=== PATIENT | female | born 1955 | race Caucasian/White ===

== ENCOUNTER 2021-06-01 08:17 | Emergency (ER) | payer OTHER, SELFPAY ==
[2021-06-01 08:27] VITALS: BP 150/61; PULSE 72; RESP 16; TEMP 37; O2SAT 97
--- NOTE | 2021-06-01 08:28 | ED.URI ---
HPI - URI/Sore Throat General Chief Complaint: Upper Respiratory Infection Stated Complaint: CHILLS/HEADACHE Time Seen by Provider: 06/01/21 08:28 Source: patient and RN notes reviewed Mode of arrival: ambulatory Limitations: no limitations History of Present Illness HPI Narrative: 65-year-old female presents to the [facility] with complaints of chills, fatigue, runny nose, for the last one and half days. Has tried Advil and regular aspirin with no relief. Patient states that she is Covid vaccinated, last vaccine April 2021 Denies chest pain, shortness of breath. No abdominal pain. Is eating and drinking without issue. Related Data Home Medications Medication Instructions Recorded Confirmed albuterol sulfate 2 inh INHALATION DIRECTED 06/01/21 06/01/21 budesonide-formoterol [Symbicort] 2 inh INHALATION DAILY 06/01/21 06/01/21 Allergies Allergy/AdvReac Type Severity Reaction Status Date / Time banana Allergy Severe ANAPHALXIS Verified 06/18/17 13:10 Penicillins Allergy Intermediate Verified 01/24/17 13:09 Review of Systems Review of Systems: All systems reviewed & are unremarkable except as noted in HPI and below Constitutional: Constitutional: Reports as per HPI, Reports chills, Reports fatigue, Denies fever(s) and Reports weakness Eyes: Eyes: Reports no additional eye complaints ENT: Reports as per HPI, Denies dizziness, Reports nasal congestion and Denies sore throat Cardiovascular: Cardiovascular: Reports no additional cardiovascular complaints and Denies chest pain Respiratory: Respiratory: Reports no additional respiratory complaints, Denies cough and Denies dyspnea Gastrointestinal: Gastrointestinal: Reports no additional gastrointestinal complaints, Denies abdominal pain, Denies diarrhea, Denies nausea and Denies vomiting Musculoskeletal: Musculoskeletal: Reports no additional musculoskeletal complaints Integumentary/Breasts: Skin/Breast: Reports system reviewed and no additional complaints, except as docu, Denies pruritus, Denies erythema and Denies rash Neurologic: Reports system reviewed and no additional complaints, except as documented, Denies vertigo, Denies headache(s), Denies focal weakness and Denies numbness Psychiatric: Psychiatric: Reports no additional psychiatric complaints Allergic/Immunologic: Allergic/Immunologic: Reports no additional allergic/immunologic complaints, Denies lip swelling, Denies throat swelling, Denies tongue swelling and Denies wheezing [facility] Past Medical History Medical History (Updated 06/01/21 @ 09:06 by Lissette Sena) Thyroid disease Surgical History Surgical History (Updated 06/01/21 @ 08:38 by Lissette Sena) H/O thyroidectomy Family History Family History (Updated 02/28/17 @ 14:57 by DOCTOR UNKNOWN) Other Diabetes mellitus Family history of blood dyscrasia Family history of coronary artery disease Family history of malignant neoplasm Social History Social History Smoking status: Current every day smoker Comments At the time of my signature, I reviewed and agree with the nursing past medical, surgical, social, and family history. There is no relevant family history pertinent to the patient complaint. Exam Const: General: no acute distress, alert and ill appearing acutely (mildly) Nutritional Appearance: obese Orientation/consciousness: patient oriented x3 HENMT: Head: normal to inspection Ears: hearing grossly normal bilaterally, external ears normal, TM's normal bilaterally and EAC's normal General nose exam: Abnormal mucous membranes and turbinates present boggy bilateral and Nasal discharge present clear Face and sinus: normal facial exam and sinuses tender Mouth: Yes Normal oral and palatal mucosa present Throat: uvula midline and postnasal drainage Eyes: Conjunctivae: conjunctivae normal Pupils: Equal, round and reactive pupils present Neck: Neck: normal visual inspection, no lymphadenopathy and no meningeal signs
[2021-06-02 17:52] LABS: SARS-CoV-2 RNA PCR Negative
== END 2021-06-01 09:08 | disposition home or self-care (01) ==
PROVIDERS: Emergency Provider Nurse Practitioner; PCP Family Medicine
DX: B34.9 Viral infection, unspecified (principal); Z20.822 Contact with and (suspected) exposure to COVID-19; E78.00 Pure hypercholesterolemia, unspecified; I10 Essential (primary) hypertension; J44.9 Chronic obstructive pulmonary disease, unspecified; M19.90 Unspecified osteoarthritis, unspecified site; E11.9 Type 2 diabetes mellitus without complications; E03.9 Hypothyroidism, unspecified
CPT/HCPCS: 87804; 99213; C9803; G0463; U0003; U0005

== ENCOUNTER 2021-06-13 12:19 | Emergency (ER) | payer OTHER, SELFPAY ==
--- NOTE | ~2021-06-13 | CT_ITS ---
EXAMINATION: CT abdomen pelvis w con EXAM DATE: 06/13/2021 13:52 INDICATION: Diarrhea, abdominal pain, hx of family colon cancer. TECHNIQUE: Spiral CT of the abdomen and pelvis was performed following intravenous injection of 100 m L Omnipaque 350. Axial, coronal and sagittal images of the abdomen and pelvis were reviewed. The do se-length product (DLP) for this examination was 1180.22 mGy-cm. The exposure was tailored according to patient size (auto mA exposure control), and iterative reconstruction (ASIR) was used as addition al dose reduction technique. Comparison is made to prior examination from 01/30/2018. FINDINGS: There is hepatic steatosis without suspicious focal lesion identified. There is bilateral a drenal hyperplasia. Spleen, pancreas are unremarkable. Gallbladder is unremarkable. No biliary obst ruction. Portal and splenic veins are patent. Kidneys enhance symmetrically. There is no hydroneph rosis. The uterus is anteverted and morphologically normal. The bladder is unremarkable. There i s no retroperitoneal or pelvic lymphadenopathy. There is mild to moderate scattered arterioscleroti c disease. The appendix is normal. The stomach and small bowel are unremarkable. Mild edematous colonic wall, appearance suspicious for colitis. There is mild sigmoid colonic diverticulosis. There is no adjacen t inflammatory change to suggest diverticulitis. No free intraperitoneal gas. The heart is normal in size. There are no pericardial or pleural effusions. The lung bases are unremarkable. There are no osteoblastic or osteolytic lesions identified. Bilateral hip, femoral head serpiginous sclerosis, avascular necrosis without subchondral collapse. Advanced lower lumbar facet arthropathy. IMPRESSION: 1. Probable pancolitis. 2. Hepatic steatosis. 3. Adrenal hyperplasia. 4. Mild colonic diverticulosis. 5. Hip avascular necrosis. Reviewed, dictated and finalized at location A.
--- NOTE | 2021-06-13 12:40 | ED.GENADULT ---
HPI - General Adult General Chief complaint: Nausea/Vomiting/Diarrhea Stated complaint: lost control of bowels Time Seen by Provider: 06/13/21 12:39 Source: patient Mode of arrival: ambulatory Limitations: no limitations History of Present Illness HPI narrative: Patient is a 66-year-old female with a history of COPD, arthritis, hypothyroidism who presents for evaluation of episode of diarrhea and abdominal cramping. Patient states that she was at work this morning when she experienced some abdominal cramping and then had a large volume stool which was loose in nature. No blood present. No mucus. Patient states that she was barely able to make it to the restroom before having the bowel movement. Patient denies any current pain. She reports mild lightheadedness without dizziness. No chest pain or shortness of breath. No palpitations. Patient denies any current abdominal pain. No nausea or vomiting. No recent food indiscretions. No recent sick contacts. Patient is concerned that she may have colon cancer. She states that both parents from colon cancer after not having any typical symptoms. She denies history of cancer. She denies weight loss or night sweats. She denies constipation. Related Data Home Medications Medication Instructions Recorded Confirmed albuterol sulfate 2 inh INHALATION DIRECTED 06/01/21 06/01/21 budesonide-formoterol [Symbicort] 2 inh INHALATION DAILY 06/01/21 06/01/21 Allergies Allergy/AdvReac Type Severity Reaction Status Date / Time banana Allergy Severe ANAPHALXIS Verified 06/13/21 12:46 Penicillins Allergy Intermediate Anaphylaxis Verified 06/13/21 12:46 Review of Systems Review of Systems: CONSTITUTIONAL: Denies fever, chills, or sweats. EYES: Denies visual changes, redness, or discharge. ENT: Denies rhinorrhea, congestion, sore throat, or otalgia. CARDIOVASCULAR: Denies chest pain, palpitations, or edema. RESPIRATORY: Denies cough or dyspnea. GASTROINTESTINAL: Denies current abdominal pain, reports diarrhea, denies nausea or vomiting GENITOURINARY: Denies dysuria or hematuria. SKIN: Denies rash or itching. MUSCULOSKELETAL: Denies back pain, joint pain, or myalgia. NEUROLOGIC: Denies headache, numbness, or weakness. [facility] Past Medical History Medical History Thyroid disease Surgical History Surgical History H/O thyroidectomy Family History Family History Other Diabetes mellitus Family history of blood dyscrasia Family history of coronary artery disease Family history of malignant neoplasm Social History Social History Smoking status: Current every day smoker Exam Narrative: GENERAL: Awake, alert, conversant HEAD: Normocephalic, atraumatic. EYES: PERRLA and EOMI. ENT: Nares clear, no rhinorrhea or epistaxis. Mucous membranes moist. NECK: Supple. CHEST: No respiratory distress, breathing even and non labored HEART: Regular rate, sinus rhythm ABDOMEN:Non distended, non tender, no guarding, nonrigid EXTREMITIES: Normal range of motion. No edema. SKIN: Warm, dry, no rash. NEURO:No focal deficits. Alert and oriented x3 Course Vital Signs Vital signs: Vital Signs Pulse Rate 84 06/13/21 12:41 Respiratory Rate 16 06/13/21 12:41 Blood Pressure 150/83 H 06/13/21 12:41 Pulse Oximetry 97 06/13/21 12:41 Pulse Rate 64 06/13/21 13:57 Respiratory Rate 16 06/13/21 13:57 Blood Pressure 149/81 H 06/13/21 13:57 Pulse Oximetry 97 06/13/21 13:57 Medical Decision Making MDM Narrative Medical decision making narrative: Patient presenting for evaluation of abdominal cramping which has resolved at the time of assessment as well as diarrhea. At the time of assessment, vital signs are stable. She is mildly hypertensive. A
[2021-06-13 12:41] VITALS: BP 150/83; PULSE 84; RESP 16; O2SAT 97
[2021-06-13] MEDS: SODIUM CHLORIDE 0.9% IV 1,000 ML 999 ML IV CONT (13:13)
[2021-06-13 13:15] LABS: Basophils Absolute Auto 0.1 K/mm3 (0.0-0.1); Basophils Percent Auto 0.6 % (0.2-1.2); Eosinophils Absolute Auto 0.2 K/mm3 (0-0.3); Eosinophils Percent Auto 1.4 % (0-4.4); Hematocrit 49.3 % (37.0-47.0); Hemoglobin 15.9 g/dL (12.0-15.0); Immature Granulocyte Absolute 0.03 K/mm3 (0.00-0.031); Immature Granulocyte Percent A 0.3 % (0-0.5); Lymphocytes Absolute Auto 3.66 K/mm3 (0.9-3.2); Lymphocytes Percent Auto 32.6 % (18.3-44.2); Mean Corpuscular HGB Conc 32.3 g/dl (32-36); Mean Corpuscular Hemoglobin 31.3 pg (26-34); Monocytes Absolute Auto 0.9 K/mm3 (0.1-0.6); Monocytes Percent Auto 8.4 % (2.6-8.5); Neutrophils Absolute Auto 6.4 K/mm3 (1.3-6.7); Neutrophils Percent Auto 56.7 % (45.5-73.1); Platelet Count Result 275 k/mm3 (150-375); Red Blood Count 5.08 M/mm3 (4.2-5.4); Red Cell Distribution Width 15.8 % (11.5-14.5); White Blood Count 11.2 K/mm3 (4.5-10.0)
[2021-06-13 13:32] LABS: Alanine Aminotransferase 13 U/L (4-35); Albumin Level 4.1 g/dL (3.5-5.1); Alkaline Phosphatase 157 U/L (38-126); Anion Gap 6 mmol/L (8-16); Aspartate Amino Transferase 23 U/L (14-36); Bilirubin,Total 0.5 mg/dL (0.2-1.3); Blood Urea Nitrogen 10 mg/dL (7-17); Calcium 8.9 mg/dL (8.4-10.2); Carbon Dioxide 26 mmol/L (22-30); Chloride 106 mmol/L (98-107); Estimated Glomerular Filt Rate > 60; Glucose 82 mg/dL (65-110); Lipase 58 U/L (23-300); Potassium 3.8 mmol/L (3.4-5.0); Sodium 138 mmol/L (137-145)
[2021-06-13 13:57] VITALS: BP 149/81; PULSE 64; RESP 16; O2SAT 97
[2021-06-13 15:24] VITALS: BP 133/86; PULSE 88; RESP 16; O2SAT 100
== END 2021-06-13 15:25 | disposition home or self-care (01) ==
PROVIDERS: Emergency Provider Emergency Medicine; PCP Family Medicine
DX: K51.00 Ulcerative (chronic) pancolitis without complications (principal); K57.30 Diverticulosis of large intestine without perforation or abscess without bleeding; J44.9 Chronic obstructive pulmonary disease, unspecified; M19.90 Unspecified osteoarthritis, unspecified site; E03.9 Hypothyroidism, unspecified
CPT/HCPCS: 36415; 74177; 80053; 83690; 85025; 96360; 99284; J7030; Q9967

== ENCOUNTER 2022-05-08 04:34 | Inpatient (IN) | payer OTHER, SELFPAY ==
[2022-05-08] VITALS (31 sets, daily range): BP systolic 137–165; BP diastolic 64–94; PULSE 78–104; RESP 14–28; TEMP 36.6–36.9; O2SAT 92–98; BMI 38.5
--- NOTE | 2022-05-08 | ECHO_ITS ---
Patient Info Name: Adelaida Vasquez Age: 66 years : 1955 Gender: Female Ht: 62 in Wt: 210 lbs BSA: 2.09 m2 HR: 86 bpm BP: 165 / 88 mmHg Heart Rhythm: Sinus Rhythm Exam Date: 05/08/2022 2:56 PM Exam Location: [facility] Patient Status: Outpatient Admit Date: 05/08/2022 Staff Ordering Physician: Kori Dalton MD Driver/Guide: Joaquin Arriaza RDCS, RT Attending Provider: Kori Dalton MD Referring Physician: Krystle SANTIAGO; Exam Type: CA echo doppler color flow Study Info Indications R06.02 - Shortness of breath Complete two-dimensional, color flow and Doppler transthoracic echocardiogram is performed. Strain analysis performed. Summary 1. Complete two-dimensional, color flow and Doppler transthoracic echocardiogram is performed. 2. Normal left ventricular size with mild concentric hypertrophy. Good to hyperdynamic left ventricular systolic function, ejection fraction greater than 70%. No focal wall motion abnormalities. Grade 2 diastolic dysfunction is present. Global longitudinal strain is borderline diminished at -17%. 3. No significant valve disease. 4. Unable to estimate pulmonary artery pressure on this study. 5. Normal sinus rhythm. 6. Technically difficult study due to body habitus. Left Ventricle Left ventricular chamber dimension is normal. Left ventricular systolic function is normal, estimated at >70%. There is mildly increased left ventricular wall thickness. Left ventricular septal wall motion is normal. The left ventricular diastolic function is grade II diastolic dysfunction. Global longitudinal strain is mildly elevated at -17 %. Right Ventricle Right ventricular chamber dimension is normal. Right ventricular systolic function is normal. Left Atria Left atrial chamber dimension is normal. Right Atria Right atrial chamber dimension is normal. Aortic Valve The aortic valve is trileaflet. There is no aortic valve sclerosis. There is no aortic valve stenosis. There is no aortic valve regurgitation. Pulmonic Valve The pulmonic valve is normal. There is no pulmonic valve stenosis. There is no pulmonic regurgitation. Mitral Valve The mitral valve has normal leaflets. There is no mitral valve stenosis. There is no mitral valve regurgitation. Tricuspid Valve The tricuspid valve leaflets are normal. There is no significant tricuspid valve stenosis. There is trace tricuspid valve regurgitation. No pulmonary hypertension, estimated pulmonary arterial systolic pressure is Empty. Pericardium/Pleural The pericardium appears normal. There is no pericardial effusion. Inferior Vena Cava Normal inferior vena cava with >50% collapse upon inspiration consistent with Empty right atrial pressure, Empty. Aorta The aortic root size at the sinus of Valsalva is normal. The prox ascending aorta size is normal. Left Ventricular Outflow Tract Name Value Normal LVOT 2D LVOT Diameter 2.0 cm LVOT Doppler LVOT Peak Gradient 7 mmHg LVOT Mean Gradient 4 mmHg LVOT VTI 29 cm
--- NOTE | ~2022-05-08 | XR_ITS ---
EXAMINATION: XR chest 1V portable DATE: 05/08/2022 05:13 INDICATION: Dyspnea TECHNIQUE: frontal view of the chest was obtained. COMPARISON: Chest radiograph dated 07/22/[address] dated 05/08/2022 at 6:31 AM FINDINGS: Increased lucency in the upper lung zones consistent with mild emphysema better appreciated on subseq uent CT. Mild lingular atelectasis view the apex of the left ventricle. Are small calcified right upp er lobe nodule and calcified right hilar lymph nodes consistent with old granulomatous disease. No pu lmonary edema, pleural effusion or pneumothorax. The cardiomediastinal silhouette is normal. Plate-sc rew fixation for lower cervical anterior spinal fusion. IMPRESSION: 1. Emphysema with mild atelectasis at the lingula. Reviewed, dictated and finalized at location A.
--- NOTE | ~2022-05-08 | CT_ITS ---
EXAMINATION: CTA chest PE protocol DATE: 05/08/2022 06:40 INDICATION: Dyspnea. Chest tightness. TECHNIQUE: Computed tomography (CT) pulmonary angiogram of the chest was performed with 100 mL Omnipa que-350 intravenous contrast. Additional 3D reconstructions utilizing coronal maximum intensity proje ction (MIP) were performed. Automated exposure control and iterative reconstruction technique were em ployed. The dose-length product was 799.50 mGy-cm. COMPARISON: 12/06/2016 FINDINGS: Excellent contrast opacification of the pulmonary arteries. There is mild streak artifact from dense contrast in the superior vena cava and right atrium. Minimal scattered respiratory motion artifact wh ich does not significantly limit evaluation. No pulmonary embolism. Mild emphysema. Minimal dependent atelectasis A couple calcified nodules in the right upper lobe along with calcified right hilar lymp h nodes consistent with old granulomatous disease. No pneumonia, pulmonary edema, pleural effusion or pneumothorax. Heart size is normal. Atherosclerotic coronary artery calcific lesion. No pericardial effusion. Thoracic aorta is normal in caliber with no dissection. No pathologically enlarged thoracic lymphadenopathy. Unchanged mild thickening of the bilateral adrenal glands without discrete nodule. Visualized upper abdomen is unremarkable. Mild upper thoracic levo curvature with severe lower thorac ic spondylosis. Partially visualized plate and screw fixation for anterior spinal fusion at C5-C7. IMPRESSION: 1. No pulmonary embolism or other acute cardiopulmonary disease. 2. Mild emphysema with minimal dependent atelectasis. Reviewed, dictated and finalized at location A.
--- NOTE | ~2022-05-08 | XR_ITS ---
EXAMINATION: XR soft tissue neck DATE: 05/08/2022 13:51 INDICATION: Goiter. TECHNIQUE: 2 views of the neck soft tissues were obtained. COMPARISON: None. FINDINGS: The adenoids, palatine tonsils, prevertebral soft tissues, epiglottis, and airway are alee l. There are changes of anterior fusion procedure in cervical spine. There are surgical clips in the neck. IMPRESSION: 1. Normal neck soft tissues. Reviewed, dictated and finalized at location A.
--- NOTE | 2022-05-08 04:41 | ECG_ITS ---
Measurements Intervals [place] Rate: 99 P: 49 VT: 150 QRS: 75 QRSD: 80 T: 66 QT: 340 QTc: 438 Interpretive Statements SINUS RHYTHM WITH SINUS ARRHYTHMIA BASELINE ARTIFACT- I, III, AVR, AVL, AVF, V2-V3, V5 NORMAL ECG Electronically Signed On 05-08-2022 6:34:09 CDT by Tyler Gordillo D.O.
[2022-05-08] MEDS: ALBUTEROL SULFATE NEB 2.5 MG/3 ML INH 5 MG INHALATION ×2 (04:55→06:09)
[2022-05-08] MEDS: IPRATROPIUM BR 0.02% INH SOLN 0.5 MG/2.5 ML VIAL INHALATION ×7 (04:56→23:47)
--- NOTE | 2022-05-08 05:06 | ED.GENADULT ---
HPI - General Adult General Chief complaint: Shortness of Breath/Dyspnea Stated complaint: sob Time Seen by Provider: 05/08/22 05:04 History of Present Illness HPI narrative: Patient is a 66-year-old female that presents the emergency department with chief complaint of shortness of breath. Patient reports she has history of COPD and over the last week she has been having increasing shortness of breath. The patient reports she has been wheezing has had a nonproductive cough the patient denies fever denies chills states that she is a little bit of tightness in her chest when this happens. Patient reports no peripheral edema reports no PND patient states that she had talked to her primary doctor and that they recommended that she come to the emergency department but she has not had time as she needs to work. The patient states that her primary doctor was planning on doing a echo on her an additional test to make sure that she did not have congestive heart failure. Related Data Home Medications Medication Instructions Recorded Confirmed albuterol sulfate 90 mcg/actuation 2 inh inhalation DIRECTED 06/01/21 05/08/22 aerosol inhaler atorvastatin 20 mg tablet 20 mg PO DAILY 05/08/22 05/08/22 levothyroxine 125 mcg tablet 125 mcg PO DAILY 05/08/22 05/08/22 umeclidinium 62.5 mcg-vilanterol inhalation DAILY 05/08/22 25 mcg/actuation powdr for inhalation (Anoro Ellipta) Allergies Allergy/AdvReac Type Severity Reaction Status Date / Time banana Allergy Severe ANAPHALXIS Verified 05/08/22 05:09 Penicillins Allergy Intermediate Anaphylaxis Verified 05/08/22 05:09 Review of Systems Review of Systems: A 10 system review of systems was completed on the patient and is negative except for what is stated in the HPI. Nursing and ancillary documentation was reviewed. [facility] Past Medical History Medical History Thyroid disease Surgical History Surgical History H/O thyroidectomy Family History Family History Other Diabetes mellitus Family history of blood dyscrasia Family history of coronary artery disease Family history of malignant neoplasm Social History Social History Smoking status: Current every day smoker Comments COPD Exam Narrative: GENERAL: Well-appearing, well-nourished, and in no acute distress. HEAD: Normocephalic, atraumatic. EYES: PERRLA and EOMI. ENT: Nares clear, no rhinorrhea or epistaxis. Mucous membranes moist. NECK: Supple. CHEST: Wheezes to auscultation. No respiratory distress. HEART: Regular rate and rhythm. No murmur heard. Normal peripheral pulses. ABDOMEN: Soft, nontender, nondistended, normal active bowel sounds. EXTREMITIES: Normal range of motion. No edema. SKIN: Warm, dry, no rash. NEURO: No focal deficits. Alert and oriented x3. PSYCH: Normal mood and affect. Course Vital Signs Vital signs: Vital Signs Temperature 36.6 C 05/08/22 04:35 Pulse Rate 103 H 05/08/22 04:35 Respiratory Rate 20 05/08/22 04:35 Blood Pressure 152/94 H 05/08/22 04:35 Pulse Oximetry 96 05/08/22 04:35 Oxygen Delivery Room Air 05/08/22 04:35 Temperature 36.6 C 05/08/22 04:35 Pulse Rate 88 05/08/22 07:01 Respiratory Rate 22 H 05/08/22 07:01 Blood Pressure 143/64 H 05/08/22 07:01 Pulse Oximetry 94 05/08/22 07:01 Oxygen Delivery Nasal Cannula 05/08/22 06:11 Oxygen Flow Rate 2 05/08/22 06:11 Medical Decision Making Vital Signs Vital Signs: Vital Signs Temperature 36.6 C 05/08/22 04:35 Pulse Rate 103 H 05/08/22 04:35 Respiratory Rate 20 05/08/22 04:35 Blood Pressure 152/94 H 05/08/22 04:35 Pulse Oximetry 96 05/08/22 04:35 Oxygen Delivery Room Air 05/08/22 04:35 Temperature 36
[2022-05-08 05:17] LABS: Basophils Absolute Auto 0.1 K/mm3 (0.0-0.1); Basophils Percent Auto 0.8 % (0.2-1.2); Eosinophils Absolute Auto 0.2 K/mm3 (0-0.3); Eosinophils Percent Auto 1.6 % (0-4.4); Hematocrit 49.3 % (37.0-47.0); Hemoglobin 15.2 g/dL (12.0-15.0); Immature Granulocyte Absolute 0.05 K/mm3 (0.00-0.031); Immature Granulocyte Percent A 0.5 % (0-0.5); Lymphocytes Absolute Auto 2.46 K/mm3 (0.9-3.2); Lymphocytes Percent Auto 22.7 % (18.3-44.2); Mean Corpuscular HGB Conc 30.8 g/dl (32-36); Mean Corpuscular Hemoglobin 29.7 pg (26-34); Mean Corpuscular Volume 96.5 fl (80-100); Mean Platelet Volume 9.7 fl (7.4-10.4); Monocytes Absolute Auto 0.7 K/mm3 (0.1-0.6); Neutrophils Absolute Auto 7.4 K/mm3 (1.3-6.7); Neutrophils Percent Auto 68.4 % (45.5-73.1); Platelet Count Result 346 k/mm3 (150-375); Red Blood Count 5.11 M/mm3 (4.2-5.4); Red Cell Distribution Width 15.4 % (11.5-14.5); White Blood Count 10.8 K/mm3 (4.5-10.0)
[2022-05-08] MEDS: methylPREDNISolone SOD SUCC 125 MG VIAL IV PUSH (05:23)
--- NOTE | 2022-05-08 05:23 | PC.NURSE ---
Pt placed on 2 L NC O2 due to discomfort and increased WOB. Pt is upright on stretcher.
[2022-05-08 05:25] LABS: INR 0.9; Prothrombin Time 12.2 Seconds (11.1-14.7)
[2022-05-08 05:26] LABS: Partial Thromboplastin Time 29.5 SECONDS (22.3-36.8)
[2022-05-08 05:37] LABS: NT Pro B Type Natriuretic Pept 142 pg/mL (5-100); Troponin I < 0.012 ng/mL (0.000-0.034)
[2022-05-08 05:39] LABS: Lactic Acid Reflex 2.7 mmol/L (0.7-2.0)
[2022-05-08 05:51] LABS: Alanine Aminotransferase 20 U/L (6-35); Albumin Level 4.1 g/dL (3.5-5.1); Alkaline Phosphatase 192 U/L (38-126); Anion Gap 8 mmol/L (8-16); Aspartate Amino Transferase 27 U/L (14-36); Bilirubin,Total 0.5 mg/dL (0.2-1.3); Blood Urea Nitrogen 22 mg/dL (7-17); Calcium 8.6 mg/dL (8.4-10.2); Carbon Dioxide 24 mmol/L (22-30); Chloride 107 mmol/L (98-107); Estimated CRCL calculation 54 ml/min; Estimated Glomerular Filt Rate 56; Glucose 176 mg/dL (65-110); Potassium 4.4 mmol/L (3.4-5.0); Sodium 139 mmol/L (137-145)
[2022-05-08 06:05] LABS: Influenza A QL RT-PCR Negative (Negative); Influenza B QL RT-PCR Negative (Negative); SARS-CoV-2 RNA PCR Negative
[2022-05-08 07:20] LABS: Procalcitonin 0.1 ng/mL
[2022-05-08] MEDS: ALBUTEROL SULFATE NEB 2.5 MG/3 ML INH INHALATION ×5 (07:34→23:46)
[2022-05-08 08:26] LABS: Reflex Lactic Acid Yes or No Add Lactic
--- NOTE | 2022-05-08 08:50 | PC.NURSE ---
Heart healthy food tray ordered for pt at this time.
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
[2022-05-08 09:08] LABS: Lactic Acid 2.5 mmol/L (0.7-2.0)
[2022-05-08] MEDS: LEVOTHYROXINE SODIUM 125 MCG TABLET PO (09:35)
[2022-05-08] MEDS: ATORVASTATIN 20 MG TABLET PO (09:35)
[2022-05-08] MEDS: ENOXAPARIN 40 MG/0.4 ML SYRINGE SUB-Q (09:36)
--- NOTE | 2022-05-08 12:20 | ADMGEN ---
This patient, Adelaida Vasquez, was admitted to [facility] Surg Room 307-02. Patient/family oriented to hospital policies and general routines including ID bracelet, bed and alarms, visiting hours, pain management, procedures, bathroom and other care routines, personal items, smoking policy, room service/diet, and visiting hours. Information on how to activate the Rapid Response Team has been discussed. Patient/Family are encouraged to report perceived risks to care and to ask questions if they do not understand what they are told or what they should do.
--- NOTE | 2022-05-08 12:25 | ADMGEN ---
This patient, Adelaida Vasquez, was admitted to [facility] Room 307-02. Patient/family oriented to hospital policies and general routines including ID bracelet, bed and alarms, visiting hours, pain management, procedures, bathroom and other care routines, personal items, smoking policy, room service/diet, and visiting hours. Information on how to activate the Rapid Response Team has been discussed. Patient/Family are encouraged to report perceived risks to care and to ask questions if they do not understand what they are told or what they should do.
[2022-05-08 13:37] LABS: Free T4 Free Thyroxine 0.96 ng/mL (0.78-2.19)
[2022-05-08 13:37] LABS: Lactic Acid Reflex 2.7 mmol/L (0.7-2.0)
--- NOTE | 2022-05-08 13:43 | PC.NURSE ---
to Ultrasound per w/c
--- NOTE | 2022-05-08 13:56 | PC.NURSE ---
patient returning to room from ultrasound
[2022-05-08] MEDS: methylPREDNISolone SOD SUCC 125 MG VIAL 60 MG IV PUSH ×2 (14:01→21:58)
[2022-05-08 14:07] LABS: Hemoglobin A1C 6.2 % (<5.7)
[2022-05-08 22:49] LABS: Glucose Point of Care 168 mg/dl (65-105)
[2022-05-09] VITALS (13 sets, daily range): BP systolic 105–168; BP diastolic 49–96; PULSE 74–107; RESP 14–18; TEMP 35.9–36.6; O2SAT 93–98
[2022-05-09] MEDS: LACTATED RINGERS 1,000 ML 100 ML IV CONT (00:15)
[2022-05-09] MEDS: IPRATROPIUM BR 0.02% INH SOLN 0.5 MG/2.5 ML VIAL INHALATION ×4 (04:53→21:30)
[2022-05-09] MEDS: ALBUTEROL SULFATE NEB 2.5 MG/3 ML INH INHALATION ×4 (04:53→21:30)
[2022-05-09] MEDS: LEVOTHYROXINE SODIUM 125 MCG TABLET PO (06:00)
[2022-05-09 06:26] LABS: Basophils Absolute Auto 0.1 K/mm3 (0.0-0.1); Basophils Percent Auto 0.2 % (0.2-1.2); Hematocrit 47.2 % (37.0-47.0); Hemoglobin 14.7 g/dL (12.0-15.0); Immature Granulocyte Absolute 0.24 K/mm3 (0.00-0.031); Immature Granulocyte Percent A 1.1 % (0-0.5); Lymphocytes Absolute Auto 1.67 K/mm3 (0.9-3.2); Lymphocytes Percent Auto 7.4 % (18.3-44.2); Mean Corpuscular HGB Conc 31.1 g/dl (32-36); Mean Corpuscular Hemoglobin 29.9 pg (26-34); Mean Corpuscular Volume 96.1 fl (80-100); Mean Platelet Volume 9.6 fl (7.4-10.4); Monocytes Absolute Auto 0.7 K/mm3 (0.1-0.6); Neutrophils Absolute Auto 20.1 K/mm3 (1.3-6.7); Neutrophils Percent Auto 88.3 % (45.5-73.1); Platelet Count Result 341 k/mm3 (150-375); Red Blood Count 4.91 M/mm3 (4.2-5.4); Red Cell Distribution Width 15.2 % (11.5-14.5); White Blood Count 22.7 K/mm3 (4.5-10.0)
[2022-05-09 06:39] LABS: Anion Gap 8 mmol/L (8-16); Blood Urea Nitrogen 20 mg/dL (7-17); Calcium 8.9 mg/dL (8.4-10.2); Carbon Dioxide 26 mmol/L (22-30); Chloride 104 mmol/L (98-107); Estimated CRCL calculation 54 ml/min; Estimated Glomerular Filt Rate 56; Glucose 148 mg/dL (65-110); Potassium 4.2 mmol/L (3.4-5.0); Sodium 138 mmol/L (137-145)
--- NOTE | 2022-05-09 08:12 | PM.IMPN ---
Progress Note: A&P Assessment and Plan (1) Shortness of breath: Code(s): R06.02 - Shortness of breath Status: Acute Assessment and Plan: No known cardiac hx. Troponin negative. CT chest with no pneumonia, pulmonary edema, pleural effusion or pulmonary embolism. BNP 142. Planned for sleep study. Emphysematous changes on CXR and CT chest. Hx thyroidectomy and low suspicion for airway obstruction. Echo w/ EF 70% with grade II diastolic dysfunction. BCX 1/2 with gram positive cocci clusters. -Started Ceftriaxone 2 gm IV daily and azithromycin -F/U BCX -Duo nebs q4h -Prednisone 40 mg po daily (2) COPD with acute exacerbation: Code(s): J44.1 - Chronic obstructive pulmonary disease with (acute) exacerbation Status: Acute Assessment and Plan: -See plan as noted above (3) Leukocytosis: Code(s): D72.829 - Elevated white blood cell count, unspecified Status: Acute Assessment and Plan: Elevated lactic acid. Afebrile. No upper respiratory symptoms. No urinary symptoms. Will monitor fever curve and defer antibiotics for now. (4) Polycythemia: Code(s): D75.1 - Secondary polycythemia Status: Acute Assessment and Plan: Likely due to chronic hypoxia while smoking and may be dehydration -erythropoietin (5) Hypothyroidism: Onset Date: 01/27/17 Code(s): E03.9 - Hypothyroidism, unspecified Status: Acute Assessment and Plan: Acquired s/p thyroidectomy. Continue home levothyroxine. Will monitor. (6) Hyperlipidemia: Code(s): E78.5 - Hyperlipidemia, unspecified Status: Acute Assessment and Plan: Takes statin at home. Continue home medication. (7) BMI 38.0-38.9,adult: Code(s): Z68.38 - Body mass index [BMI] 38.0-38.9, adult Status: Acute Assessment and Plan: A1c 6.2. Prediabetes. -certified adaptive physical educator consult Additional Plan Full Code Enoxaparin DVT prophylaxis Subjective Date/time seen: 05/09/22 08:12 Patient says she feels much better and is very worried she has heart failure. Denies chest pain. Says she can walk to the bathroom. Says her breathing is easier and she isn't struggling like she was when she came to the emergency department. Her main concern now is her left wrist where her IV infiltrated is very painful. Review of Systems Respiratory: Respiratory: Denies cough, Denies dyspnea, Denies dyspnea on exertion and Denies wheezing Exam Narrative: GENERAL: NAD, cooperative HEENT: Normocephalic, atraumatic, anicteric NECK:Supple, s/p thyroidectomy, CV: Normal S1, S2, RRR, No MRG RESP: Improved a few expiratory wheezes but much less than yesterday. No crackles or rhonchi. EXTREMITIES: Warm and well perfused, no clubbing, cyanosis. Left arm just above wrist with swelling. palpable left radial pulse and good cap refill. Hand is warm. SKIN: warm, dry and intact. NEURO: CN 2-12 grossly intact. Objective Data Vital Signs Vital Signs: Vital Signs - 24 hr 05/08/22 08:42 05/08/22 11:47 05/08/22 12:29 Temperature 97.8 F Pulse Rate 87 82 82 Respiratory Rate 19 17 14 Blood Pressure 141/72 H 141/72 H 165/88 H Pulse Oximetry 93 94 95 Oxygen Delivery Oxygen Flow Rate 05/08/22 12:45 05/08/22 13:06 05/08/22 13:14 Temperature Pulse Rate 91 89 Respiratory Rate 18 18 Blood Pressure Pulse Oximetry 95 Oxygen Delivery Nasal Cannula Oxygen Flow Rate 2 05/08/22 16:00 05/08/22 16:50 05/08/22 16:58 Temperature 98.2 F Pulse Rate 83 92 93 Respiratory Rate 14 18 18 Blood Pressure 137/70 Pulse Oximetry 93 Oxygen Delivery Oxygen Flow Rate 05/08/22 20:42 05/08/22 20:42 05/08/22 20:00 Temperature 98.4 F Pulse Rate 90 89 Respiratory Rate 16 18 Blood Pressure 152/70 H Pulse Oximetry 92 95 Oxygen Delivery Nasal Cannula Oxygen Flow Rate 2 05/08/22 20:57 04/20
[2022-05-09] MEDS: predniSONE 20 MG TABLET 40 MG PO (08:30)
[2022-05-09] MEDS: ENOXAPARIN 40 MG/0.4 ML SYRINGE SUB-Q (08:30)
[2022-05-09] MEDS: ATORVASTATIN 20 MG TABLET PO (08:31)
[2022-05-09 08:44] LABS: Glucose Point of Care 214 mg/dl (65-105)
[2022-05-09 09:05] LABS: Lactic Acid Reflex 3.1 mmol/L (0.7-2.0)
[2022-05-09] MEDS: cefTRIAXone 2 GM in SODIUM CHLORIDE 0.9% IV 100 ML 200 ML IVPB (09:31)
[2022-05-09 11:49] LABS: Glucose Point of Care 167 mg/dl (65-105)
[2022-05-09 11:51] LABS: Reflex Lactic Acid Yes or No Add Lactic
[2022-05-09 12:35] LABS: Lactic Acid 2.5 mmol/L (0.7-2.0)
--- NOTE | 2022-05-09 13:59 | PCCCNOTE ---
On 05/09/22, the student, Mariel To, provided care and completed [facility] documentation on this patient. I have reviewed the student's documentation and agree with the findings.
[2022-05-09] MEDS: ACETAMINOPHEN 325 MG TABLET 650 MG PO (14:36)
--- NOTE | 2022-05-09 16:50 | PC.NURSE ---
Called Emily, life skills educator to notify her of order for consult. Emily stated she will be in tomorrow 05/10 to speak with patient.
[2022-05-09] MEDS: traMADol HCL (*CRX) 50 MG TABLET PO (20:57)
[2022-05-09 21:36] LABS: Glucose Point of Care 177 mg/dl (65-105)
[2022-05-10] VITALS (11 sets, daily range): BP systolic 121–186; BP diastolic 57–77; PULSE 72–96; RESP 16–20; TEMP 36.2–36.8; O2SAT 93–96; BMI 38.5
[2022-05-10] MEDS: ALBUTEROL SULFATE NEB 2.5 MG/3 ML INH INHALATION ×4 (03:13→16:02)
[2022-05-10] MEDS: IPRATROPIUM BR 0.02% INH SOLN 0.5 MG/2.5 ML VIAL INHALATION ×4 (03:13→16:02)
[2022-05-10] MEDS: LEVOTHYROXINE SODIUM 125 MCG TABLET PO (05:44)
[2022-05-10 06:24] LABS: Basophils Percent Auto 0.2 % (0.2-1.2); Eosinophils Percent Auto 0.2 % (0-4.4); Hematocrit 44.8 % (37.0-47.0); Hemoglobin 14.2 g/dL (12.0-15.0); Immature Granulocyte Absolute 0.16 K/mm3 (0.00-0.031); Lymphocytes Absolute Auto 2.94 K/mm3 (0.9-3.2); Lymphocytes Percent Auto 18.1 % (18.3-44.2); Mean Corpuscular HGB Conc 31.7 g/dl (32-36); Mean Corpuscular Hemoglobin 29.9 pg (26-34); Mean Corpuscular Volume 94.3 fl (80-100); Mean Platelet Volume 9.9 fl (7.4-10.4); Monocytes Absolute Auto 1.1 K/mm3 (0.1-0.6); Monocytes Percent Auto 6.9 % (2.6-8.5); Neutrophils Percent Auto 73.6 % (45.5-73.1); Platelet Count Result 334 k/mm3 (150-375); Red Blood Count 4.75 M/mm3 (4.2-5.4); Red Cell Distribution Width 15.4 % (11.5-14.5); White Blood Count 16.2 K/mm3 (4.5-10.0)
[2022-05-10 06:49] LABS: Anion Gap 6 mmol/L (8-16); Blood Urea Nitrogen 29 mg/dL (7-17); Calcium 8.4 mg/dL (8.4-10.2); Carbon Dioxide 26 mmol/L (22-30); Chloride 106 mmol/L (98-107); Estimated CRCL calculation 54 ml/min; Estimated Glomerular Filt Rate 56; Glucose 110 mg/dL (65-110); Potassium 4.2 mmol/L (3.4-5.0); Sodium 138 mmol/L (137-145)
--- NOTE | 2022-05-10 07:26 | PM.IMPN ---
Progress Note: A&P Assessment and Plan (1) Shortness of breath: Code(s): R06.02 - Shortness of breath Status: Acute Assessment and Plan: No known cardiac hx. Troponin negative. CT chest with no pneumonia, pulmonary edema, pleural effusion or pulmonary embolism. BNP 142. Planned for sleep study. Emphysematous changes on CXR and CT chest. Hx thyroidectomy and low suspicion for airway obstruction. Echo w/ EF 70% with grade II diastolic dysfunction. BCX 1/2 with gram staphylococcus hominus, which is likely a contaminant. Will resend blood cultures today and continue antibiotics for now with plan to stop once repeat cultures are negative x 24 hours. -Ceftriaxone 2g IV daily -Azithromycin should be able to be stopped on 05/11/22 -Duo nebs q4h -Prednisone 40 mg po daily (2) COPD with acute exacerbation: Code(s): J44.1 - Chronic obstructive pulmonary disease with (acute) exacerbation Status: Acute Assessment and Plan: -See plan as noted above (3) Leukocytosis: Code(s): D72.829 - Elevated white blood cell count, unspecified Status: Acute Assessment and Plan: Afebrile with no urinary sx. No upper respiratory symptoms. Having COPD exacerbation and is on prednisone. This has likely caused the leukocytosis to worsen. Will monitor. (4) Polycythemia: Code(s): D75.1 - Secondary polycythemia Status: Acute Assessment and Plan: Likely due to chronic hypoxia while smoking and may be dehydration. Erythropoietin pending. This has resolved on labs. (5) Hypothyroidism: Onset Date: 01/27/17 Code(s): E03.9 - Hypothyroidism, unspecified Status: Acute Assessment and Plan: Acquired s/p thyroidectomy. Continue home levothyroxine. Will monitor. (6) Hyperlipidemia: Code(s): E78.5 - Hyperlipidemia, unspecified Status: Acute Assessment and Plan: Takes statin at home. Continue home medication. (7) BMI 38.0-38.9,adult: Code(s): Z68.38 - Body mass index [BMI] 38.0-38.9, adult Status: Acute Assessment and Plan: A1c 6.2. Prediabetes. nursing educator was consulted. Additional Plan Full Code Enoxaparin DVT prophylaxis Subjective Date/time seen: 05/10/22 07:26 Patient says she feels much better. She says her breathing is much better but that she felt wiped out after taking a shower this morning. Review of Systems Constitutional: Constitutional: Reports lethargy Respiratory: Respiratory: Denies dyspnea Exam Narrative: GENERAL: NAD, cooperative HEENT: Normocephalic, atraumatic, anicteric NECK:Supple, s/p thyroidectomy, CV: Normal S1, S2, RRR, No MRG RESP: Improved a few expiratory wheezes but much less than yesterday. No crackles or rhonchi. EXTREMITIES: Warm and well perfused, no clubbing, cyanosis. Left arm just above wrist with swelling. palpable left radial pulse and good cap refill. Hand is warm. SKIN: warm, dry and intact. NEURO: CN 2-12 grossly intact. Objective Data Vital Signs Vital Signs: Vital Signs - 24 hr 05/09/22 08:02 05/09/22 08:02 05/09/22 13:15 Temperature Pulse Rate 86 76 Respiratory Rate 16 18 Blood Pressure Pulse Oximetry 96 Oxygen Delivery Nasal Cannula Oxygen Flow Rate 2 Fraction of Inspired Oxygen 05/09/22 13:24 05/09/22 14:00 05/09/22 08:00 Temperature 97.2 F L Pulse Rate 86 107 H Respiratory Rate 16 16 Blood Pressure 168/96 H Pulse Oximetry 95 94 Oxygen Delivery Nasal Cannula Oxygen Flow Rate 2 Fraction of Inspired Oxygen 05/09/22 21:30 05/09/22 21:40 05/09/22 22:06 Temperature Pulse Rate 79 81 79 Respiratory Rate 18 18 Blood Pressure Pulse Oximetry 93 Oxygen Delivery Room Air Oxygen Flow Rate Fraction of Inspired Oxygen 05/09/22 22:00 05/09/22 20:00 05/10/22 03:14 Temperature 96.7 F L Pulse Rate 80 78 Respir
[2022-05-10] MEDS: ENOXAPARIN 40 MG/0.4 ML SYRINGE SUB-Q (08:35)
[2022-05-10] MEDS: ATORVASTATIN 20 MG TABLET PO (08:35)
[2022-05-10] MEDS: predniSONE 20 MG TABLET 40 MG PO (08:35)
[2022-05-10] MEDS: cefTRIAXone 2 GM in SODIUM CHLORIDE 0.9% IV 100 ML IVPB (08:36)
[2022-05-10 12:08] LABS: Glucose Point of Care 109 mg/dl (65-105)
[2022-05-10] MEDS: traMADol HCL (*CRX) 50 MG TABLET PO (19:33)
[2022-05-10] MEDS: hydrOXYzine HCL 25 MG TABLET PO (21:00)
[2022-05-11] VITALS (12 sets, daily range): BP systolic 102–148; BP diastolic 62–92; PULSE 64–92; RESP 16–18; TEMP 36–36.6; O2SAT 90–94
[2022-05-11] MEDS: hydrOXYzine HCL 25 MG TABLET PO ×3 (05:33→19:47)
[2022-05-11] MEDS: LEVOTHYROXINE SODIUM 125 MCG TABLET PO (05:33)
[2022-05-11 06:22] LABS: Basophils Absolute Auto 0.1 K/mm3 (0.0-0.1); Basophils Percent Auto 0.6 % (0.2-1.2); Eosinophils Absolute Auto 0.1 K/mm3 (0-0.3); Eosinophils Percent Auto 0.7 % (0-4.4); Hematocrit 43.6 % (37.0-47.0); Hemoglobin 14.1 g/dL (12.0-15.0); Immature Granulocyte Percent A 1.6 % (0-0.5); Lymphocytes Absolute Auto 3.75 K/mm3 (0.9-3.2); Mean Corpuscular HGB Conc 32.3 g/dl (32-36); Mean Corpuscular Hemoglobin 30.2 pg (26-34); Mean Corpuscular Volume 93.4 fl (80-100); Mean Platelet Volume 9.5 fl (7.4-10.4); Monocytes Absolute Auto 1.1 K/mm3 (0.1-0.6); Monocytes Percent Auto 8.5 % (2.6-8.5); Neutrophils Absolute Auto 7.3 K/mm3 (1.3-6.7); Neutrophils Percent Auto 58.6 % (45.5-73.1); Platelet Count Result 302 k/mm3 (150-375); Red Blood Count 4.67 M/mm3 (4.2-5.4); Red Cell Distribution Width 15.5 % (11.5-14.5); White Blood Count 12.5 K/mm3 (4.5-10.0)
[2022-05-11 06:29] LABS: Anion Gap 1 mmol/L (8-16); Blood Urea Nitrogen 25 mg/dL (7-17); Calcium 7.7 mg/dL (8.4-10.2); Carbon Dioxide 31 mmol/L (22-30); Chloride 106 mmol/L (98-107); Estimated CRCL calculation 49 ml/min; Estimated Glomerular Filt Rate 50; Glucose 80 mg/dL (65-110); Potassium 4.3 mmol/L (3.4-5.0); Sodium 138 mmol/L (137-145)
[2022-05-11] MEDS: ALBUTEROL SULFATE NEB 2.5 MG/3 ML INH INHALATION ×4 (07:46→20:19)
[2022-05-11] MEDS: IPRATROPIUM BR 0.02% INH SOLN 0.5 MG/2.5 ML VIAL INHALATION ×4 (07:46→20:19)
[2022-05-11 07:50] LABS: Glucose Point of Care 87 mg/dl (65-105)
[2022-05-11] MEDS: predniSONE 20 MG TABLET 40 MG PO (08:21)
[2022-05-11] MEDS: ENOXAPARIN 40 MG/0.4 ML SYRINGE SUB-Q (08:22)
[2022-05-11] MEDS: ATORVASTATIN 20 MG TABLET PO (08:22)
[2022-05-11] MEDS: cefTRIAXone 2 GM in SODIUM CHLORIDE 0.9% IV 100 ML IVPB (09:29)
--- NOTE | 2022-05-11 10:22 | PM.IMPN ---
Progress Note: A&P Assessment and Plan (1) Shortness of breath: Code(s): R06.02 - Shortness of breath Status: Acute Assessment and Plan: No known cardiac hx. Troponin negative. CT chest with no pneumonia, pulmonary edema, pleural effusion or pulmonary embolism. BNP 142. Planned for sleep study. Emphysematous changes on CXR and CT chest. Hx thyroidectomy and low suspicion for airway obstruction. Echo w/ EF 70% with grade II diastolic dysfunction. BCX 1/2 with gram staphylococcus hominus, which is likely a contaminant. Will resend blood cultures today and continue antibiotics for now with plan to stop once repeat cultures are negative x 24 hours. -Ceftriaxone 2g IV daily -Azithromycin should be able to be stopped on 05/11/22 -Duo nebs q4h -Prednisone 40 mg po daily (2) COPD with acute exacerbation: Code(s): J44.1 - Chronic obstructive pulmonary disease with (acute) exacerbation Status: Acute Assessment and Plan: -See plan as noted above (3) Leukocytosis: Code(s): D72.829 - Elevated white blood cell count, unspecified Status: Acute Assessment and Plan: Afebrile with no urinary sx. No upper respiratory symptoms. Having COPD exacerbation and is on prednisone. This has likely caused the leukocytosis to worsen. Will monitor. (4) Polycythemia: Code(s): D75.1 - Secondary polycythemia Status: Acute Assessment and Plan: Likely due to chronic hypoxia while smoking and may be dehydration. Erythropoietin pending. This has resolved on labs. (5) Hypothyroidism: Onset Date: 01/27/17 Code(s): E03.9 - Hypothyroidism, unspecified Status: Acute Assessment and Plan: Acquired s/p thyroidectomy. Continue home levothyroxine. Will monitor. (6) Hyperlipidemia: Code(s): E78.5 - Hyperlipidemia, unspecified Status: Acute Assessment and Plan: Takes statin at home. Continue home medication. (7) BMI 38.0-38.9,adult: Code(s): Z68.38 - Body mass index [BMI] 38.0-38.9, adult Status: Acute Assessment and Plan: A1c 6.2. Prediabetes. natural resources extension educator was consulted. Additional Plan 05/11/22 Patient is clinically improving. Plan is to continue current treatment. Cultures are pending. Increase activity as tolerated. Full Code Enoxaparin DVT prophylaxis Subjective Date/time seen: 05/11/22 10:22 Patient was seen during the morning rounds today. Patient breathing is slightly better. Mild shortness of breath, no chest pain. No abdominal pain, nausea, no vomiting. Mood stable. Review of Systems Constitutional: Constitutional: Denies body ache(s), Denies chills, Reports fatigue, Reports headache(s) and Reports lethargy ENT: Reports Normal hearing present, Reports headache(s), Denies nasal congestion and Denies nasal discharge Cardiovascular: Cardiovascular: Denies dyspnea and Denies dyspnea on exertion Respiratory: Respiratory: Denies chest congestion, Denies cough, Denies dyspnea, Denies dyspnea on exertion and Denies wheezing Gastrointestinal: Gastrointestinal: Denies abdominal pain, Denies nausea and Denies vomiting Genitourinary: Genitourinary: Denies nocturia, Denies dysuria, Denies flank pain and Denies urinary urgency Neurologic: Reports Normal hearing present, Denies confusion and Reports headache(s) Psychiatric: Psychiatric: Denies confusion Endocrine: Endocrine: Reports fatigue Allergic/Immunologic: Allergic/Immunologic: Denies seasonal rhinorrhea and Denies wheezing Exam Narrative: GENERAL: NAD, cooperative HEENT: Normocephalic, atraumatic, anicteric NECK:Supple, s/p thyroidectomy, CV: Normal S1, S2, RRR, No MRG RESP: Improved a few expiratory wheezes but much less than yesterday. No crackles or rhonchi. EXTREMITIES: Warm and well perfused, no clubbing, cyanosis. Left arm just above wrist with swelling. palpab
[2022-05-11 18:51] LABS: Glucose Point of Care 248 mg/dl (65-105)
[2022-05-11 20:31] LABS: Glucose Point of Care 180 mg/dl (65-105)
[2022-05-12] VITALS (9 sets, daily range): BP systolic 141–150; BP diastolic 73–76; PULSE 62–81; RESP 16–20; TEMP 36–36.4; O2SAT 92–97
[2022-05-12] MEDS: ALBUTEROL SULFATE NEB 2.5 MG/3 ML INH INHALATION ×4 (00:15→19:47)
[2022-05-12] MEDS: IPRATROPIUM BR 0.02% INH SOLN 0.5 MG/2.5 ML VIAL INHALATION ×4 (00:15→19:47)
[2022-05-12] MEDS: hydrOXYzine HCL 25 MG TABLET PO ×3 (02:23→23:28)
[2022-05-12] MEDS: LEVOTHYROXINE SODIUM 125 MCG TABLET PO (05:46)
[2022-05-12 06:28] LABS: Hemoglobin 14.5 g/dL (12.0-15.0); Mean Corpuscular HGB Conc 30.9 g/dl (32-36); Mean Corpuscular Hemoglobin 29.4 pg (26-34); Mean Corpuscular Volume 95.1 fl (80-100); Mean Platelet Volume 9.3 fl (7.4-10.4); Platelet Count Result 303 k/mm3 (150-375); Red Blood Count 4.94 M/mm3 (4.2-5.4); Red Cell Distribution Width 15.5 % (11.5-14.5); White Blood Count 12.9 K/mm3 (4.5-10.0)
[2022-05-12 07:57] LABS: Glucose Point of Care 86 mg/dl (65-105)
[2022-05-12] MEDS: predniSONE 20 MG TABLET 40 MG PO (08:29)
[2022-05-12] MEDS: cefTRIAXone 2 GM in SODIUM CHLORIDE 0.9% IV 100 ML IVPB (08:29)
[2022-05-12] MEDS: ENOXAPARIN 40 MG/0.4 ML SYRINGE SUB-Q (08:29)
[2022-05-12] MEDS: ATORVASTATIN 20 MG TABLET PO (08:29)
[2022-05-12] MEDS: traMADol HCL (*CRX) 50 MG TABLET PO ×2 (08:31→14:52)
--- NOTE | 2022-05-12 13:08 | PM.IMPN ---
Progress Note: A&P Assessment and Plan (1) Shortness of breath: Code(s): R06.02 - Shortness of breath Status: Acute Assessment and Plan: No known cardiac hx. Troponin negative. CT chest with no pneumonia, pulmonary edema, pleural effusion or pulmonary embolism. BNP 142. Planned for sleep study. Emphysematous changes on CXR and CT chest. Hx thyroidectomy and low suspicion for airway obstruction. Echo w/ EF 70% with grade II diastolic dysfunction. BCX 1/2 with gram staphylococcus hominus, which is likely a contaminant. Will resend blood cultures today and continue antibiotics for now with plan to stop once repeat cultures are negative x 24 hours. -Ceftriaxone 2g IV daily -Azithromycin daily -Duo nebs q4h -Prednisone 40 mg po daily (2) COPD with acute exacerbation: Code(s): J44.1 - Chronic obstructive pulmonary disease with (acute) exacerbation Status: Acute Assessment and Plan: -See plan as noted above (3) Leukocytosis: Code(s): D72.829 - Elevated white blood cell count, unspecified Status: Acute Assessment and Plan: Afebrile with no urinary sx. No upper respiratory symptoms. Having COPD exacerbation and is on prednisone. This has likely caused the leukocytosis to worsen. Will monitor. (4) Polycythemia: Code(s): D75.1 - Secondary polycythemia Status: Acute Assessment and Plan: Likely due to chronic hypoxia while smoking and may be dehydration. Erythropoietin pending. This has resolved on labs. (5) Hypothyroidism: Onset Date: 01/27/17 Code(s): E03.9 - Hypothyroidism, unspecified Status: Acute Assessment and Plan: Acquired s/p thyroidectomy. Continue home levothyroxine. Will monitor. (6) Hyperlipidemia: Code(s): E78.5 - Hyperlipidemia, unspecified Status: Acute Assessment and Plan: Takes statin at home. Continue home medication. (7) BMI 38.0-38.9,adult: Code(s): Z68.38 - Body mass index [BMI] 38.0-38.9, adult Status: Acute Assessment and Plan: A1c 6.2. Prediabetes. clinical document improvement educator was consulted. Additional Plan 05/11/22 Patient is clinically improving. Plan is to continue current treatment. Cultures are pending. Increase activity as tolerated. 05/12/2022 patient is feeling much better. Plan is to continue treatment and discharge in the morning. Full Code Enoxaparin DVT prophylaxis Subjective Date/time seen: 05/12/22 13:08 Patient was seen during the morning rounds today. Patient is feeling much better. Decreased shortness of breath. No chest pain. No abdominal pain, no nausea, no vomiting. Mood stable. The Review of Systems Constitutional: Constitutional: Denies body ache(s), Denies chills, Reports fatigue, Reports headache(s) and Reports lethargy ENT: Reports Normal hearing present, Reports headache(s), Denies nasal congestion and Denies nasal discharge Cardiovascular: Cardiovascular: Denies dyspnea and Denies dyspnea on exertion Respiratory: Respiratory: Denies chest congestion, Denies cough, Denies dyspnea, Denies dyspnea on exertion and Denies wheezing Gastrointestinal: Gastrointestinal: Denies abdominal pain, Denies nausea and Denies vomiting Genitourinary: Genitourinary: Denies nocturia, Denies dysuria, Denies flank pain and Denies urinary urgency Neurologic: Reports Normal hearing present, Denies confusion and Reports headache(s) Psychiatric: Psychiatric: Denies confusion Endocrine: Endocrine: Reports fatigue Allergic/Immunologic: Allergic/Immunologic: Denies seasonal rhinorrhea and Denies wheezing Exam Narrative: GENERAL: NAD, cooperative HEENT: Normocephalic, atraumatic, anicteric NECK:Supple, s/p thyroidectomy, CV: Normal S1, S2, RRR, No MRG RESP: Improved a few expiratory wheezes but much less than yesterday. No crackles or rhonchi. EXTREMITIES: Warm and well perfus
[2022-05-12 16:41] LABS: Glucose Point of Care 118 mg/dl (65-105)
[2022-05-12] MEDS: ACETAMINOPHEN 325 MG TABLET 650 MG PO (21:13)
[2022-05-12 22:18] LABS: Glucose Point of Care 145 mg/dl (65-105)
[2022-05-13] VITALS (11 sets, daily range): BP systolic 112–123; BP diastolic 80–94; PULSE 70–82; RESP 16–20; TEMP 36.2–36.3; O2SAT 93–94
[2022-05-13] MEDS: IPRATROPIUM BR 0.02% INH SOLN 0.5 MG/2.5 ML VIAL INHALATION ×4 (00:40→16:11)
[2022-05-13] MEDS: ALBUTEROL SULFATE NEB 2.5 MG/3 ML INH INHALATION ×4 (00:40→16:11)
[2022-05-13] MEDS: LEVOTHYROXINE SODIUM 125 MCG TABLET PO (05:54)
[2022-05-13 06:07] LABS: Glucose Point of Care 125 mg/dl (65-105)
[2022-05-13 07:22] LABS: Hematocrit 45.2 % (37.0-47.0); Hemoglobin 14.6 g/dL (12.0-15.0); Mean Corpuscular HGB Conc 32.3 g/dl (32-36); Mean Corpuscular Hemoglobin 30.5 pg (26-34); Mean Corpuscular Volume 94.4 fl (80-100); Mean Platelet Volume 9.9 fl (7.4-10.4); Platelet Count Result 285 k/mm3 (150-375); Red Blood Count 4.79 M/mm3 (4.2-5.4); Red Cell Distribution Width 15.4 % (11.5-14.5); White Blood Count 13.9 K/mm3 (4.5-10.0)
[2022-05-13 07:51] LABS: Alanine Aminotransferase 19 U/L (6-35); Albumin Level 3.3 g/dL (3.5-5.1); Alkaline Phosphatase 130 U/L (38-126); Anion Gap 8 mmol/L (8-16); Aspartate Amino Transferase 19 U/L (14-36); Bilirubin,Total 0.3 mg/dL (0.2-1.3); Blood Urea Nitrogen 30 mg/dL (7-17); Carbon Dioxide 25 mmol/L (22-30); Chloride 106 mmol/L (98-107); Estimated CRCL calculation 54 ml/min; Estimated Glomerular Filt Rate 56; Glucose 94 mg/dL (65-110); Potassium 3.7 mmol/L (3.4-5.0); Sodium 139 mmol/L (137-145)
--- NOTE | 2022-05-13 07:55 | PM.DS ---
DS: Admitting Diagnosis Discharge Date 05/13/22 Admitting Diagnosis COPD exacerbation DS: Discharge Diagnosis Discharge Diagnosis (1) Shortness of breath: Code(s): R06.02 - Shortness of breath Status: Acute Assessment and Plan: No known cardiac hx. Troponin negative. CT chest with no pneumonia, pulmonary edema, pleural effusion or pulmonary embolism. BNP 142. Planned for sleep study. Emphysematous changes on CXR and CT chest. Hx thyroidectomy and low suspicion for airway obstruction. Echo w/ EF 70% with grade II diastolic dysfunction. BCX 10/21 with gram staphylococcus hominus, which is likely a contaminant and was resistant to to all currently available beta-lactam antimicrobial agents with the possible exception of ceftaroline. Repeat blood cultures from 05/10/22 with no growth so far. Discontinued ceftriaxone and azithromycin. Prednisone completed treatment on 05/12/22. Patient has remained afebrile during entire hospitalization. -Will discharge patient on home Symbicort and albuterol rescue inhaler -Treated with azithromycin 500 mg IV from 05/09-05/12, which is adequate treatment -Will discontinue ceftriaxone and give two days of cefpodoxime. (2) COPD with acute exacerbation: Code(s): J44.1 - Chronic obstructive pulmonary disease with (acute) exacerbation Status: Acute Assessment and Plan: This appears to have resolved with treatment. Will discharge to home with Symbicort BID and albuterol rescue inhaler to be used as needed. (3) Leukocytosis: Code(s): D72.829 - Elevated white blood cell count, unspecified Status: Acute Assessment and Plan: Afebrile with no urinary sx. Having COPD exacerbation and is on prednisone. Leukocytosis of 10.8 on admission but increased to 22 after hospital day one and ceftriaxone and azithromycin was started. Leukocytosis stabilized around 12-13 while on steroids. Patient will need to follow up with primary care physician by Tuesday, May 17, 2022 after discharge. (4) Polycythemia: Code(s): D75.1 - Secondary polycythemia Status: Acute Assessment and Plan: Likely due to chronic hypoxia while smoking and may be dehydration. Erythropoietin pending. This has resolved on labs. (5) Hypothyroidism: Onset Date: 01/27/17 Code(s): E03.9 - Hypothyroidism, unspecified Status: Acute Assessment and Plan: Acquired s/p thyroidectomy. Continue home levothyroxine for discharge. (6) Hyperlipidemia: Code(s): E78.5 - Hyperlipidemia, unspecified Status: Acute Assessment and Plan: Takes statin at home. Continue home medication. (7) BMI 38.0-38.9,adult: Code(s): Z68.38 - Body mass index [BMI] 38.0-38.9, adult Status: Acute Assessment and Plan: A1c 6.2. Prediabetes. staff development educator was consulted. DS: Summary Hospital Course Reason for hospitalization: COPD exacerbation Hospital Course: 66F with a past medical history of migraines, tobacco abuse, goiter s/p thyroidectomy, COPD, hyperlipidemia who presented to the emergency department with shortness of breath. The patient was found do have an acute COPD exacerbation and was given methylprednisolone as well as neb treatment in the emergency. Duo nebs were scheduled for q4h on the floor and prednisone was planned to start the next morning. The next morning 1/2 blood cultures grew gram positive cocci and the leukocytosis was up to 22 from 10.8. The patient felt much better with the neb treatment and steroids, but due to the leukocytosis plus positive blood culture, ceftriaxone 2 gm and azithromycin were started to cover for possible pneumonia and bacteremia. Repeat blood cultures were sent on 05/09 and at the time of discharge had no growth. Eventually the original culture from 05/08 grew only staphylococcus hominis in only 1/2, which was thought to be a contaminant plus th
[2022-05-13] MEDS: cefTRIAXone 2 GM in SODIUM CHLORIDE 0.9% IV 100 ML IVPB (08:23)
[2022-05-13] MEDS: ENOXAPARIN 40 MG/0.4 ML SYRINGE SUB-Q (08:23)
[2022-05-13] MEDS: AZITHROMYCIN 250 MG TABLET PO (08:24)
[2022-05-13] MEDS: ATORVASTATIN 20 MG TABLET PO (08:24)
[2022-05-13] MEDS: traMADol HCL (*CRX) 50 MG TABLET PO (12:26)
[2022-05-13] MEDS: hydrOXYzine HCL 25 MG TABLET PO (12:27)
[2022-05-14 18:25] LABS: Erythropoietin (EPO) 3.1 mIU/mL (2.6-18.5)
== END 2022-05-13 17:40 | disposition home or self-care (01) | DRG 140 ==
LOC: ANHED 07:18 → ANH3MEDSUR 09:20
PROVIDERS: Internal Medicine; Admitting Provider Family Medicine; Emergency Provider Emergency Medicine; PCP Family Medicine; Visit Provider Family Medicine
DX: J44.1 Chronic obstructive pulmonary disease with (acute) exacerbation (principal); D72.829 Elevated white blood cell count, unspecified; D75.1 Secondary polycythemia; E78.5 Hyperlipidemia, unspecified; E89.0 Postprocedural hypothyroidism; R73.03 Prediabetes; F17.210 Nicotine dependence, cigarettes, uncomplicated; Z20.822 Contact with and (suspected) exposure to COVID-19
CPT/HCPCS: 36415; 70360; 71045; 71275; 80048; 80053; 82668; 82948; 83036; 83605; 83880; 84145; 84439; 84443; 84484; 85025; 85027; 85610; 85730; 87040; 87147; 87181; 87186; 87502; 93005; 93306; 94640; 96365; 96367; 96372; 96374; 96376; 99285; A9270; C9803; G0378; G0379; J0456; J0696; J1650; J2930; J7120; J7512; Q9967; U0003; U0005

== ENCOUNTER 2022-06-11 10:23 | Outpatient (CLI) | payer MEDICARE, MEDICAID, SELFPAY ==
--- NOTE | ~2022-06-11 | US_ITS ---
EXAMINATION: US thyroid DATE: 06/11/2022 11:01 INDICATION: Thyroid nodule. Thyroid cancer. TECHNIQUE: Multiple ultrasound images of the thyroid were obtained. COMPARISON: Ultrasound thyroid 04/30/2018, chest CT 05/08/2022 FINDINGS: The thyroid is absent. There is no abnormal tissue in the thyroidectomy bed. IMPRESSION: 1. Thyroidectomy. Reviewed, dictated and finalized at location A. IMPRESSION: 1. Thyroidectomy.
== END 2022-06-11 10:24 | disposition home or self-care (01) ==
PROVIDERS: PCP Physician Assistant; Visit Provider Physician Assistant
DX: E04.1 Nontoxic single thyroid nodule (principal)
CPT/HCPCS: 76536

== ENCOUNTER 2022-06-13 08:40 | Outpatient (CLI) | payer MEDICARE, MEDICAID, SELFPAY ==
--- NOTE | 2022-07-15 20:29 | WPDSLEEPSTUD ---
Sleep Study Date of Study: 06/13/22 Ordering Provider: Patricia Gomez, EVELYN Interpreting Physician: Leigh Ann Murrieta MD Sleep Study Type: Polysomnogram Height: 1.57 m Weight: 90.718 kg Body Mass Index: 36.6 Neck Circumference (inches): 16.5 [place]: 10 Reason for Sleep Study Excessive daytime sleepiness Sleep History Adelaida Vasquez is a 67-year-old woman who has COPD. She has a difficult time getting to sleep and staying asleep. She wakes up during the night and has excessive daytime sleepiness. She frequently awakens from sleep feeling short of breath. She denies having heartburn, belching or coughing at night. She is not certain if she snores. She constantly has trouble sleeping with a cold. She rarely wakes up gasping for breath at night. She rarely sweats excessively at night. She does not notice her heart pounding or beating irregularly at night. She occasionally falls asleep during the day, never involuntarily or while driving. She does not have loss of muscle tone with strong emotion. She does not have daytime difficulties due to excessive sleepiness. She occasionally feels paralyzed on waking or falling asleep. She does not have vivid dreamlike scenes on waking or falling asleep. She is not afraid to go to sleep, does not have nightmares. She does not have dream recall. She does not have racing thoughts. She does not have feelings of sadness or depression. She frequently feels anxious. She rarely has muscular tension. She occasionally notices parts of her body jerking. She frequently has crawling aching feelings in her legs. She rarely has any kind of leg pain at night. She does not have morning jaw pain. She does not grind her teeth during sleep. She rarely is bothered by pain during the day. She is not awakened by pain at night. She frequently wakes up feeling stiff in the morning with sore achy muscles. She rarely wakes up with pain in the neck and spine. She has headaches and fatigue. Normal bedtime is 12 midnight taking 1/2 hour to fall asleep, typically waking twice at night to go to the bathroom, and she is able to return to sleep in 10 minutes. She wakes in the morning by 8:00 p.m.. She keeps the same schedule on the weekend. She estimates getting 7 hours of sleep at night. She takes naps in the afternoon or evening. A short nap lasting 10 or 15 minutes is not refreshing. She is usually drowsy after waking for 3 hours or longer. She reports a 20-25 lb weight gain in the last year. Habits: Tobacco 3/4 pack per day. Caffeine 1-2 coffees or a soda per day. No alcohol or recreational drugs. [facility] Past Medical History Medical History (Updated 07/15/22 @ 21:22 by Leigh Ann Murrieta MD) COPD (chronic obstructive pulmonary disease) Hyperlipidemia Hypothyroidism (01/27/17) Migraine Thyroid disease Surgical History Surgical History (Updated 05/08/22 @ 12:56 by Kori Dalton MD) H/O neck surgery H/O thyroidectomy Family History Family History Other Carcinoma of colon Diabetes mellitus Family history of blood dyscrasia Family history of coronary artery disease Family history of malignant neoplasm Heart disease Social History Social History (Updated 05/08/22 @ 12:58 by Kori Dalton MD) Smoking packs per day: 0.5 Smoking cigarettes per day: 10.0 Years smoked: 45 Smoking pack-years: 22.50 Smoking status: Current every day smoker Tobacco type: cigarettes Alcohol intake: never Alcohol use details: No alcohol use Substance use: never 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
[2022-07-15 21:35] VITALS: BMI 36.6
--- NOTE | 2022-11-04 14:48 | SLEEP ---
[id number] new calls to be made under this number
== END 2022-06-14 07:19 | disposition home or self-care (01) ==
LOC: ANHCSM 08:42
PROVIDERS: PCP Physician Assistant; Visit Provider Physician Assistant
DX: G47.30 Sleep apnea, unspecified (principal); G47.33 Obstructive sleep apnea (adult) (pediatric); G47.61 Periodic limb movement disorder
CPT/HCPCS: 95810

== ENCOUNTER 2022-09-17 07:27 | Emergency (ER) | payer MEDICARE, MEDICAID, SELFPAY ==
--- NOTE | ~2022-09-17 | XR_ITS ---
EXAMINATION: XR chest 2V DATE: 09/17/2022 07:50 INDICATION: Cough. Chronic obstructive pulmonary disease. Shortness of breath. TECHNIQUE: Frontal and lateral views of the chest were obtained. COMPARISON: Chest single view 05/08/2022, chest CT 05/08/2022 FINDINGS: Calcified pulmonary nodules and calcified hilar and lymph nodes are consistent with old gra nulomatous disease. There are lucencies in the upper lungs, consistent with emphysema. No pleural eff usion or pneumothorax. The heart size is normal. There are prominent paracardial fat pads. There are changes of anterior fusion procedure in cervical spine. IMPRESSION: 1. Emphysema. Reviewed, dictated and finalized at location A. NG MANUFACTURING SET UP TECHNICIAN IMPRESSION: 1. Emphysema.
[2022-09-17 07:30] VITALS: BP 166/85; PULSE 86; RESP 18; TEMP 36.6; O2SAT 95
[2022-09-17 08:29] LABS: Influenza A QL RT-PCR Negative (Negative); Influenza B QL RT-PCR Negative (Negative); SARS-CoV-2 RNA PCR Negative
--- NOTE | 2022-09-17 09:22 | PC.NURSE ---
pt. ambulating around waiting room without difficulty or signs of SOB. Skin color, breathing wnl. Asking about wait. Explained ED treatment rooms are full, hospital is full and other hospitals are full affecting placement of ED patients.
== END 2022-09-17 11:58 | disposition left against medical advice (07) ==
PROVIDERS: Emergency Provider Emergency Medicine; PCP Physician Assistant
DX: R05.9 Cough, unspecified (principal)
CPT/HCPCS: 71046; 87636; 99199

== ENCOUNTER 2022-12-19 09:44 | Outpatient (CLI) | payer MEDICARE, MEDICAID, SELFPAY ==
--- NOTE | ~2022-12-19 | XR_ITS ---
XR lumbar spine 2-3V 12/19/2022 10:01 Indication: Low back pain Procedure: 3 views lumbar spine Comparison: 07/31/2017 Findings: There is lumbarization of S1. There is advanced multilevel facet hypertrophy of the mid and lower lumbar spine. There is disc narrowing with vacuum phenomena and endplate hypertrophy at L2-3 a nd L5-S1. Normal lumbar lordosis. There is mild levoscoliosis of the upper lumbar spine. Pedicles int act. Sacral foramen are symmetric. There are calcific densities overlying the left kidney, suspicious for renal stones. Impression: 1: Severe lumbar spondylosis with progression since prior examination. Reviewed, dictated and finalized at location L. EF DOCKING MASTER Impression: 1: Severe lumbar spondylosis with progression since prior examination.
== END 2022-12-19 09:45 | disposition home or self-care (01) ==
PROVIDERS: PCP Physician Assistant; Visit Provider Physician Assistant
DX: M47.816 Spondylosis without myelopathy or radiculopathy, lumbar region (principal); M54.50 Low back pain, unspecified
CPT/HCPCS: 72100

== ENCOUNTER 2023-01-28 08:20 | Outpatient (CLI) | payer MEDICARE, MEDICAID, SELFPAY ==
--- NOTE | 2023-01-31 16:29 | WPDSLEEPSTUD ---
Sleep Study Date of Study: 01/28/23 Ordering Provider: Patricia Gomez, EVELYN Interpreting Physician: Leigh Ann Murrieta MD Sleep Study Type: BiPAP Titration Height: 1.57 m Weight: 95.254 kg Body Mass Index: 38.4 Neck Circumference (inches): 16 [place]: 6 Reason for Sleep Study * ?Basic nocturnal polysomnogram on 06/13/2022 with mild obstructive sleep apnea with an apnea-hypopnea index 5.6 and desaturation to 78%.??The average saturation during the study was 88%.? The patient spent the majority of the study below 88%, 60.9% which was 267 minutes.? The patient has COPD which is the reason the baseline saturation was so low.??She presents for a titration in the sleep lab for persistent hypoxemia. Sleep History Adelaida Vasquez is a 67-year-old woman who has COPD. She has a difficult time getting to sleep and staying asleep.? She wakes up during the night and has excessive daytime sleepiness.? She frequently awakens from sleep feeling short of breath.? She denies having heartburn, belching or coughing at night.? She is not certain if she snores.? She constantly has trouble sleeping with a cold.? She rarely wakes up gasping for breath at night.? She rarely sweats excessively at night.? She does not notice her heart pounding or beating irregularly at night.? She occasionally falls asleep during the day, never involuntarily or while driving.? She does not have loss of muscle tone with strong emotion.? She does not have daytime difficulties due to excessive sleepiness.? She occasionally feels paralyzed on waking or falling asleep.? She does not have vivid dreamlike scenes on waking or falling asleep.? She is not afraid to go to sleep, does not have nightmares.? She does not have dream recall.? She does not have racing thoughts.? She does not have feelings of sadness or depression.? She frequently feels anxious.? She rarely has muscular tension.? She occasionally notices parts of her body jerking.??She frequently has crawling aching feelings in her legs.? She rarely has any kind of leg pain at night.? She does not have morning jaw pain.? She does not grind her teeth during sleep.? She rarely is bothered by pain during the day.? She is not awakened by pain at night.? She frequently wakes up feeling stiff in the morning with sore achy muscles.? She rarely wakes up with pain in the neck and spine.? She has headaches and fatigue. Normal bedtime is 12 midnight taking 1/2 hour to fall asleep, typically waking twice at night to go to the bathroom, and she is able to return to sleep in 10 minutes.? She wakes in the morning by 8:00 p.m..? She keeps the same schedule on the weekend.? She estimates getting 7 hours of sleep at night.? She takes naps in the afternoon or evening.? A short nap lasting 10 or 15 minutes is not refreshing.? She is usually drowsy after waking for 3 hours or longer.? She reports a 20-25 lb weight gain in the last year. Habits:? Tobacco 3/4 pack per day.? Caffeine 1-2 coffees or a soda per day.? No alcohol or recreational drugs. [facility] Past Medical History Medical History (Updated 01/31/23 @ 16:42 by Leigh Ann Murrieta MD) COPD (chronic obstructive pulmonary disease) Hyperlipidemia Hypothyroidism (01/27/17) Migraine Obstructive sleep apnea Thyroid disease Surgical History Surgical History H/O neck surgery H/O thyroidectomy Family History Family History Other Carcinoma of colon Diabetes mellitus Family history of blood dyscrasia Family history of coronary artery disease Family history of malignant neoplasm Heart disease Social History Social History Smoking packs per day: 0.5 Smoking cigarettes per day: 10.0 Years smoked: 45 Smoking pack-years: 22.50 Smoking status: Current every day smoker Tobacco type: cigarettes Alcohol intake: never Alcohol use det
[2023-02-02 13:17] VITALS: BMI 38.4
== END 2023-01-29 06:54 | disposition home or self-care (01) ==
LOC: ANHCSM 08:21
PROVIDERS: PCP Physician Assistant; Visit Provider Physician Assistant
DX: G47.30 Sleep apnea, unspecified (principal); G47.33 Obstructive sleep apnea (adult) (pediatric)
CPT/HCPCS: 95811

== ENCOUNTER 2023-05-23 14:15 | Outpatient (CLI) | payer MEDICARE, MEDICAID, SELFPAY ==
--- NOTE | ~2023-05-23 | CT_ITS ---
EXAMINATION: CT lung screening DATE: 05/23/2023 14:49 INDICATION: Personal history nicotine dependence, current smoker with 135 pack year history TECHNIQUE: Computed tomography (CT) of the chest was performed without intravenous contrast. The dose -length product (DLP) was 281.68 mGy-cm. Automated exposure control and iterative reconstruction tech Flame[employer]ower were employed. COMPARISON: 05/08/2022 FINDINGS: There is mild emphysema. There is mild atelectasis in the lingula and right middle lobe. No pleural effusion or pneumothorax. No pathologically enlarged thoracic lymph nodes are identified. Th e heart size is normal. Calcified pulmonary nodules and calcified right hilar lymph nodes are consist ent with old granulomatous disease. There is calcified coronary artery atherosclerosis. Lipomatous hy pertrophy of the interatrial septum is noted. There is severe thoracic spondylosis. Partially imaged changes of anterior fusion procedure are noted in the lower cervical spine. IMPRESSION: 1. Lung-RADS category 1: Negative. Continue annual screening with noncontrast low-dose chest CT in 12 months. Reviewed, dictated and finalized at location F. IMPRESSION: 1. Lung-RADS category 1: Negative. Continue annual screening with noncontrast l ow-dose chest CT in 12 months.
== END 2023-05-23 14:16 | disposition home or self-care (01) ==
PROVIDERS: PCP Physician Assistant; Visit Provider Physician Assistant
DX: Z12.2 Encounter for screening for malignant neoplasm of respiratory organs (principal); Z87.891 Personal history of nicotine dependence
CPT/HCPCS: 71271

== ENCOUNTER 2023-05-26 13:50 | Outpatient (CLI) | payer MEDICARE, MEDICAID, SELFPAY ==
--- NOTE | ~2023-05-26 | DEXA_ITS ---
Bone Density Report Name: JAYY ABBOTT Age: 67 Sex: Female Ethnicity: White Date of : 1955 Indication: postmenopausal; screening for osteoporosis; height loss; cancer; asthma or emphysema; Referring Provider: FLORENCE, TRIP Study: Bone densitometry was performed. Exam Date: May 26, 2023 Accession number: [id number] Bone Density: Region BMD T-score Z-score Classification AP Spine(L1, L2, L3) 1.290 2.5 4.3 Normal Femoral Neck (Left) 0.697 -1.4 0.2 Osteopenia Total Hip (Left) 0.917 -0.2 1.1 Normal Femoral Neck (Right) 0.689 -1.4 0.1 Osteopenia Total Hip (Right) 0.863 -0.6 0.6 Normal Femoral Neck Mean 0.693 -1.4 0.2 Osteopenia Total Hip Mean 0.890 -0.4 0.9 Normal World Health Organization criteria for BMD impression classify patients as: Normal (T-score at or above -1.0), Osteopenia (T-score between -1.0 and -2.5), or Osteoporosis (T-score at or below -2.5). 10-year Fracture Risk(1): Major Osteoporotic Fracture 7.9% Hip Fracture 1.3% Reported Risk Factors: [place] (), Neck BMD=0.689, BMI=40.1, smoking (1) FRAX(R) Version 3.08. Fracture probability calculated for an untreated patient. Fracture probability may be lower if the patient has received treatment. Clinical Information Provided by Patient: Smokes Has the following medical conditions: Asthma or Emphysema, Cancer Patient maximum height was 62 Menopause Age: 42 No regular weight bearing exercise Drinks caffeinated beverages Onset of menses at age 14 Number of children 4 Impression: The patient has low bone mass, based on the Left Femoral Neck T-score. The patient has risk factors, including: smoking. Discussion: BONE DENSITY IS LOW AT ONE OR MORE SKELETAL SITES. This patient's lowest T-score is low at one or more skeletal sites. It meets the World Health Organization's (WHO) criteria for ?low bone mass? (T-score between -1.0 and -2.5). The patient's 10-year risk of fracture as calculated by FRAX is less than the threshold where pharmacological therapy is recommended by the National Osteoporosis Foundation (NOF). However, all treatment decisions require clinical judgment and consideration of individual patient factors, including patient preferences, comorbidities, previous drug use, risk factors not captured in the FRAX model (e.g., frailty, falls, vitamin D deficiency, increased bone turnover, interval significant decline in bone density) and possible under or overestimation of fracture risk by FRAX. The patient should follow a healthful lifestyle (good nutrition with adequate calcium and vitamin D, and appropriate weight-bearing exercise). Follow-Up: Consider repeating this study in 2 to 3 years to reassess this patient's status, or sooner if there is some new clinical indication
--- NOTE | ~2023-05-26 | MM_ITS ---
EXAMINATION: MM screening [facility] BI w lencho HISTORY: Screening mammogram TECHNIQUE: Craniocaudal and mediolateral oblique 3-D tomosynthesis images were obtained and synthetic 2-D images were generated. CAD analysis was submitted and interpreted. COMPARISON: 04/15/2018, 03/05/2017 BREAST PARENCHYMAL COMPOSITION: There are scattered areas of fibroglandular density. FINDINGS: RIGHT BREAST: A mass is present in the anterior third of the slightly upper, slightly inner breast 4 cm from the nipple. LEFT BREAST: No suspicious mass, calcification, or architectural distortion are identified to suggest malignancy. There has been no suspicious interval change. IMPRESSION: 1. Right breast mass. 2. Additional mammographic views and possible breast ultrasound are recommended. BI-RADS Category 0: Incomplete: Needs additional imaging evaluation. Reviewed, dictated and finalized at location A. IMPRESSION: 1. Right breast mass. 2. Additional mammographic views and possible breast ultrasound are recommended . BI-RADS Category 0: Incomplete: Needs additional imaging evaluation.
== END 2023-05-26 13:51 | disposition home or self-care (01) ==
LOC: CHSIMG 13:52
PROVIDERS: PCP Physician Assistant; Visit Provider Physician Assistant
DX: Z12.31 Encounter for screening mammogram for malignant neoplasm of breast (principal); Z78.0 Asymptomatic menopausal state; N63.10 Unspecified lump in the right breast, unspecified quadrant; M81.0 Age-related osteoporosis without current pathological fracture; R92.8 Other abnormal and inconclusive findings on diagnostic imaging of breast; M85.89 Other specified disorders of bone density and structure, multiple sites
CPT/HCPCS: 77063; 77067; 77080

== ENCOUNTER 2023-08-17 09:16 | Emergency (ER) | payer OTHER, SELFPAY ==
--- NOTE | ~2023-08-17 | XR_ITS ---
XR chest 2V DATE: 08/17/2023 09:39 INDICATION: Wheezing, shortness of breath. He. TECHNIQUE: PA and lateral views COMPARISON: 05/2023 CT lung screening 09/17/2022 PA and lateral chest FINDINGS: Normal heart size. Aortic arch and abdominal aortic calcification. There is bilateral hype rinflation. There is minimal infiltrate or atelectasis at the lung bases. Otherwise no pulmonary infiltrate or consolidation, pulmonary vascular congestion or pleural effusion or pneumothorax. There is degenerative spurring of the thoracic and lumbar spine. Status post anterior cervical spine surgical fusion. IMPRESSION: Bilateral hyperinflation; minimal infiltrate or atelectasis at the lung bases. Reviewed, dictated and finalized at location A.
[2023-08-17 09:25] VITALS: BP 149/90; PULSE 106; RESP 28; TEMP 37.2; O2SAT 90
[2023-08-17 09:45] VITALS: PULSE 108; RESP 28; O2SAT 95
[2023-08-17 09:58] VITALS: PULSE 106; RESP 28; O2SAT 94
--- NOTE | 2023-08-17 10:00 | ED.SOB ---
HPI - SOB/Dyspnea General Chief Complaint: Shortness of Breath/Dyspnea Stated Complaint: short of breath Time Seen by Provider: 08/17/23 09:40 Source: patient and RN notes reviewed Mode of arrival: ambulatory Limitations: no limitations History of Present Illness HPI Narrative: Patient presents today complaining of shortness breath x1 week that has been worsening since onset. Reports sporadic cough that is occasionally productive. Patient also reports feeling weak and tired. Denies any chest pain or tightness. Patient has history of significant COPD and was hospitalized in May for COPD exacerbation and bacteremia. Patient is supposed to be using a CPAP at home with oxygen, but has not been using it. States she purchased a pulse ox at home and has been monitoring it. States her pulse ox has been down to the high 70s/low 80s while at work. States her co-workers have told her that her lips were blue. Related Data Home Medications Medication Instructions Recorded Confirmed albuterol sulfate 90 mcg/actuation 2 inh inhalation DIRECTED 06/01/21 08/17/23 aerosol inhaler atorvastatin 20 mg tablet 20 mg PO DAILY 05/08/22 08/17/23 budesonide-formoterol HFA 160 2 puff inhalation BID 05/08/22 08/17/23 mcg-4.5 mcg/actuation aerosol inhaler (Symbicort) levothyroxine 125 mcg tablet 125 mcg PO DAILY 05/08/22 08/17/23 fluticasone fur. 100 mcg-umeclid 1 inh inhalation DAILY 08/17/23 08/17/23 62.5 mcg-vilant 25 mcg inhalat.powder (Trelegy Ellipta) Allergies Allergy/AdvReac Type Severity Reaction Status Date / Time banana Allergy Severe ANAPHALXIS Verified 08/17/23 09:20 Penicillins Allergy Intermediate Anaphylaxis Verified 08/17/23 09:20 Review of Systems Review of Systems: CONSTITUTIONAL: Denies body aches, fever, chills, or sweats.+ fatigue, weakness EYES: Denies visual changes, redness, or discharge. ENT: Denies rhinorrhea, congestion, sore throat, or otalgia. CARDIOVASCULAR: Denies chest pain, palpitations, or edema. RESPIRATORY: + shortness of breath, cough GASTROINTESTINAL: Denies abdominal pain, nausea, vomiting, or diarrhea. GENITOURINARY: Denies dysuria or hematuria. SKIN: Denies rash, itching, or wounds. MUSCULOSKELETAL: Denies back pain, joint pain, or myalgia. NEUROLOGIC: Denies headache, numbness, tingling, or weakness. PSYCH: Denies depression or anxiety. [facility] Past Medical History Medical History COPD (chronic obstructive pulmonary disease) Hyperlipidemia Hypothyroidism (01/27/17) Migraine Obstructive sleep apnea Thyroid disease Surgical History Surgical History H/O neck surgery H/O thyroidectomy Family History Family History Other Carcinoma of colon Diabetes mellitus Family history of blood dyscrasia Family history of coronary artery disease Family history of malignant neoplasm Heart disease Social History Social History Smoking packs per day: 0.5 Smoking cigarettes per day: 10.0 Years smoked: 45 Smoking pack-years: 22.50 Smoking status: Current every day smoker Tobacco type: cigarettes Alcohol intake: never Alcohol use details: No alcohol use Substance use: never Living arrangements: alone Occupation/Education: occupation 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 Please see nursing chart for further information. There is no relevant family history pertinent to the presenting complaint Exam Narrative: GENERAL: Ill-appearing, well-nourished HEAD: Normocephalic, atraumatic. EYES: EOMI. No
== END 2023-08-17 10:25 | disposition short-term general hospital (02) ==
PROVIDERS: Emergency Provider Nurse Practitioner; PCP Physician Assistant
DX: J44.1 Chronic obstructive pulmonary disease with (acute) exacerbation (principal); F17.210 Nicotine dependence, cigarettes, uncomplicated; E78.5 Hyperlipidemia, unspecified; E03.9 Hypothyroidism, unspecified; G47.33 Obstructive sleep apnea (adult) (pediatric); Z91.199 Patient's noncompliance with other medical treatment and regimen due to unspecified reason
CPT/HCPCS: 71046; 99213; G0463

== ENCOUNTER 2023-12-31 13:42 | Outpatient (CLI) | payer MEDICARE, MEDICAID, SELFPAY ==
--- NOTE | ~2023-12-31 | US_ITS ---
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 COMPARISON: 06/11/2022 FINDINGS: No evident thyroid tissue identified at either the left or right thyroid fossae. There is small amoun t of residual thyroid tissue close to the midline likely representing residual isthmic tissue with a smaller more cephalad collection measuring 1.2 x 1.1 x 0.5 cm and a slightly larger collection slight ly more inferior to the right measuring 1.4 x 1.3 x 0.7 cm. The thyroid tissue demonstrates normal ec hogenicity and echotexture without discrete nodules. IMPRESSION: 1. Changes consistent with prior thyroidectomy with small collections of likely residual isthmic thyr oid tissue. Reviewed, dictated and finalized at location B. IMPRESSION: 1. Changes consistent with prior thyroidectomy with small collections of likely residual isthmic thyroid tissue.
== END 2023-12-31 13:43 | disposition home or self-care (01) ==
PROVIDERS: PCP Physician Assistant; Visit Provider Physician Assistant
DX: Z85.850 Personal history of malignant neoplasm of thyroid (principal)
CPT/HCPCS: 76536

== ENCOUNTER 2024-01-08 10:35 | Outpatient (CLI) | payer MEDICARE, MEDICAID, SELFPAY ==
--- NOTE | ~2024-01-08 | MMUS_ITS ---
EXAMINATION: MM diagnostic [facility] BI w lencho, US breast LT limited, US breast RT complete HISTORY: Follow-up right breast mass TECHNIQUE: Additional 3-D tomosynthesis images of the breasts were performed and synthetic 2-D images were generated. CAD analysis was submitted and interpreted. High resolution complete right and limit ed left breast ultrasound was performed. COMPARISON: Comparison to multiple prior studies sequentially, with oldest reviewed study dated 06/30. BREAST PARENCHYMAL COMPOSITION: Not dense: There are scattered areas of fibroglandular density. FINDINGS: MAMMOGRAPHIC FINDINGS: There is an enlarging mass in the upper inner quadrant of the right breast anteriorly. There are asym metries in the upper outer quadrant of both breasts which are stable, likely benign intramammary lymp h nodes. ULTRASOUND: Complete US of all 4 quadrants of the right breast and retroareolar region was reviewed. At 12:00, 4 cm from the nipple there is an oval hypoechoic mass with echogenic hilum and no internal vascularity. No posterior features. This mass measures 7 x 6 x 3 mm, most likely benign intramammary lymph node. No other suspicious masses. Limited left breast ultrasound: There is echogenic mass at 12:00, 7 cm from the nipple with posterior shadowing, consistent with calcification. No suspicious masses in the left breast to suggest maligna ncy. IMPRESSION: 1. Probable benign 7 mm mass of the right breast at 12:00, 4 cm from the nipple. No evidence for pearl gnancy in the left breast. 2. Recommend 6 month follow-up diagnostic right mammogram and ultrasound BI-RADS category 3, probably benign findings. Reviewed, dictated and finalized at location A. IMPRESSION: 1. Probable benign 7 mm mass of the right breast at 12:00, 4 cm from the nipple . No evidence for malignancy in the left breast. 2. Recommend 6 month follow-up diagnostic right mammogram and ultrasound BI-RADS category 3, probably benign findings. IMPRESSION: 1. Probable benign 7 mm mass of the right breast at 12:00, 4 cm from the nipple . No evidence for malignancy in the left breast. 2. Recommend 6 month follow-up diagnostic right mammogram and ultrasound BI-RADS category 3, probably benign findings.
== END 2024-01-08 10:36 | disposition home or self-care (01) ==
PROVIDERS: PCP Physician Assistant; Visit Provider Physician Assistant
DX: R92.8 Other abnormal and inconclusive findings on diagnostic imaging of breast (principal)
CPT/HCPCS: 76641; 76642; 77062; 77066; G0279

== ENCOUNTER 2024-11-19 02:19 | Day surgery (SDC) | payer MEDICARE, MEDICAID, SELFPAY ==
[2024-11-10 12:53] VITALS: BMI 36.6
[2024-11-19 07:47] VITALS: BP 135/89; PULSE 101; RESP 20; TEMP 36.2; O2SAT 94; BMI 38.7
[2024-11-19] MEDS: LACTATED RINGERS 1,000 ML 150 ML IV CONT (07:58)
--- NOTE | 2024-11-19 08:19 | WPDANESEPPF ---
Anes - Initial Pre Proc Eval Procedure: Operation Date: 11/19/24 08:30 Proposed Procedures p Colonoscopy - David Caban MD Date/Time: 11/19/24 08:19 Surgeon: David Caban MD Pre Op Diagnosis: Personal hx and family hx of malignant neoplasm. Patient Data Age: 69 Gender: F Height: 1.57 m Weight: 96.1 kg Last Vital Signs Temp 36.2 C L 11/19/24 07:47 Pulse 101 H 11/19/24 07:47 Resp 20 11/19/24 07:47 BP 135/89 11/19/24 07:47 Pulse Ox 94 11/19/24 07:47 O2 Del Method Room Air 11/19/24 07:47 Allergies Allergy/AdvReac Type Severity Reaction Status Date / Time banana Allergy Severe ANAPHALXIS Verified 11/19/24 07:45 Penicillins Allergy Intermediate Anaphylaxis Verified 11/19/24 07:45 Home Medications ?Medication ?Instructions ?Recorded ?Confirmed ?Type albuterol sulfate 90 mcg/actuation 2 inh inhalation DIRECTED 06/01/21 11/19/24 History aerosol inhaler atorvastatin 20 mg tablet 20 mg PO DAILY 05/08/22 11/19/24 History fluticasone fur. 100 mcg-umeclid 1 inh inhalation DAILY 08/17/23 11/19/24 History 62.5 mcg-vilant 25 mcg inhalat.powder (Trelegy Ellipta) dapagliflozin propanediol 10 mg 10 mg PO DAILY 12/30/23 11/19/24 History tablet (Farxiga) omega 6-jha-mdi-fish oil 1,000 mg 1 cap PO DAILY 12/30/23 11/19/24 History (120 mg-180 mg) capsule (Fish Oil) metoprolol succinate 25 mg 25 mg PO DAILY #30 tabs 09/13/24 11/19/24 Rx tablet,extended release 24 hr escitalopram oxalate 10 mg tablet 10 mg PO .QD 10/30/24 11/19/24 History levothyroxine 112 mcg tablet 112 mcg PO .QD 10/30/24 11/19/24 History hydrochlorothiazide 25 mg tablet 25 mg PO .qday 11/10/24 11/19/24 History lisinopril 10 mg tablet 10 mg PO .qday 11/10/24 11/19/24 History Patient hx anesthesia problems: none Family hx anesthesia problems: none Results Review: All pre-operative results and documents have been reviewed as part of the pre-operative evaluation. [facility] Past Medical History Medical History Hypertension Obstructive sleep apnea Migraine COPD (chronic obstructive pulmonary disease) Hypothyroidism (01/27/17) Hyperlipidemia Thyroid disease Surgical History Surgical History H/O neck surgery H/O thyroidectomy Family History Family History Other Carcinoma of colon Diabetes mellitus Family history of blood dyscrasia Family history of coronary artery disease Family history of malignant neoplasm Heart disease Social History Social History Smoking packs per day: 0.5 Smoking cigarettes per day: 10.0 Years smoked: 45 Smoking pack-years: 22.50 Smoking status: Former smoker Tobacco type: cigarettes Alcohol intake: never Alcohol use details: No alcohol use Substance use: never Living arrangements: alone Occupation/Education: occupation Additional occupation/education comments: 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 Informed Consent: The patient's anesthetic plan and its attendant risks and benefits were discussed with the patient/family/POA. Questions were solicited and answers provided to the satisfaction of the patient/family/POA.
--- NOTE | 2024-11-19 08:34 | P.HP_ITS ---
History of Present Illness History of Present Illness Consent: Risks, benefits, and alternatives have been discussed and questions answered. Patient agrees to proceed with procedure. Chief complaint: Personal hx and family hx of malignant neoplasm. Narrative: Adelaida Vasquez is a 69 year old female with colon polyp in 2020 Review of Systems Review of Systems: All systems reviewed & are unremarkable except as noted in HPI and below PMFSH Past Medical History Medical History (Updated 11/19/24 @ 08:35 by David Caban MD) Colon polyp Hypertension Obstructive sleep apnea Migraine COPD (chronic obstructive pulmonary disease) Hypothyroidism (01/27/17) Hyperlipidemia Thyroid disease Surgical History Surgical History H/O neck surgery H/O thyroidectomy Family History Family History Other Carcinoma of colon Diabetes mellitus Family history of blood dyscrasia Family history of coronary artery disease Family history of malignant neoplasm Heart disease Social History Social History Smoking packs per day: 0.5 Smoking cigarettes per day: 10.0 Years smoked: 45 Smoking pack-years: 22.50 Smoking status: Former smoker Tobacco type: cigarettes Alcohol intake: never Alcohol use details: No alcohol use Substance use: never Living arrangements: alone Occupation/Education: occupation 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 100 mcg-umeclid 1 inh inhalation DAILY 08/17/23 11/19/24 History 62.5 mcg-vilant 25 mcg inhalat.powder (Trelegy Ellipta) dapagliflozin propanediol 10 mg 10 mg PO DAILY 12/30/23 11/19/24 History tablet (Farxiga) omega 7-lno-tgs-fish oil 1,000 mg 1 cap PO DAILY 12/30/23 11/19/24 History (120 mg-180 mg) capsule (Fish Oil) metoprolol succinate 25 mg 25 mg PO DAILY #30 tabs 09/13/24 11/19/24 Rx tablet,extended release 24 hr escitalopram oxalate 10 mg tablet 10 mg PO .QD 10/30/24 11/19/24 History levothyroxine 112 mcg tablet 112 mcg PO .QD 10/30/24 11/19/24 History hydrochlorothiazide 25 mg tablet 25 mg PO .qday 11/10/24 11/19/24 History lisinopril 10 mg tablet 10 mg PO .qday 11/10/24 11/19/24 History Allergies Allergy/AdvReac Type Severity Reaction Status Date / Time banana Allergy Severe ANAPHALXIS Verified 11/19/24 07:45 Penicillins Allergy Intermediate Anaphylaxis Verified 11/19/24 07:45 Vital Signs Vital Signs - 24 hr 11/19/24 07:47 Temperature 97.2 F L Pulse Rate 101 H Respiratory Rate 20 Blood Pressure 135/89 Pulse Oximetry 94 Oxygen Delivery Room Air Exam Const: General: comfortable and no acute distress HENMT: Face/Nose/Sinus: Normal nares present Eyes: General: appearance normal, both eyes and all related structures Neck: Neck: no JVD Resp: Auscultation: clear to auscultation bilaterally Cardio: Rate: regular rate Rhythm: regular rhythm GI: Inspection: non-distended GI Palp: Yes Soft to palpation Skin: General skin exam: normal color Neuro: Speech: normal speech Extrem: General: normal to inspection Psych: Mental Status: mental status grossly normal Assessment and Plan Assessment and plan (1) Colon polyp: Code(s): K63.5 - Polyp of colon Status: Acute Assessment and Plan: colonoscopy
[2024-11-19 08:56] VITALS: BP 92/69; PULSE 71; RESP 18; O2SAT 98
[2024-11-19 09:06] VITALS: BP 123/70; PULSE 74; RESP 20; O2SAT 98
[2024-11-19 09:16] VITALS: BP 135/73; PULSE 71; RESP 18
== END 2024-11-19 09:40 | disposition home or self-care (01) ==
PROVIDERS: PCP Physician Assistant; Visit Provider Internal Medicine Gastroenterology
PROC: 0DJD8ZZ Inspection of Lower Intestinal Tract, Via Natural or Artificial Opening Endoscopic (ICD-10-PCS; CPT 45378; principal; 2024-11-19 08:30)
DX: Z12.11 Encounter for screening for malignant neoplasm of colon (principal); D12.4 Benign neoplasm of descending colon; K64.8 Other hemorrhoids; K57.30 Diverticulosis of large intestine without perforation or abscess without bleeding; E03.9 Hypothyroidism, unspecified; E78.5 Hyperlipidemia, unspecified; I10 Essential (primary) hypertension; G47.33 Obstructive sleep apnea (adult) (pediatric); J44.9 Chronic obstructive pulmonary disease, unspecified; E07.9 Disorder of thyroid, unspecified; Z79.51 Long term (current) use of inhaled steroids; Z79.84 Long term (current) use of oral hypoglycemic drugs; E66.9 Obesity, unspecified; Z68.38 Body mass index [BMI] 38.0-38.9, adult; Z98.890 Other specified postprocedural states; Z98.1 Arthrodesis status; Z87.891 Personal history of nicotine dependence; Z80.0 Family history of malignant neoplasm of digestive organs; Z82.49 Family history of ischemic heart disease and other diseases of the circulatory system
CPT/HCPCS: 45385; 88305; J2003; J2704; J7120

== ENCOUNTER 2024-12-10 09:10 | Outpatient (CLI) | payer MEDICARE, MEDICAID, SELFPAY ==
--- NOTE | 2024-12-10 | ECHO_ITS ---
Patient Info Name: Adelaida Vasqeuz Age: 69 years : 1955 Gender: Female Ht: 63 in Wt: 210 lbs BSA: 2.10 m2 HR: 64 bpm BP: 98 / 71 mmHg Technical Quality: Fair Exam Date: 12/10/2024 9:38 AM Exam Location: Echo Lab Patient Status: Outpatient Admit Date: 12/10/2024 Staff Ordering Physician: Jason, Patricia RIVAS Donkey Ride Operator: Andrea Williamson RDCS Attending Provider: Jason, Patricia RIVAS Referring Physician: Jason BAKER; Exam Type: CA echo doppler color flow Study Info Indications - DYSPNEA Complete two-dimensional, color flow and Doppler transthoracic echocardiogram is performed. Summary 1. Complete two-dimensional, color flow and Doppler transthoracic echocardiogram is performed. 2. Left ventricular chamber dimension is normal. 3. Left ventricular systolic function is normal, estimated at 65-70%. 4. There is mild concentric increased left ventricular wall thickness. 5. The left ventricular diastolic function is grade I diastolic dysfunction. 6. E/e' 8 is minimally elevated. 7. The aortic valve is not well visualized. Cannot determine number of aortic valve leaflets. 8. There is trivial pericardial effusion. Left Ventricle E/e' 8 is minimally elevated. Left ventricular chamber dimension is normal. Left ventricular systolic function is normal, estimated at 65-70%. There is mild concentric increased left ventricular wall thickness. The left ventricular diastolic function is grade I diastolic dysfunction. Right Ventricle Right ventricular chamber dimension is normal. Right ventricular systolic function is normal. Left Atria Left atrial chamber dimension is normal. Right Atria Right atrial chamber dimension is normal. Aortic Valve The aortic valve is not well visualized. Cannot determine number of aortic valve leaflets. There is no aortic valve stenosis. There is mild aortic valve regurgitation. Pulmonic Valve There is no pulmonic regurgitation. Mitral Valve There is no mitral valve stenosis. There is no mitral valve regurgitation. Tricuspid Valve There is no tricuspid valve regurgitation. Pericardium/Pleural There is trivial pericardial effusion. Inferior Vena Cava Normal inferior vena cava with >50% collapse upon inspiration consistent with normal right atrial pressure, 5 mmHg. Aorta The aortic root size at the sinus of Valsalva is normal. Left Ventricular Outflow Tract Name Value Normal LVOT 2D LVOT Diameter 1.9 cm LVOT Doppler LVOT Peak Velocity 137 cm/s LVOT Peak Gradient 5 mmHg LVOT Mean Gradient 3 mmHg LVOT VTI 27 cm LVOT VTI/AV VTI Ratio 1.0 LVOT Stroke Volume 75 ml LVOT CO 3.2 l/min LVOT CI 1.5 l/min/m2 Pulmonic Valve Name Value Normal RVOT Doppler RVOT Peak Gradient 4 mmHg PV Doppler PV Peak Velocity 91 cm/s PV Peak Gradient 3 mmHg Mitral Valve Name Value Normal MV Doppler MV Decel Sully 276 cm/s2 MV PHT 58 ms MV Area (PHT) 3.8 cm2 4.0-5.0 MV Diastolic Function MV E Peak Velocity 55 cm/s MV A Peak Velocity 71 cm/s MV E/A 0.8 MV Decel Time 201 ms MV Annular TDI MV Septal e' Velocity 7.0 cm/s >=8.0 MV E/e' (Septal) 8.0 <=8.0 MV Lateral e' Velocity 5.8 cm/s >=10.0 MV E/e' (Lateral) 9.5 <=8.0 MV e' Average 6.40 MV E/e' (Average) 8.7 Tricuspid Valve Name Value Normal Estimated PAP/RSVP RA Pressure 5 mmHg <=5 TV Annular TDI TV Lateral Sherrie s' Velocity 10.1 cm/s 9.5-18.7 Aorta Name Value Normal Ascending Aorta Ao Root Diameter (MM) 2.7 cm Ao Root Diam Index (MM) 1.3 cm/m2 Ao [place] Diameter 2.5 cm 2.3-2.9 Aortic Valve Name Value Normal AV Doppler AV Peak Velocity 132 cm/s AV Peak Gradient 7 mmHg AV Mean Gradient 4 mmHg AV VTI 28 cm AV Area (Cont Eq VTI) 2.7 cm2 >=3.0 AV Area (Cont Eq Suhail) 2.9 cm2 AV V1/V2 Ratio 1.04 AV Regurgitation 2D LVOT Area 2.7 cm2 Ventricles Name Value Normal LV Dimensions 2D/MM IVS Diastolic Thickness (2D) 1.5 cm 0.6-1.0 LVID Diastole (2D) 3.9 cm 3.8-5.2 LVIW Diastolic Thickness (2D) 1.0 cm 0.6-0.9 LVID Systole (2D) 2.9 cm 2.2-3.5 LVOT Diameter 1.9 cm LV Mass (2D Cubed) 164.64 g 67.00-162.00 LV Mass Index (2D Cubed) 78 g/m2 43-95 Relative Wall Thickness (2D) 0.51 LV Fractional Shortening/Ejection Fraction 2D/MM LV Fractional Shortening (2D) 26 % 27-45 LV EF (2D Teicholz) 51 % 54-74 LV Diastolic Volume (4C MOD) 54 ml LV EF (4C MOD) 80 % LV Diastolic Volume (2C MOD) 60 ml LV EF (2C MOD) 77 % LV Diastolic Volume (BP MOD) 57 ml 46-106 LV Diastolic Volume Index (BP MOD) 27 ml/m2 29-61 LV Systolic Volume (BP MOD) 13 ml 14-42 LV Systolic Volume Index (BP MOD) 6 ml/m2 8-24 LV EF (BP MOD) 78 % 54-74 LV Diastolic Length (4C) 7.2 cm LV Systolic Length (4C) 5.7 cm LV Stroke Volume (4C MOD) 43 ml Atria Name Value Normal LA Dimensions LA Dimension (MM) 3.7 cm 2.7-3.8 LA Volume (4C A-L) 35 ml LA Volume (BP A-L) 42 ml RA Dimensions RA Area (4C) 14.6 cm2 <=18.0 Report Signatures
--- OUTSIDE RECORDS SUMMARY | 2024-12-10 09:53 | XMS_ITS | Patient Health Summary ---
Author Organization [facility] Address [address] [place] [address] Care Team Providers Care Registered Health Nurse Name Role Phone Patricia Gomez PA-C Primary Care Provider Note from [facility] [place]note 2],non-owned Affiliates and Associated Physician Practices is amultiple site organization consisting of ambulatory clinics and hospital sitesin [place], [place], [place] and [place]. This disclosure is being madepursuant to the Care Everywhere program and may not contain all information available regarding this patient. Last updated 18.[facility] Allergies * Banana(Anaphylaxis) -High Criticality * Penicillins(Unknown) Medications * Be aware that medications may not be up to date on this document. Alwaysverify current medications with the patient. * albuterol (Proventil;Ventolin) (2.5 MG/3ML) 0.083% nebulizer solution albuterol sulfate 2.5 mg/3 mL (0.083 %) solution for nebulization USE 1 VIAL IN NEBULIZER EVERY 4 TO 6 HOURS FOR 7 DAYS * atorvastatin (Lipitor) 20 MG tablet atorvastatin 20 mg tablet TAKE 1 TABLET BY MOUTH ONCE DAILY AT BEDTIME * levothyroxine (Synthroid) 100 MCG tablet(Started 12/19/2022) TAKE 1 TABLET BY MOUTH ONCE DAILY BEFORE MEAL(S) FOR 30 DAYS Active Problems Problem Noted Date Diagnosed Date Obesity 05/07/2023 05/07/2023 Thyroid cancer 05/07/2023 Adrenal hyperplasia 12/12/2022 05/07/2023 Avascular necrosis of bone of hip 12/12/2022 05/07/2023 Prediabetes 12/12/2022 05/07/2023 Smoker 12/12/2022 05/07/2023 Mixed hyperlipidemia 06/21/2021 05/07/2023 Chronic obstructive lung disease 01/25/2021 05/07/2023 Hypothyroidism 01/25/2021 05/07/2023 History of thyroid cancer 08/29/20202022 Social History Tobacco Use Types Packs/Day Years Used Date Smoking Tobacco: Every Day Cigarettes Smokeless Tobacco: Never Tobacco Cessation:Ready to Q uit: Not Asked; Counseling Given: Not Answered Alcohol Use Standard Drinks/Week Comments Never 0 (1 standard drink = 0.6 oz pur e alcohol) Sex and Gender Information Value Date Recorded Sex Assigned at Not on file Gender Identity Not on file Sexual Orientation Not on file Last Filed Vital Signs Vital Sign Reading Time Taken Comments Blood Pressure 122/78 01/10/2023 9:53 AM CDT Pulse 86 01/10/2023 9:53 AM CDT Temperature - - Respiratory Rate - - Oxygen Saturation 94% 01/10/2023 9:53 AM CDT Inhaled Oxygen Concentration - - Weight 98.4 kg (217 lb) 01/10/2023 9:53 AM CDT Height 157.5 cm (5' 2 ) 01/10/2023 9:53 AM CDT Body Mass Index 39.69 01/10/2023 9:53 AM CDT Procedures * THYROGLOBULIN BY ELAN RFLXED(Performed 01/23/2023) Performed for Hx of thyroid cancer * THYROGLOBULIN AB+THYROGLOBULIN(Performed 01/23/2023) Performed for Hx of thyroid cancer * T4 FREE(Performed 01/23/2023) Performed for Hx of thyroid cancer * TSH(Performed 01/23/2023) Performed for Hx of thyroid cancer Results * THYROGLOBULIN AB+THYROGLOBULIN (01/23/2023 10:26 AM CDT) Thyroglobulin Antibody <1.0 0.0 - 0.9 IU/mL [facility] INSURANCE BILL Comment: Thyroglobulin Antibody measured by Jacob Sam Methodology FASTING Blood BLOOD SPECIMEN / Unknown 01/23/2023 10:26 AM CDT 01/23/2023 Narrative Resulting Agency Comment Lab Testing performed at: [facility] [id number] Francisco Almeida MD LAB - CHEMISTRY ORDDeanna NEIL Performing Organization Address City/State/[facility] Co de Phone Number [facility] INSURANCE BILL [address] [place] [address] * THYROGLOBULIN BY ELAN RFLXED (01/23/2023 10:26 AM CDT) Thyroglobulin by ELAN 4.7 1.5 - 38.5 ng/mL [facility] INSURANCE BILL Comment: According to the National Academy of Clinical Biochemistry, the reference interval for Thyroglobulin (TG) should be related to euthyroid patients and not for patients who underwent thyroidectomy. TG reference intervals for these patients depend on the residual mass of the thyroid tissue left after surgery. Establishing a post-operative baseline is recommended. The assay limit of quantitation is 0.1 ng/mL . Thyroglobulin measured by Jacob Sam Immunometric Assay FASTING 01/23/2023 10:2 6 AM CDT 01/23/2023 Narrative Resulting Agency Comment Lab Testing performed at: [facility] [address] [facility] [id number] Francisco Almeida MD LAB - CHEMISTRY BRITTANY NEIL Performing Organization Address [facility] de Phone Number [facility] INSURANCE BILL [address] [place] [address] * (ABNORMAL) TSH (01/23/2023 10:26 AM CDT) Pathologist [facility] TSH 12.500(H) 0.450 - 4.500 uIU/mL [facility] INSURANCE BILL Comment:FASTING Blood BLOOD SPECIMEN / Unknown 01/23/2023 10:26 AM CDT 01/23/2023 Narrative Resulting Agency Comment Lab Testing performed at: [facility] [address] [facility] [id number] Francisco Almeida MD LAB - CHEMISTRY BRITTANY NEIL Performing Organization Address [facility] Co de Phone Number [facility] INSURANCE BILL [address] [place] [address] * T4 FREE (01/23/2023 10:26 AM CDT) T4 Free 1.18 0.82 - 1.77 ng/dL [facility] INSURANCE BILL Comment:FASTING Blood BLOOD SPECIMEN / Unknown 01/23/2023 10:26 AM CDT 01/23/2023 Narrative Resulting Agency Comment [facility] [address] [facility] [id number] Francisco Almeida MD LAB - CHEMISTRY BRITTANY NEIL [facility] INSURANCE BILL [address] [place] [address] Care Teams Registered Health Nurse Relationship Specialty Start Date End Date Patricia Gomez PA-C [address] [place] [phone] PCP - General 12/16/22
--- OUTSIDE RECORDS SUMMARY | 2024-12-10 09:53 | XMS_ITS | Referral Summary ---
Author Organization [facility] Address [address] [place] [address] Care Team Providers Care Industrial Sales Representative Name Role Phone Patricia Gomez PA-C Primary Care Provider Source Comments [facility],non-owned Affiliates and Associated Physician Practices is amultiple site organization consisting of ambulatory clinics and hospital sitesin [place], [place], [place] and [place]. This disclosure is being madepursuant to the Care Everywhere program and may not contain all information available regarding this patient. Last updated 18.[facility] Allergies Active Allergy Reactions Criticality Noted Date Comments Banana Anaphylaxis High 09/22/2020 Penicillins Unknown 01/10/2023 Medications * Be aware that medications may not be up to date on this document. Alwaysverify current medications with the patient. Medication Sig Dispensed Refills Start Date End Date Status albuterol (Proventil;Ventolin ) (2.5 MG/3ML) 0.083% nebulizer solution albuterol sulfate 2.5 mg/3 mL (0.083 %) solution for nebulization USE 1 VIAL IN NEBULIZER EVERY 4 TO 6 HOURS FOR 7 DAYS Active atorvastatin (Lipitor) 20 MG tablet atorvastatin 20 mg tablet TAKE 1 TABLET BY MOUTH ONCE DAILY AT BEDTIME Active levothyroxine (Synthroid) 100 MCG tablet TAKE 1 TABLET BY MOUTH ONCE DAILY BEFORE MEAL(S) FOR 30 DAYS 12/19/2022 Active Active Problems Problem Noted Date Diagnosed Date [...] Mass Index 39.69 01/10/2023 9:53 AM CDT Plan of Treatment Not on file Care Teams Industrial Sales Representative Relationship Specialty Start Date End Date Patricia Gomez PA-C [address] [place] [phone] PCP - General 12/16/22
--- OUTSIDE RECORDS SUMMARY | 2024-12-10 09:53 | XMS_ITS | Clinical Summary ---
Author Organization [facility] Address [address] [place] [id number] Care Team Providers Care Door Operator Name Role Phone Unavailable Primary Care Provider Unavailabl e Social History Tobacco Use Types Packs/Day Years Used Date Smoking Tobacco: Never Assessed Comments Unknown Sex and Gender Information Value Date Recorded Sex Assigned at Not on file Legal Sex Female 1:42 PM CDT Gender Identity Not on file Sexual Orientation Not on file Plan of Treatment Health Maintenance Due Date Last Done Comments Colorectal Cancer Screening Colonoscopy (10 Years) 1955 Hepatitis C 1975 DTaP, Tdap and Td Vaccines ( 1 - Tdap) 1976 Mammogram Screening 1997 Zoster Vaccines (1 of 2) 2007 Dexa Scan (General) 2022 Pneumococcal Vaccine: 65+ Ye ars (1 of 1 - PCV) 2022 COVID-19 Vaccine (2023-2 5 season) 2024 Influenza Adult (#1) 2024 RSV Immunization or 60+ Years (1 - 1-dose 75+ series) 2032 Meningococcal B Vaccine Aged Out No l onger eligible based on patient's age to complete this topic Meningococcal Vaccine Aged Out No jairon osmel eligible based on patient's age to complete this topic RSV Immunizations Under 20 Months Aged Out No longer eligible based on patient's age to complete this topic
--- OUTSIDE RECORDS SUMMARY | 2024-12-10 09:53 | XMS_ITS | Referral Summary ---
Author Organization [facility] Address [address] [place] [address] Care Team Providers Care Visual Display Manager Name Role Phone Patricia Gomez Primary Care Provider + Encounters Date Type Department Care Team Description 10/30/2024 8:29 PM BUNCH BREAKER MACHINE OPERATOR - 10/30/2024 10:26 PM [facility] Emergency [facility] Emergency Department [address] [place], [place] [id number] Catracho Bills Jr., MD COVID-19 virus infection (Primary Dx) Discharge Disposition: Discharge to home or self care from Last 3 Months Allergies Active Allergy Reactions Criticality Noted Date Comments Banana Anaphylaxis High 09/22/2020 Banana Extract Other (See comments) Low 10/30/2024 Penicillins Unknown,Other (See comments) Low 2024 Medications atorvastatin (LIPITOR) 20 mg tabletIndication s:hyperlipidemia Take 1 tablet (20 mg total) by mouth nightly Active levothyroxine (SYNTHROID) 112 mcg tablet Take 1 tablet (112 mcg total) by mouth vaccine customer representative before breakfast Active albuterol 2.5 mg /3 mL (0.083 %) nebulizer solution Take 3 mL (2.5 mg total) by nebulization every 6 (six) hours as needed for wheezing or shortness of breath Active amLODIPine (NORVASC) 10 mg tablet Take 1 tablet (10 mg total) by mouth daily 30 tablet 3 Active lisinopriL (PRINIVIL,ZESTRI L) 10 mg tablet Take 1 tablet (10 mg total) by mouth daily 30 tablet 3 Active escitalopram (LEXAPRO) 10 mg tablet Take 1 tablet (10 mg total) by mouth daily 3 Active fluticasone-umec lidin-vilanter (Trelegy Ellipta) 200-62.5-25 mcg inhalerIndicatio ns:Chronic obstructive pulmonary disease, unspecified COPD type (HCC),Severe persistent asthma without complication Inhale 1 puff daily 60 each 5 4 Active albuterol HFA (PROVENTIL HFA,VENTOLIN HFA,PROAIR HFA) 90 mcg/actuation inhalerIndicatio ns:Chronic Obstructive Pulmonary Disease Inhale 2 puffs every 4 (four) hours as needed for wheezing or shortness of breath (coughing) 1 each 10 4 Active montelukast (SINGULAIR) 10 mg tabletIndication s:Chronic rhinitis Take 1 tablet by mouth nightly 90 tablet 4 Active hydroCHLOROthiaz mari (HYDRODIURIL) 25 mg tablet Take 1 tablet (25 mg total) by mouth daily 30 tablet 5 026 Active Active Problems Problem Noted Date Diagnosed Date RSV (respiratory syncytial virus infection) 05/2023 Pneumonia due to infectious organism 08/17/2023 Acute nonintractable headache 06/12/2023 Prediabetes 06/12/2023 Hyperlipidemia 06/12/2023 COPD exacerbation 06/09/2023 Abscess of breast 01/25/2021 Chronic obstructive lung disease 01/25/2021 Depressive disorder 01/25/2021 Hypothyroidism 01/25/2021 Knee pain 01/25/2021 Primary insomnia 01/25/2021 Cigarette nicotine dependence without complicati on 01/25/2021 History of thyroid cancer 08/29/2020 Neck mass 08/29/2020 Abnormal weight gain 04/26/2020 Class 3 severe obesity due t o excess calories without serious comorbidity with body mass index (BMI) of 40.0 to 44.9 in adult 04/26/2020 History of emphysema 02/10/2020 Resolved Problems Problem Noted Date Diagnosed Date Resolved Date Thyroid cancer 09/18/2020 11/06/2020 Cancer Staging:Pathologic stage from 10/14/2008:No Stage Recommended(pT1a, cN0, cM0, Age at diagnosis: < 55 years) - Signed by America Curtis MD on 10/31/2020 Overview (09/18/2020): Added automatically from request for surgery [id number] Immunizations Immunization Administration Dates Next Due Influenza, Quadrivalent, Spl it, Preservative Free, Intramuscular 09/13/2020 Influenza, Trivalent, Preservative Free, Intramu scular 08/10/2008 Influenza, Unspecified 07/20/2020 Pfizer SARS-CoV-2 Monovalent Vaccination (12+ Yrs) PURPLE 01/16/2021 Pneumococcal Polysaccharide PPV23 09/13/2020 Tdap 04/23/2019 Social History Tobacco Use Types Packs/Day Years Used Date Smoking Tobacco: Every Day Cigarettes 0.5 40 Smokeless Tobacco: Never Tobacco Cessation:Ready to Q uit: Not Asked; Counseling Given: Not Answered Alcohol Use Standard Drinks/Week Comments Not Currently 0 (1 standard drink = 0.6 oz pur e alcohol) Social Connection and Isolat ion Panel [NHANES] Answer Date Recorded In a typical week, how many times do you talk on the phone with family, friends, or neighbors? More than three times a week 08/18/2023 How often do you get togethe r with friends or relatives? More than three times a week 08/18/2023 How often do you attend chur ch or evangelical services? Never 08/18/2023 Do you belong to any clubs o r organizations such as presybeterian groups, unions, fraternal or athletic groups, or school groups? No 08/18/2023 How often do you attend meet ings of the clubs or organizations you belong to? Never 08/18/2023 Are you , , di vorced, , never , or living with a partner? 08/18/2023 Overall Financial Resource Strain (CARDIA) Answe r Date Recorded How hard is it for you to pa y for the very basics like food, housing, medical care, and heating? Not hard at all 08/18/2023 Hunger Vital Sign Answer Date Recorded Within the past 12 months, y ou worried that your food would run out before you got the money to buy more. Never true 08/18/20 23 Within the past 12 months, t he food you bought just didn't last and you didn't have money to get more. Never true 08/18/2023 PRAPARE - Transportation Answer Date Re corded In the past 12 months, has l ack of transportation kept you from medical appointments or from getting medications? No 07/22 In the past 12 months, has l ack of transportation kept you from meetings, work, or from getting things needed for daily living? No 08/18/2023 Housing Stability Vital Sign Answer Ace e Recorded In the last 12 months, was t here a time when you were not able to pay the mortgage or rent on time? No 08/18/2023 In the last 12 months, how many places have you lived? 1 08/18/2023 In the last 12 months, was t here a time when you did not have a steady place to sleep or slept in a alf (including now)? No 08/18/2023 Personal Safety Answer Date Recorded Have you ever been in or are you currently in a harmful physical or emotional relationship or is someone making you feel afraid or unsafe? Denies 10/30/2024 Comments No Sex and Gender Information Value Date Recorded Sex Assigned at Not on file Legal Sex Female 4:39 AM BUNCH BREAKER MACHINE OPERATOR Gender Identity Not on file Sexual Orientation Not on file Occupation Industry Job Start Date Job End Date Unemployed Not on file Not on file Not on file Last Filed Vital Signs Vital Sign Reading Time Taken Comments Blood Pressure 133/68 10/30/2024 10:10 PM BUNCH BREAKER MACHINE OPERATOR Pulse 69 10/30/2024 10:10 PM BUNCH BREAKER MACHINE OPERATOR Temperature 37.1 C (98.8 F) 10/30/2024 7:40 PM BUNCH BREAKER MACHINE OPERATOR Respiratory Rate 18 10/30/2024 10:1 0 PM BUNCH BREAKER MACHINE OPERATOR Oxygen Saturation 95% 10/30/2024 10: 10 PM BUNCH BREAKER MACHINE OPERATOR Inhaled Oxygen Concentration - - Weight 97.5 kg (214 lb 15.2 oz) 10/30/2024 7:40 PM BUNCH BREAKER MACHINE OPERATOR Height 160 cm (5' 3 ) 10/30/2024 7:40 PM BUNCH BREAKER MACHINE OPERATOR Body Mass Index 38.08 10/30/2024 7:40 PM BUNCH BREAKER MACHINE OPERATOR Plan of Treatment Not on file Procedures Procedure Name Priority Date/Time Associated Diagnosis Comments TROPONIN T HIGH-SENSITIVITY 2-HOUR Timed 10/30/2024 9:39 PM BUNCH BREAKER MACHINE OPERATOR XR CHEST PA LATERAL 2 VIEWS ED 10/30/2024 8:05 PM BUNCH BREAKER MACHINE OPERATOR PRO B-TYPE NATRIURETIC PEPTIDE Add-On 10/30/2024 7:52 PM BUNCH BREAKER MACHINE OPERATOR EGFR STAT 10/30/2024 7:52 PM BUNCH BREAKER MACHINE OPERATOR DIFFERENTIAL AUTO STAT 10/30/2024 7:5 2 PM BUNCH BREAKER MACHINE OPERATOR TROPONIN T HIGH-SENSITIVITY SERIES (BASELINE, 2HR, 4HR, 6HR) STAT 10/30/2024 7:52 PM BUNCH BREAKER MACHINE OPERATOR CBC WITH AUTO DIFFERENTIAL STAT 10/30/2024 7:52 PM BUNCH BREAKER MACHINE OPERATOR COMPREHENSIVE METABOLIC PANEL STAT 10/30/2024 7:52 PM BUNCH BREAKER MACHINE OPERATOR INFLUENZA A/B, RSV, AND COVID-19 PCR STAT 10/30/2024 7:52 PM BUNCH BREAKER MACHINE OPERATOR ECG 12-LEAD STAT 10/30/2024 7:50 PM BUNCH BREAKER MACHINE OPERATOR from Last 3 Months Results * Troponin T high-sensitivity 2-hour (10/30/2024 9:39 PM BUNCH BREAKER MACHINE OPERATOR) Trop T hs 8 <=14 ng/L Comment: Interpretive Data For further hscTnT resources including the diagnostic algorithm and an aid in interpretation, copy and paste this link: https://nrl.testcatalog.org/show/hsTrop Current Interpretive Data last revised 2020. Testing performed by: [address] [address] Trop T hs delta 0 ng/L MARINE THOMASON Comment:Testing performed by : [address] [address] Trop T hs interp Insignificant MARINE THOMASON Comment:Testing performed by : [address] [address] Blood 10/30/2024 9:39 PM BUNCH BREAKER MACHINE OPERATOR 10/30/2024 9:41 PM BUNCH BREAKER MACHINE OPERATOR Catracho Bills Jr., MD LAB BLOOD ORDERABLES Fi nal Result MARINE [address] [facility] Department [place] [address] * XR Chest PA Lateral 2 Views (10/30/2024 8:05 PM BUNCH BREAKER MACHINE OPERATOR) Anatomical Region Laterality Modality Body, Chest N/A Computed Radiogr aphy 10/30/2024 9:34 PM BUNCH BREAKER MACHINE OPERATOR Narrative 10/30/2024 9:36 PM BUNCH BREAKER MACHINE OPERATOR EXAM DESCRIPTION: XR CHEST PA LATERAL 2 VIEWS REASON FOR STUDY: Shortness of breath Shortness of breath all the time but worse this morning. Hx of COPD. Not on home O2. TECHNIQUE: 2 radiographic view(s) of the chest. COMPARISON: 08/25/2023 FINDINGS: LUNGS: No focal opacity, pleural effusion, or pneumothorax. HEART/MEDIASTINUM: Cardiac silhouette normal in size. Mediastinal and hilar contours appear normal. LINES/TUBES: None. BONES: No acute osseous abnormality. IMPRESSION: No acute cardiopulmonary abnormality. THIS IS AN ELECTRONICALLY VERIFIED FINAL REPORT 10/30/2024 9:36 PM - Electronically signed by Abdulaziz Lomax M.D. MCKENNA: MCKENNA Report ID: [id number] Reading Location: [place] [address] Procedure Note Derrick Lomax MD - 10/30/2024 EXAM DESCRIPTION: XR CHEST PA LATERAL 2 VIEWS REASON FOR STUDY: Shortness of breath Shortness of breath all the time but worse this morning. Hx of COPD. Noton home O2. TECHNIQUE: 2 radiographic view(s) of the chest. COMPARISON: 08/25/2023 FINDINGS: LUNGS: No focal opacity, pleural effusion, or pneumothorax. HEART/MEDIASTINUM: Cardiac silhouette normal in size. Mediastinal andhilar contours appear normal. LINES/TUBES: None. BONES: No acute osseous abnormality. IMPRESSION: No acute cardiopulmonary abnormality. THIS IS AN ELECTRONICALLY VERIFIED FINAL REPORT 10/30/2024 9:36 PM - Electronically signed by Abdulaziz Lomax M.D. MCKENNA: MCKENNA Report ID: [id number] Reading Location: [id number] us Catracho Bills Jr., MD IMG XR PROCEDURES Final Result * Troponin T high-sensitivity series (baseline, 2hr, 4hr, 6hr) (10/30/2024 7:52 PM BUNCH BREAKER MACHINE OPERATOR) Pathologist [facility] Trop T hs 8 <=14 ng/L Comment: Interpretive Data For further hscTnT resources including the diagnostic algorithm and an aid in interpretation, copy and paste this link: https://nrl.testcatalog.org/show/hsTrop Current Interpretive Data last revised 2020. Testing performed by: [address] [address] Blood 10/30/2024 7:52 PM BUNCH BREAKER MACHINE OPERATOR 10/30/2024 7:59 PM BUNCH BREAKER MACHINE OPERATOR us Catracho Bills Jr., MD LAB BLOOD ORDERABLES Ed ited Result - [facility] [address] [facility] Department [place] [address] * (ABNORMAL) Influenza A/B, RSV, and COVID-19 PCR Nasopharyngeal (10/30/2024 7:52 PM BUNCH BREAKER MACHINE OPERATOR) [facility] COVID-19 RNA Positive(A) Negative Comment:Testing performed by : [address] [address] Influenza A RNA Negative Negative MARINE Comment:Testing performed by : [address] [address] Influenza B RNA Negative Negative MARINE Comment:Testing performed by : [address] [address] RSV RNA Negative Negative MARINE Comment: Interpretive data: Testing performed by [facility]. This test is performed using the [employer]ah Xpert Xpress CoV-2/Flu/RSV plus assay. This is a multiplex, real-time reverse transcriptase PCR assay intended for the qualitative detection of nucleic acid from SARS-CoV-2, influenza A, influenza B, and respiratory syncytial virus. This assay has been cleared by the [place] Food and Drug administration. The performance characteristics have been verified by the [facility]. Results must be considered in the clinical context, and a negative result does not rule out infection. Interpretive Data last revised 2023 Testing performed by: [address] [address] Nasopharyngeal 10/30/2024 7: 52 PM BUNCH BREAKER MACHINE OPERATOR 10/30/2024 7:59 PM BUNCH BREAKER MACHINE OPERATOR Narrative MARINE - 10/30/2024 8:38 PM BUNCH BREAKER MACHINE OPERATOR Is the Patient experiencing symptoms consistent with COVID?->Yes us Catracho Bills Jr., MD LAB MICROBIOLOGY - GENE RAL ORDERABLES Final Result [facility] [address] [facility] Department [place] [address] * (ABNORMAL) eGFR (10/30/2024 7:52 PM BUNCH BREAKER MACHINE OPERATOR) eGFR 45(L) >=60 mL/min/1. 73 m2 Comment: Interpretive Data Reference Interval Normal >/= 90 mL/min/1.73m2 Mildly decreased* 60 - 89 mL/min/1.73m2 Mildly to moderately decreased 45 - 59 mL/min/1.73m2 Moderately to severely decreased 30 - 44 mL/min/1.73m2 Severely decreased 15 - 29 mL/min/1.73m2 Kidney Failure < 15 mL/min/1.73m2 *Relative to young adult level Estimated glomerular filtration rate is determined by the 2020 CKD-EPI equation recommended by the National Kidney Foundation (A Unifying Approach to GFR Estimation: Recommendations of the NKF-ASK Task Force on Reassessing the Inclusion of Race in Diagnosing Kidney Disease, JASN 2020). The CKD-EPI equation should not be used for patients with unstable renal function and has not been validated in children and those over 70. Current interpretive data was last reviewed 2021. Testing performed by: [address] [address] Blood 10/30/2024 7:52 PM BUNCH BREAKER MACHINE OPERATOR 10/30/2024 7:59 PM BUNCH BREAKER MACHINE OPERATOR us Catracho Bills Jr., MD LAB BLOOD ORDERABLES Fi nal Result [facility] [address] [facility] Department [place] [address] * (ABNORMAL) Differential, auto (10/30/2024 7:52 PM BUNCH BREAKER MACHINE OPERATOR) Neutrophil abs 7.2(H) 1.5 - 6.5 K/cumm Comment:Testing performed by : [address] [address] Imm gran abs 0.1 0.0 - 0.1 K/cumm MARINE Comment:Testing performed by : [address] [address] Lymphocyte abs 2.8 0.8 - 3.3 K/cumm MARINE Comment:Testing performed by : [address] [address] Monocyte abs 0.8 0.2 - 0.8 K/cumm MARINE Comment:Testing performed by : [address] [address] Eosinophil abs 0.4 0.0 - 0.5 K/cumm MARINE Comment:Testing performed by : [address] [address] Basophil abs 0.1 0.0 - 0.1 K/cumm MARINE Comment:Testing performed by : [address] [address] Neutrophil pct 63.3 % MARINE Comment: Interpretive Data Percent cell count reference ranges are not reported, since discordance with absolute values may lead to misinterpretation of CBC data. Current Interpretive Data was last revised on 2018. Testing performed by: [address] [address] Imm gran pct 0.6 % MARINE Comment: Interpretive Data Percent cell count reference ranges are not reported, since discordance with absolute values may lead to misinterpretation of CBC data. Current Interpretive Data was last revised on 2018. Testing performed by: [address] [address] Lymphocyte pct 24.4 % MARINE Comment: Interpretive Data Percent cell count reference ranges are not reported, since discordance with absolute values may lead to misinterpretation of CBC data. Current Interpretive Data was last revised on 2018. Testing performed by: [address] [address] Monocyte pct 7.3 % MARINE Comment: Interpretive Data Percent cell count reference ranges are not reported, since discordance with absolute values may lead to misinterpretation of CBC data. Current Interpretive Data was last revised on 2018. Testing performed by: [address] [address] Eosinophil pct 3.6 % [facility] Comment: Interpretive Data Percent cell count reference ranges are not reported, since discordance with absolute values may lead to misinterpretation of CBC data. Current Interpretive Data was last revised on 2018. Testing performed by: [address] [address] Basophil pct 0.8 % MARINE Comment: Interpretive Data Percent cell count reference ranges are not reported, since discordance with absolute values may lead to misinterpretation of CBC data. Current Interpretive Data was last revised on 2018. Testing performed by: [address] [address] Blood 10/30/2024 7:52 PM BUNCH BREAKER MACHINE OPERATOR 10/30/2024 7:59 PM BUNCH BREAKER MACHINE OPERATOR us Catracho Bills Jr., MD LAB BLOOD ORDERABLES Fi nal Result MARINE THOMASON [address] [facility] Department [place] [address] * (ABNORMAL) Pro B-type natriuretic peptide (10/30/2024 7:52 PM BUNCH BREAKER MACHINE OPERATOR) NT-proBNP 367(H) <=300 pg/mL Comment: Interpretive Comments: A. Dyspnea in Acute Care Setting All Ages: < 300 pg/ml, acute heart failure unlikely. < 50 yrs: 300 - 450 pg/ml, further investigation warranted. > 450 pg/ml, acute heart failure likely. 50 - 74 yrs: 300 - 900 pg/ml, further investigation warranted. > 900 pg/ml, acute heart failure likely . > or = 75 yrs: 450 - 1800 pg/ml, further investigation warranted. > 1800 pg/ml, acute heart failure likely. B. Non-acute Setting < 75 yrs < 125 pg/ml, rules out heart failure. > or = 125 pg/ml, further investigation warranted. > or = 75 yrs < 450 pg/ml, rules out heart failure. > or = 450 pg/ml, further investigation warranted. - Knowledge of each individual patient's NT-proBNP range may be more useful than using similar cut-points for every patient. Please note that marked elevations in NT-proBNP levels may be observed in state other than Left Ventricular Congestive Failure, including: acute coronary syndromes, right heart strain/failure (including pulmonary embolism and cor pulmonale), critical illness, renal failure, as well as advanced age. - References: 1. Jayson JL et.al. Eur Heart J. 2006:27:330-337. 2. Amadeo RW, Gregor AM. J. AM Ashley Cardiol: Cardiovasc Imag. 2009;2: 216- 225. Interpretive Data Last Revised Date: 2018. Testing performed by: [facility], [address] [place] [address]., [address] Blood 10/30/2024 7:52 PM BUNCH BREAKER MACHINE OPERATOR 10/30/2024 8:51 PM BUNCH BREAKER MACHINE OPERATOR us Catracho Bills Jr., MD LAB BLOOD ORDERABLES Fi nal Result MARINE [address] [facility] Department [place] [address] * (ABNORMAL) CBC with auto differential (10/30/2024 7:52 PM BUNCH BREAKER MACHINE OPERATOR) Pathologist [facility] WBC 11.4(H) 3.8 - 9.9 K/cumm Comment:Testing performed by : [address], [address] Hgb 15.0 11.9 - 15.5 g/dL MARINE Comment:Testing performed by : [address], [address] Hct 48.8(H) 35.6 - 45.5 % MARINE Comment:Testing performed by : [address], [address] Plt 330 150 - 400 K/cumm MARINE Comment:Testing performed by : [address], [address] MPV 9.7 9.1 - 12.3 fL MARINE Comment:Testing performed by : [address], [address] RBC 4.99 3.90 - 5.20 M/cumm MARINE Comment:Testing performed by : [address], [address] MCV 97.8(H) 81.3 - 96.4 fL MARINE Comment:Testing performed by : [address], [address] MCH 30.1 27.1 - 33.3 pg CERESTEFANIA Comment:Testing performed by : [address], [address] MCHC 30.7(L) 32.3 - 35.7 g/dL MARINE Comment:Testing performed by : [address], [address] RDW CV 13.8 11.1 - 14.9 % MARINE Comment:Testing performed by : [address], [address] RDW SD 49.6(H) 35.7 - 48.1 fL MARINE Comment:Testing performed by : [address], [address] NRBC abs 0.00 0.00 - 0.01 K/cumm MARINE Comment:Testing performed by : [address], [address] Blood 10/30/2024 7:52 PM BUNCH BREAKER MACHINE OPERATOR 10/30/2024 7:59 PM BUNCH BREAKER MACHINE OPERATOR us Catracho Bills Jr., MD LAB BLOOD ORDERABLES Fi nal Result [facility] [address] [facility] Department [place] [address] * (ABNORMAL) Comprehensive metabolic panel (10/30/2024 7:52 PM BUNCH BREAKER MACHINE OPERATOR) Sodium 142 135 - 145 mmol/L Comment:Testing performed by : [address] [address] Potassium, pl 4.8 3.3 - 4.9 mmol/L MARINE Comment:Testing performed by : [address] [address] Chloride 107 97 - 110 mmol/L MARINE Comment:Testing performed by : [address] [address] CO2 22 22 - 32 mmol/L MARINE Comment:Testing performed by : [address] [address] Anion gap 13 2 - 15 mmol/L MARINE Comment:Testing performed by : [address] [address] BUN 15 6 - 25 mg/dL MARINE Comment:Testing performed by : [address] [address] Creatinine 1.30(H) 0.60 - 1.10 mg/dL MARINE Comment:Testing performed by : [address] [address] Glucose 112 70 - 199 mg/dL MARINE Comment: Interpretive Data Fasting glucose >/= 126 mg/dl is diagnostic for diabetes. Fasting is defined as no caloric intake for at least 8 hours. Fasting glucose between 100 mg/dl to 125 mg/dl is diagnostic of prediabetes. In a patient with classic symptoms of hyperglycemia or hyperglycemic crisis, a random glucose >/= 200 mg/dl is diagnostic for diabetes. In the absence of unequivocal hyperglycemia, results should be confirmed by repeat testing. The classification and Diagnosis of Diabetes Diabetes Care 202; 46: S19-S40. Current interpretive data was last revised 2022. Testing performed by: [address] [address] Calcium 8.6 8.5 - 10.3 mg/dL MARINE Comment:Testing performed by : [address] [address] Bilirubin, total 0.2 0.1 - 1.2 mg/dL MARINE Comment:Testing performed by : [address] [address] Protein, pl 7.2 6.5 - 8.5 g/dL MARINE Comment:Testing performed by : [address] [address] Albumin 4.0 3.5 - 5.0 g/dL MARINE Comment:Testing performed by : [address] [address] Alk phos 187(H) 40 - 130 Units/L MARINE Comment:Testing performed by : [address] [address] ALT 10 7 - 45 Units/L MARINE Comment:Testing performed by : [address] [address] AST 20 10 - 45 Units/L MARINE Comment: HEMOLYZED: Hemolysis interferes with the above test. Testing performed by: [address] [address] Blood 10/30/2024 7:52 PM BUNCH BREAKER MACHINE OPERATOR 10/30/2024 7:59 PM BUNCH BREAKER MACHINE OPERATOR us Catracho Bills Jr., MD LAB BLOOD ORDERABLES Fi nal Result MARINE THOMASON [address] [facility] Department [place] [address] * ECG 12 lead (10/30/2024 7:50 PM BUNCH BREAKER MACHINE OPERATOR) [facility] Ventricular Rate EKG/Min 75 BPM [facility] Atrial Rate 75 BPM [facility] [place]-Interval (MSEC) 140 ms [facility] QRS-Interval (MSEC) 74 ms [facility] QT-Interval (MSEC) 398 ms [facility] QTc 444 ms [facility] P [place] 66 degrees [facility] R [place] 65 degrees [facility] T [place] 75 degrees [facility] Diagnosis Normal sinus rhythm Nonspecific T wave abnormality Abnormal ECG When compared with ECG of 17-AUG-2023 14:15, Premature ventricular complexes are no longer Present Criteria for Septal infarct are no longer Present Confirmed by OWEN ARORA M.D. ([id number]) on 10/31/2024 9:44:28 AM [facility] 10/30/2024 7:50 PM BUNCH BREAKER MACHINE OPERATOR 10/31/2024 9:44 AM BUNCH BREAKER MACHINE OPERATOR us Catarcho Bills Jr., MD ECG ORDERABLES Final R esult [facility] from Last 3 Months Insurance MEDICARE IDWY MEDICARE [place] MEDICARE [place] Advance Directives For more information, please contact: [phone] * Full Code (Latest Code Status on File) Date Activated Date Inactivated Comments 08/17/2023 3:59 PM 08/27/2023 4:46 PM * Full Code Date Activated Date Inactivated Comments 06/09/2023 3:52 PM 06/12/2023 7:32 PM * Full Code Date Activated Date Inactivated Comments 10/03/2020 12:56 PM 10/04/2020 3:20 PM Care Teams Visual Display Manager Relationship Specialty Start Date End Date Patricia Gomez PA PCP - General Physician Commercial Loan Manager 09/11/21
--- OUTSIDE RECORDS SUMMARY | 2024-12-10 09:53 | XMS_ITS | Data Portability ---
Author Organization [facility] Address [address] [place] [address] Care Team Providers Care Jig Hand Name Role Phone GUICHO HENRIQUEZ Primary Care Provider [phone] Assessment Encounter Date Assessment Date Assessment LastModified by Organization Details LastModified Time 12/16/2023 12/16/2023 still not sleeping and not wearing cpap Not available 12/19/2023 07:11:51 Plan of Treatment Reminders Order Date Submit Date Provider Last Modified By Organization Details Last Modified Time Details Appointments None recorded. Lab TSH + free T4, serum 2023 024 FRANKI [facility], [address], [place], [address], 4 10:11:04 CMP, serum or plasma 2023 024 FRANKI [facility], [address], [place], [address], 4 14:13:11 HbA1c (hemoglobi n A1c), blood 2023 024 FRANKI In-Office Order, Internal Use Only DO Not Attach Compendium DO Not Attach Compendium, Do Not Delete/merge, [id number] 4 11:54:04 lipid panel, serum 2023 024 FRANKI [facility], [address], [place], [address], 4 14:13:11 vitamin B12 + folate, serum or blood 2023 024 FRANKIALTAGRACIA Yanez, [address], [place], [address], 4 14:13:12 CBC w/ auto diff 2023 024 FRANKIALTAGRACIA Yanez, [address], [place], [address], 4 14:13:13 TIBC (total iron-brooklyn ng capacity), serum 2023 024 FRANKI Yanez, [address], [place], [address], 4 14:13:13 albumin/cr eatinine, mass ratio, urine 2023 024 FRANKI Yanez, [address], [place], [address], 4 14:13:10 lipid panel, serum 2022 023 FRANKI Yanez, [address], [place], [address], 3 01:07:46 HbA1c (hemoglobi n A1c), blood 2022 023 FRANKI Yanez, [address], [place], [address], 3 05:10:14 CBC w/ auto diff 2022 023 FRANKI Yanez, [address], [place], [address], 3 01:07:47 CMP, serum or plasma 2022 023 FRANKI Yanez [address], [place], [address], 3 01:07:46 Referral gastroente rologist referral - both parents with colon cancer, adenoma on bx 2020 024 Nicholas Messina MD, [address], [address], [place], [address], 4 08:36:12 diabetic ophthalmol ogy referral 2023 024 [facility], [address] [facility] [address] [facility], [address], [place], [address], 4 15:31:40 endocrinol ogy referral [address] - Endocrinology , [address], [place], [address], 4 08:11:[address] referral 2023 024 [facility], [address], [address], [place], [address], 4 15:16:25 endocrinol ogy referral 2022 023 [facility] - Endocrinology , [address], [place], [address], 3 11:08:18 Procedures None recorded. Surgeries None recorded. Imaging US, thyroid 2023 024 [facility] (Imaging), [address], [place], [address], 4 16:41:59 Medication Orders atorvastat in 40 mg tablet 2023 024 [facility] [address], [address], [place], [address], 4 11:16:06 Lexapro 10 mg tablet 2022 023 [facility] [address], [address] [facility], [place], [address], 11:23:26 Patient TargetsNo targets recorded. Patient Instructions Encounter Date Encounter Id Patient Instructions Last Modified By Organization Details Last Modified Time 09/24/2023 [id number] A healthy lifestyle: care instructions [email or web address] Not available 09/24/2023 15:43:28 Reason for Referral Endocrinology Referral for H istory of malignant neoplasm of thyroid Referring Physician: General Dara Liu, Encounter Date: 07/02/2023 Fur Sorter Referral for Dy spnea Referring Physician: General Dara Liu, Encounter Date: 12/16/2023 Endocrinology Referral for H istory of malignant neoplasm of thyroid Referring Physician: General Dara Liu, Encounter Date: 12/16/2023 Auricular Therapist Referral for Tubular adenoma of colon both parents with colon cancer, adenoma on bx 2020 Referring Physician: General Dara Liu, Encounter Date: 12/16/2023 Diabetic Ophthalmology Refer ral for Type 2 diabetes mellitus Referring Physician: General Dara Liu, Encounter Date: 12/16/2023 Diabetic Ophthalmology Refer ral for Type 2 diabetes mellitus Referring Physician: General Dara Liu, Encounter Date: 12/01/2024 Results Created Date Observation Date Name Description Value Unit Range Abnormal Flag Note LastModifiedBy Organization Detail LastModifiedTime 09/24/2009/26/2023 LIPID PANEL cholesterol, total 197 mg/dL 100-19 9 Not Available [facility] Department [address] [place], [address], 09/26/2023 01:07:46 09/24/2009/26/2023 LIPID PANEL triglyceride s 411 mg/dL 0-149 above high normal Not Available [facility] Department [address] [place], [address], 09/26/2023 01:07:46 09/24/20 23 09/26/2023 LIPID PANEL HDL cholesterol 40 mg/dL 40-999 Not Available [facility] Department [address] [place] [address], [address], 09/26/2023 01:07:46 09/24/20 23 09/26/2023 LIPID PANEL VLDL cholesterol barbra 82 mg/dL 5-40 above high normal Not Available [facility] Department [address] [place] [address], [address], 09/26/2023 01:07:46 09/24/20 23 09/26/2023 LIPID PANEL LDL chol calc (nih) 137 mg/dL 0-99 above high normal Not Available [facility] Department [address] [place] [address], [address], 09/26/2023 01:07:46 09/24/20 23 09/26/2023 COMP. METAB OLIC PANEL (14) glucose 100 mg/dL 70-99 above high normal Not Available [facility] Department [address] [place] [address], [address], 09/26/2023 01:07:46 09/24/20 23 09/26/2023 COMP. METAB OLIC PANEL (14) BUN 23 mg/dL 8-27 Not Available [facility] Department [address] [place] [address], [address], 09/26/2023 01:07:46 09/24/20 23 09/26/2023 COMP. METAB OLIC PANEL (14) creatinine 1.21 mg/dL 0.76-1 .27 Not Available [facility] Department [address] [place] [address], [address], 09/26/2023 01:07:46 09/24/20 23 09/26/2023 COMP. METAB OLIC PANEL (14) eGFR 49 >=60 below low normal Units for eGFR value s are mL/mi n/1.7 3 The eGFR Calcu latio n has not been valid ated for patie nts under the age of 18. If test resul ts are displ ayed for a patie nt under the age of 18, disre froylan that value . Not Available [facility] Department [address] [place] [address], [address], 09/26/2023 01:07:46 09/24/20 23 09/26/2023 COMP. METAB OLIC PANEL (14) BUN/creatini ne ratio 19 10-28 Not Available [facility] Department [address] [place] [address], [address], 09/26/2023 01:07:46 09/24/20 23 09/26/2023 COMP. METAB OLIC PANEL (14) sodium 140 mmol/ L 134-14 4 Not Available [facility] Department [address] [place] [address], [address], 09/26/2023 01:07:46 09/24/20 23 09/26/2023 COMP. METAB OLIC PANEL (14) potassium 5.7 mmol/ L 3.5-5. 2 above high normal Not Available [facility] Department [address] [place] [address], [address], 09/26/2023 01:07:46 09/24/20 23 09/26/2023 COMP. METAB OLIC PANEL (14) chloride 97 mmol/ L 96-106 Not Available [facility] Department [address] [place] [address], [address], 09/26/2023 01:07:46 09/24/20 23 09/26/2023 COMP. METAB OLIC PANEL (14) carbon dioxide, total 26 mmol/ L 20-29 Not Available [facility] Department [address] [place] [address], [address], 09/26/2023 01:07:46 09/24/20 23 09/26/2023 COMP. METAB OLIC PANEL (14) calcium 9.6 mg/dL 8.7-10 .3 Not Available [facility] Department [address] [place] [address], [address], 09/26/2023 01:07:46 09/24/20 23 09/26/2023 COMP. METAB OLIC PANEL (14) protein, total 6.5 g/dL 6.0-8. 5 Not Available [facility] Department [address] [place], [address], 09/26/2023 01:07:46 09/24/20 23 09/26/2023 COMP. METAB OLIC PANEL (14) albumin 4.2 g/dL 3.8-4. 8 Not Available [facility] Department [address] [place], [address], 09/26/2023 01:07:46 09/24/20 23 09/26/2023 COMP. METAB OLIC PANEL (14) globulin, total 2.3 g/dL 1.5-4. 5 Not Available [facility] Department [address] [place], [address], 09/26/2023 01:07:46 09/24/20 23 09/26/2023 COMP. METAB OLIC PANEL (14) A/G ratio 1.8 1.2-2. 2 Not Available [facility] Department [address] [place], [address], 09/26/2023 01:07:46 09/24/20 23 09/26/2023 COMP. METAB OLIC PANEL (14) bilirubin, total 0.4 mg/dL 0.0-1. 2 Not Available [facility] Department [address] [place], [address], 09/26/2023 01:07:46 09/24/20 23 09/26/2023 COMP. METAB OLIC PANEL (14) alkaline phosphatase 169 IU/L 44-121 above high normal Not Available [facility] Department [address] [place], [address], 09/26/2023 01:07:46 09/24/20 23 09/26/2023 COMP. METAB OLIC PANEL (14) AST (SGOT) 15 IU/L 0-40 Not Available [facility] Department [address] [place], [address], 09/26/2023 01:07:46 09/24/20 23 09/26/2023 COMP. METAB OLIC PANEL (14) ALT (SGPT) 16 IU/L 0-32 Not Available [facility] Department [address] [place], [address], 09/26/2023 01:07:46 09/24/20 23 09/26/2023 CBC WITH DIFFE RENTI AL/PL ATELE T WBC 11.9 x10e3 /uL 3.4-10 .8 above high normal Not Available [facility] Department [address] [place], [address], 09/26/2023 01:07:47 09/24/20 23 09/26/2023 CBC WITH DIFFE RENTI AL/PL ATELE T RBC 5.27 x10e6 /uL 3.77-5 .28 Not Available [facility] Department [address] [place], [address], 09/26/2023 01:07:47 09/24/20 23 09/26/2023 CBC WITH DIFFE RENTI AL/PL ATELE T hemoglobin 15.8 g/dL 11.1-1 5.9 Not Available [facility] Department [address] [place], [address], 09/26/2023 01:07:47 09/24/20 23 09/26/2023 CBC WITH DIFFE RENTI AL/PL ATELE T hematocrit 52.8 % 34.0-4 6.6 above high normal Not Available [facility] Department [address] [place], [address], 09/26/2023 01:07:47 09/24/20 23 09/26/2023 CBC WITH DIFFE RENTI AL/PL ATELE T MCV 100 fL 79-97 above high normal Not Available [facility] Department [address] [place], [address], 09/26/2023 01:07:47 09/24/2009/26/2023 CBC WITH DIFFE RENTI AL/PL ATELE T MCH 30.0 pg 26.6-3 3.0 Not Available [facility] Department [address] [place], [address], 09/26/2023 01:07:47 09/24/2009/26/2023 CBC WITH DIFFE RENTI AL/PL ATELE T MCHC 29.9 g/dL 31.5-3 5.7 below low normal Not Available [facility] Department [address] [place], [address], 09/26/2023 01:07:47 09/24/2009/26/2023 CBC WITH DIFFE RENTI AL/PL ATELE T RDW 16.8 % 11.5-1 4.5 above high normal Not Available [facility] Department [address] [place], [address], 09/26/2023 01:07:47 09/24/2009/26/2023 CBC WITH DIFFE RENTI AL/PL ATELE T platelets 320 x10e3 /uL 150-45 0 Not Available [facility] Department [address] [place], [address], 09/26/2023 01:07:47 09/24/2009/26/2023 CBC WITH DIFFE RENTI AL/PL ATELE T neutrophils 66 % notest b. Not Available [facility] Department [address] [place], [address], 09/26/2023 01:07:47 09/24/2009/26/2023 CBC WITH DIFFE RENTI AL/PL ATELE T lymphs 22 % notest b. Not Available [facility] Department [address] [place], [address], 09/26/2023 01:07:47 09/24/20 23 09/26/2023 CBC WITH DIFFE RENTI AL/PL ATELE T monocytes 9 % notest b. Not Available [facility] Department [address] [place], [address], 09/26/2023 01:07:47 09/24/20 23 09/26/2023 CBC WITH DIFFE RENTI AL/PL ATELE T eos 1 % notest b. Not Available [facility] Department [address] [place], [address], 09/26/2023 01:07:47 09/24/2009/26/2023 CBC WITH DIFFE RENTI AL/PL ATELE T basos 1 % notest b. Not Available [facility] Department [address] [place] [address], [address], 09/26/2023 01:07:47 09/24/20 23 09/26/2023 CBC WITH DIFFE RENTI AL/PL ATELE T neutrophils (absolute) 7.9 x10e3 /uL 1.4-7. 0 above high normal Not Available [facility] Department [address] [place], [address], 09/26/2023 01:07:47 09/24/20 23 09/26/2023 CBC WITH DIFFE RENTI AL/PL ATELE T lymphs (absolute) 2.7 x10e3 /uL 0.7-3. 1 Not Available [facility] Department [address] [place], [address], 09/26/2023 01:07:47 09/24/20 23 09/26/2023 CBC WITH DIFFE RENTI AL/PL ATELE T monocytes(ab solute) 1.1 x10e3 /uL 0.1-0. 9 above high normal Not Available [facility] Department [address] [place], [address], 09/26/2023 01:07:47 09/24/20 23 09/26/2023 CBC WITH DIFFE RENTI AL/PL ATELE T eos (absolute) 0.1 x10e3 /uL 0.0-0. 4 Not Available [facility] Department [address] [place], [address], 09/26/2023 01:07:47 09/24/20 23 09/26/2023 CBC WITH DIFFE RENTI AL/PL ATELE T baso (absolute) 0.1 x10e3 /uL 0.0-0. 2 Not Available [facility] Department [address] [place], [address], 09/26/2023 01:07:47 09/24/2009/26/2023 CBC WITH DIFFE RENTI AL/PL ATELE T immature granulocytes 1.4 % notest b. Not Available [facility] Department [address] [place], [address], 09/26/2023 01:07:47 09/24/20 23 09/26/2023 CBC WITH DIFFE RENTI AL/PL ATELE T immature grans (abs) 0.2 x10e3 /uL 0.0-0. 1 above high normal Not Available [facility] Department [address] [place], [address], 09/26/2023 01:07:47 09/24/20 23 09/26/2023 CBC WITH DIFFE RENTI AL/PL ATELE T NRBC 0 % 0-0 Not Available [facility] Department [address] [place], [address], 09/26/2023 01:07:47 09/24/2009/26/2023 HEMOG LOBIN A1C hemoglobin A1C 6.8 % 4.8-5. 6 above high normal Predi abete s: 5.7 - 6.4 Diabe sunshine: >6.4 Glyce neil contr ol for adult s with diabe sunshine: <7.0 Not Available [facility] ([facility]) [address] [facility], [place], [address], 09/26/2023 05:10:14 12/16/19 24 12/17/2023 SPECI MEN STATU S REPOR T specimen status report TNP Test not perfo rmed. No urine speci men recei mirlande. TEST: [id number] Album in/Cr eatin ine Ratio ,Urin e Not Available [facility] ([facility]) [address] [place], [address], 12/17/2023 14:13:09 12/16/19 24 12/17/2023 ALBUM IN/CR EATIN INE RATIO ,URIN E creatinine, urine - mg/dL Test not perfo rmed. No urine speci men recei mirlande. Not Available [facility] ([facility]) [address] [facility], [place], [address], 12/17/2023 14:13:10 12/16/19 24 12/17/2023 ALBUM IN/CR EATIN INE RATIO ,URIN E albumin, urine - Test not perfo rmed Not Available [facility] ([facility]) [address] [place], [address], 12/17/2023 14:13:10 12/16/19 24 12/17/2023 LIPID PANEL cholesterol, total 162 mg/dL 100-19 9 Not Available [facility] ([facility]) [address] [place], [address], 12/17/2023 14:13:11 12/16/19 24 12/17/2023 LIPID PANEL triglyceride s 265 mg/dL 0-149 above high normal Not Available [facility] ([facility]) [address] [place], [address], 12/17/2023 14:13:11 12/16/19 24 12/17/2023 LIPID PANEL HDL cholesterol 43 mg/dL >39 Not Available [facility] ([facility]) [address] [place], [address], 12/17/2023 14:13:11 12/16/19 24 12/17/2023 LIPID PANEL VLDL cholesterol barbra 43 mg/dL 5-40 above high normal Not Available [facility] ([facility]) [address] [place], [address], 12/17/2023 14:13:11 12/16/19 24 12/17/2023 LIPID PANEL LDL chol calc ([facility]) 76 mg/dL 0-99 Not Available [facility] ([facility]) [address] [place], [address], 12/17/2023 14:13:11 12/16/19 24 12/17/2023 COMP. METAB OLIC PANEL (14) glucose 97 mg/dL 70-99 Not Available [facility] ([facility]) [address] [place], [address], 12/17/2023 14:13:11 12/16/19 24 12/17/2023 COMP. METAB OLIC PANEL (14) BUN 11 mg/dL 8-27 Not Available [facility] ([facility]) [address] [place], [address], 12/17/2023 14:13:11 12/16/19 24 12/17/2023 COMP. METAB OLIC PANEL (14) creatinine 1.17 mg/dL 0.57-1 .00 above high normal Not Available [facility] ([facility]) [address] [place], [address], 12/17/2023 14:13:11 12/16/19 24 12/17/2023 COMP. METAB OLIC PANEL (14) eGFR 51 mL/mi n/1.7 3 >59 below low normal Not Available [facility] ([facility]) [address] [place], [address], 12/17/2023 14:13:11 12/16/19 24 12/17/2023 COMP. METAB OLIC PANEL (14) BUN/creatini ne ratio 9 12-28 below low normal Not Available [facility] ([facility]) [address] [place], [address], 12/17/2023 14:13:11 12/16/19 24 12/17/2023 COMP. METAB OLIC PANEL (14) sodium 145 mmol/ L 134-14 4 above high normal Not Available [facility] ([facility]) [address] [place], [address], 12/17/2023 14:13:11 12/16/19 24 12/17/2023 COMP. METAB OLIC PANEL (14) potassium 4.2 mmol/ L 3.5-5. 2 Not Available [facility] ([facility]) [address] [place], [address], 12/17/2023 14:13:11 12/16/19 24 12/17/2023 COMP. METAB OLIC PANEL (14) chloride 106 mmol/ L 96-106 Not Available [facility] ([facility]) [address] [place], [address], 12/17/2023 14:13:11 12/16/19 24 12/17/2023 COMP. METAB OLIC PANEL (14) carbon dioxide, total 23 mmol/ L 20-29 Not Available [facility] ([facility]) [address] [place], [address], 12/17/2023 14:13:11 12/16/19 24 12/17/2023 COMP. METAB OLIC PANEL (14) calcium 8.9 mg/dL 8.7-10 .3 Not Available [facility] ([facility]) [address] [facility] [place], [address], 12/17/2023 14:13:11 12/16/19 24 12/17/2023 COMP. METAB OLIC PANEL (14) protein, total 6.0 g/dL 6.0-8. 5 Not Available [facility] ([facility]) [address], [place], [address], 12/17/2023 14:13:11 12/16/19 24 12/17/2023 COMP. METAB OLIC PANEL (14) albumin 4.0 g/dL 3.9-4. 9 Not Available [facility] ([facility]) [address], [place], [address], 12/17/2023 14:13:11 12/16/19 24 12/17/2023 COMP. METAB OLIC PANEL (14) globulin, total 2.0 g/dL 1.5-4. 5 Not Available [facility] ([facility]) [address] [place], [address], 12/17/2023 14:13:11 12/16/19 24 12/17/2023 COMP. METAB OLIC PANEL (14) A/G ratio 2.0 1.2-2. 2 Not Available [facility] ([facility]) [address], [place], [address], 12/17/2023 14:13:11 12/16/19 24 12/17/2023 COMP. METAB OLIC PANEL (14) bilirubin, total 0.3 mg/dL 0.0-1. 2 Not Available [facility] ([facility]) [address] [facility] [place], [address], 12/17/2023 14:13:11 12/16/19 24 12/17/2023 COMP. METAB OLIC PANEL (14) alkaline phosphatase 175 IU/L 44-121 above high normal Not Available [facility] ([facility] [address] [facility] [place], [address], 12/17/2023 14:13:11 12/16/19 24 12/17/2023 COMP. METAB OLIC PANEL (14) AST (SGOT) 11 IU/L 0-40 Not Available [facility] ([facility] [address] [facility] [place], [address], 12/17/2023 14:13:11 12/16/19 24 12/17/2023 COMP. METAB OLIC PANEL (14) ALT (SGPT) 13 IU/L 0-32 Not Available [facility] ([facility]) [address] [facility], [place], [address], 12/17/2023 14:13:11 12/16/19 24 12/17/2023 VITAM IN B12 AND FOLAT E vitamin B12 383 pg/mL 232-12 45 Not Available [facility] ([facility]) [address] [place], [address], 12/17/2023 14:13:12 12/16/19 24 12/17/2023 VITAM IN B12 AND FOLAT E folate (folic acid), serum 6.3 NG/mL >3.0 A serum folat e jessenia ntrat ion of less than 3.1 ng/mL is consi dered to repre sent clini barbra defic iency . Not Available [facility] ([facility]) [address] [place], [address], 12/17/2023 14:13:12 12/16/19 24 12/17/2023 IRON AND TIBC iron bind.cap.(TI BC) 313 ug/dL 250-45 0 Not Available [facility] ([facility]) [address] [facility], [place], [address], 12/17/2023 14:13:12 12/16/19 24 12/17/2023 IRON AND TIBC UIBC 269 ug/dL 118-36 9 Not Available [facility] ([facility]) [address] [place], [address], 12/17/2023 14:13:12 12/16/19 24 12/17/2023 IRON AND TIBC iron 44 ug/dL 27-139 Not Available [facility] ([facility]) [address] [place], [address], 12/17/2023 14:13:12 12/16/19 24 12/17/2023 IRON AND TIBC iron saturation 14 % 15-55 below low normal Not Available [facility] ([facility]) [address] [facility], [place], [address], 12/17/2023 14:13:12 12/16/19 24 12/17/2023 CBC WITH DIFFE RENTI AL/PL ATELE T WBC 9.0 x10e3 /uL 3.4-10 .8 Not Available [facility] ([facility]) [address] [facility], [place], [address], 12/17/2023 14:13:13 12/16/19 24 12/17/2023 CBC WITH DIFFE RENTI AL/PL ATELE T RBC 4.51 x10e6 /uL 3.77-5 .28 Not Available [facility] ([facility]) [address] [facility], [place], [address], 12/17/2023 14:13:13 12/16/19 24 12/17/2023 CBC WITH DIFFE RENTI AL/PL ATELE T hemoglobin 14.0 g/dL 11.1-1 5.9 Not Available [facility] ([facility]) [address] [facility], [place], [address], 12/17/2023 14:13:13 12/16/19 24 12/17/2023 CBC WITH DIFFE RENTI AL/PL ATELE T hematocrit 43.4 % 34.0-4 6.6 Not Available [facility] ([facility]) [address] [facility], [place], [address], 12/17/2023 14:13:13 12/16/19 24 12/17/2023 CBC WITH DIFFE RENTI AL/PL ATELE T MCV 96 fL 79-97 Not Available [facility] ([facility]) [address] [place], [address], 12/17/2023 14:13:13 12/16/19 24 12/17/2023 CBC WITH DIFFE RENTI AL/PL ATELE T MCH 31.0 pg 26.6-3 3.0 Not Available [facility] ([facility]) [address] [facility], [place], [address], 12/17/2023 14:13:13 12/16/19 24 12/17/2023 CBC WITH DIFFE RENTI AL/PL ATELE T MCHC 32.3 g/dL 31.5-3 5.7 Not Available [facility] ([facility]) [address] [facility], [place], [address], 12/17/2023 14:13:13 12/16/19 24 12/17/2023 CBC WITH DIFFE RENTI AL/PL ATELE T RDW 14.0 % 11.7-1 5.4 Not Available [facility] ([facility]) [address] [facility], [place], [address], 12/17/2023 14:13:13 12/16/19 24 12/17/2023 CBC WITH DIFFE RENTI AL/PL ATELE T platelets 274 x10e3 /uL 150-45 0 Not Available [facility] ([facility]) [address] [facility], [place], [address], 12/17/2023 14:13:13 12/16/19 24 12/17/2023 CBC WITH DIFFE RENTI AL/PL ATELE T neutrophils 69 % notest ab. Not Available [facility] ([facility]) [address] [place], [address], 12/17/2023 14:13:13 12/16/19 24 12/17/2023 CBC WITH DIFFE RENTI AL/PL ATELE T lymphs 18 % notest ab. Not Available [facility] ([facility]) [address] [place], [address], 12/17/2023 14:13:13 12/16/19 24 12/17/2023 CBC WITH DIFFE RENTI AL/PL ATELE T monocytes 9 % notest ab. Not Available [facility] ([facility]) [address] [facility], [place], [address], 12/17/2023 14:13:13 12/16/19 24 12/17/2023 CBC WITH DIFFE RENTI AL/PL ATELE T eos 2 % notest ab. Not Available [facility] ([facility]) [address] [facility], [place], [address], 12/17/2023 14:13:13 12/16/19 24 12/17/2023 CBC WITH DIFFE RENTI AL/PL ATELE T basos 1 % notest ab. Not Available [facility] ([facility]) [address] [facility], [place], [address], 12/17/2023 14:13:13 12/16/19 24 12/17/2023 CBC WITH DIFFE RENTI AL/PL ATELE T neutrophils (absolute) 6.3 x10e3 /uL 1.4-7. 0 Not Available [facility] ([facility]) [address] [facility], [place], [address], 12/17/2023 14:13:13 12/16/19 24 12/17/2023 CBC WITH DIFFE RENTI AL/PL ATELE T lymphs (absolute) 1.7 x10e3 /uL 0.7-3. 1 Not Available [facility] ([facility]) [address] [place], [address], 12/17/2023 14:13:13 12/16/19 24 12/17/2023 CBC WITH DIFFE RENTI AL/PL ATELE T monocytes(ab solute) 0.8 x10e3 /uL 0.1-0. 9 Not Available [facility] ([facility]) [address] [facility], [place], [address], 12/17/2023 14:13:13 12/16/19 24 12/17/2023 CBC WITH DIFFE RENTI AL/PL ATELE T eos (absolute) 0.2 x10e3 /uL 0.0-0. 4 Not Available [facility] ([facility]) [address] [facility], [place], [address], 12/17/2023 14:13:13 12/16/19 24 12/17/2023 CBC WITH DIFFE RENTI AL/PL ATELE T baso (absolute) 0.1 x10e3 /uL 0.0-0. 2 Not Available [facility] ([facility]) [address] [facility], [place], [address], 12/17/2023 14:13:13 12/16/19 24 12/17/2023 CBC WITH DIFFE RENTI AL/PL ATELE T immature granulocytes 1 % notest ab. Not Available [facility] ([facility]) [address] [facility], [place], [address], 12/17/2023 14:13:13 12/16/19 24 12/17/2023 CBC WITH DIFFE RENTI AL/PL ATELE T immature grans (abs) 0.1 x10e3 /uL 0.0-0. 1 Not Available [facility] ([facility]) [address] [facility], [place], [address], 12/17/2023 14:13:13 12/16/19 24 12/16/2023 HbA1c (hemo globi n A1c), blood HbA1c 5.9% Not Available In-Office Order Internal Use Only DO Not Attach Compendium DO Not Attach Compendium, Do Not Delete/merge, [id number] 12/16/2023 11:41:22 10/18/20 24 10/19/2024 TSH+F REE T4 TSH 1.970 uIU/m L 0.450- 4.500 Not Available [facility] ([facility]) [address] [place], [address], 10/19/2024 10:11:04 10/18/20 24 10/19/2024 TSH+F REE T4 T4,free(dire ct) 0.88 NG/dL 0.82-1 .77 Not Available [facility] ([facility]) [address], [place], [address], 10/19/2024 10:11:04 08/17/20 23 08/17/2023 XR, chest , 2 view No observ ation record ed. [email or web address] [facility], [place], [address], 09/03/2023 15:02:36 12/31/19 24 12/31/2023 US, thyro id No observ ation record ed. [address] [address], [place], [address], 01/01/2024 12:29:39 12/31/19 24 12/31/2023 US, thyro id No observ ation record ed. [address] [address], [place], [address], 01/01/2024 12:29:39 01/08/20 24 01/08/2024 US, breas t, unila teral No observ ation record ed. [email or web address] [facility], [place], [address], 01/22/2024 08:07:27 01/09/20 24 01/08/2024 MAMMO , diagn ostic , digit al, unila teral No observ ation record ed. [address] (Imaging & Mammogram) [address] [facility], [place], [address], 02/04/2024 09:36:08 Result Notes None recorded. Problems Name Problem SNOMED Code Status Onset Date Resolution Date Notes Provider Name and Address Organization Details Recorded Time History of emphysem a 39033248125 961964 Active 2019 Not Available [facility] 19:06:53 Body mass index 30+ - obesity 991763414 Active 2019 Not Available [facility] 4 19:06:53 Mixed hyperlip idemia 092046722 Active 2020 Not Available [facility] 4 19:06:53 History of malignan t neoplasm of thyroid 798829980 Active 2020 papillar y thyroid cancer Not Available [facility] 4 19:06:53 Hyperlip idemia 07446052 Active 2022 Not Available [facility] 4 19:06:53 Prediabe sunshine 722513081 Active 2022 Not Available [facility] 4 19:06:53 Smoker 32993787 Active 2022 Not Available [facility] 4 19:06:53 Low back pain 215924623 Active 2022 Not Available [facility] 4 19:06:53 Adrenal hyperpla juliana 152372378 Active 2022 Not Available [facility] 4 19:06:53 Osteonec rosis of hip 257598930 Active 2022 Not Available [facility] 4 19:06:53 At increase d risk for falls 605427407 Active 2022 Not Available [facility] 4 19:06:53 Osteopor osis 97366219 Active 2022 Not Available [facility] 4 19:06:53 Increase d blood pressure 57726662 Active 2022 Not Available [facility] 4 19:06:53 Obesity 908172991 Active Not Available [facility] 4 19:06:53 Hypothyr oidism 90747514 Active Not Available [facility] 4 19:06:53 Insomnia 987238605 Active 2023 EVELYN LIU Attn: Accounting ,[address] [place], [address] , [facility] 4 11:59:35 Tubular adenoma of colon 387815802 Active 2023 EVELYN LIU Attn: Accounting ,[address] [facility], [place], [address] , [place] [facility] 4 12:25:46 Type 2 diabetes mellitus 09775116 Active 2023 EVELYN LIU Attn: Accounting ,[address] [facility], [place], [address] , [place] [facility] 4 12:31:16 [facility] hyperten kiki 39693641 Active 2023 EVELYN LIU Attn: Accounting ,[address] [facility], [place], [address] , [place] [facility] 4 16:07:42 Mammogra phy abnormal 588468877 Active 2023 EVELYN LIU Attn: Accounting ,[address] [facility], [place], [address] , [facility] 4 08:04:21 Depressi ve disorder 57792110 Active Not Available [facility] 4 19:06:53 Primary insomnia 8718774 Active Not Available [facility] 4 19:06:53 Chronic obstruct sherry pulmonar y disease 69629607 Active Not Available [facility] 4 19:06:53 Tobacco dependen ce syndrome 13476826 Active Not Available [facility] 4 19:06:54 Abscess of breast 49736178 Completed 08/28/2021 EVELYN LIU Attn: Accounting ,[address] [facility], [place], [address] , [place] [facility] 1 16:54:02 Knee pain Active Not Available [facility] 4 19:06:53 Problem Notes None recorded. Procedures Surgical History Date Name Laterality Status Provider Name and Address Organization Details Recorded Time thyroidectomy completed WASHINGTON HERNDON NP [address], [place], [address], [place] [facility] 06/21/2021 08:10:47 total knee replacement completed WASHINGTON HERNDON NP [address], [place], [address], [place] [facility] 06/21/2021 08:11:40 colonoscopy completed Emily Samza [place] - [facility] 08/28/2021 17:01:02 Back Surgery completed Saige Izquierdo [place] - [facility] 1 11/28/2013 16:38:59 Tubal Ligation completed Saige Izquierdo [place] - [facility] 09/27/2014 16:38:59 Breast Surgery completed Saige Izquierdo [place] - [facility] 09/27/2014 16:38:59 Imaging Results Imaging Date Name Status LastModified by Organiz ation Details LastModified Time 08/17/2023 XR, chest, 2 view completed [address] [place] [address], [address], 09/03/2023 15:02:36 12/31/2023 US, thyroid completed [address], [address], 01/01/2024 12:29:39 12/31/2023 US, thyroid completed [address], [address], 01/01/2024 12:29:39 01/08/2024 US, breast, unilateral completed [address], [address], 01/22/2024 08:07:27 01/08/2024 MAMMO, diagnostic, digital, unilateral completed [address] (Imaging & Mammogram) [address] [place], [address], 02/04/2024 09:36:08 Procedure Notes None recorded. Medical Equipment None Reported. Allergies Allergen ID Allergen Name Allergen Category Reaction Reaction Severity Criticality Documentation Date Start Date Code Code System Note Provider Name and Address Organization Details Recorded Time 7267 Product containin g penicilli n (product) medicatio n Not available Not available Not available 09/27/2014 83085 8001 SNOMED Not Available Not Available Not Available 7268 banana extract food,medi cation Not available Not available Not available 09/27/2014 98407 9 RxNorm Not Available Not Available Not Available Medications Name Sig Start Date Stop Date Status Note LastModified by Organization Details LastModified Time Prescriptio n - New active Not Available Not Available Not Available multivitami n tablet TAKE 1 TABLET BY MOUTH ONCE DAILY active Not Available Not Available No t Available cyclobenzap rine 10 mg tablet Take 1 tablet 3 times a day by oral route as needed. 06/21 completed Not Available Not Available Not Available Miralax 17 gram/dose oral powder In a pitcher, mix entire bottle of Miralax in one 64 ounce bottle of yellow or green Gatorade. Beginning at 5:00 PM the evening before the colonosco py, drink 1 8-ounce glass every 15 minutes until completed . Drink 4 glasses of water after finishing this mixture 08/28 completed Not Available Not Available Not Available atorvastati n 40 mg tablet Take 1 tablet every day by oral route for 90 days. 2024 active Not Available Not Available Not Avai lable metformin 500 mg tablet one tablet daily at biggest meal of the day. 12/19 completed Not Available Not Available Not Available prednisone 10 mg tablet TAKE 4 TABLETS BY MOUTH ONCE DAILY FOR 3 DAYS THEN 3 ONCE DAILY FOR 3 DAYS THEN 2 ONCE DAILY FOR 3 DAYS THEN 1 ONCE DAILY FOR 3 DAYS 09/24 completed Not Available Not Available Not Available doxycycline hyclate 100 mg capsule TAKE 1 CAPSULE BY MOUTH TWICE DAILY FOR 5 DAYS 07/02 completed Not Available Not Available Not Available atorvastati n 20 mg tablet TAKE 1 TABLET BY MOUTH ONCE DAILY AT BEDTIME active Not Available Not Available No t Available nicotine 14 mg/24 hr daily transdermal patch APPLY 1 PATCH TOPICALLY ONCE DAILY active Not Available Not Available No t Available ipratropium 0.5 mg-albutero l 3 mg (2.5 mg base)/3 mL nebulizatio n soln USE 1 AMPULE IN NEBULIZER 4 TIMES DAILY NEEDED FOR 3 DAYS active Not Available Not Available No t Available albuterol sulfate 2.5 mg/3 mL (0.083 %) solution for nebulizatio n USE 1 VIAL IN NEBULIZER EVERY 4 TO 6 HOURS FOR 7 DAYS active Not Available Not Available No t Available trazodone 50 mg tablet TAKE 1 TABLET BY MOUTH ONCE DAILY AT BEDTIME 12/16 completed Not Available Not Available Not Available cefpodoxime 200 mg tablet TAKE 1 TABLET BY MOUTH TWICE DAILY FOR 2 DAYS WITH FOOD 12/18 completed Not Available Not Available Not Available azithromyci n 250 mg tablet TAKE 2 TABLETS (500 MG) BY ORAL ROUTE ONCE DAILY FOR 1 DAY THEN 1 TABLET (250 MG) BY ORAL ROUTE ONCE DAILY FOR 4 DAYS 12/12 completed Not Available Not Available Not Available ofloxacin 0.3 % eye drops INSTILL 1 DROP INTO AFFECTED EYE(S) BY OPHTHALMI C ROUTE 4 TIMES PER DAY 02/08 completed Not Available Not Available Not Available hydrocodone 5 mg-acetamin ophen 325 mg tablet Take 1 tablet every 6 hours by oral route. 06/21 completed Not Available Not Available Not Available meloxicam 15 mg tablet Take 1 tablet every day by oral route as needed. 06/21 completed Not Available Not Available Not Available prednisone 20 mg tablet Take 2 tablets every day by oral route for 5 days. 12/12 completed Not Available Not Available Not Available Wellbutrin SR 150 mg tablet, 12 hr sustained-r elease Take 1 tablet twice a day by oral route. 02/12 completed Not Available Not Available Not Available topiramate 25 mg tablet 06/21 completed Not Available Not Available Not Available metronidazo le 500 mg tablet Take 1 tablet every 12 hours by oral route for 10 days. 08/28 completed Not Available Not Available Not Available amlodipine 5 mg tablet TAKE 1 TABLET BY MOUTH ONCE DAILY 10/29 completed Not Available Not Available Not Available Plavix 75 mg tablet Take 1 tablet every day by oral route for 30 days. 2014 active Not Available Not Available Not Avai lable tramadol 50 mg tablet Take 1 tablet every 6 hours by oral route as needed. 02/12 completed Not Available Not Available Not Available levothyroxi ne 75 mcg tablet Take 1 tablet every day by oral route in the morning. 10/03 completed Not Available Not Available Not Available levothyroxi ne 100 mcg tablet TAKE 1 TABLET BY MOUTH ONCE DAILY BEFORE MEAL(S) FOR 30 DAYS 05/16 completed Not Available Not Available Not Available prednisolon e acetate 1 % eye drops,suspe nsion INSTILL 1 DROP INTO EACH EYE 4 TIMES DAILY FOR 2 WEEKS active Not Available Not Available No t Available amlodipine 10 mg tablet Take 1 tablet by mouth once daily active Not Available Not Available No t Available benzonatate 100 mg capsule TAKE 1 CAPSULE BY MOUTH THREE TIMES DAILY FOR 10 DAYS 02/12 completed Not Available Not Available Not Available levothyroxi ne 50 mcg tablet Take 1 tablet every day by oral route in the morning. 06/21 completed Not Available Not Available Not Available Euthyrox 88 mcg tablet TAKE 1 TABLET BY MOUTH ONCE DAILY FOR 90 DAYS 02/07 completed Not Available Not Available Not Available levothyroxi ne 125 mcg tablet TAKE 1 TABLET BY MOUTH EVERY DAY 12/19 completed Not Available Not Available Not Available Cipro 500 mg tablet Take 1 tablet every 12 hours by oral route. 08/28 completed Not Available Not Available Not Available lisinopril 10 mg tablet Take 1 tablet by mouth once daily active Not Available Not Available No t Available prednisone 50 mg tablet TAKE 1 TABLET BY MOUTH ONCE DAILY IN THE MORNING FOR 5 DAYS 05/16 completed Not Available Not Available Not Available levothyroxi ne 150 mcg tablet Take 1 tablet every day by oral route for 30 days. 12/19 completed Not Available Not Available Not Available buspirone 7.5 mg tablet Take 1 tablet by mouth twice daily active Not Available Not Available No t Available diltiazem CD 120 mg capsule,ext ended release 24 hr Take 1 capsule every day by oral route for 30 days. 2014 active Not Available Not Available Not Avai lable montelukast 10 mg tablet TAKE 1 TABLET BY MOUTH NIGHTLY active Not Available Not Available No t Available hydroxyzine HCl 25 mg tablet TAKE 1 TABLET BY MOUTH EVERY 6 HOURS NEEDED FOR ITCHING OR ANXIETY 02/08 completed Not Available Not Available Not Available hydrochloro thiazide 25 mg tablet TAKE 1 TABLET BY MOUTH ONCE DAILY active Not Available Not Available No t Available metoprolol succinate ER 25 mg tablet,exte nded release 24 hr TAKE 1 TABLET BY MOUTH ONCE DAILY active Not Available Not Available No t Available Wellbutrin 100 mg tablet Take 1 tablet twice a day by oral route with meals for 30 days. 2013 active Not Available Not Available Not Avai lable methylpredn isolone 4 mg tablets in a dose pack TAKE BY MOUTH DIRECTED ON INSIDE OF PACKAGE 02/12 completed Not Available Not Available Not Available Vitamin D2 1,250 mcg (50,000 unit) capsule Take 1 capsule every week by oral route. 12/19 completed Not Available Not Available Not Available fluticasone propionate 50 mcg/actuati on nasal spray,suspe nsion active Not Available Not Available Not Available metformin ER 500 mg tablet,exte nded release 24 hr TAKE 1 TABLET BY MOUTH EVERY DAY WITH MEALS 12/19 completed Not Available Not Available Not Available levothyroxi ne 112 mcg tablet TAKE 1 TABLET BY MOUTH ONCE DAILY BEFORE MEAL(S) STOP THE 100 MCG DOSE. LAB DRAW NEEDED BEFORE FURTHER REFILLS 2024 active Not Available Not Available Not Avai lable Dulcolax (bisacodyl) 5 mg tablet,nicola yed release At 2:00 PM the day before the colonosco py, take all 4 tablets of Dulcolax by mouth at one time with 8 ounces of water 08/28 completed Not Available Not Available Not Available Ventolin HFA 90 mcg/actuati on aerosol inhaler INHALE 2 PUFFS BY MOUTH EVERY 4 HOURS active Not Available Not Available No t Available Pneumovax-2 3 25 mcg/0.5 mL injection syringe 12/19 completed Not Available Not Available Not Available escitalopra m 10 mg tablet Take 1 tablet by mouth once daily 2024 active Not Available Not Available Not Avai lable Wellbutrin XL 150 mg 24 hr tablet, extended release Take 1 tablet every day by oral route for 90 days. 12/18 completed Not Available Not Available Not Available Spiriva with HandiHaler 18 mcg and inhalation capsules Inhale 1 capsule every day by inhalatio n route. 12/19 completed Not Available Not Available Not Available varenicline tartrate 1 mg tablet TAKE 1/2 (ONE-HALF ) TABLET BY MOUTH TWICE DAILY FOR 7 DAYS THEN 1 TWICE DAILY TAKE WITH A FULL GLASS OF WATER 09/24 completed Not Available Not Available Not Available Symbicort 160 mcg-4.5 mcg/actuati on HFA aerosol inhaler INHALE 2 PUFFS BY MOUTH TWICE DAILY 02/12 completed Not Available Not Available Not Available Breo Ellipta 100 mcg-25 mcg/dose powder for inhalation Inhale 1 puff every day by inhalatio n route. 11/09 completed Not Available Not Available Not Available Farxiga 10 mg tablet Take 1 tablet by mouth once daily 2024 active Not Available Not Available Not Avai lable Anoro Ellipta 62.5 mcg-25 mcg/actuati on powder for inhalation INHALE 1 PUFF BY MOUTH ONCE DAILY 02/08 completed Not Available Not Available Not Available bupropion HCl 150 mg tablet,12 hr sustained-r elease(smok ing deterrent) TAKE 1 TABLET BY MOUTH TWICE DAILY 05/30 completed Not Available Not Available Not Available Trelegy Ellipta 100 mcg-62.5 mcg-25 mcg powder for inhalation INHALE 1 PUFF ONCE DAILY . APPOINTME NT REQUIRED FOR FUTURE REFILLS active Not Available Not Available No t Available Trelegy Ellipta active Not Available Not Available Not Available Fluzone Quad (PF) 60 mcg (15 mcg x 4)/0.5 mL IM syringe 12/19 completed Not Available Not Available Not Available Trelegy Ellipta 200 mcg-62.5 mcg-25 mcg powder for inhalation INHALE 1 PUFF ONCE DAILY active Not Available Not Available No t Available Vitals Date Recorded Body height Body mass index (BMI) Body weight Heart rate Oxygen saturation Oxygen saturation in Arterial blood by Pulse oximetry Systolic blood pressure Diastolic blood pressure Provider Name and Address Organization Details Last Updated DateTime 3 157.48 cm 39.7 kg/m2 95884.5 4 g 82 /min 92 % 92 % 112 mm[Hg] 64 mm[Hg] Emily Bowles [facility] 3 15:14:36 Date Recorded Body height Body mass index (BMI) Body weight Heart rate Oxygen saturation Oxygen saturation in Arterial blood by Pulse oximetry Provider Name and Address Organization Details Last Updated DateTime 3 157.48 cm 39 kg/m2 73967.1 7 g 88 /min 93 % 93 % Sheila Henry [place] - [facility] 3 15:33:52 Date Recorded Systolic blood pressure Diastolic blood pressure Provider Name and Address Organization Details Last Updated DateTime 09/24/2023 90 mm[Hg] 60 mm[Hg] EVELYN LIU Attn: Accounting,[address] [place], [address], [facility] 09/25/2023 08:30:50 Date Recorded Body height Body mass index (BMI) Body weight Heart rate Oxygen saturation Oxygen saturation in Arterial blood by Pulse oximetry Provider Name and Address Organization Details Last Updated DateTime 4 157.48 cm 40.2 kg/m2 81348.3 2 g 82 /min 92 % 92 % Emily Bowles [facility] 4 11:33:26 Date Recorded Systolic blood pressure Diastolic blood pressure Provider Name and Address Organization Details Last Updated DateTime 12/16/2023 120 mm[Hg] 62 mm[Hg] EVELYN LIU Attn: Accounting,[address] [place], [address], [facility] 12/16/2023 12:16:21 Date Recorded Body height Body mass index (BMI) Body weight Heart rate Respiratory rate Systolic blood pressure Diastolic blood pressure Provider Name and Address Organization Details Last Updated DateTime 5 157.48 cm 39.9 kg/m2 56992.1 4 g 109 /min 20 /min 125 mm[Hg] 79 mm[Hg] Sheila Henry [place] - [facility] 5 14:11:05 Social History Question Answer Notes LastModified by Organizat ion Details LastModified Time Tobacco Smoking Status Former Smoker stopped smoking july 2023 EVELYN LIU Attn: Accounting,[address] [place], [address] 12/01/2024 14:36:03 Do You Have An Advance Directive? No Information not available 06/12/2020 What Is Your Level Of Alcohol Consumption? None Information not available 06/12/2020 Are You Blind Or Do You Have Difficulty Seeing? No Information not available 12/19/2020 What Is Your Level Of Caffeine Consumption? None Information not available 06/12/2020 How Much Tobacco Do You Chew? None Information not available 06/12/2020 In The 14 Days Before Symptom Onset, Have You Had Close Contact With A Laboratory-confi rmed COVID-19 While That Case Was Ill? No Information not available 01/05/2021 In The 14 Days Before Symptom Onset, Have You Had Close Contact With A Person Who Is Under Investigation For COVID-19 While That Person Was Ill? No Information not available 01/05/2021 Have You Been To An Area Known To Be High Risk For COVID-19? Yes [facility] Information not available 05/30/2022 Are You Deaf Or Do You Have Serious Difficulty Hearing? No Information not available 12/19/2020 What Type Of Diet Are You Following? REGULAR Information not available 06/12/2020 Which Illicit Or Recreational Drugs Have You Used? None Information not available 06/12/2020 Do You Or Have You Ever Used E-cigarettes Or Vape? Never Used Electronic Cigarettes Information not available 02/10/2020 Education 4 Year College Information not available 06/12/2020 Hard Of Hearing Or Deaf In One Or Both Ears? No Information not available 06/12/2020 Legally Blind In One Or Both Eyes? No Information not available 06/12/2020 Marital Status Informatio n not available 06/12/2020 What Was The Date Of Your Most Recent Tobacco Screening? 12/01/2024 [email or web address] Information not available 12/01/2024 What Is Your Current Pack Years? [email or web address] Information not available 12/19/2020 Performs Monthly Self-breast Exam? Yes Information not available 06/12/2020 Seat Belts Used Routinely Yes Information not available 06/12/2020 Smoke Alarm In Home Yes Information not available 06/12/2020 At What Age Did You Start Smoking Tobacco? 18 Information not available 06/12/2020 Are You Passively Exposed To Smoke? Yes Information not available 12/19/2020 Do You Or Have You Ever Used Smokeless Tobacco? Never Used Smokeless Tobacco Information not available 02/10/2020 How Much Tobacco Do You Smoke? 0.5 PPD Information not available 08/28/2021 General Stress Level Medium Information not available 06/12/2020 Do You Use Any Illicit Or Recreational Drugs? No Information not available 12/19/2020 Do You Use Sunscreen Routinely? No Information not available 06/12/2020 Has Tobacco Cessation Counseling Been Provided? Yes Information not available 12/19/2020 On What Date Was Tobacco Cessation Counseling Provided? 12/01/2024 Information not available 12/01/2024 How Many Years Have You Smoked Tobacco? 45 Information not available 02/10/2020 Do You Or Have You Ever Used Any Other Forms Of Tobacco Or Nicotine? No Information not available 12/19/2020 Sex: Female Functional Status Question Answer Note LastModified by Organizat ion Details LastModified Time Are you able to care for yourself? Yes Information not available 12/19/2020 What is your exercise level? Occasional Information not available 06/12/2020 Mental Status None recorded. Family History Relationship Description Onset Age of this Age Resolved Age Notes LastModified by Organization Details LastModified Time Sister Blood coagulation disorder Not available 2014 09:10:35 Sister Ovarian cancer, disseminated mom [email or web address] Not available 12/2014 09:10:35 Sister Multiple sclerosis [email or web address] Not available 2014 09:10:35 Father Family history of kidney disease [email or web address] Not available 2014 09:10:35 Father Malignant tumor of colon [email or web address] Not available 2020 08:13:20 Father Coronary artery bypass grafts x 4 50 Not available 12/16 12:07:30 Brother Heart disease Not available 2014 09:10:35 Brother Hypertensive disorder Not available 2014 09:10:35 Mother Malignant tumor of colon rloar Not available 2020 08:13:20 Medical History Condition Response Coronary Artery Disease N Other N High Blood Pressure N Atrial Fibrillation N Kidney or Bladder Problems N Thyroid Problems Y GI Problems N Depression N COPD Y Blood Clots N Skin Problems N Eating Disorder N Anemia N Heart Attack ([place]) N Anxiety Disorder N Diabetes N Muscle, Joint, or Bone Problems N Seizures/Epilepsy N Acid Reflux (GERD) N Cancer N Stroke N Asthma N Allergies Y ADHD N Substance Abuse N High Cholesterol N Hepatitis N Liver Disease N Schizophrenia N Headaches Y Osteoporosis N Heart Failure N Gynecological History Statement/Question Response If Post Menopausal, Age at Menopause 42 Date of Last Mammogram Menses Monthly N Date of Last Pap Smear Age at Menarche 14 Current Control Method Menopause Age at First Child 20 LMP Unknown Obstetrics History GPAL:G 4 P 4 0 0 4 Type Value Multiple Births 0 Full Term 4 Induced 0 Spontaneous 0 Premature 0 Living 4 Ectopics 0 Total 4 Immunizations Vaccine Type Date Status Note Provider Nam e and Address Organization Details Recorded Time Influenza, split virus, quadrivalent, preservative 0 completed Not Available [facility] 11/07/2023 19:06:54 Pneumococcal conjugate PCV20, polysaccharide ECO874 conjugate, adjuvant, PF 2 completed EVELYN LIU Attn: Accounting,[address] [place], [address], [facility] 09/24/2022 09:05:41 Past Encounters Encounter ID Performer Location Encounter Start Date Encounter Closed Date Diagnosis/Indication Diagnosis SNOMED-CT Code Diagnosis ICD10 Code Diagnosis Note [id number] CHARY Ann (Adult Med) [address] [place] [address] 09/27/2014 16:09:43 09/27/2014 17:19:19 Depressive disorder 58556604 Primary insomnia 2233645 Chronic ob structive pulmonary disease 46980185 Tobacco de pendence syndrome [id number] CHARY Ann (Adult Med) [address] [place] [address] 12/29/2014 10:01:16 12/29/2014 11:21:45 Chronic obstructive pulmonary disease 81838088 Tobacco de pendence syndrome 98145311 History of atrial fibrillation 905583573 Obesity 391909433 Hypothyroidism 88925852 History of thyroid disorder [id number] Rebeca (Adult Med) [address] [place] [address] 06/20/2015 14:35:27 06/20/2015 15:35:31 Gynecologic examination 66912054 Screening for malignant neoplasm of breast 534868525 Abscess of breast 18231791 likely a quarter sized abscess of left breast - patient noted it 4 days ago - states that she has these frequently in her groin and that they are generally painful so that is why this one worried her The appearance of it mimics an abscess vs folliculit is - I discussed with patient that the location of it and her body size make it more likely to be an abscess vs a breast cancer which she is worried about - she is being ordered a screening mammogram today [id number] CHARY Ann (Adult Med) [address] [place] [address] 08/22/2015 09:02:04 08/22/2015 22:25:25 Hypothyroidism 34152369 E03.9 taking 125mcg - patient will RTC in 2 months to recheck thyroid levels I suspect her weight gain is from not taking her levothyrox ine and then being on steroids Obesity 061973109 E66.9 Will complete labs in 2 months and then will make an appointmen t - at this time we will see how her knees are Chronic ob structive pulmonary disease 46705724 J44.9 Uses oxygen at home - she was just hospitaliz ed for a COPD exacerbati on - I would like her to be evaluated since she was just hospitaliz ed for COPD exacerbati on Knee pain 77546303 M25.5 69 I suspect that this is d/t her quick weight gain Discussed that being back on her levothyrox ine and off of steroids should help her knee pain Tobacco de pendence syndrome 43446433 F17.290 Abscess of breast 760250 03 N61 US in hospital and breast WNL [id number] Cici Ahumada MD [facility] [address] [place] [address] 12/17/2019 14:18:39 12/20/2019 09:04:20 Chronic obstructive pulmonary disease 24934940 J44.9 1ppd.. Patient was advised to quit smoking. History of thyroidectomy 050782904 Z90.09 Adult heal th examination 733023063 Z00.00 History of right total knee replacement 3007464368 591946 Z96.651 Screening mammography 24 272335 Z12.31 Depression screening 171 731362 Z13.31 will monitor and consdier adding an SSRI. [id number] Cici Ahumada MD [facility] [address] [place] [address] 02/10/2020 09:51:36 02/14/2020 10:31:22 Moderate persistent asthma 646635387 J45.40 Chronic ob structive pulmonary disease 90614036 J44.9 Patient was advised to quit smoking. she has cut back to smoking less than 1 ppd. (down from 2-3 ppd). Advised on how to take albuterol, at least 3-4 hours apart, and to use symbicort bid as a preventati ve inhaler, not as immediate therapy for rescue from bronchospa sm. [id number] Cici Ahumada MD [facility] [address] [place] [address] 02/23/2020 10:02:23 02/28/2020 06:13:29 Obesity 105827472 E66.9 Patient interested in bariatric surgery. Trying to cut back on smoking--g ets dyspneic with minor exertion. She will contact her insurance plan to see what steps we need to take. Chronic ob structive pulmonary disease 34574623 J44.9 Patient was advised to quit smoking. she has cut back to smoking less than 1 ppd. (down from 2-3 ppd). Advised on how to take albuterol, at least 3-4 hours apart, and to use symbicort bid as a preventati ve inhaler, not as immediate therapy for rescue from bronchospa sm. Hypothyroidism 54597541 E03.9 continue taking levothyrox ine. Well contr olled type 2 diabetes mellitus 687625915 E11.9 discussed low fat, low carb diet, and encouraged exercise. [id number] Cici Ahumada MD [facility] [address] [place] [address] 06/12/2020 11:29:03 06/19/2020 14:12:39 History of malignant neoplasm of thyroid 072739645 Z85.850 Inflammati on of sacroiliac joint 00765373 M46.1 Bilateral hip joint pain 3057641511 7375442 M25.551 M25.552 Screening mammography 24 574511 Z12.31 Screening for malignant neoplasm of colon 351691357 Z12.11 Radial neuropathy 959498 04 G56.31 Adult [facility] th examination 884517743 Z00.00 [id number] Cici Ahumada MD [facility] [address] [place] [address] 12/19/2020 12:14:40 12/29/2020 10:34:58 Adult health examination 026634957 Z00.00 Smoker 36881055 F17.210 Sleep apnea 77212992 G47 .30 [id number] Cici Ahumada MD [facility] [address] [place] [address] 01/05/2021 09:57:29 01/08/2021 08:55:53 Screening mammography 00940901 Z12.31 Hypothyroidism 29911229 E03.9 patient will cut the euthyrox in half for a dose of 25 mcg and see how she does. [id number] WASHINGTON HERNDON NP [facility] [address] [place] [address] 06/21/2021 09:21:25 06/29/2021 11:38:10 Colitis 10110338 K52.9 Treated outpatient with metronidaz ole and ciprofloxa cinSymptom atically improvedTo complete antibiotic s as directedFH colon cancer: Mother and FatherHas not had a colonoscop y in the past.Colon oscopy in 6 - 8 weeks.Decr ease loperimide to no more than 6 pills/day and use PRN only Body mass index 30+ - obesity 901513630 Z68.36 Encouraged weight loss -Choosing low-fat, low-calori e foods -Eating smaller portions -Drinking water instead of sugary drinks -Being physically active Chronic ob structive pulmonary disease 29738422 J44.9 On albuterol MDI, Symbicort MDIManaged by primary care Mixed hyperlipidemia 267 994578 E78.2 On atorvastat inManaged by primary care History of malignant neoplasm of thyroid 125505101 Z85.850 S/P thyroidect michael with secondary hypothyroi dismOn levothyrox ine but ran out of levothryox ine, last dose was in February 2021.Call PCP's office regarding levothyrox inemanaged by primary care Tobacco de pendence syndrome 23420188 F17.200 Strongly encouraged to discontinu e smoking [id number] EVELYN LIU [facility] [address] [place] [address] 08/28/2021 16:47:18 08/29/2021 12:16:40 Chronic obstructive pulmonary disease 39331207 J44.9 was at 3ppd and now down to 1/2 ppd. She states her inhalers are not working. History of thyroidectomy 813261539 Z90.09 Patient with total resection after cancer dx in 2010. she had some residual gland left and had another surgery to remve in 2019 Hypothyroidism 33435717 E03.9 . Patient with total resection after cancer dx in 2010. she had some residual gland left and had another surgery to remove in 2019. She has been out of her thyroid medication . Last thyroid check in December 2020 >70. On med review she has been on multiple doses ranging from 75-150mcg. Patient understand s to take on empty stomach and will check in one week. if abnormal with increase with another blood check. She agrees. Smoker 14382943 F17.200 patient is a 135 pack year smoker. has been smoking 3ppd for 45 years. She is currently down to 1/2 ppd and trying to quit but just likes to inhaler the smoke. She has tried patches and gum and did not like the way it made her feel. She tried chantix for one month but did not help. open to trying this again. Chantix currently on recall. She agrees to LDCT Obesity 051229292 E66.9 - dicsused healthy diet- increasing physcial activity Megaloblastic anemia 531 96041 D53.1 MCV 98, denies alcohol- checking labs [id number] EVELYN LIU [facility] [address] [place] [address] 02/12/2022 16:48:38 02/14/2022 11:37:35 Chronic obstructive pulmonary disease 97069005 J44.9 was at 3ppd and now down to 1/2 ppd-1ppd. She had one exacerbati on requiring urgent care. was given outpatient steroids and doxycyclin e (01/2022). She saw her pulm 2 months ago. need notes. she takes anoro and rescue. as well as montelukas t. has not done ldct scan or PFT. agrees to schedule today. History of thyroidectomy 959534127 Z90.09 Patient with total resection after cancer dx in 2010. she had some residual gland left and had another surgery to remove in 2019 Hypothyroidism 96478146 E03.9 . Patient with total resection after cancer dx in 2010. she had some residual gland left and had another surgery to remove in 2019. She has been out of her thyroid medication . Last thyroid check in December 2020 >70. On med review she has been on multiple doses ranging from 75-150mcg. Patient understand s to take on empty stomach and will check in one week. if abnormal with increase with another blood check. She agrees. Smoker 19545773 F17.200 patient is a 135 pack year smoker. has been smoking 3ppd for 45 years. She is currently down to 1/2 ppd and trying to quit but just likes to inhaler the smoke. She has tried patches and gum and did not like the way it made her feel. She tried chantix for one month but did not help. open to trying this again. Chantix currently on recall. She agrees to LDCT Obesity 308595942 E66.9 - disused healthy diet- increasing physical activity Thyroid nodule 890185116 E04.1 patient feels another thyroid nodule? it was removed completely 2018. Mixed hyperlipidemia 267 510085 E78.2 refill Sleep apnea 43379671 G47 .30 patient complains of fatigue, daytime somnolence . does not know if she snores. has had apneic moment's where she wakes up gasping for air. - sleep study Denture present 74846066 5 Z97.2 dentures are 27 years old, loose fitting on the bottom, no sores on gums. eating well. will see dental. [id number] Adelina Hudson MD [facility] [address] [place] [address] 04/16/2022 10:25:31 04/17/2022 10:15:53 Adrenal hyperplasia 617970155 E27.[address] 2019 Chronic ob structive pulmonary disease 72541580 J44.9 was at 3ppd and now down to 1/2 ppd-1ppd. She had one exacerbati on requiring urgent care. was given outpatient steroids and doxycyclin e (01/2022). She saw her pulm 2 months ago. need notes. she takes anoro and rescue. as well as montelukas t. has not done ldct scan or PFT. agrees to schedule today. History of thyroidectomy 360882809 Z90.09 Patient with total resection after cancer dx in 2010. she had some residual gland left and had another surgery to remove in 2019 Hypothyroidism 36905086 E03.9 . Patient with total resection after cancer dx in 2010. she had some residual gland left and had another surgery to remove in 2019. She has been out of her thyroid medication . Last thyroid check in December 2020 >70. On med review she has been on multiple doses ranging from 75-150mcg. Patient understand s to take on empty stomach and will check in one week. if abnormal with increase with another blood check. She agrees. Smoker 42808800 F17.200 patient is a 135 pack year smoker. has been smoking 3ppd for 45 years. She is currently down to 1/2 ppd and trying to quit but just likes to inhaler the smoke. She has tried patches and gum and did not like the way it made her feel. She tried chantix for one month but did not help. open to trying this again. Chantix currently on recall. She agrees to LDCT still half pack per day. wellbutrin helping? Obesity 422340999 E66.9 - disused healthy diet- increasing physical activity- cut out soda- increase veggies Thyroid nodule 149204670 E04.1 patient feels another thyroid nodule? it was removed completely 2019. Mixed hyperlipidemia 267 821954 E78.2 refill Sleep apnea 78228773 G47 .30 patient complains of fatigue, daytime somnolence . does not know if she snores. has had apneic moment's where she wakes up gasping for air. - sleep study Denture present 43218929 5 Z97.2 dentures are 27 years old, loose fitting on the bottom, no sores on gums. eating well. will see dental. Dyspnea on exertion 6084 5006 R06.09 [id number] Leon swift MD [facility] [address] [place] [address] 05/30/2022 13:52:38 06/04/2022 10:40:29 Adrenal hyperplasia 296394543 E27.[address] 2019needs to f/u for thyroid as wellneeds order sent Chronic ob structive pulmonary disease 66538933 J44.9 was at 3ppd and now down to 1/2 ppd-1ppd. She had one exacerbati on requiring ER visit and hospital stay 05/2022 and also had visit 01/2022. She saw her pulm a few months ago and has not f/u. need notes. she takes anoro and rescue. as well as montelukas t. - she completed PFT this month, will request results- needs 6 min walk test to assess 02 need- encouraged to stop smoking- encouraged to schedule with pulm History of thyroidectomy 178955822 Z90.09 Patient with total resection after cancer dx in 2010. she had some residual gland left and had another surgery to remove in 2019 Hypothyroidism 78460810 E03.9 . Patient with total resection after cancer dx in 2010. she had some residual gland left and had another surgery to remove in 2019. She has been out of her thyroid medication . Last thyroid check in December 2020 >70. On med review she has been on multiple doses ranging from 75-150mcg. Patient understand s to take on empty stomach and will check in one week. if abnormal with increase with another blood check. She agrees. Smoker 33643911 F17.200 patient is a 135 pack year smoker. has been smoking 3ppd for 45 years. She is currently down to 1 ppd and trying to quit but just likes to inhale the smoke. She has tried patches and gum and did not like the way it made her feel. She tried chantix for one month but did not help. open to trying this again. Chantix currently on recall. CT scan at recent hspital visit, need records still half pack per day. wellbutrin helping? Obesity 414614403 E66.9 BMI 40.3.- disused healthy diet- increasing physical activity- cut out soda- increase veggies Thyroid nodule 047174850 E04.1 patient feels another thyroid nodule? it was removed completely 2019. Mixed hyperlipidemia 267 652325 E78.2 refill Sleep apnea 54163957 G47 .30 patient complains of fatigue, daytime somnolence . does not know if she snores. has had apneic moment's where she wakes up gasping for air. - sleep study Depressive disorder 1219 1923 F32.A will start wellbutrin XL and fu one month to reassess. She was only taking medication once daily and would increase compliance to take once daily. denies si/hi. support system is daughter and grandson. She is looking for work. take medication as prescribed . denies seizure hx.gerald beebe get 6 min walk test as may need 02 and can improve fatigue and allow her to walk more. Same idea with sleep study.enco uraged to stop smoking.en couraged healthy diet (patient is on budget). starting multivitam in [id number] EVELYN LIU [facility] [address] [place] [address] 09/18/2022 11:40:10 09/23/2022 08:57:09 Acute exacerbation of chronic obstructive pulmonary disease 198662293 J44.1 patient with acute COPD exacerbati onPEX: aferbriLe, RRR, wheezing noted on exam - stop smoking- zpak as prescribed - prednisone in morning with food. avoid all NSAID while taking.- pulmonolog ist due to worsening COPD Administra tion of pneumococcal vaccine 01871699 Z23 administer ed today Obesity 130504170 E66.9 BMI 38.1- disused healthy diet- increasing physical activity- cut out soda- increase veggies [id number] EVELYN LIU [facility] [address] [place] [address] 12/12/2022 09:55:19 12/12/2022 10:53:48 Osteoporosis 45537449 M81.0 screen Smoker 43805677 F17.200 patient is a 135 pack year smoker. has been smoking 3ppd for 45 years. She is currently down to 1/2 ppd and trying to quit but just likes to inhale the smoke. She has tried patches and gum and did not like the way it made her feel. She tried chantix for one month but did not help. open to trying this again. Jayyun currently on recall. -advised quittin Prediabetes 052230238 R7 3.03 Hyperlipidemia 17832605 E78.5 takes atorvastat in Chronic ob structive pulmonary disease 18710796 J44.9 was at 3ppd and now down to 1/2 ppd. She had one exacerbati on requiring ER visit and hospital stay 05/2022 and also had visit 01/2022. has not followed up with pulm. Has not done LDCT, 6 min walk test, or titration sleep test. she takes anoro and rescue. as well as montelukas t. - she completed PFT this month, still done have results- needs 6 min walk test to assess 02 need- encouraged to stop smoking- encouraged to schedule with pulm- prevnar 09/2022 Depressive disorder 0324 9009 F32.A will start wellbutrin XL and fu one month to reassess. She was only taking medication once daily and would increase compliance to take once daily. denies si/hi. support system is daughter and grandson. She is looking for work. take medication as prescribed . denies seizure hx.encoura ged get 6 min walk test as may need 02 and can improve fatigue and allow her to walk more. Same idea with sleep study.enco uraged to stop smoking.en couraged healthy diet (patient is on budget). starting multivitam in Low back pain 692123073 M54.50 low back pain with left leg radiation. Ran out of time and will continue at next visit. does deny red flag sx. - xr-pt Adrenal hyperplasia [address] 2019needs to f/u for thyroid as wellneeds order sent History of malignant neoplasm of thyroid 292863134 Z85.850 referring back to endoUS normal 2021 Dyspnea on exertion 6084 5006 R06.09 - r/o cardiac cause Sleep apnea 76855973 G47 .30 Mild sleep apnea seen on 07/2022 studyneeds titration labs and possibly supplement al oxygen - sleep study Restless legs 81718054 G 25.81 Anemia 523913628 D64.9 r/o anemia due to restless legs in 07/2022 study Osteonecrosis of hip 444 356259 M87.[address] 2020 [id number] Leon swift MD [facility] [address] [place] [address] 02/07/2023 11:50:56 02/07/2023 12:43:34 Hypothyroidism 20892707 E03.9 Patient with total resection after cancer dx in 2010. she had some residual gland left and had another surgery to remove in 2019. - increased to 100mcg at last visit due to abnormal lab (TSH 38.900, T4 .62 (11/2022))- will increase levo to 112 mcg today repeat in 2 weeks- Endo was seen 12/2022, letting me manage thyroid Osteoporosis 84755632 M8 1.0 has not scheduledt aking ca+vit D otc Smoker 12494818 F17.200 patient is a 135 pack year smoker. has been smoking 3ppd for 45 years. She is currently down to 1/2 ppd and trying to quit but just likes to inhale the smoke. She has tried patches and gum and did not like the way it made her feel. She tried chantix for one month but did not help.-advi sed quitting- on verencicli ne from pulm Hyperlipidemia 07626002 E78.5 takes atorvastat in Chronic ob structive pulmonary disease 89171715 J44.9 was at 3ppd and now down to 1/2 ppd. She had one exacerbati on requiring ER visit and hospital stay 05/2022 . has not followed up with pulm. Has not done LDCT, 6 min walk test, or titration sleep test. medication regiment: montelukas t 10mg, ventolin prn, trelegy - Following with pulm, Dr Santana. he added trelegy and she likes it- she completed PFT still don't have results- needs 6 min walk test to assess 02 need, has not scheduled- encouraged to stop smoking- prevnar 20 09/2022 Adrenal hyperplasia [address] 2020Follow ing with endo, they are not concerned and will work up next visitshe is to bring CD from hospital to next visit History of malignant neoplasm of thyroid 028543358 Z85.850 following endo [facility], notes in chartUS normal 2021 Sleep apnea 99670486 G47 .30 Mild sleep apnea seen on 07/2022 studyneeds titration labs and possibly supplement al oxygen - sleep study Osteonecrosis of hip 444 175443 M87.[address]follow ing Dr Stewart pritchard injections and she agrees to surgery in Fall [id number] Sheila Henry MA [facility] [address] [place] [address] 04/03/2023 14:13:08 04/03/2023 14:20:44 [id number] Leon swift MD [facility] [address] [place] [address] 05/16/2023 11:32:24 05/16/2023 12:18:50 Hypothyroidism 34800696 E03.9 Patient with total resection after cancer dx in 2010. she had some residual gland left and had another surgery to remove in 2019. - increased to 112 mcg at last and tsh now controlled - Endo was seen 12/2022, letting me manage thyroid Osteoporosis 57501630 M8 1.0 has not scheduledt aking ca+vit D otc Smoker 76362792 F17.200 patient is a 135 pack year smoker. has been smoking 3ppd for 45 years. She is currently down to 1/2 ppd and trying to quit but just likes to inhale the smoke. She has tried patches and gum and did not like the way it made her feel. She tried chantix for one month but did not help.-advi sed quitting- tried verencicli ne from pulm but did not help Hyperlipidemia 71780599 E78.5 takes atorvastat in Chronic ob structive pulmonary disease 08308120 J44.9 was at 3ppd and now down to 1/2 ppd. She had one exacerbati on requiring ER visit and hospital stay 05/2022 . has not followed up with pulm. Has not done LDCT, 6 min walk test. not wearing 02 at night. medication regiment: montelukas t 10mg, ventolin prn, trelegy - Following with pulm, Dr Santana. he added trelegy and she likes it- she completed PFT still don't have results- needs 6 min walk test to assess 02 need, has not scheduled- encouraged to stop smoking- prevnar 20 09/2022 Adrenal hyperplasia [address] 2020Follow ing with endo, they are not concerned and will work up next visitshe is to bring CD from hospital to next visit History of malignant neoplasm of thyroid 690607878 Z85.850 following endo [facility], notes in chartUS normal 2021 Sleep apnea 44340873 G47 .30 Mild sleep apnea seen on 07/2022 malachi pritchard cpap but not oxygen - sleep study Osteonecrosis of hip 444 689957 M87.[address] 2020follow ing Dr Stewart pritchard injections and she agrees to surgery in Fall Poor focus 553325278 H52 .7 wants adderrall. I will not prescribe. patient understand s.already on wellbutrin Screening mammography 24 512444 Z12.31 [facility] risk for falls 722852469 Z91.81 unsteady with walkinghas walker at home but does not like to use itwas sent to PT 12/2022, not sure if she completed. no notes on progress [id number] EVELYN LIU [facility] [address] [place] [address] 07/02/2023 14:56:53 07/02/2023 15:39:48 History of malignant neoplasm of thyroid 486739517 Z85.850 following endo [facility], notes in chartUS normal 2021 Screening mammography 24 046790 Z12.31 Increased blood pressure 27059999 R03.0 hcz and amlodipine added by hospitalBP stable todaymay be due to steroids?c lose monitoring at home Hospital i npatient stay within past 30 days 6239039204 106 Z76.89 hospitaliz ed x 4 days for pneumoniat ook steroids and doxy, completedl ungs are clear todayshe says she feels great has F/U with pulmonolog ist set up [id number] EVELYN LIU [facility] [address] [place] [address] 09/24/2023 15:27:15 09/24/2023 16:11:33 Chronic obstructive pulmonary disease 88188758 J44.9 - should be on 02 on exertion, none at rest- O2 in office drops to 91 after >50 feet and has sob (she did not bring 02 today, room air) Obesity 247223110 E66.9 BMI 39- disused healthy diet- increasing physical activity- cut out soda- increase veggies Hospital i npatient stay within past 30 days [id number] 106 Z76.89 hospitaliz ed x 4 days for pneumoniat ook steroids and doxy, completedl ungs are clear todayno F/U with pulmonolog ist set up Prediabetes 016396987 R7 3.03 repeat Anxiety 12475370 F41.9 - advised counseling -Patient was educated on his prescribed medication s, rationale for medication s, dosing indication s, adverse reactions, black box warning, dosing indication s, SE (e.g., decreased libido, weight gain, gynecomast ia, and galactorrh ea) and the risks and benefits. -Call center with questions/ concerns. Go to ER or call 911 for crisis (e.g., suicidal behaviors, suicidal ideations, intent or plan emerge). Additional ly, patient has suicide hotline #[phone]. - f/u one month - call with questions [phone] EVELYN LIU [facility] [address] [place] [address] 12/16/2023 11:18:46 12/16/2023 12:35:57 Mammography abnormal [id number] R92.8 R breast mass, scheduled for december 2023 Type 2 hipolito betes mellitus 70873934 E11.9 managing with diet changes at this time.A1C: 5.9 (11/2023) 09/2023 6.7Foot exam: next visitEye Exam: order sentAlb/Cr : orderedSta tin: statin, good compliance pneumonia vaccine: prevanar 09/2022 Microalbuminuria 2160177 06 R80.9 Hyperlipidemia 03911933 E78.5 takes atorvastat in 20 and will increase to 40mg Mean corpu scular volume above reference range 804119572 R71.8 MCV 100check B12she denies alcohol, only occasional Dyspnea 240200880 R06.00 patient with COPD , hx of heavy smoking, fam history of CABG x 4 in father age 50. She denies palpitatio ns, chest pain, sob, dizziness. sending to cardiology to r/o cardiac source of dyspnea Insomnia G47.0 0 cut out sodatakes 2 hours to fall asleeptraz aonde didn't help, will stopWill trial cpap first History of malignant neoplasm of thyroid 327376022 Z85.850 following endo [facility], notes in chartUS normal 2021 Tubular ad enoma of colon 699604784 D12.6 dx ue for colonoscop y 2023 [id number] Mariel Paz MA [facility] [address] [place] [address] 10/18/2024 12:02:09 10/18/2024 12:24:22 Hypothyroidism 34894091 E03.9 Patient with total resection after cancer dx in 2010. she had some residual gland left and had another surgery to remove in 2018. - increased to 112 mcg at last and tsh now controlled - Endo was seen 12/2022, letting me manage thyroid [id number] Sheila Henry MA [facility] [address] [place] [address] 12/01/2024 14:03:33 12/01/2024 14:45:56 Mammography abnormal 680610759 R92.8 R breast mass, scheduled for december 2023 Type 2 hipolito betes mellitus 08698308 E11.9 managing with diet changes at this time.A1C: 5.9 (11/2023) 09/2023 6.7Foot exam: next visitEye Exam: order sentAlb/Cr : orderedSta tin: statin, good compliance pneumonia vaccine: prevanar 20 09/2022 Microalbuminuria 3782534 06 R80.9 Hyperlipidemia 33449688 E78.5 takes atorvastat in 40mg Mean corpu scular volume above reference range 220333056 R71.8 MCV 100check B12she denies alcohol, only occasional Dyspnea 623835665 R06.00 patient with COPD , hx of heavy smoking, fam history of CABG x 4 in father age 50. She denies palpitatio ns, chest pain, sob, dizziness. one pillow and vonnie lay flat without sob sending to cardiology to r/o cardiac source of dyspnea Insomnia 292867739 G47.0 0 cut out sodatakes 2 hours to fall asleeptraz aonde didn't help, will stopWill trial cpap first History of malignant neoplasm of thyroid 301587425 Z85.850 following endo [facility], notes in chartUS normal 2021 Tubular ad enoma of colon 686449690 D12.6 dx 2020tubula r adeoma 11/19/2024 Neck pain 38796663 M54.2 has screws in necktroubl e lfiting over 90 degrees Obesity 569004300 E66.9 BMI 39- disused healthy diet- increasing physical activity- cut out soda- increase veggies Ex-smoker 4260291 Z87.89 1 Health Concerns Section Related Observation LastModified by Organization Detai ls LastModified Time None Recorded Concern Status LastModified by Organization Details LastModified Time None Recorded Advance Directives Directive N: Payers Encounter Date Sequence Insurance Name Policy Number Policy Alberto Covered Member ID Alberto Member ID Guarantor Name 07/02/2023 1 [place] Adelaida Vasquez [id number] Adelaida Vasquez 07/02/2023 2 [place] MED[place] OR MEDICARE REPLACEMENT PRIMARY) Adelaida Clementeshe [id number] Adelaida Vasquez 09/24/2023 2 [place]PLACEMENT PRIMARY) Adelaida Clementeshe [id number] Adelaida Vasquez 09/24/2023 1 [employer] BETTER HEALTH - PREMIER PLAN - DUAL (MEDICARE - MEDICAID REPLACEMENT HMO) Adelaida Clementeshe [id number] Adelaida Vasquez 12/16/2023 1 [place] Adelaida Vasquez [id number] Adelaida Vasquez 12/16/2023 2 [place] OR MEDIC[place] REPLACEMENT PRIMARY) Adelaida Clementeshe [id number] Adelaida Vasquez 10/18/2024 1 [place] Adelaida Vasquez [id number] Adelaida Vasquez 10/18/2024 2 [place] OR MEDIC[place] REPLACEMENT PRIMARY) Adelaida Clementeshe [id number] Adelaida Vasquez Notes Date Note Type Note Provider Name and Address Organization Details Recorded Time 3 text/html Here for ER f/u in-patient with pneumonia x 4 days. took doxy and given steroids. She feels much better today.During hospital visit they added hcz and amlodipine 5mg. she has been taking it. no side effects. endo: needs new ordersees pulm 07/2023US/Mammogram: scheduled this monthhip: sees them july 2023 EVELYN LIU Attn: Accounting,[address] [facility], [place], [address], [facility] 07/02/2023 16:03:13 3 text/html pt here for f/u on COPD and pneumoniawas seen [facility] 08/17/2023 for sob and cough. she was also hospitalized 06/13/23 for COPD exacerbation. she monitors O2 and states at time of 07/2023 visit O2 was 80's. she was placed on 2L o2 and sent to ER after xray showed infiltrate. she went to [facility] and hospitalized until 08/25/2023. his is 68-year-old female with past medical history of Chronic obstructive pulmonary disease, obesity, depression who presented to emergency room with complaint of shortness a breath for 1 week which has worsened.She is actively smoking since about 2 weeks she is having increased dyspnea. Lives at home with family, drove herself to emergency room to be admitted.Patient admitted initial assessment of acute respiratory failure with hypoxia, Chronic obstructive pulmonary disease exacerbation, RSV infection. pneumonia/sepsis with lactic acidosis/leukocytosis. Patient was started on IV antibiotics.Patient completed 3 days of azithromycin, was kept on IV Solu-Medrol. Patient was noted to have worsening respiratory distress and was started on BiPAP//required close monitoring in ICU. 6 minute walk test prior to discharge: None oxygen requirement at rest, 2 L of O2 via nasal cannula.Patient has not followed-up with her primary finance lead upon discharge from hospital. needs o f/u dr rosales. She does not use cpap her main concern is anxiety. she is unable to sleep. she has been crying and feels overwhelmed. She would like something to help with this. 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 Duration:has noted for years Severity:moderate; Uses nebulizer/inhaler an average of 30 times/week lately Context:cigarette smoking; recurrent bronchopulmonary infections Alleviating factors:relieved with rest; relieved with bronchodilator Aggravating factors:worse with cigarette smoking;worse in a supine position;worse with exertion Associated Symptoms:dyspnea during exertion;decrease in exercise capacity;fatigue;coughing up sputum;wheezing;depressionS leep ProblemsReported bypatient.General Sleep:sleep apnea;unrefreshing sleep;excessive sleepiness during the day (daytime somnolence) Severity:interference with work;difficulty getting going in the morning Narcolepsy Symptoms:no cataplexy Prescribed sleep medications:not taking medication to help sleep Associated Symptoms:good sleep hygieneThyroidReported bypatient.Quality:worsening Severity:moderate Duration:constant Context:history of thyroid disease; had thyroidectomy for cancer Modifying Factors:medication Associated Symptoms:depression;fatigue ;skin changes Adelaida is a 135 pack year smoker 68 yo F pmhxz thyroid cancer 2011 s/p resection (2010&2018), COPD, Obesity, depression, DM2 (DX 09/2023) DM2: patient with worse DM 09/2023. She has been eating avocados and cottage cheese. She has cut out all soda and drinking only water.saw ernestine 10/23/23 and he ordered PFT and walk test. on 2L of O2 but does not wear it most of the time. only when I need it. She had pft scheduled. She has not smoked since 08/2023 hospitalization. Has not followed up with merlin holliday. Sleep/depression: She continues to feel tired sleep well. she says she does not wear her cpap. Takes 2 hours to fall asleep. lexapro seems to be helping with depression and denies any more episodes of crying, trazadone did not help for sleep. SMOKING: She has quit 08/2023 COPD: Saw Dr santana January 22 2023. he added trelegy and likes it. Has f/u soon. advised scheduling 6 min walk test and CT before her appointment next month. colonoscopy 2020, due 2023. Endo: Saw Dr Almeida 12/2022. okay on 100mcg of levothyroxine. will continue monitoring thyroid from this office. Dr Almeida will work up a possible subclinical cushings as there is adrenal hyperplasia on CT. She is to picker packer disc and take it to next appointment in 3 months. Patient saw yaakov bautista oncology at [place] 10/31/20 for papillary thyroid cancer f/u, check thyroglobulin and US. She was to to continue with PCP and US monitoring. She wants to ask endo if starting GLP-1 is okay for her. I refused today to start until discussed with endo. Patient would benefit from GLP1 and weight loss-joint health, dm etc. hip osteonecrosis. saw beto 12/2022 and doing injections until she can schedule surgery in Fall. refuses surgery at this time. has not followed up but continues to be in pain. Sleep apnea: not wearing EVELYN LIU Attn: Accounting,[address] [place], [address], [facility] 12/19/2023 07:18:34 OBGyn Episode No OBEpisode recorded.
--- OUTSIDE RECORDS SUMMARY | 2024-12-10 09:53 | XMS_ITS | Encounter Summary ---
Author Organization [facility] Address [address] [place] [address] Care Team Providers Care Forensic Artist Name Role Phone Patricia Gmoez PA-C Primary Care Provider Encounter Details Date Type Department Care Team (Late st Contact Info) Description 10/18/2022 Coordination of Care Telephone [facility] [address] [facility] [place] [address] Francisco Almeida MD [facility] [place] [address] Social History Tobacco Use Types Packs/Day Years Used Date Smoking Tobacco: Never Assessed Sex and Gender Information Value Date Recorded Sex Assigned at Not on file Gender Identity Not on file Sexual Orientation Not on file documented as of this encounter Plan of Treatment Not on file documented as of this encounter Visit Diagnoses Not on filedocumented in this encounter Care Teams Forensic Artist Relationship Specialty Start Date End Date Patricia Gomez PA-C [address] [place] [address] PCP - General 12/16/22 documented as of this encounter
--- OUTSIDE RECORDS SUMMARY | 2024-12-10 09:53 | XMS_ITS ---
Author Organization [facility] Address [address] [place] [address] Care Team Providers Care Ring Conductor Name Role Phone Patricia Gomez Primary Care Provider + Active Problems Problem Noted Date Diagnosed Date [...] in adult 04/26/2020 History of emphysema 02/10/2020 Current Treatment and Therapy Plans No current plan information found. Past Treatment and Therapy Plans No past plan information found. Lifetime Dose Tracking * Chemical Lifetime Dose Automatic Entry Manual Entr y Fluoro Time 1.217 minutes 1.217 minutes 0 minutes Air kerma at the reference point (Ka,r) 9.9 mGy 9 .9 mGy 0 mGy DLP 621 mGycm 621 mGycm 0 mGycm Resolved Problems Problem Noted Date Diagnosed Date Resolved Date Thyroid cancer 09/18/2020 11/06/2020 Cancer Staging:Pathologic stage from 10/14/2008:No Stage Recommended(pT1a, cN0, cM0, Age at diagnosis: < 55 years) - Signed by America Curtis MD on 10/31/2020 Overview (09/18/2020): Added automatically from request for surgery [id number]
--- OUTSIDE RECORDS SUMMARY | 2024-12-10 09:53 | XMS_ITS | Clinical Summary ---
Author Organization [facility] Address [address] [place] [address] Care Team Providers Care Grinder Outside Diameter Name Role Phone Patricia Gomez PA-C Primary Care Provider Source Comments [facility],non-owned Affiliates and Associated Physician Practices is amultiple site organization consisting of ambulatory clinics and hospital sitesin [place], [place], [place] and [place]. This disclosure is being madepursuant to the Care Everywhere program and may not contain all information available regarding this patient. Last updated 18.[facility] Allergies Active Allergy Reactions Criticality Noted Date [...] 01/10/2023 9:53 AM CDT Plan of Treatment Health Maintenance Due Date Last Done Comments BONE DENSITY TESTING 1957 COLOGUARD (AGES 45-75) - COL ON CA SCREENING 1957 COLON MONITORING 1957 COLONOSCOPY - COLON CA SCREENING 1957 CT COLONOGRAPHY - COLON CA SCREENING 1957 Colorectal Cancer Screening 1957 FIT - COLON CA SCREENING 1957 FLEX SIG - COLON CA SCREENING 1957 MAMMOGRAM 1957 MEDICARE AWV 12 MONTHS 1957 HEPATITIS C SCREENING 06/01/1975 DTAP/TDAP/TD VACCINES (1 - Tdap) 1976 PNEUMOCOCCAL VACCINE 50+ (1 of 2 - PCV) 1976 ZOSTER VACCINE (1 of 2) 2007 Respiratory Syncytial Virus (RSV) Vaccine Pt: or over 60 yrs (1 - Risk 60-74 years 1-dose series) 2017 SCREENING FOR DIABETES 01/10/2023 COVID-19 VACCINE (2023-2 5 season) 2024 01/16/2021 INFLUENZA VACCINE (#1) 2024 0, 07/20/2020, 08/10/2008 DEPRESSION SCREENING 10/20/2024 HEPATITIS B VACCINE Aged Out No longe r eligible based on patient's age to complete this topic HIB VACCINE Aged Out No longer eligi ble based on patient's age to complete this topic HPV VACCINE Aged Out No longer eligi ble based on patient's age to complete this topic MENINGOCOCCAL (Group B) VACCINE Aged Out No longer eligible b ased on patient's age to complete this topic MENINGOCOCCAL VACCINE Aged Out No jairon osmel eligible based on patient's age to complete this topic Care Teams Grinder Outside Diameter Relationship Specialty Start Date End Date Patricia Gomez PA-C [facility] [place] [address] PCP - General 12/16/22
--- OUTSIDE RECORDS SUMMARY | 2024-12-10 09:53 | XMS_ITS | Clinical Summary ---
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 Emergency Department [address] [place] [address] [id number] Catracho Bills Jr., MD COVID-19 virus infection (Primary Dx) Discharge Disposition: Discharge to home or self care from Last 3 Months Immunizations Immunization Administration Dates Next Due Influenza, Quadrivalent, Spl it, Preservative Free, Intramuscular 09/13/2020 Influenza, Trivalent, Preservative Free, Intramu scular 08/10/2008 Influenza, Unspecified 07/20/2020 Pfizer SARS-CoV-2 Monovalent Vaccination (12+ Yrs) PURPLE 01/16/2021 Pneumococcal Polysaccharide PPV23 09/13/2020 Tdap 04/23/2019 Surgical History Surgery Date Site/Laterality Comments TX LAMOT PRTL FFD EXC DISC REEXPL 1 [facility] CERVICAL 2009? Hemilaminectomy With Disc Removal Cervical Re-Exploration - (Added by TW Conv) TX LIG/TRNSXJ FLP TUBE ABDL/VAG APPR UNI/BI 10/20/1984 - 10/19/1985 Tubal Ligation - (Added by TW Conv) THYROIDECTOMY 10/20/2010 - 10/19/2011 TOTAL KNEE ARTHROPLASTY 10/20/2014 - 10/19/2015 Right CARPAL TUNNEL RELEASE 10/20/2004 - 10/19/2005 Bilateral BREAST LUMPECTOMY 10/20/1999 - 10/19/2000 Left BUNIONECTOMY 10/20/1989 - 10/19/1990 Right JOINT REPLACEMENT NECK SURGERY Medical History Medical History Date Comments Displacement of cervical int ervertebral disc without myelopathy Herniated Disc (C6 - C7) - ( Added by TW Conv) Chronic obstructive pulmonary disease (HCC) Chronic obstructive pulmonary disease - (Added by TW Conv) Other cervical disc displace ment at C5-C6 level Herniated nucleus pulposus, C5-6 - (Added by TW Conv) Personal history of other di seases of the nervous system and sense organs History of migraine wi th aura - (Added by TW Conv) Personal history of other me ntal and behavioral disorders History of depression - (Add ed by TW Conv) Obesity Thyroid disease Hypercholesteremia Cancer (CMS/HCC) (HCC) Family History Medical History Relation Name Comments Hypertension Brother Clotting disorder Daughter Kidney disease Daughter Cancer Father Heart disease Father Cancer Mother Heart disease Mother Colon cancer Other 1 Malignant Neopl asm, Colon - (Added by TW Conv) Multiple sclerosis Other 2 Multiple Sclerosis - (Added by TW Conv) Coronary artery disease Other 3 Frank nary Artery Disease - (Added by TW Conv) Skin cancer Other 4 Skin Cancer - ( Added by TW Conv) Uterine cancer Other 5 Uterine Cance r - (Added by TW Conv) Clotting disorder Sister Anesthesia problems Neg Hx Relation Name Status Comments Brother Daughter Father Mother Other 1 Other 2 Other 3 Other 4 Other 5 Sister Social History Tobacco Use Types Packs/Day Years [...] often do you attend chur ch or restorationism services? Never 08/18/2023 Do you belong to any clubs o r organizations such as shinto groups, unions, fraternal or athletic groups, or [...] place to sleep or slept in a penitentiary (including now)? No 08/18/2023 Personal Safety Answer Date Recorded Have you ever been in or are you currently in a harmful physical or emotional relationship or is someone making you feel afraid or unsafe? Denies 10/30/2024 Comments No Sex and Gender Information Value Date Recorded Sex Assigned at Not on file Legal Sex Female 4:39 AM CHIEF OF PARTY Gender Identity Not on file Sexual Orientation Not on file Occupation Industry Job Start Date Job End Date Unemployed Not on file Not on file Not on file Obstetrics History Last Filed Vital Signs Vital Sign Reading Time Taken Comments Blood Pressure 133/68 10/30/2024 10:10 PM [facility] OF PARTY Pulse 69 10/30/2024 10:10 PM [facility] OF PARTY Temperature 37.1 C (98.8 F) 10/30/2024 7:40 PM [facility]IE[facility] OF PARTY Respiratory Rate 18 10/30/2024 10:1 0 PM [facility] OF PARTY Oxygen Saturation 95% 10/30/2024 10: 10 PM [facility]IE[facility] OF PARTY Inhaled Oxygen Concentration - - Weight 97.5 kg (214 lb 15.2 oz) 10/30/2024 7:40 PM [facility] OF PARTY Height 160 cm (5' 3 ) 10/30/2024 7:40 PM CHIE[facility] OF PARTY Body Mass Index 38.08 10/30/2024 7:40 PM CHIEF OF PARTY Plan of Treatment Health Maintenance Due Date Last Done Comments Breast Cancer Screening-Mammogram 1955 Colon Cancer Screening-Colonoscopy 1955 Depression Screening 1955 Hepatitis C Screening 1955 Osteoporosis Screening-Bone Density Scan 1955 Hepatitis B Screening 1975 Zoster Vaccine (1 of 2) 2007 Pneumococcal vaccine 65+ (2 of 2 - PCV) 09/13/2021 09/13/2020 Well Visit 65+ 2022 Covid-19 Vaccine (2 - 2024-25 season) 2024 Influenza Vaccine (#1) 2024 0, 07/20/2020, 08/10/2008 Fall Risk Assessment 08/27/2024 08/27/2023 DTaP/Tdap/Td Vaccine (2 - Td or Tdap) 04/23/202902/2019 Procedures Procedure Name Priority Date/Time Associated Diagnosis Comments TROPONIN T HIGH-SENSITIVITY 2-HOUR Timed 10/30/2024 9:39 PM CHIEF OF PARTY XR CHEST PA LATERAL 2 VIEWS ED 10/30/2024 8:05 PM [facility] OF PARTY PRO B-TYPE NATRIURETIC PEPTIDE Add-On 10/30/2024 7:52 PM CHIEF OF PARTY EGFR STAT 10/30/2024 7:52 PM CHIEF OF PARTY DIFFERENTIAL AUTO STAT 10/30/2024 7:5 2 PM CHIEF OF PARTY TROPONIN T HIGH-SENSITIVITY SERIES (BASELINE, 2HR, 4HR, 6HR) STAT 10/30/2024 7:52 PM CHIEF OF PARTY CBC WITH AUTO DIFFERENTIAL STAT 10/30/2024 7:52 PM CHIEF OF PARTY COMPREHENSIVE METABOLIC PANEL STAT 10/30/2024 7:52 PM [facility] OF PARTY INFLUENZA A/B, RSV, AND COVID-19 PCR STAT 10/30/2024 7:52 PM CHIEF OF PARTY ECG 12-LEAD STAT 10/30/2024 7:50 PM CHIEF OF PARTY from Last 3 Months Results * Troponin T high-sensitivity 2-hour (10/30/2024 9:39 PM CHIEF OF PARTY) Trop T hs 8 <=14 ng/L Comment: Interpretive Data For further hscTnT resources including the diagnostic algorithm and an aid in interpretation, copy and paste this link: https://nrl.testcatalog.org/show/hsTrop Current Interpretive Data last revised 2020. Testing performed by: [facility], [address] [place] [address]., [id number] Trop T hs delta 0 ng/L MARINE THOMASON Comment:Testing performed by : [facility], [address] [place] [address]., [id number] Trop T hs interp Insignificant MARINE THOMASON Comment:Testing performed by : [facility], [address] [place] [address]., [id number] Blood 10/30/2024 9:39 PM CHIEF OF PARTY 10/30/2024 9:41 PM CHIEF OF PARTY us Catracho Bills Jr., MD LAB BLOOD ORDERABLES Fi nal Result MARINE THOMASON [address] [facility] Department [place] [address] * XR Chest PA Lateral 2 Views (10/30/2024 8:05 PM CHIEF OF PARTY) Anatomical Region Laterality Modality Body, Chest N/A Computed Radiogr aphy 10/30/2024 9:34 PM CHIEF OF PARTY Narrative 10/30/2024 9:36 PM CHIEF OF PARTY EXAM DESCRIPTION: XR CHEST PA LATERAL 2 [...] Abdulaziz Lomax M.D. MCKENNA: MCKENNA Report ID: [id number] Reading Location: [id number] Procedure Note Derrick Lomax MD - 10/30/2024 [...] Abdulaziz Lomax M.D. MCKENNA: MCKENNA Report ID: [id number] Reading Location: [place] [address] us Catracho Bills Jr., MD IMG XR PROCEDURES Final Result * Troponin T high-sensitivity series (baseline, 2hr, 4hr, 6hr) (10/30/2024 7:52 PM CHIEF OF PARTY) Pathologist [facility] Trop T hs 8 <=14 ng/L Comment: Interpretive Data For further hscTnT resources including the diagnostic algorithm and an aid in interpretation, copy and paste this link: https://nrl.testcatalog.org/show/hsTrop Current Interpretive Data last revised 2020. Testing performed by: [facility], [address] [place] [address]., [address] Blood 10/30/2024 7:52 PM CHIEF OF PARTY 10/30/2024 7:59 PM CHIEF OF PARTY us Catracho Bills Jr., MD LAB BLOOD ORDERABLES Ed ited Result - Final MARINE [address] [facility] Department [place] [address] * (ABNORMAL) Influenza A/B, RSV, and COVID-19 PCR Nasopharyngeal (10/30/2024 7:52 PM CHIEF OF PARTY) [facility] COVID-19 RNA Positive(A) Negative Comment:Testing performed by : [address] [address] Influenza A RNA Negative Negative [facility] Comment:Testing performed by : [address] [address] Influenza B RNA Negative Negative [facility] Comment:Testing performed by : [address] [address] RSV RNA Negative Negative [facility] Comment: Interpretive data: Testing performed by [facility]. This test is performed using the g2One Xpert Xpress CoV-2/Flu/RSV plus assay. This is a multiplex, real-time reverse transcriptase PCR assay intended for the qualitative detection of nucleic acid from SARS-CoV-2, influenza A, influenza B, and respiratory syncytial virus. This assay has been cleared by the [place] Food and Drug administration. The performance characteristics have been verified by the [facility]. Results must be considered in the clinical context, and a negative result does not rule out infection. Interpretive Data last revised 2023 Testing performed by: [address] [address] Nasopharyngeal 10/30/2024 7: 52 PM CHIEF OF PARTY 10/30/2024 7:59 PM CHIEF OF PARTY Narrative [facility] - 10/30/2024 8:38 PM CHIEF OF PARTY Is the Patient experiencing symptoms consistent with COVID?->Yes us Catracho Bills Jr., MD LAB MICROBIOLOGY - GENE RAL ORDERABLES Final Result [facility] [address] [facility] Department of Laboratories [place], [place] [id number] * (ABNORMAL) eGFR (10/30/2024 7:52 PM CHIEF OF PARTY) [facility] eGFR 45(L) >=60 mL/min/1. 73 m2 Comment: [...] was last reviewed 2021. Testing performed by: [address] [address] Blood 10/30/2024 7:52 PM CHIEF OF PARTY 10/30/2024 7:59 PM CHIEF OF PARTY us Catracho Bills Jr., MD LAB BLOOD ORDERABLES Fi nal Result MARINE [address] [facility] Department [place] [address] * (ABNORMAL) Differential, auto (10/30/2024 7:52 PM CHIEF OF PARTY) Neutrophil abs 7.2(H) 1.5 - 6.5 K/cumm Comment:Testing performed by : [address] [address] Imm gran abs 0.1 0.0 - 0.1 K/cumm MARINE Comment:Testing performed by : [address] [address] Lymphocyte abs 2.8 0.8 - 3.3 K/cumm MARINE Comment:Testing performed by : [address] [address] Monocyte abs 0.8 0.2 - 0.8 K/cumm MARINE Comment:Testing performed by : [address] [address] Eosinophil abs 0.4 0.0 - 0.5 K/cumm MARINE Comment:Testing performed by : [address] [place]., [address] Basophil abs 0.1 0.0 - 0.1 K/cumm MARINE Comment:Testing performed by : [address] [address] Neutrophil pct 63.3 % [facility] Comment: Interpretive Data Percent cell count reference ranges are not reported, since discordance with absolute values may lead to misinterpretation of CBC data. Current Interpretive Data was last revised on 2018. Testing performed by: [address] [address] Imm gran pct 0.6 % [facility] Comment: Interpretive Data Percent cell count reference ranges are not reported, since discordance with absolute values may lead to misinterpretation of CBC data. Current Interpretive Data was last revised on 2018. Testing performed by: [address] [address] Lymphocyte pct 24.4 % [facility] Comment: Interpretive Data Percent cell count reference ranges are not reported, since discordance with absolute values may lead to misinterpretation of CBC data. Current Interpretive Data was last revised on 2018. Testing performed by: [address] [address] Monocyte pct 7.3 % [facility] Comment: Interpretive Data Percent cell count reference ranges are not reported, since discordance with absolute values may lead to misinterpretation of CBC data. Current Interpretive Data was last revised on 2018. Testing performed by: [address] [address] Eosinophil pct 3.6 % [facility] Comment: Interpretive Data Percent cell count reference ranges are not reported, since discordance with absolute values may lead to misinterpretation of CBC data. Current Interpretive Data was last revised on 2018. Testing performed by: [address] [address] Basophil pct 0.8 % [facility] Comment: Interpretive Data Percent cell count reference ranges are not reported, since discordance with absolute values may lead to misinterpretation of CBC data. Current Interpretive Data was last revised on 2018. Testing performed by: [address] [address] Blood 10/30/2024 7:52 PM CHIEF OF PARTY 10/30/2024 7:59 PM CHIEF OF PARTY us Catracho Bills Jr., MD LAB BLOOD ORDERABLES Fi nal Result TIFFANYQYY [address] [facility] Department [place] [address] * (ABNORMAL) Pro B-type natriuretic peptide (10/30/2024 7:52 PM CHIEF OF PARTY) NT-proBNP 367(H) <=300 pg/mL Comment: Interpretive Comments: [...] as advanced age. - References: 1. Jayson BLAKELY et.al. Eur Heart J. 2006:27:330-337. 2. Amadeo ANDREW, Gregor MARTINEZ. J. AM Ashley Cardiol: Cardiovasc Imag. 2009;2: 216- 225. Interpretive Data Last Revised Date: 2018. Testing performed by: [facility], [address] [place] [address]., [address] Blood 10/30/2024 7:52 PM CH[facility] OF PARTY 10/30/2024 8:51 PM [facility]IE[facility] OF PARTY us Catracho Bills Jr., MD LAB BLOOD ORDERABLES Fi nal Result MARINE [address] [facility] Department [place] [address] * (ABNORMAL) CBC with auto differential (10/30/2024 7:52 PM CHIEF OF PARTY) WBC 11.4(H) 3.8 - 9.9 K/cumm Comment:Testing performed by : [address] [address] Hgb 15.0 11.9 - 15.5 g/dL MARINE Comment:Testing performed by : [address] [address] Hct 48.8(H) 35.6 - 45.5 % MARINE Comment:Testing performed by : [address] [address] Plt 330 150 - 400 K/cumm MARINE Comment:Testing performed by : [address] [address] MPV 9.7 9.1 - 12.3 fL MARINE Comment:Testing performed by : [address] [address] RBC 4.99 3.90 - 5.20 M/cumm MARINE Comment:Testing performed by : [address] [address] MCV 97.8(H) 81.3 - 96.4 fL MARINE Comment:Testing performed by : [address] [address] MCH 30.1 27.1 - 33.3 pg [facility] TH[facility]ON Comment:Testing performed by : [address] [address] MCHC 30.7(L) 32.3 - 35.7 g/dL [facility] THOM[facility] Comment:Testing performed by : [address] [address] RDW CV 13.8 11.1 - 14.9 % MARINE Comment:Testing performed by : [address] [address] RDW SD 49.6(H) 35.7 - 48.1 fL [facility] THOMASON Comment:Testing performed by : [address] [address] NRBC abs 0.00 0.00 - 0.01 K/cumm [facility] THOMASON Comment:Testing performed by : [address] [address] Blood 10/30/2024 7:52 PM CHIEF OF PARTY 10/30/2024 7:59 PM CHIEF OF PARTY us Catracho Bills Jr., MD LAB BLOOD ORDERABLES Fi nal Result MARINE [facility] Department [place] [address] * (ABNORMAL) Comprehensive metabolic panel (10/30/2024 7:52 PM CHIEF OF PARTY) Sodium 142 135 - 145 mmol/L Comment:Testing performed by : [address] [address] Potassium, pl 4.8 3.3 - 4.9 mmol/L [facility] THOMASON Comment:Testing performed by : [address] [address] Chloride 107 97 - 110 mmol/L MARINE Comment:Testing performed by : [address] [address] CO2 22 22 - 32 mmol/L MARINE Comment:Testing performed by : [address] [address] Anion gap 13 2 - 15 mmol/L MARINE Comment:Testing performed by : [address] [address] BUN 15 6 - 25 mg/dL MARINE Comment:Testing performed by : [address] [address] Creatinine 1.30(H) 0.60 - 1.10 mg/dL [facility] Comment:Testing performed by : [address] [address] Glucose 112 70 - 199 mg/dL [facility] Comment: Interpretive Data Fasting glucose >/= 126 [...] classification and Diagnosis of Diabetes Diabetes Care 2021; 46: S19-S40. Current interpretive data was last revised 2022. Testing performed by: [address] [address] Calcium 8.6 8.5 - 10.3 mg/dL [facility] Comment:Testing performed by : [address] [address] Bilirubin, total 0.2 0.1 - 1.2 mg/dL [facility] Comment:Testing performed by : [address] [address] Protein, pl 7.2 6.5 - 8.5 g/dL [facility] Comment:Testing performed by : [address] [address] Albumin 4.0 3.5 - 5.0 g/dL [facility] Comment:Testing performed by : [address] [address] Alk phos 187(H) 40 - 130 Units/L [facility] Comment:Testing performed by : [address] [address] ALT 10 7 - 45 Units/L [facility] Comment:Testing performed by : [address] [address] AST 20 10 - 45 Units/L [facility] Comment: HEMOLYZED: Hemolysis interferes with the above test. Testing performed by: [address] [address] Blood 10/30/2024 7:52 PM CHIEF OF PARTY 10/30/2024 7:59 PM CHIEF OF PARTY us Catracho Bills Jr., MD LAB BLOOD ORDERABLES Fi nal Result Performing Organization Address [facility] Co de Phone Number MARINE [address] [facility] Department [place] [address] * ECG 12 lead (10/30/2024 7:50 PM CHIEF OF PARTY) Ventricular Rate EKG/Min 75 BPM [facility] Atrial Rate 75 BPM [facility] TX-Interval (MSEC) 140 ms [facility] QRS-Interval (MSEC) 74 ms [facility] QT-Interval (MSEC) 398 ms [facility] QTc 444 ms [facility] P [place] 66 degrees [facility] R [place] 65 degrees [facility] T [place] 75 degrees [facility] Diagnosis Normal sinus rhythm Nonspecific T wave abnormality Abnormal ECG When compared with ECG of 17-AUG-2023 14:15, Premature ventricular complexes are no longer Present Criteria for Septal infarct are no longer Present Confirmed by OWEN ARORA M.D. ([id number]) on 10/31/2024 9:44:28 AM [facility] 10/30/2024 7:50 PM CHIEF OF PARTY 10/31/2024 9:44 AM CHIEF OF PARTY us Catracho Bills Jr., MD ECG ORDERABLES Final R esult Performing Organization Address [facility] de Phone Number [facility] from Last 3 Months Insurance MEDICARE IDPA MEDICARE IDND MEDICARE IDPA Advance Directives For more information, please contact: [phone] * Full Code (Latest Code Status on File) Date Activated Date Inactivated Comments 08/17/2023 3:59 PM 08/27/2023 4:46 PM * Full Code Date Activated Date Inactivated Comments 06/09/2023 3:52 PM 06/12/2023 7:32 PM * Full Code Date Activated Date Inactivated Comments 10/03/2020 12:56 PM 10/04/2020 3:20 PM Care Teams Jinriksha Driver Relationship Specialty Start Date End Date Patricia Gomez PA PCP - General Physician Technology Lab Teacher 09/11/21
--- OUTSIDE RECORDS SUMMARY | 2024-12-10 09:53 | XMS_ITS | Encounter Summary ---
Author Organization [facility] Address [address] [place] [address] Care Team Providers Care Quill Machine Tender Name Role Phone Patricia Gomez PA-C Primary Care Provider Encounter Details Date Type Department Care Team (Late st Contact Info) Description 10/18/2022 Coordination of Care Telephone [facility], Diabetes and Metabolism [address] [facility] [place] [address] Francisco Almeida MD [facility] [place] [address] Social History Tobacco Use Types [...] on filedocumented in this encounter Care Teams Quill Machine Tender Relationship Specialty Start Date End Date Patricia Gomez PA-C [address] [place] [phone] PCP - General 12/16/22 documented as of this encounter
--- OUTSIDE RECORDS SUMMARY | 2024-12-10 09:53 | XMS_ITS | Encounter Summary ---
Author Organization [facility] Healthcare Address [address] [place] [id number] Care Team Providers Care Lead Pressman [employer] Name Role Phone No, Physician Primary Care Provider [phone] Cici Ahumada MD Primary Care Provider [phone] Patricia Gomez Primary Care Provider + Encounter Details Date Type Department Care Team (Late st Contact Info) Description 1955 Orders Only [facility] Health Information Management [address] [place] [address] Scanning, Provider Social History Tobacco Use Types Packs/Day Years Used Date Smoking Tobacco: Never Assessed Comments Unknown Sex and Gender Information Value Date Recorded Sex Assigned at Not on file Legal Sex Female 4:39 AM [employer] Gender Identity Not on file Sexual Orientation Not on file documented as of this encounter Plan of Treatment Not on file documented as of this encounter Procedures Procedure Name Priority Date/Time Associated Diagnosis Comments SCAN - OTHER ORDERS 1955 documented in this encounter Results * SCAN - OTHER ORDERS (1955) us Provider Scanning Final Result documented in this encounter Visit Diagnoses Not on filedocumented in this encounter Additional Health Concerns Infection Onset Date Last Indicated Resolved Time COVID: Suspected 08/17/2023 08/17/2023 08/17/2023 3:51 PM CDT RSV, droplet 08/17/2023 08/17/2023 08/31/2023 3:05 AM [employer] COVID: Suspected 10/30/2024 10/30/2024 10/30/2024 8:38 PM [employer] COVID19 10/30/2024 10/30/2024 11/09/2024 3:07 AM [employer] documented as of this encounter Care Teams Lead Pressman [employer] Relationship Specialty Start Date End Date No, Physician PCP - General 04/23/19 03/22/20 Cici Ahumada MD PCP - General Family Medicine 03/23/20 09/10/21 Patricia Gomez PA PCP - General Physician Photogravure Press Operator 09/11/21 documented as of this encounter
== END 2024-12-10 09:11 | disposition home or self-care (01) ==
PROVIDERS: PCP Physician Assistant; Visit Provider Physician Assistant
DX: R06.00 Dyspnea, unspecified (principal)
CPT/HCPCS: 93306

== ENCOUNTER 2024-12-17 13:32 | Outpatient (CLI) | payer MEDICARE, MEDICAID, SELFPAY | END 2024-12-17 13:33 | disposition home or self-care (01) | LOC: ANHIMG 13:36 | PROVIDERS: PCP Physician Assistant; Visit Provider Physician Assistant | DX: R92.8 Other abnormal and inconclusive findings on diagnostic imaging of breast (principal) | CPT/HCPCS: 76642; 77062; 77066; G0279 ==

== ENCOUNTER 2025-03-08 07:26 | Outpatient (CLI) | payer MEDICARE, MEDICAID, SELFPAY ==
--- NOTE | ~2025-03-08 | NM_ITS ---
EXAMINATION: NM fiona stress w perfusion DATE: 03/08/2025 11:10 INDICATION: Other forms of dyspnea TECHNIQUE: Rest images were obtained following intravenous administration of 12.0 mCi Tc99m tetrofosm in (Myoview). The patient was infused intravenously with Lexiscan (Regadenoson). Then, a 5.0 mCi Tc99 m tetrofosmin (Myoview) was administered intravenously, and stress images were obtained. Data was rec onstructed into short axis and horizontal and vertical long axis SPECT images. Gated SPECT images wer e also obtained. COMPARISON: None. FINDINGS: There is extensive artifactual decreased activity at the apex and the inferior and septal w alls on the rest imaging which largely normalizes on the post stress imaging. The residual mild defec ts on the stress imaging. Location on the gated and non gated post stress imaging gated imaging durin g systole likely representing additional attenuation artifact. There is no definite perfusion abnorma lity on the post stress images to suggest ischemia or infarction. There is normal left ventricular c hamber size, wall motion and ejection fraction. Left ventricular ejection fraction measures >70%. IMPRESSION: 1. Significant artifactual attenuation at the apex and along the cephalad and inferior green on the r est imaging which nearly normalizes on the post stress imaging. No definitive perfusion defects on th e post stress imaging to suggest ischemia or infarction. 2. Left ventricular ejection fraction measuring >70%. Reviewed, dictated and finalized at location A. IMPRESSION: 1. Significant artifactual attenuation at the apex and along the cephalad and i nferior green on the rest imaging which nearly normalizes on the post stress im aging. No definitive perfusion defects on the post stress imaging to suggest is chemia or infarction. 2. Left ventricular ejection fraction measuring >70%.
--- OUTSIDE RECORDS SUMMARY | 2025-03-08 07:30 | XMS_ITS | Encounter Summary ---
Author Organization [facility] Address [address] [place] [address] Care Team Providers Care Operations Business Partner Name Role Phone Patricia Gomez PA-C Primary Care Provider Encounter Details Date Type Department Care Team (Late st Contact Info) Description 10/18/2022 Coordination of Care Telephone [facility], Diabetes and Metabolism [address] [facility] [place] [address] Francisco Almeida MD [address] [place] [address] [place] [address] Social History Tobacco Use Types Packs/Day Years Used Date Smoking Tobacco: Never Assessed Comments Unknown Sex and Gender Information Value Date Recorded Sex Assigned at Not on file Legal Sex Female 10:05 AM CDT Gender Identity Not on file Sexual Orientation Not on file documented as of this encounter Plan of Treatment Not on file documented as of this encounter Visit Diagnoses Not on filedocumented in this encounter Care Teams Operations Business Partner Relationship Specialty Start Date End Date Patricia Gomez PA-C [facility] [place] [address] PCP - General 12/16/22 documented as of this encounter
--- OUTSIDE RECORDS SUMMARY | 2025-03-08 07:30 | XMS_ITS | Clinical Summary ---
Author Organization [facility] Address [address] [place] [id number] Care Team Providers Care Dopster Name Role Phone Unavailable Primary Care Provider [...] 1 - Tdap) 1976 Mammogram Screening 1997 Pneumococcal Vaccine: 50+ Ye ars (1 of 1 - PCV) 2007 Zoster Vaccines (1 of 2) 2007 Dexa Scan (General) 2022 COVID-19 Vaccine ( - 2023-2 5 season) 2024 RSV Immunization or 60+ Years (1 [...]
--- OUTSIDE RECORDS SUMMARY | 2025-03-08 07:32 | XMS_ITS | Clinical Summary ---
Author Organization [facility] Address [address] [place] [address] Care Team Providers Care Global Regulatory Affairs Manager Name Role Phone Patricia Gomez PA-C Primary Care Provider Source Comments [facility],non-owned Affiliates and Associated Physician Practices is amultiple site organization consisting of ambulatory clinics and hospital sitesin [place], [place], [place] and [place]. This disclosure is being madepursuant to the Care Everywhere program and may not contain all information available regarding this patient. Last updated 18.[facility] Allergies Active Allergy Reactions Criticality Noted Date Comments Banana Anaphylaxis High 09/22/2020 Penicillins Unknown 01/10/2023 Medications * Be aware that medications may not be up to date on this document. Alwaysverify current medications with the patient. albuterol (Proventil;Vent kristin) (2.5 MG/3ML) 0.083% nebulizer solution albuterol sulfate [...] DAILY BEFORE MEAL(S) FOR 30 DAYS Active Active Problems Problem Noted Date Diagnosed [...] drink = 0.6 oz pur e alcohol) Comments Unknown Sex and Gender Information Value [...] 2017 SCREENING FOR DIABETES 01/10/2023 COVID-19 VACCINE (2 - 2023-2 5 season) 2024 01/16/2021 DEPRESSION SCREENING 10/20/2024 INFLUENZA VACCINE (Season Ended) 2025 09/13/2020, 07/20/2020, 08/10/2008 HEPATITIS B VACCINE Aged Out No longe r eligible based on patient's age to complete this topic HIB VACCINE Aged Out No longer eligi ble based on patient's age to complete this topic HPV VACCINE Aged Out No longer eligi ble based on patient's age to complete this topic MENINGOCOCCAL (Group B) VACCINE SHARED DECISION-MAKING Aged Out No longer eligible based on patient's age to complete this topic MENINGOCOCCAL GROUPS A/C/Y/W VACCINE Aged Out No longer eligible b ased on patient's age to complete this topic Insurance MEDICARE MEDICAID - OUT OF [facility] MEDICARE Care Teams Global Regulatory Affairs Manager Relationship Specialty Start Date End Date Patricia Gomez PA-C [address] [place] [phone] PCP - General 12/16/22
--- OUTSIDE RECORDS SUMMARY | 2025-03-08 07:32 | XMS_ITS | Continuity of Care Document ---
Author Organization [facility] Address [address] [place] [address] Phone Care Team Providers Care Medical Radiation Therapist Name Role Phone Benjamin CHRISTIE, Cortez Unavailable Unavailable Advance Directives Directive Yes / No Effective Date File Name No Information Encounters Encounter Description Practice Location Reason(s) For Visit Diagnoses Date Provider Providers Copied on Encounter [facility], [address], [id number], [place] tel:[phone] [facility] No Information 6 Benjamin Toro. [address], [facility] [address], [place], [place], [id number] , [place]. tel: [phone] Family History Family Member Type Diagnosis Age At Onset No Information Payers Payer name Insurance type Covered green party ID Authoriza tion(s) No Information Social History Type Description Quantity Date Captured Comments Sex Female Smoking Status No Information Chief Complaint And Reason For Visit No Information Reason For Referral Reason For Referral No Information History Of Present Illness Encounter Date Complaint History Of Prese nt Illness No Information Functional Status Date Functional Assessmen t No Information Instructions Date Instruction Additional Infor mation No Information Assessments Type Assessment Date No Information Patient Care Teams Name Effective Dates (start - stop) Status Members No Information
--- OUTSIDE RECORDS SUMMARY | 2025-03-08 07:32 | XMS_ITS | Encounter Summary ---
Author Organization [facility] Address [address] [place] [address] Care Team Providers Care Engagement Mgr Name Role Phone Patricia Gomez PA-C Primary Care Provider Encounter Details Date Type Department Care Team (Late st Contact Info) Description 10/18/2022 Coordination of Care Telephone [facility] [address] [place] [address] Francisco Almeida MD [address] [place] [address] [place] [address] Social History Tobacco Use Types [...] on filedocumented in this encounter Care Teams Engagement Mgr Relationship Specialty Start Date End Date Patricia Gomez PA-C [facility] [place] [address] PCP - General 12/16/22 documented as of this encounter
--- OUTSIDE RECORDS SUMMARY | 2025-03-08 07:32 | XMS_ITS | CONTINUITY OF CARE DOCUMENT ---
Author Name didier velásquez Address Unknown Organization [facility] Address [address] [place] [address] [address] [place] [address] Phone [phone] Care Team Providers Care Accountant Certified Public Name Role Phone Victorino CHRISTIE, Roney Unavailable [phone] GUICHO HENRIQUEZ PA-C Unavailable [phone] GUICHO HENRIQUEZ PA-C Unavailable INSURANCE PROVIDERS Payer name Policy type / Coverage type [place] [employer] Medicaid [place] Medicare [id number]
--- OUTSIDE RECORDS SUMMARY | 2025-03-08 07:33 | XMS_ITS | Data Portability ---
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 Lab TSH + free T4, serum 2024 025 FRANKI Yanez, [address], [place], [address], 5 11:27:39 CMP, serum or plasma 2024 025 FRANKI Labdelphine, [address], [place], [address], 5 05:10:17 HbA1c (hemoglobi n A1c), blood 2024 025 FRANKI Yanez, [address], [place], [address], 5 05:10:21 TSH + free T4, serum 2024 025 FRANKI Labdelphine, [address], [place], [address], 5 05:10:15 lipid panel, serum 2024 025 FRANKIALTAGRACIA Aguirre, [address], [place], [address], 5 05:10:16 vitamin B12 + folate, serum or blood 2024 025 FRANKIALTAGRACIA Aguirre, [address], [address], [place], [address], 5 05:10:19 CBC w/ auto diff 2024 025 FRANKIALTAGRACIA Aguirre, [address], [address], [place], [address], 5 05:10:22 TIBC (total iron-brooklyn ng capacity), serum 2024 025 FRANKIALTAGRACIA Aguirre, [address], [address], [place], [address], 5 05:10:20 albumin/cr eatinine, mass ratio, urine 2024 025 FRANKI Yanez, [address], [address], [place], [address], 5 05:10:14 TSH + free T4, serum 2023 024 FRANKI Yanez, [address], [place], [address], 4 10:11:04 CMP, serum or plasma 2023 024 FRANKI Yanez, [address], [address], [place], [address], 4 14:13:11 HbA1c (hemoglobi n A1c), blood 2023 024 [place] In-Office Order, Internal Use Only DO Not Attach Compendium DO Not Attach Compendium, Do Not Delete/merge, [id number] 4 11:54:04 lipid panel, serum 2023 024 [place] [facility], [address], [place], [address], 4 14:13:11 vitamin B12 + folate, serum or blood 2023 024 FRANKI [facility], [address], [place], [address], 4 14:13:12 CBC w/ auto diff 2023 024 [facility], [address], [place], [address], 4 14:13:13 TIBC (total iron-brooklyn ng capacity), serum 2023 024 [facility], [address], [address], [place], [address], 4 14:13:13 albumin/cr eatinine, mass ratio, urine 2023 024 [place] [facility], [address], [address], [place], [address], 4 14:13:10 lipid panel, serum 2022 023 [facility], [address], [place], [address], 3 01:07:46 HbA1c (hemoglobi n A1c), blood 2022 023 FRANKI [facility], [address], [place], [address], 3 05:10:14 CBC w/ auto diff 2022 023 [facility], [address], [place], [address], 3 01:07:47 CMP, serum or plasma 2022 023 [facility], [address], [place], [address], 3 01:07:46 Referral diabetic ophthalmol ogy referral [address], [address] [facility], [address], [place], [address], 5 07:55:51 endocrinol ogy referral [address] - Endocrinology , [facility], [address], [place], [address], 5 08:08:[address] referral 2024 025 FRANKI Bajwa MD, [address] [facility], [place], [address], 5 12:33:43 gastroente rologist referral - both parents with colon cancer, adenoma on bx 2020 024 Nicholas Messina MD, [address] [facility] [address], [address], [place], [address], 4 08:36:12 diabetic ophthalmol ogy referral 2023 024 [facility], [address] [facility], [address], [place], [address], 4 15:31:40 endocrinol ogy referral [address] - Endocrinology , [address], [address], [place], [address], 4 08:11:[address] referral 2023 024 courtney Gordillo , [address], [address], [place], [address], 4 15:16:25 Procedures None recorded. Surgeries None recorded. Imaging XR, cervical spine [address] [place] [address] (Imaging), [address] [facility] [address], [place], [address], 5 08:23:02 LDCT, chest, for lung cancer screening [address] [place] [address] (Imaging), [address] [facility] [address], [place], [address], 5 08:23:02 MAMMO, diagnostic , digital, bilateral [address] [place] [address] (Imaging), [address], [place], [address], 5 08:23:02 US, breast, unilateral 2024 025 [facility] (Imaging), [address], [place], [address], 5 10:54:16 US, echocardio gram [address] [place] [address] (Imaging), [address], [place], [address], 5 12:56:30 US, thyroid [address] [place] [address] (Imaging), [address] [facility] [address], [place], [address], 4 16:41:59 Medication Orders levothyrox ine 137 mcg tablet 2024 025 [facility], [address], [place], [address], 5 10:07:55 atorvastat in 40 mg tablet 2024 025 [facility] [address]25, [address], [place], [address], 5 09:44:36 atorvastat in 40 mg tablet 2023 024 [facility], [address], [place], [address], 4 11:16:06 Lexapro 10 mg tablet 2022 023 [facility] [address], [address], [place], [address], 3 11:23:26 Patient TargetsNo targets recorded. Patient Instructions Encounter Date Encounter Id Patient Instructions Last Modified By Organization Details Last Modified Time 09/24/2023 [id number] A healthy lifestyle: care instructions Not available 09/24/2023 15:43:28 12/01/2024 [id number] neck pain: care instructions Not available 12/16/2024 09:49:37 A healthy lifestyle: care instructions Not available 12/01/2024 14:26:18 Reason for Referral Automatic Thread Winder Referral for Dy spnea Referring Physician: General [facility], Encounter Date: 12/16/2023 Endocrinology Referral for H istory of malignant neoplasm of thyroid Referring Physician: General Dara Liu, Encounter Date: 12/16/2023 Mobile Ui/Ux Designer Referral for Tubular adenomatous polyp of colon both parents with colon cancer, adenoma on bx 2020 Referring Physician: General Dara Liu, Encounter Date: 12/16/2023 Diabetic Ophthalmology Refer ral for Type 2 diabetes mellitus Referring Physician: General Dara Liu, Encounter Date: 12/16/2023 Diabetic Ophthalmology Refer ral for Type 2 diabetes mellitus Referring Physician: General [facility], Encounter Date: 12/01/2024 Endocrinology Referral for H istory of malignant neoplasm of thyroid Referring Physician: General [facility], Encounter Date: 12/01/2024 Cobol Application Developer Referral for Mi croalbuminuria Referring Physician: General [facility], Encounter Date: 12/01/2024 Results Created Date Observation Date Name Description Value Unit Range Abnormal Flag Note LastModifiedBy Organization Detail LastModifiedTime 09/24/2009/26/2023 LIPID PANEL cholesterol, total 197 mg/dL 100-19 9 Not Available [facility] [address] [place], [address], 09/26/2023 01:07:46 09/24/2009/26/2023 LIPID PANEL triglyceride s 411 mg/dL 0-149 above high normal Not Available [facility] [address] [place], [address], 09/26/2023 01:07:46 09/24/2009/26/2023 LIPID PANEL HDL cholesterol 40 mg/dL 40-999 Not Available [facility] Department [address] [place], [address], 09/26/2023 01:07:46 09/24/20 23 09/26/2023 LIPID PANEL VLDL cholesterol barbra 82 mg/dL 5-40 above high normal Not Available [facility] [address] [place], [address], 09/26/2023 01:07:46 09/24/2009/26/2023 LIPID PANEL LDL chol calc (nih) 137 mg/dL 0-99 above high normal Not Available [facility] [address] [place], [address], 09/26/2023 01:07:46 09/24/20 23 09/26/2023 COMP. METAB OLIC PANEL (14) glucose 100 mg/dL 70-99 above high normal Not Available [facility] [address] [place], [address], 09/26/2023 01:07:46 09/24/20 23 09/26/2023 COMP. METAB OLIC PANEL (14) BUN 23 mg/dL 8-27 Not Available [facility] [address] [place] [address], [address], 09/26/2023 01:07:46 09/24/20 23 09/26/2023 COMP. METAB OLIC PANEL (14) creatinine 1.21 mg/dL 0.76-1 .27 Not Available [facility] [address] [place] [address], [address], 09/26/2023 01:07:46 09/24/20 23 09/26/2023 COMP. METAB [...] disre froylan that value . Not Available [facility] [address] [place] [address], [address], 09/26/2023 01:07:46 09/24/20 23 09/26/2023 COMP. METAB OLIC PANEL (14) BUN/creatini ne ratio 19 10-28 Not Available [facility] Department [address] [place], [address], 09/26/2023 01:07:46 09/24/20 23 09/26/2023 COMP. METAB OLIC PANEL (14) sodium 140 mmol/ L 134-14 4 Not Available [facility] [address] [place], [address], 09/26/2023 01:07:46 09/24/20 23 09/26/2023 COMP. METAB OLIC PANEL (14) potassium 5.7 mmol/ L 3.5-5. 2 above high normal Not Available [facility] [address] [place] [address], [address], 09/26/2023 01:07:46 09/24/20 23 09/26/2023 COMP. METAB OLIC PANEL (14) chloride 97 mmol/ L 96-106 Not Available [facility] [address] [place] [address], [address], 09/26/2023 01:07:46 09/24/20 23 09/26/2023 COMP. METAB OLIC PANEL (14) carbon dioxide, total 26 mmol/ L 20-29 Not Available [facility] [address] [place] [address], [address], 09/26/2023 01:07:46 09/24/20 23 09/26/2023 COMP. METAB OLIC PANEL (14) calcium 9.6 mg/dL 8.7-10 .3 Not Available [facility] [address] [place] [address], [address], 09/26/2023 01:07:46 09/24/20 23 09/26/2023 COMP. METAB OLIC PANEL (14) protein, total 6.5 g/dL 6.0-8. 5 Not Available [facility] [address] [place] [address], [address], 09/26/2023 01:07:46 09/24/20 23 09/26/2023 COMP. METAB OLIC PANEL (14) albumin 4.2 g/dL 3.8-4. 8 Not Available [facility] [address] [place] [address], [address], 09/26/2023 01:07:46 09/24/20 23 09/26/2023 COMP. METAB OLIC PANEL (14) globulin, total 2.3 g/dL 1.5-4. 5 Not Available [facility] [address] [place], [address], 09/26/2023 01:07:46 09/24/20 23 09/26/2023 COMP. METAB OLIC PANEL (14) A/G ratio 1.8 1.2-2. 2 Not Available [facility] [address] [place] [address], [address], 09/26/2023 01:07:46 09/24/20 23 09/26/2023 COMP. METAB OLIC PANEL (14) bilirubin, total 0.4 mg/dL 0.0-1. 2 Not Available [facility] [address] [place] [address], [address], 09/26/2023 01:07:46 09/24/20 23 09/26/2023 COMP. METAB OLIC PANEL (14) alkaline phosphatase 169 IU/L 44-121 above high normal Not Available [facility] [address] [place] [address], [address], 09/26/2023 01:07:46 09/24/20 23 09/26/2023 COMP. METAB OLIC PANEL (14) AST (SGOT) 15 IU/L 0-40 Not Available [facility] Department [address] [place] [address], [address], 09/26/2023 01:07:46 09/24/20 23 09/26/2023 COMP. METAB OLIC PANEL (14) ALT (SGPT) 16 IU/L 0-32 Not Available [facility] Department [address] [place] [address], [address], 09/26/2023 01:07:46 09/24/20 23 09/26/2023 CBC WITH DIFFE RENTI AL/PL ATELE T WBC 11.9 x10e3 /uL 3.4-10 .8 above high normal Not Available [facility] [address] [place] [address], [address], 09/26/2023 01:07:47 09/24/2009/26/2023 CBC WITH DIFFE RENTI AL/PL ATELE T RBC 5.27 x10e6 /uL 3.77-5 .28 Not Available [facility] [address], [place], [address], 09/26/2023 01:07:47 09/24/20 23 09/26/2023 CBC WITH DIFFE RENTI AL/PL ATELE T hemoglobin 15.8 g/dL 11.1-1 5.9 Not Available [facility] [address], [place], [address], 09/26/2023 01:07:47 09/24/2009/26/2023 CBC WITH DIFFE RENTI AL/PL ATELE T hematocrit 52.8 % 34.0-4 6.6 above high normal Not Available [facility] [address] [place], [address], 09/26/2023 01:07:47 09/24/2009/26/2023 CBC WITH DIFFE RENTI AL/PL ATELE T MCV 100 fL 79-97 above high normal Not Available [facility] [address] [place], [address], 09/26/2023 01:07:47 09/24/2009/26/2023 CBC WITH DIFFE RENTI AL/PL ATELE T MCH 30.0 pg 26.6-3 3.0 Not Available [facility] [address] [place], [address], 09/26/2023 01:07:47 09/24/2009/26/2023 CBC WITH DIFFE RENTI AL/PL ATELE T MCHC 29.9 g/dL 31.5-3 5.7 below low normal Not Available [facility] [address] [place], [address], 09/26/2023 01:07:47 09/24/2009/26/2023 CBC WITH DIFFE RENTI AL/PL ATELE T RDW 16.8 % 11.5-1 4.5 above high normal Not Available [facility] [address] [place], [address], 09/26/2023 01:07:47 09/24/20 23 09/26/2023 CBC WITH DIFFE RENTI AL/PL ATELE T platelets 320 x10e3 /uL 150-45 0 Not Available [facility] [address] [place], [address], 09/26/2023 01:07:47 09/24/20 23 09/26/2023 CBC WITH DIFFE RENTI AL/PL ATELE T neutrophils 66 % notest b. Not Available [facility] [address] [place], [address], 09/26/2023 01:07:47 09/24/20 23 09/26/2023 CBC WITH DIFFE RENTI AL/PL ATELE T lymphs 22 % notest b. Not Available [facility] [address] [place], [address], 09/26/2023 01:07:47 09/24/20 23 09/26/2023 CBC WITH DIFFE RENTI AL/PL ATELE T monocytes 9 % notest b. Not Available [facility] [address] [place], [address], 09/26/2023 01:07:47 09/24/20 23 09/26/2023 CBC WITH DIFFE RENTI AL/PL ATELE T eos 1 % notest b. Not Available [facility] [address] [place], [address], 09/26/2023 01:07:47 09/24/20 23 09/26/2023 CBC WITH DIFFE RENTI AL/PL ATELE T basos 1 % notest b. Not Available [facility] [address] [place], [address], 09/26/2023 01:07:47 09/24/20 23 09/26/2023 CBC WITH DIFFE RENTI AL/PL ATELE T neutrophils (absolute) 7.9 x10e3 /uL 1.4-7. 0 above high normal Not Available [facility] [address] [place], [address], 09/26/2023 01:07:47 09/24/20 23 09/26/2023 CBC WITH DIFFE RENTI AL/PL ATELE T lymphs (absolute) 2.7 x10e3 /uL 0.7-3. 1 Not Available [facility] [address] [place], [address], 09/26/2023 01:07:47 09/24/20 23 09/26/2023 CBC WITH DIFFE RENTI AL/PL ATELE T monocytes(ab solute) 1.1 x10e3 /uL 0.1-0. 9 above high normal Not Available [facility] [address] [place], [address], 09/26/2023 01:07:47 09/24/20 23 09/26/2023 CBC WITH DIFFE RENTI AL/PL ATELE T eos (absolute) 0.1 x10e3 /uL 0.0-0. 4 Not Available [facility] [address] [place], [address], 09/26/2023 01:07:47 09/24/20 23 09/26/2023 CBC WITH DIFFE RENTI AL/PL ATELE T baso (absolute) 0.1 x10e3 /uL 0.0-0. 2 Not Available [facility] [address] [place], [address], 09/26/2023 01:07:47 09/24/20 23 09/26/2023 CBC WITH DIFFE RENTI AL/PL ATELE T immature granulocytes 1.4 % notest b. Not Available [facility] [address] [place], [address], 09/26/2023 01:07:47 09/24/20 23 09/26/2023 CBC WITH DIFFE RENTI AL/PL ATELE T immature grans (abs) 0.2 x10e3 /uL 0.0-0. 1 above high normal Not Available [facility] [address] [place], [address], 09/26/2023 01:07:47 09/24/20 23 09/26/2023 CBC WITH DIFFE RENTI AL/PL ATELE T NRBC 0 % 0-0 Not Available [facility] [address] [place], [address], 09/26/2023 01:07:47 09/24/2009/26/2023 HEMOG LOBIN A1C hemoglobin A1C 6.8 % 4.8-5. 6 above high normal Predi abete s: 5.7 - 6.4 Diabe sunshine: >6.4 Glyce neil contr ol for adult s with diabe sunshine: <7.0 Not Available [facility] ([facility]) [address] [place], [address], 09/26/2023 05:10:14 12/16/19 24 12/17/2023 SPECI MEN STATU S REPOR T specimen status report TNP Test not perfo rmed. No urine speci men recei mirlande. TEST: [id number] Album in/Cr eatin ine Ratio ,Urin e Not Available [facility] ([facility]) [address] [facility], [place], [address], 12/17/2023 14:13:09 12/16/19 24 12/17/2023 ALBUM IN/CR EATIN INE RATIO ,URIN E creatinine, urine - mg/dL Test not perfo rmed. No urine speci men recei mirlande. Not Available [facility] ([facility]) [address] [place], [address], 12/17/2023 14:13:10 12/16/19 24 12/17/2023 ALBUM IN/CR EATIN INE RATIO ,URIN E albumin, urine - Test not perfo rmed Not Available [facility] ([facility]) [address] [place], [address], 12/17/2023 14:13:10 12/16/19 24 12/17/2023 LIPID PANEL cholesterol, total 162 mg/dL 100-19 9 Not Available [facility] ([facility]) [address] [place], [address], 12/17/2023 14:13:11 12/16/19 24 12/17/2023 LIPID PANEL triglyceride s 265 mg/dL 0-149 above high normal Not Available [facility] ([facility]) [address] [place], [address], 12/17/2023 14:13:11 12/16/19 24 12/17/2023 LIPID PANEL HDL cholesterol 43 mg/dL >39 Not Available [facility]) [address] [place], [address], 12/17/2023 14:13:11 12/16/19 24 12/17/2023 LIPID PANEL VLDL cholesterol barbra 43 mg/dL 5-40 above high normal Not Available [facility] ([facility]) [address] [place], [address], 12/17/2023 14:13:11 12/16/19 24 12/17/2023 LIPID PANEL LDL chol calc (rust) 76 mg/dL 0-99 Not Available [facility] ([facility]) [address] [place], [address], 12/17/2023 14:13:11 12/16/19 24 12/17/2023 COMP. METAB OLIC PANEL (14) glucose 97 mg/dL 70-99 Not Available [facility] ([facility]) [address] [place], [address], 12/17/2023 14:13:11 12/16/19 24 12/17/2023 COMP. METAB OLIC PANEL (14) BUN 11 mg/dL 8-27 Not Available [facility] ([facility]) [address] [facility] [place], [address], 12/17/2023 14:13:11 12/16/19 24 12/17/2023 COMP. METAB OLIC PANEL (14) creatinine 1.17 mg/dL 0.57-1 .00 above high normal Not Available [facility] ([facility]) [address] [facility] [place], [address], 12/17/2023 14:13:11 12/16/19 24 12/17/2023 COMP. METAB OLIC PANEL (14) eGFR 51 mL/mi n/1.7 3 >59 below low normal Not Available [facility] ([facility]) [address] [facility] [place], [address], 12/17/2023 14:13:11 12/16/19 24 12/17/2023 COMP. METAB OLIC PANEL (14) BUN/creatini ne ratio 9 12-28 below low normal Not Available [facility] ([facility]) [address] [facility], [place], [address], 12/17/2023 14:13:11 12/16/19 24 12/17/2023 COMP. METAB OLIC PANEL (14) sodium 145 mmol/ L 134-14 4 above high normal Not Available [facility] ([facility]) [address] [facility] [place], [address], 12/17/2023 14:13:11 12/16/19 24 12/17/2023 COMP. METAB OLIC PANEL (14) potassium 4.2 mmol/ L 3.5-5. 2 Not Available [facility] ([facility]) [address] [facility] [place], [address], 12/17/2023 14:13:11 12/16/19 24 12/17/2023 COMP. METAB OLIC PANEL (14) chloride 106 mmol/ L 96-106 Not Available [facility] ([facility]) [address] [facility] [place], [address], 12/17/2023 14:13:11 12/16/19 24 12/17/2023 COMP. METAB OLIC PANEL (14) carbon dioxide, total 23 mmol/ L 20-29 Not Available [facility] ([facility]) [address] [facility], [place], [address], 12/17/2023 14:13:11 12/16/19 24 12/17/2023 COMP. METAB OLIC PANEL (14) calcium 8.9 mg/dL 8.7-10 .3 Not Available [facility] ([facility]) [address] [facility], [place], [address], 12/17/2023 14:13:11 12/16/19 24 12/17/2023 COMP. METAB OLIC PANEL (14) protein, total 6.0 g/dL 6.0-8. 5 Not Available [facility] ([facility]) [address] [place], [address], 12/17/2023 14:13:11 12/16/19 24 12/17/2023 COMP. METAB OLIC PANEL (14) albumin 4.0 g/dL 3.9-4. 9 Not Available [facility] ([facility]) [address] [place], [address], 12/17/2023 14:13:11 12/16/19 24 12/17/2023 COMP. METAB OLIC PANEL (14) globulin, total 2.0 g/dL 1.5-4. 5 Not Available [facility] ([facility]) [address] [facility] [place], [address], 12/17/2023 14:13:11 12/16/19 24 12/17/2023 COMP. METAB OLIC PANEL (14) A/G ratio 2.0 1.2-2. 2 Not Available [facility] ([facility]) [address] [place], [address], 12/17/2023 14:13:11 12/16/19 24 12/17/2023 COMP. METAB OLIC PANEL (14) bilirubin, total 0.3 mg/dL 0.0-1. 2 Not Available [facility] ([facility]) [address] [place], [address], 12/17/2023 14:13:11 12/16/19 24 12/17/2023 COMP. METAB OLIC PANEL (14) alkaline phosphatase 175 IU/L 44-121 above high normal Not Available [facility] ([facility]) [address] [place], [address], 12/17/2023 14:13:11 12/16/19 24 12/17/2023 COMP. METAB OLIC PANEL (14) AST (SGOT) 11 IU/L 0-40 Not Available [facility] ([facility]) [address] [place], [address], 12/17/2023 14:13:11 12/16/19 24 12/17/2023 COMP. METAB OLIC PANEL (14) ALT (SGPT) 13 IU/L 0-32 Not Available [facility] ([facility]) [address] [facility] [place], [address], 12/17/2023 14:13:11 12/16/19 24 12/17/2023 VITAM IN B12 AND FOLAT E vitamin B12 383 pg/mL 232-12 45 Not Available [facility] ([facility]) [address] [facility] [place], [address], 12/17/2023 14:13:12 12/16/19 24 12/17/2023 VITAM IN B12 AND FOLAT E folate (folic acid), serum 6.3 NG/mL >3.0 A serum folat e jessenia ntrat ion of less than 3.1 ng/mL is consi dered to repre sent clini barbra defic iency . Not Available [facility] ([facility]) [address] [facility], [place], [address], 12/17/2023 14:13:12 12/16/19 24 12/17/2023 IRON AND TIBC iron bind.cap.(TI BC) 313 ug/dL 250-45 0 Not Available [facility] ([facility]) [address] [facility], [place], [address], 12/17/2023 14:13:12 12/16/19 24 12/17/2023 IRON AND TIBC UIBC 269 ug/dL 118-36 9 Not Available [facility] ([facility]) [address] [facility], [place], [address], 12/17/2023 14:13:12 12/16/19 24 12/17/2023 IRON AND TIBC iron 44 ug/dL 27-139 Not Available [facility] ([facility]) [address] [facility], [place], [address], 12/17/2023 14:13:12 12/16/19 24 12/17/2023 IRON AND TIBC iron saturation 14 % 15-55 below low normal Not Available [facility] ([facility]) [address] [place], [address], 12/17/2023 14:13:12 12/16/19 24 12/17/2023 CBC WITH DIFFE RENTI AL/PL ATELE T WBC 9.0 x10e3 /uL 3.4-10 .8 Not Available [facility] ([facility]) [address] [place], [address], 12/17/2023 14:13:13 12/16/19 24 12/17/2023 CBC WITH DIFFE RENTI AL/PL ATELE T RBC 4.51 x10e6 /uL 3.77-5 .28 Not Available [facility] ([facility]) [address] [facility], [place], [address], 12/17/2023 14:13:13 12/16/19 24 12/17/2023 CBC WITH DIFFE RENTI AL/PL ATELE T hemoglobin 14.0 g/dL 11.1-1 5.9 Not Available [facility] ([facility]) [address], [place], [address], 12/17/2023 14:13:13 12/16/19 24 12/17/2023 CBC WITH DIFFE RENTI AL/PL ATELE T hematocrit 43.4 % 34.0-4 6.6 Not Available [facility] ([facility]) [address], [place], [address], 12/17/2023 14:13:13 12/16/19 24 12/17/2023 CBC WITH DIFFE RENTI AL/PL ATELE T MCV 96 fL 79-97 Not Available [facility] ([facility]) [address] [facility] [address], [place], [address], 12/17/2023 14:13:13 12/16/19 24 12/17/2023 CBC WITH DIFFE RENTI AL/PL ATELE T MCH 31.0 pg 26.6-3 3.0 Not Available [facility] ([facility]) [address] [place], [address], 12/17/2023 14:13:13 12/16/19 24 12/17/2023 CBC WITH DIFFE RENTI AL/PL ATELE T MCHC 32.3 g/dL 31.5-3 5.7 Not Available [facility] ([facility]) [address] [place], [address], 12/17/2023 14:13:13 12/16/19 24 12/17/2023 CBC WITH DIFFE RENTI AL/PL ATELE T RDW 14.0 % 11.7-1 5.4 Not Available [facility] ([facility]) [address], [place], [address], 12/17/2023 14:13:13 12/16/19 24 12/17/2023 CBC WITH DIFFE RENTI AL/PL ATELE T platelets 274 x10e3 /uL 150-45 0 Not Available [facility] ([facility]) [address], [place], [address], 12/17/2023 14:13:13 12/16/19 24 12/17/2023 CBC WITH DIFFE RENTI AL/PL ATELE T neutrophils 69 % notest ab. Not Available [facility] ([facility]) [address], [place], [address], 12/17/2023 14:13:13 12/16/19 24 12/17/2023 CBC WITH DIFFE RENTI AL/PL ATELE T lymphs 18 % notest ab. Not Available [facility] ([facility]) [address] [facility] [address], [place], [address], 12/17/2023 14:13:13 12/16/19 24 12/17/2023 CBC WITH DIFFE RENTI AL/PL ATELE T monocytes 9 % notest ab. Not Available [facility] ([facility]) [address] [facility] [address], [place], [address], 12/17/2023 14:13:13 12/16/19 24 12/17/2023 CBC WITH DIFFE RENTI AL/PL ATELE T eos 2 % notest ab. Not Available [facility] ([facility]) [address] [facility] [address], [place], [address], 12/17/2023 14:13:13 12/16/19 24 12/17/2023 CBC WITH DIFFE RENTI AL/PL ATELE T basos 1 % notest ab. Not Available [facility] ([facility]) [address] [facility] [address], [place], [address], 12/17/2023 14:13:13 12/16/19 24 12/17/2023 CBC WITH DIFFE RENTI AL/PL ATELE T neutrophils (absolute) 6.3 x10e3 /uL 1.4-7. 0 Not Available [facility] ([facility]) [address] [facility] [address], [place], [address], 12/17/2023 14:13:13 12/16/19 24 12/17/2023 CBC WITH DIFFE RENTI AL/PL ATELE T lymphs (absolute) 1.7 x10e3 /uL 0.7-3. 1 Not Available [facility] ([facility]) [address] [facility] [address], [place], [address], 12/17/2023 14:13:13 12/16/19 24 12/17/2023 CBC WITH DIFFE RENTI AL/PL ATELE T monocytes(ab solute) 0.8 x10e3 /uL 0.1-0. 9 Not Available [facility] ([facility]) [address] [facility], [place], [address], 12/17/2023 14:13:13 12/16/19 24 12/17/2023 CBC WITH DIFFE RENTI AL/PL ATELE T eos (absolute) 0.2 x10e3 /uL 0.0-0. 4 Not Available [facility] ([facility]) [address] [facility] [address], [place], [address], 12/17/2023 14:13:13 12/16/19 24 12/17/2023 CBC WITH DIFFE RENTI AL/PL ATELE T baso (absolute) 0.1 x10e3 /uL 0.0-0. 2 Not Available [facility] ([facility]) [address] [place], [address], 12/17/2023 14:13:13 12/16/19 24 12/17/2023 CBC WITH DIFFE RENTI AL/PL ATELE T immature granulocytes 1 % notest ab. Not Available [facility] ([facility]) [address] [facility], [place], [address], 12/17/2023 14:13:13 12/16/19 24 12/17/2023 CBC WITH DIFFE RENTI AL/PL ATELE T immature grans (abs) 0.1 x10e3 /uL 0.0-0. 1 Not Available [facility] ([facility]) [address] [facility], [place], [address], 12/17/2023 14:13:13 12/16/19 24 12/16/2023 HbA1c (hemo globi n A1c), blood HbA1c 5.9% Not Available In-Office Order Internal Use Only DO Not Attach Compendium DO Not Attach Compendium, Do Not Delete/merge, [id number] 12/16/2023 11:41:22 10/18/20 24 10/19/2024 TSH+F REE T4 TSH 1.970 uIU/m L 0.450- 4.500 Not Available [facility] ([facility]) [address] [facility], [place], [address], 10/19/2024 10:11:04 10/18/20 24 10/19/2024 TSH+F REE T4 T4,free(dire ct) 0.88 NG/dL 0.82-1 .77 Not Available [facility] ([facility]) [address] [place], [address], 10/19/2024 10:11:04 12/01/19 25 12/03/2024 ALBUM IN/CR EATIN INE RATIO ,URIN E creatinine, urine 196.5 mg/dL notest ab. Not Available [facility] ([facility]) [address] [place], [address], 12/08/2024 05:10:14 12/01/19 25 12/03/2024 ALBUM IN/CR EATIN INE RATIO ,URIN E albumin, urine 154.6 ug/mL notest ab. Not Available [facility] ([facility]) [address] [place], [address], 12/08/2024 05:10:14 12/01/19 25 12/03/2024 ALBUM IN/CR EATIN INE RATIO ,URIN E alb/creat ratio 79 mg/g_ creat 0-29 above high normal Angelita l: 0 - 29 Moder ately incre ased: 30 - 300 Sever carlene incre ased: >300 Not Available [facility] ([facility]) [address] [place], [address], 12/08/2024 05:10:14 12/01/19 25 12/03/2024 TSH+F REE T4 TSH 59.300 uIU/m L 0.450- 4.500 above high normal Not Available [facility] ([facility]) [address] [place], [address], 12/08/2024 05:10:15 12/01/19 25 12/03/2024 TSH+F REE T4 T4,free(dire ct) 0.37 NG/dL 0.82-1 .77 below low normal Not Available [facility] ([facility]) [address] [place], [address], 12/08/2024 05:10:15 12/01/19 25 12/03/2024 LIPID PANEL cholesterol, total 232 mg/dL 100-19 9 above high normal Not Available [facility] ([facility]) [address] [place], [address], 12/08/2024 05:10:16 12/01/19 25 12/03/2024 LIPID PANEL triglyceride s 468 mg/dL 0-149 above high normal Not Available [facility] ([facility]) [address] [place], [address], 12/08/2024 05:10:16 12/01/19 25 12/03/2024 LIPID PANEL HDL cholesterol 47 mg/dL >39 Not Available [facility] ([facility]) [address] [place], [address], 12/08/2024 05:10:16 12/01/19 25 12/03/2024 LIPID PANEL VLDL cholesterol barbra 80 mg/dL 5-40 above high normal Not Available [facility] ([facility]) [address] [facility] [address], [place], [address], 12/08/2024 05:10:16 12/01/19 25 12/03/2024 LIPID PANEL LDL chol calc (rust) 105 mg/dL 0-99 above high normal Not Available [facility] ([facility]) [address] [facility] [address], [place], [address], 12/08/2024 05:10:16 12/01/19 25 12/03/2024 COMP. METAB OLIC PANEL (14) glucose 106 mg/dL 70-99 above high normal Not Available [facility] ([facility]) [address] [facility] [address], [place], [address], 12/08/2024 05:10:17 12/01/19 25 12/03/2024 COMP. METAB OLIC PANEL (14) BUN 14 mg/dL 8-27 Not Available [facility] ([facility]) [address] [facility] [address], [place], [address], 12/08/2024 05:10:17 12/01/19 25 12/03/2024 COMP. METAB OLIC PANEL (14) creatinine 0.94 mg/dL 0.57-1 .00 Not Available [facility] ([facility]) [address] [facility] [address], [place], [address], 12/08/2024 05:10:17 12/01/19 25 12/03/2024 COMP. METAB OLIC PANEL (14) eGFR 67 mL/mi n/1.7 3 >59 Not Available [facility] ([facility]) [address] [facility] [address], [place], [address], 12/08/2024 05:10:17 12/01/19 25 12/03/2024 COMP. METAB OLIC PANEL (14) BUN/creatini ne ratio 15 12-28 Not Available [facility] ([facility]) [address] [facility] [place], [address], 12/08/2024 05:10:17 12/01/19 25 12/03/2024 COMP. METAB OLIC PANEL (14) sodium 144 mmol/ L 134-14 4 Not Available [facility] ([facility]) [address] [facility] [place], [address], 12/08/2024 05:10:17 12/01/19 25 12/03/2024 COMP. METAB OLIC PANEL (14) potassium 5.4 mmol/ L 3.5-5. 2 above high normal Not Available [facility] ([facility]) [address] [facility] [address], [place], [address], 12/08/2024 05:10:17 12/01/19 25 12/03/2024 COMP. METAB OLIC PANEL (14) chloride 105 mmol/ L 96-106 Not Available [facility] ([facility]) [address] [facility] [place], [address], 12/08/2024 05:10:17 12/01/19 25 12/03/2024 COMP. METAB OLIC PANEL (14) carbon dioxide, total 25 mmol/ L 20-29 Not Available [facility] ([facility]) [address] [facility] [place], [address], 12/08/2024 05:10:17 12/01/19 25 12/03/2024 COMP. METAB OLIC PANEL (14) calcium 9.7 mg/dL 8.7-10 .3 Not Available [facility] ([facility]) [address] [facility] [place], [address], 12/08/2024 05:10:17 12/01/19 25 12/03/2024 COMP. METAB OLIC PANEL (14) protein, total 6.8 g/dL 6.0-8. 5 Not Available [facility] ([facility]) [address] [place], [address], 12/08/2024 05:10:17 12/01/19 25 12/03/2024 COMP. METAB OLIC PANEL (14) albumin 4.4 g/dL 3.9-4. 9 Not Available [facility] ([facility]) [address] [place], [address], 12/08/2024 05:10:17 12/01/19 25 12/03/2024 COMP. METAB OLIC PANEL (14) globulin, total 2.4 g/dL 1.5-4. 5 Not Available [facility] ([facility]) [address] [facility] [place], [address], 12/08/2024 05:10:17 12/01/19 25 12/03/2024 COMP. METAB OLIC PANEL (14) bilirubin, total <0.2 mg/dL 0.0-1. 2 Not Available [facility] ([facility] [address] [facility] [place], [address], 12/08/2024 05:10:17 12/01/19 25 12/03/2024 COMP. METAB OLIC PANEL (14) alkaline phosphatase 168 IU/L 44-121 above high normal Not Available [facility] ([facility]) [address] [facility] [place], [address], 12/08/2024 05:10:17 12/01/19 25 12/03/2024 COMP. METAB OLIC PANEL (14) AST (SGOT) 14 IU/L 0-40 Not Available [facility] ([facility]) [address] [facility] [place], [address], 12/08/2024 05:10:17 12/01/19 25 12/03/2024 COMP. METAB OLIC PANEL (14) ALT (SGPT) 10 IU/L 0-32 Not Available [facility] ([facility]) [address] [facility], [place], [address], 12/08/2024 05:10:17 12/01/19 25 12/04/2024 HOMOC Y+MET HYL homocyst(E)i ne 15.2 umol/ L 0.0-17 .2 Not Available [facility] ([facility]) [address] [place], [address], 12/08/2024 05:10:19 12/01/19 25 12/08/2024 HOMOC Y+MET HYL methylmaloni c acid, serum 275 nmol/ L 0-378 Not Available [facility] ([facility]) [address] [place], [address], 12/08/2024 05:10:19 12/01/19 25 12/03/2024 VITAM IN B12+F OLATE vitamin B12 358 pg/mL 232-12 45 Not Available [facility] ([facility]) [address] [place], [address], 12/08/2024 05:10:19 12/01/1912/03/2024 VITAM IN B12+F OLATE folate (folic acid), serum 4.3 NG/mL >3.0 A serum folat e jessenia ntrat ion of less than 3.1 ng/mL is consi dered to repre sent clini barbra defic iency . Not Available [facility] ([facility]) [address] [place], [address], 12/08/2024 05:10:19 12/01/19 25 12/03/2024 IRON AND TIBC iron bind.cap.(TI BC) 379 ug/dL 250-45 0 Not Available [facility] ([facility]) [address] [place], [address], 12/08/2024 05:10:20 12/01/19 25 12/03/2024 IRON AND TIBC UIBC 321 ug/dL 118-36 9 Not Available [facility] ([facility]) [address] [place], [address], 12/08/2024 05:10:20 12/01/19 25 12/03/2024 IRON AND TIBC iron 58 ug/dL 27-139 Not Available [facility] ([facility]) [address] [place], [address], 12/08/2024 05:10:20 12/01/19 25 12/03/2024 IRON AND TIBC iron saturation 15 % 15-55 Not Available [facility] ([facility]) [address] [place], [address], 12/08/2024 05:10:20 12/01/19 25 12/03/2024 HEMOG LOBIN A1C hemoglobin A1C 6.2 % 4.8-5. 6 above high normal Predi abete s: 5.7 - 6.4 Diabe sunshine: >6.4 Glyce neil contr ol for adult s with diabe sunshine: <7.0 Not Available [facility] ([facility]) [address] [place], [address], 12/08/2024 05:10:21 12/01/19 25 12/03/2024 CBC WITH DIFFE RENTI AL/PL ATELE T WBC 10.3 x10e3 /uL 3.4-10 .8 Not Available [facility] ([facility]) [address] [place], [address], 12/08/2024 05:10:22 12/01/19 25 12/03/2024 CBC WITH DIFFE RENTI AL/PL ATELE T RBC 5.16 x10e6 /uL 3.77-5 .28 Not Available [facility] ([facility]) [address] [place], [address], 12/08/2024 05:10:22 12/01/19 25 12/03/2024 CBC WITH DIFFE RENTI AL/PL ATELE T hemoglobin 16.1 g/dL 11.1-1 5.9 above high normal Not Available [facility] ([facility]) [address] [facility] [address], [place], [address], 12/08/2024 05:10:22 12/01/19 25 12/03/2024 CBC WITH DIFFE RENTI AL/PL ATELE T hematocrit 50.8 % 34.0-4 6.6 above high normal Not Available [facility] ([facility]) [address] [facility] [address], [place], [address], 12/08/2024 05:10:22 12/01/19 25 12/03/2024 CBC WITH DIFFE RENTI AL/PL ATELE T MCV 98 fL 79-97 above high normal Not Available [facility] ([facility]) [address] [facility] [address], [place], [address], 12/08/2024 05:10:22 12/01/19 25 12/03/2024 CBC WITH DIFFE RENTI AL/PL ATELE T MCH 31.2 pg 26.6-3 3.0 Not Available [facility] ([facility]) [address] [place], [address], 12/08/2024 05:10:22 12/01/19 25 12/03/2024 CBC WITH DIFFE RENTI AL/PL ATELE T MCHC 31.7 g/dL 31.5-3 5.7 Not Available [facility] ([facility]) [address] [facility] [address], [place], [address], 12/08/2024 05:10:22 12/01/19 25 12/03/2024 CBC WITH DIFFE RENTI AL/PL ATELE T RDW 14.4 % 11.7-1 5.4 Not Available [facility] ([facility]) [address] [place], [address], 12/08/2024 05:10:22 12/01/19 25 12/03/2024 CBC WITH DIFFE RENTI AL/PL ATELE T platelets 321 x10e3 /uL 150-45 0 Not Available [facility] ([facility]) [address] [facility] [address], [place], [address], 12/08/2024 05:10:22 12/01/19 25 12/03/2024 CBC WITH DIFFE RENTI AL/PL ATELE T neutrophils 61 % notest ab. Not Available [facility] ([facility]) [address] [facility] [address], [place], [address], 12/08/2024 05:10:22 12/01/19 25 12/03/2024 CBC WITH DIFFE RENTI AL/PL ATELE T lymphs 28 % notest ab. Not Available [facility] ([facility]) [address] [facility] [address], [place], [address], 12/08/2024 05:10:22 12/01/19 25 12/03/2024 CBC WITH DIFFE RENTI AL/PL ATELE T monocytes 7 % notest ab. Not Available [facility] ([facility]) [address] [facility] [address], [place], [address], 12/08/2024 05:10:22 12/01/19 25 12/03/2024 CBC WITH DIFFE RENTI AL/PL ATELE T eos 2 % notest ab. Not Available [facility] ([facility]) [address] [place], [address], 12/08/2024 05:10:22 12/01/19 25 12/03/2024 CBC WITH DIFFE RENTI AL/PL ATELE T basos 1 % notest ab. Not Available [facility] ([facility]) [address] [place], [address], 12/08/2024 05:10:22 12/01/19 25 12/03/2024 CBC WITH DIFFE RENTI AL/PL ATELE T neutrophils (absolute) 6.4 x10e3 /uL 1.4-7. 0 Not Available [facility] ([facility]) [address] [place], [address], 12/08/2024 05:10:22 12/01/19 25 12/03/2024 CBC WITH DIFFE RENTI AL/PL ATELE T lymphs (absolute) 2.9 x10e3 /uL 0.7-3. 1 Not Available [facility] ([facility]) [address] [facility] [address], [place], [address], 12/08/2024 05:10:22 12/01/19 25 12/03/2024 CBC WITH DIFFE RENTI AL/PL ATELE T monocytes(ab solute) 0.7 x10e3 /uL 0.1-0. 9 Not Available [facility] ([facility]) [address] [facility] [address], [place], [address], 12/08/2024 05:10:22 12/01/19 25 12/03/2024 CBC WITH DIFFE RENTI AL/PL ATELE T eos (absolute) 0.2 x10e3 /uL 0.0-0. 4 Not Available [facility] ([facility]) [address] [facility] [address], [place], [address], 12/08/2024 05:10:22 12/01/19 25 12/03/2024 CBC WITH DIFFE RENTI AL/PL ATELE T baso (absolute) 0.1 x10e3 /uL 0.0-0. 2 Not Available [facility] ([facility]) [address] [facility] [address], [place], [address], 12/08/2024 05:10:22 12/01/19 25 12/03/2024 CBC WITH DIFFE RENTI AL/PL ATELE T immature granulocytes 1 % notest ab. Not Available [facility] ([facility]) [address] [facility] [address], [place], [address], 12/08/2024 05:10:22 12/01/19 25 12/03/2024 CBC WITH DIFFE RENTI AL/PL ATELE T immature grans (abs) 0.1 x10e3 /uL 0.0-0. 1 Not Available [facility] ([facility]) [address] [facility] [address], [place], [address], 12/08/2024 05:10:22 01/26/20 25 01/26/2025 TSH+F REE T4 TSH 7.140 uIU/m L 0.450- 4.500 above high normal Not Available [facility] ([facility]) [address] [facility] [address], [place], [address], 01/26/2025 11:27:39 01/26/20 25 01/26/2025 TSH+F REE T4 T4,free(dire ct) 0.90 NG/dL 0.82-1 .77 Not Available [facility] ([facility]) [address] [facility] [address], [place], [address], 01/26/2025 11:27:39 12/31/19 24 12/31/2023 US, thyro id No observ ation record ed. [email or web address] [facility], [place], [address], 01/01/2024 12:29:39 12/31/19 24 12/31/2023 US, thyro id No observ ation record ed. [email or web address], [place], [address], 01/01/2024 12:29:39 01/08/20 24 01/08/2024 US, breas t, unila teral No observ ation record ed. [email or web address] [place] [address] [address], [place], [address], 01/22/2024 08:07:27 01/09/20 24 01/08/2024 MAMMO , diagn ostic , digit al, unila teral No observ ation record ed. [email or web address] (Imaging & Mammogram) [address] [place], [address], 02/04/2024 09:36:08 12/10/19 25 12/10/2024 US, echoc ardio gram No observ ation record ed. [address], [place], [address], 01/18/2025 12:49:08 12/17/19 25 12/17/2024 US, breas t, unila teral No observ ation record ed. [facility] (Imaging) [address] [place] [address] [address], [place], [address], 01/18/2025 12:49:08 12/17/19 25 12/17/2024 US, breas t, unila teral No observ ation record ed. [facility] (Imaging) [address] [place] [address] [address], [place], [address], 12/20/2024 10:54:28 01/07/20 25 12/10/2024 trans -thor acic echoc ardio gram (TTE) (PROC ) No observ ation record ed. BARCODE Not Available 2024 16:59:24 Result Notes None recorded. 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 Active 2020 papillar y thyroid cancer Not Available [facility] 4 19:06:53 Hyperlip idemia 72988045 Active 2022 Not Available [facility] 4 19:06:53 Prediabe sunshine 495858185 Active 2022 Not Available [facility] 4 19:06:53 Smoker 46861086 Active 2022 Not Available [facility] 4 19:06:53 Low back pain 622574510 Active 2022 Not Available [facility] 4 19:06:53 Adrenal hyperpla juliana 864470816 Active 2022 Not Available [facility] 4 19:06:53 Osteonec rosis of hip 189700221 Active 2022 Not Available [facility] 4 19:06:53 At increase d risk for falls 604984596 Active 2022 Not Available [facility] 4 19:06:53 Osteopor osis 90106515 Active 2022 Not Available [facility] 4 19:06:53 Increase d blood pressure 63081296 Active 2022 Not Available [facility] 4 19:06:53 Obesity 130838796 Active Not Available [facility] 4 19:06:53 Hypothyr oidism 79389056 Active Not Available [facility] 4 19:06:53 Insomnia 835435793 Active 2023 EVELYN LIU Attn: Accounting ,[address] [place], [address] , [place] [facility] 4 11:59:35 Tubular adenomat ous polyp of colon 548472012 Active 2023 EVELYN LIU Attn: Accounting ,[address] [place], [address] , [place] [facility] 4 12:25:46 Type 2 diabetes mellitus 42209270 Active 2023 EVELYN LIU Attn: Accounting ,[address] [place], [address] , [place] [facility] 4 12:31:16 [facility] hyperten kiki 93803112 Active 2023 EVELYN LIU Attn: Accounting ,[address] [place], [address] , [place] [facility] 4 16:07:42 Mammogra phy abnormal 539616594 Active 2023 EVELYN LIU Attn: Accounting ,[address], [place], [address] [place] [address] , [facility] - [facility] 4 08:04:21 Microalb uminuria 655527042 Active 2024 EVELYN LIU Attn: Accounting ,[address], [place], [address] [place] [address] , [facility] - [facility] 5 09:45:13 Ex-smoke r 7891896 Active 2024 EVELYN LIU Attn: Accounting ,[address], [place], [address] [place] [address] , [facility] - SI 5 09:48:48 Neck pain 79795476 Active 2024 EVELYN LIU Attn: Accounting ,[address] [place], [address] , [facility] - [facility] 5 09:48:51 Dyspnea 661085158 Active 2024 EVELYN LIU Attn: Accounting ,[address], [place], [address] [place] [address] , [facility] - [facility] 5 09:55:32 Mean corpuscu lar volume above referenc e range 606311235 Active 2024 EVELYN LIU Attn: Accounting ,[address] [place], [address] , [facility] - [facility] 5 09:55:33 Depressi ve disorder 66072854 Active Not Available [facility] 4 19:06:53 Primary insomnia 9333833 Active Not Available [facility] 4 19:06:53 Chronic obstruct sherry pulmonar y disease 05368063 Active Not Available [facility] 4 19:06:53 Tobacco dependen ce syndrome 23912808 Active Not Available [facility] 4 19:06:54 Abscess of breast 26250417 Completed 08/28/2021 EVELYN LIU Attn: Accounting ,[address], [place], [address] , [place] - [facility] 16:54:02 Knee pain Active Not Available [facility] 19:06:53 Problem Notes None recorded. Procedures Surgical History Date Name Laterality Status Provider Name and Address Organization Details Recorded Time thyroidectomy completed WASHINGTON HERNDON NP [address], [place], [address], [place] [facility] 06/21/2021 08:10:47 total knee replacement completed WASHINGTON HERNDON NP [address], [place], [address], [facility] - [facility] 06/21/2021 08:11:40 colonoscopy completed Emily Bowles MA [place] - [facility] 08/28/2021 17:01:02 Back Surgery completed Saige Izquierdo [place] - [facility] 1 11/28/2013 16:38:59 Tubal Ligation completed Saige Izquierdo [place] - [place] 09/27/2014 16:38:59 Breast Surgery completed Saige Izquierdo [place] - [place] 09/27/2014 16:38:59 Imaging Results Imaging Date Name Status LastModified by Organization Details LastModified Time 12/31/2023 US, thyroid completed [address] [place] [address], [address], 01/01/2024 12:29:39 12/31/2023 US, thyroid completed [address] [place] [address], [address], 01/01/2024 12:29:39 01/08/2024 US, breast, unilateral completed [address] [place] [address], [address], 01/22/2024 08:07:27 01/08/2024 MAMMO, diagnostic, digital, unilateral completed [address] (Imaging & Mammogram) [address] [place], [id number], 02/04/2024 09:36:08 12/10/2024 US, echocardiogram completed [facility] [address] [facility] [address] [facility] [address], [place], [id number], 01/18/2025 12:49:08 12/17/2024 US, breast, unilateral completed [facility] (Imaging) [address] [address], [place], [id number], 01/18/2025 12:49:08 12/17/2024 US, breast, unilateral completed [facility] (Imaging) [address] [facility] [address], [place], [id number], 12/20/2024 10:54:28 12/10/2024 trans-thoracic echocardiogram (TTE) (PROC) completed [facility] Information not available 01/06/2025 16:59:24 Procedure Notes None recorded. Medical Equipment None Reported. Allergies Allergen ID Allergen Name Allergen Category Reaction Reaction Severity Criticality Documentation Date Start Date Code Code System Note Provider Name and Address Organization Details Recorded Time 7267 Product containin g penicilli n (product) medicatio n Not available Not available Not available 09/27/2014 22481 8001 SNOMED Saige Izquierdo [facility], [facility] [facility] 16:51:13 7268 banana extract food,medi cation Not available Not available Not available 09/27/2014 [id number] RxNorm Saige Izquierdo null, [facility] 4 16:51:13 Medications Name Sig Start Date Stop Date [...] Available Not Available Not Available levothyroxi ne 137 mcg tablet TAKE 1 TABLET BY MOUTH ONCE DAILY IN THE MORNING active Not Available Not Available No t Available prednisone 10 mg tablet TAKE 4 [...] TABLET BY MOUTH ONCE DAILY AT BEDTIME 2024 active Not Available Not Available Not Avai lable nicotine 14 mg/24 hr daily transdermal patch APPLY 1 PATCH TOPICALLY ONCE DAILY active Not Available Not Available No t Available ipratropium 0.5 mg-albutero l 3 mg (2.5 mg base)/3 mL nebulizatio n soln USE 1 AMPULE IN NEBULIZER TWICE DAILY active Not Available Not Available No [...] EYE 4 TIMES DAILY FOR 2 WEEKS 01/25 completed Not Available Not Available Not Available amlodipine 10 mg tablet Take 1 tablet by mouth once daily 01/25 completed Not Available Not Available Not Available benzonatate 100 mg capsule TAKE 1 [...] tablet TAKE 1 TABLET BY MOUTH NIGHTLY 01/25 completed Not Available Not Available Not Available hydroxyzine HCl 25 mg tablet TAKE 1 TABLET BY MOUTH EVERY 6 HOURS NEEDED FOR ITCHING OR ANXIETY 02/08 completed Not Available Not Available Not Available hydrochloro thiazide 25 mg tablet Take 1 tablet by mouth once daily 2024 active Not Available Not Available Not Avai lable metoprolol succinate ER 25 mg tablet,exte nded [...] 1 TABLET BY MOUTH ONCE DAILY BEFORE MEALS, STOP THE 100 MCG DOSE. LAB DRAW NEEDED BEFORE FURTHER REFILLS 01/27 completed Not Available Not Available Not Available Dulcolax (bisacodyl) 5 mg tablet,nicola yed release [...] for inhalation INHALE 1 PUFF ONCE DAILY 01/25 completed Not Available Not Available Not Available Trelegy Ellipta 01/25 completed Not Available Not Available Not Available Fluzone Quad (PF) 60 mcg (15 mcg x 4)/0.5 mL IM syringe 12/19 completed Not Available Not Available Not Available Breztri Aerosphere 160 mcg-9mcg-4. 8mcg/actuat ion HFA aerosol inhaler INHALE 2 PUFFS BY MOUTH TWICE DAILY active Not Available Not Available No t Available Trelegy Ellipta 200 mcg-62.5 mcg-25 mcg powder for inhalation INHALE 1 PUFF ONCE DAILY 01/25 completed Not Available Not Available Not Available Vitals Date Recorded Body height Body mass index (BMI) Body weight Heart rate Oxygen saturation Oxygen saturation in Arterial blood by Pulse oximetry Provider Name and Address Organization Details Last Updated DateTime 3 157.48 cm 39 kg/m2 75511.1 7 g 88 /min 93 % 93 % Sheila Henry MA [facility] 3 15:33:52 Date Recorded Systolic blood pressure Diastolic blood pressure Provider Name and Address Organization Details Last Updated DateTime 09/24/2023 90 mm[Hg] 60 mm[Hg] EVELYN LIU Attn: Accounting[address] [place], [address], [facility] 09/25/2023 08:30:50 Date Recorded Body height Body mass index (BMI) Body weight Heart rate Oxygen saturation Oxygen saturation in Arterial blood by Pulse oximetry Provider Name and Address Organization Details Last Updated DateTime 4 157.48 cm 40.2 kg/m2 99167.3 2 g 82 /min 92 % 92 % Emily Bowles MA [facility] 4 11:33:26 Date Recorded Systolic blood pressure Diastolic blood pressure Provider Name and Address Organization Details Last Updated DateTime 12/16/2023 120 mm[Hg] 62 mm[Hg] EVELYN LIU Attn: Accounting, [place], [address], [facility] 12/16/2023 12:16:21 Date Recorded Body height Body mass index (BMI) Body weight Heart rate Respiratory rate Systolic blood pressure Diastolic blood pressure Provider Name and Address Organization Details Last Updated DateTime 5 157.48 cm 39.9 kg/m2 94188.1 4 g 109 /min 20 /min 125 mm[Hg] 79 mm[Hg] Sheila eHnry [place] - [facility] 14:11:05 Date Recorded Body height Body mass index (BMI) Body weight Heart rate Oxygen saturation Oxygen saturation in Arterial blood by Pulse oximetry Systolic blood pressure Diastolic blood pressure Provider Name and Address Organization Details Last Updated DateTime 157.48 cm 40.2 kg/m2 41378.3 2 g 81 /min 97 % 97 % 111 mm[Hg] 71 mm[Hg] Emily Bowles [place] - [facility] 5 11:11:38 Social History Question Answer Notes LastModified by Organizat ion Details LastModified Time Tobacco Smoking Status Former Smoker stopped smoking july 2023 EVELYN LIU Attn: Accounting[address] [place], [address], [facility] 12/01/2024 14:36:03 Do You Have An Advance Directive? No Information not available 06/12/2020 Are You Blind Or Do You Have Difficulty Seeing? No Information not available 12/19/2020 What Is Your Level Of Caffeine Consumption? None Information not available 06/12/2020 How Much Tobacco Do You Chew? None Information not available 06/12/2020 In The 14 Days Before Symptom Onset, Have You Had Close Contact With A Laboratory-confir med COVID-19 While That Case Was Ill? No Information not available 01/05/2021 In The 14 Days Before Symptom Onset, Have You Had Close Contact With A Person Who Is Under Investigation For COVID-19 While That Person Was Ill? No Information not available 01/05/2021 Have You Been To An Area Known To Be High Risk For COVID-19? Yes [facility] Information not available 05/30/2022 Are You Deaf Or Do You Have Serious Difficulty Hearing? No Information not available 12/19/2020 What Type Of Diet Are You Following? REGULAR Information not available 06/12/2020 Which Illicit Or Recreational Drugs Have You Used? None Information not available 06/12/2020 Education 4 Year College Information not available 06/12/2020 Hard Of Hearing Or Deaf In One Or Both Ears? No Information not available 06/12/2020 Legally Blind In One Or Both Eyes? No Information no t available 06/12/2020 Marital Status Informatio n not available 06/12/2020 What Was The Date Of Your Most Recent Tobacco Screening? 01/25/2025 Information not available 01/25/2025 What Is Your Current Pack Years? 30ormorepack years Information not available 12/19/2020 Performs Monthly Self-breast Exam? Yes Information no t available 06/12/2020 Seat Belts Used Routinely Yes Information not available 06/12/2020 Smoke Alarm In Home Yes Information not available 06/12/2020 At What Age Did You Start Smoking Tobacco? 18 Information not available 06/12/2020 Are You Passively Exposed To Smoke? Yes Information no t available 12/19/2020 How Much Tobacco Do You Smoke? 0.5 PPD Information not available 08/28/2021 General Stress Level Medium Information not available 06/12/2020 Do You Use Sunscreen Routinely? No Information not available 06/12/2020 Has Tobacco Cessation Counseling Been Provided? Yes Information not available 12/19/2020 On What Date Was Tobacco Cessation Counseling Provided? 01/25/2025 Information not available 01/25/2025 How Many Years Have You Smoked Tobacco? 45 Information not available 02/10/2020 Sex: Female Functional Status Question Answer Note LastModified by Organizat ion Details LastModified Time Do you use any illicit or recreational drugs? No Information not available 12/19/2020 Do you or have you ever used any other forms of tobacco or nicotine? No Information not available 12/19/2020 What is your level of alcohol consumption? None Information not available 06/12/2020 Do you or have you ever used smokeless tobacco? Never used smokeless tobacco Information not available 02/10/2020 Are you able to care for yourself? Yes Information not available 12/19/2020 Do you or have you ever used e-cigarettes or vape? Never used electronic cigarettes Information not available 02/10/2020 What is your exercise level? Occasional Information not available 06/12/2020 Mental Status None recorded. Family History Relationship Description Onset Age of this Age Resolved Age Notes LastModified by Organization Details LastModified Time Sister Blood coagulation disorder [email or web address] Not available 2014 09:10:35 Sister Ovarian cancer, disseminated mom [email or web address] Not available 12/2014 09:10:35 Sister Multiple sclerosis [email or web address] Not available 2014 09:10:35 Father Family history of kidney disease Not available 2014 09:10:35 Father Malignant tumor of colon [email or web address] Not available 2020 08:13:20 Father Coronary artery bypass grafts x 4 50 Not available 12/16 12:07:30 Brother Heart disease [email or web address] Not available 2014 09:10:35 Brother Hypertensive disorder [email or web address] Not available 2014 09:10:35 Mother Malignant tumor of colon rloar Not available 2020 08:13:20 Medical History Condition Response Coronary Artery Disease N Other N High Blood Pressure N Atrial Fibrillation N Thyroid Problems Y Kidney or Bladder Problems N GI Problems N Depression N COPD Y Blood Clots N Skin Problems N Eating Disorder N Anemia N Heart Attack (OK) N Anxiety Disorder N Diabetes N Muscle, Joint, or Bone Problems N Seizures/Epilepsy N Acid Reflux (GERD) N Cancer N Stroke N Asthma N Allergies Y ADHD N Substance Abuse N High Cholesterol N Hepatitis N Liver Disease N Schizophrenia N Headaches Y Heart Failure N Osteoporosis N Gynecological History Statement/Question Response If Post [...] virus, quadrivalent, preservative 0 completed Not Available [facility] 11/07/2023 19:06:54 Pneumococcal conjugate PCV20, polysaccharide [id number] conjugate, adjuvant, PF 2 completed EVELYN LIU Attn: Accounting[address] [place], [address], [facility] 09/24/2022 09:05:41 Past Encounters Encounter ID Performer Location Encounter Start Date Encounter Closed Date Diagnosis/Indication Diagnosis SNOMED-CT Code Diagnosis ICD10 Code Diagnosis Note [id number] [facility] [address] [place] [address] 09/27/2014 16:09:43 09/27/2014 17:19:19 Depressive disorder 90886270 Primary insomnia 9196693 Chronic ob structive pulmonary disease 49393836 Tobacco de pendence syndrome [id number] Deion Solis MD [facility] (Adult Med) [address] [place] [address] 12/29/2014 10:01:16 12/29/2014 11:21:45 Chronic obstructive pulmonary disease 05428384 Tobacco de pendence syndrome 49919873 History of atrial fibrillation 013196078 Obesity 342542860 Hypothyroidism 90925544 History of thyroid disorder 028375585 [id number] Terrance Valdovinos MD [facility] (Adult Med) [address] [place] [address] 06/20/2015 14:35:27 06/20/2015 15:35:31 Gynecologic examination 18705120 Screening for malignant neoplasm of breast 343221933 Abscess of breast 84512589 likely a quarter sized abscess of left [...] is being ordered a screening mammogram today [id number] Terrance Valdovinos MD [facility] (Adult Med) [address] [place] [address] 08/22/2015 09:02:04 08/22/2015 22:25:25 Hypothyroidism 35472928 E03.9 taking 125mcg - patient will RTC in 2 months to recheck thyroid levels I suspect her weight gain is from not taking her levothyrox ine and then being on steroids Obesity 190025324 E66.9 Will complete labs in 2 months and then will make an appointmen t - at this time we will see how her knees are Chronic ob structive pulmonary disease 40714159 J44.9 Uses oxygen at home - she was just hospitaliz ed for a COPD exacerbati on - I would like her to be evaluated since she was just hospitaliz ed for COPD exacerbati on Knee pain 74457449 M25.5 69 I suspect that this is d/t her quick weight gain Discussed that being back on her levothyrox ine and off of steroids should help her knee pain Tobacco de pendence syndrome 75602730 F17.290 Abscess of breast 801042 03 N61 US in hospital and breast WNL [id number] Cici Ahumada MD [facility] [address] [place] [address] 12/17/2019 14:18:39 12/20/2019 09:04:20 Chronic obstructive pulmonary disease 80410900 J44.9 1ppd.. Patient was advised to quit smoking. History of thyroidectomy 703174839 Z90.09 Adult heal th examination 988342115 Z00.00 History of right total knee replacement 6821847579 192966 Z96.651 Screening mammography 24 417133 Z12.31 Depression screening 171 423718 Z13.31 will monitor and consdier adding an SSRI. [id number] Cici Ahumada MD [facility] [address] [place] [address] 02/10/2020 09:51:36 02/14/2020 10:31:22 Moderate persistent asthma 214866253 J45.40 Chronic ob structive pulmonary disease 77193683 J44.9 Patient was advised to quit smoking. she has cut back to smoking less than 1 ppd. (down from 2-3 ppd). Advised on how to take albuterol, at least 3-4 hours apart, and to use symbicort bid as a preventati ve inhaler, not as immediate therapy for rescue from bronchospa sm. [id number] Cici Ahumada MD [facility] [address] [place] [address] 02/23/2020 10:02:23 02/28/2020 06:13:29 Obesity 619791087 E66.9 Patient interested in bariatric surgery. Trying to cut back on smoking--g ets dyspneic with minor exertion. She will contact her insurance plan to see what steps we need to take. Chronic ob structive pulmonary disease 36396609 J44.9 Patient was advised to quit smoking. she has cut back to smoking less than 1 ppd. (down from 2-3 ppd). Advised on how to take albuterol, at least 3-4 hours apart, and to use symbicort bid as a preventati ve inhaler, not as immediate therapy for rescue from bronchospa sm. Hypothyroidism 56094834 E03.9 continue taking levothyrox ine. Well contr olled type 2 diabetes mellitus 830132380 E11.9 discussed low fat, low carb diet, and encouraged exercise. 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 [id number] WASHINGTON HERNDON NP [facility] [address] [place] [address] 06/21/2021 09:21:25 06/29/2021 11:38:10 Colitis 15782130 K52.9 Treated outpatient with metronidaz ole and ciprofloxa cinSymptom atically improvedTo complete antibiotic s as directedFH colon cancer: Mother and FatherHas not had a colonoscop y in the past.Colon oscopy in 6 - 8 weeks.Decr ease loperimide to no more than 6 pills/day and use PRN only Body mass index 30+ - obesity 031247727 Z68.36 Encouraged weight loss -Choosing low-fat, low-calori e foods -Eating smaller portions -Drinking water instead of sugary drinks -Being physically active Chronic ob structive pulmonary disease 33309290 J44.9 On albuterol MDI, Symbicort MDIManaged by primary care Mixed hyperlipidemia 267 761505 E78.2 On atorvastat inManaged by primary care History of malignant neoplasm of thyroid 662877475 Z85.850 S/P thyroidect michael with secondary hypothyroi dismOn levothyrox ine but ran out of levothryox ine, last dose was in February 2021.Call PCP's office regarding levothyrox inemanaged by primary care Tobacco de pendence syndrome 02776660 F17.200 Strongly encouraged to discontinu e smoking [id number] EVELYN LIU [facility] [address] [place] [address] 08/28/2021 16:47:18 08/29/2021 12:16:40 Chronic obstructive pulmonary disease 34086062 J44.9 was at 3ppd and now down to 1/2 ppd. She states her inhalers are not working. History of thyroidectomy 540684453 Z90.09 Patient with total resection after cancer dx in 2010. she had some residual gland left and had another surgery to remve in 2019 Hypothyroidism 11597873 E03.9 . Patient with total resection after [...] with another blood check. She agrees. Smoker 36943247 F17.200 patient is a 135 pack year [...] on recall. She agrees to LDCT Obesity 928604617 E66.9 - dicsused healthy diet- increasing physcial activity Megaloblastic anemia 531 85260 D53.1 MCV 98, denies alcohol- checking labs [id number] EVELYN LIU [facility] [address] [place] [address] 02/12/2022 16:48:38 02/14/2022 11:37:35 Chronic obstructive pulmonary disease 98702289 J44.9 was at 3ppd and now down to 1/2 ppd-1ppd. She had one exacerbati on requiring urgent care. was given outpatient steroids and doxycyclin e (01/2022). She saw her pulm 2 months ago. need notes. she takes anoro and rescue. as well as montelukas t. has not done ldct scan or PFT. agrees to schedule today. History of thyroidectomy 690336460 Z90.09 Patient with total resection after cancer dx in 2010. she had some residual gland left and had another surgery to remove in 2019 Hypothyroidism 58891850 E03.9 . Patient with total resection after [...] with another blood check. She agrees. Smoker 95016297 F17.200 patient is a 135 pack year [...] on recall. She agrees to LDCT Obesity 229839957 E66.9 - disused healthy diet- increasing physical activity Thyroid nodule 932216972 E04.1 patient feels another thyroid nodule? it was removed completely 2019. Mixed hyperlipidemia 267 380125 E78.2 refill Sleep apnea 64737591 G47 .30 patient complains of fatigue, daytime somnolence . does not know if she snores. has had apneic moment's where she wakes up gasping for air. - sleep study Denture present 28990954 5 Z97.2 dentures are 27 years old, loose fitting on the bottom, no sores on gums. eating well. will see dental. [id number] EVELYN LIU [facility] [address] [place] [address] 04/16/2022 10:25:31 04/17/2022 10:15:53 Adrenal hyperplasia 268542327 E27.[address] 2019 Chronic ob structive pulmonary disease 02399094 J44.9 was at 3ppd and now down to 1/2 ppd-1ppd. She had one exacerbati on requiring urgent care. was given outpatient steroids and doxycyclin e (01/2022). She saw her pulm 2 months ago. need notes. she takes anoro and rescue. as well as montelukas t. has not done ldct scan or PFT. agrees to schedule today. History of thyroidectomy 220152319 Z90.09 Patient with total resection after cancer dx in 2010. she had some residual gland left and had another surgery to remove in 2019 Hypothyroidism 52545781 E03.9 . Patient with total resection after [...] with another blood check. She agrees. Smoker 55842899 F17.200 patient is a 135 pack year [...] half pack per day. wellbutrin helping? Obesity 294300685 E66.9 - disused healthy diet- increasing physical activity- cut out soda- increase veggies Thyroid nodule 538576998 E04.1 patient feels another thyroid nodule? it was removed completely 2018. Mixed hyperlipidemia 267 485455 E78.2 refill Sleep apnea 78851233 G47 .30 patient complains of fatigue, daytime somnolence . does not know if she snores. has had apneic moment's where she wakes up gasping for air. - sleep study Denture present 92099237 5 Z97.2 dentures are 27 years old, loose fitting on the bottom, no sores on gums. eating well. will see dental. Dyspnea on exertion 6084 5006 R06.09 [id number] EVELYN LIU [facility] [address] [place] [address] 05/30/2022 13:52:38 06/04/2022 10:40:29 Adrenal hyperplasia 174733709 E27.[address] 2019needs to f/u for thyroid as wellneeds order sent Chronic ob structive pulmonary disease 57346492 J44.9 was at 3ppd and now down [...] to schedule with pulm History of thyroidectomy 708000735 Z90.09 Patient with total resection after cancer dx in 2010. she had some residual gland left and had another surgery to remove in 2019 Hypothyroidism 34285285 E03.9 . Patient with total resection after [...] with another blood check. She agrees. Smoker 08520565 F17.200 patient is a 135 pack year [...] half pack per day. wellbutrin helping? Obesity 794856419 E66.9 BMI 40.3.- disused healthy diet- increasing physical activity- cut out soda- increase veggies Thyroid nodule 610570360 E04.1 patient feels another thyroid nodule? it was removed completely 2018. Mixed hyperlipidemia 267 994827 E78.2 refill Sleep apnea 26557881 G47 .30 patient complains of fatigue, daytime somnolence . does not know if she snores. has had apneic moment's where she wakes up gasping for air. - sleep study Depressive disorder 1181 8332 F32.A will start wellbutrin XL and fu [...] (patient is on budget). starting multivitam in [id number] EVELYN LIU [facility] [address] [place] [address] 09/18/2022 11:40:10 09/23/2022 08:57:09 Acute exacerbation of chronic obstructive pulmonary disease 388492659 J44.1 patient with acute COPD exacerbati onPEX: aferbriLe, RRR, wheezing noted on exam - stop smoking- zpak as prescribed - prednisone in morning with food. avoid all NSAID while taking.- pulmonolog ist due to worsening COPD Administra tion of pneumococcal vaccine 81009846 Z23 administer ed today Obesity 250362788 E66.9 BMI 38.1- disused healthy diet- increasing physical activity- cut out soda- increase veggies [id number] EVELYN LIU [facility] [address] [place] [address] 12/12/2022 09:55:19 12/12/2022 10:53:48 Osteoporosis 30098683 M81.0 screen Smoker 05020626 F17.200 patient is a 135 pack year [...] trying this again. Chantix currently on recall. -advised quittin Prediabetes 776648814 R7 3.03 Hyperlipidemia 40111747 E78.5 takes atorvastat in Chronic ob structive pulmonary disease 79402770 J44.9 was at 3ppd and now down [...] smoking- encouraged to schedule with pulm- prevnar 20 09/2022 Depressive disorder 1040 9006 F32.A will start wellbutrin XL and fu [...] budget). starting multivitam in Low back pain 167803898 M54.50 low back pain with left leg radiation. Ran out of time and will continue at next visit. does deny red flag sx. - xr-pt Adrenal hyperplasia [address] 2019needs to f/u for thyroid as wellneeds order sent History of malignant neoplasm of thyroid 446274799 Z85.850 referring back to endoUS normal 2021 Dyspnea on exertion 6084 5006 R06.09 - r/o cardiac cause Sleep apnea 98821400 G47 .30 Mild sleep apnea seen on 07/2022 studyneeds titration labs and possibly supplement al oxygen - sleep study Restless legs 53022235 G 25.81 Anemia 071167515 D64.9 r/o anemia due to restless legs in 07/2022 study Osteonecrosis of hip 444 430453 M87[address] 2020 [id number] EVELYN LIU [facility] [address] [place] [address] 02/07/2023 11:50:56 02/07/2023 12:43:34 Hypothyroidism 02445079 E03.9 Patient with total resection after cancer dx in 2010. she had some residual gland left and had another surgery to remove in 2019. - increased to 100mcg at last visit due to abnormal lab (TSH 38.900, T4 .62 (11/2022))- will increase levo to 112 mcg today repeat in 2 weeks- Endo was seen 12/2022, letting me manage thyroid Osteoporosis 42846447 M8 1.0 has not scheduledt aking ca+vit D otc Smoker 54279991 F17.200 patient is a 135 pack year [...] quitting- on verencicli ne from pulm Hyperlipidemia 81405995 E78.5 takes atorvastat in Chronic ob structive pulmonary disease 25267283 J44.9 was at 3ppd and now down [...] smoking- prevnar 20 09/2022 Adrenal hyperplasia [address] 2020Follow ing with endo, they are not concerned and will work up next visitshe is to bring CD from hospital to next visit History of malignant neoplasm of thyroid 577076962 Z85.850 following endo [facility], notes in chartUS normal 2021 Sleep apnea 46350605 G47 .30 Mild sleep apnea seen on 07/2022 studyneeds titration labs and possibly supplement al oxygen - sleep study Osteonecrosis of hip 444 894197 M87.[address] William ng injections and she agrees to surgery in fall10 EVELYN LIU [facility] [address] [place] [address] 04/03/2023 14:13:08 04/03/2023 14:20:44 [id number] EVELYN LIU [facility] [address] [place] [address] 05/16/2023 11:32:24 05/16/2023 12:18:50 Hypothyroidism 92729842 E03.9 Patient with total resection after cancer dx in 2010. she had some residual gland left and had another surgery to remove in 2019. - increased to 112 mcg at last and tsh now controlled - Endo was seen 12/2022, letting me manage thyroid Osteoporosis 98557872 M8 1.0 has not scheduledt aking ca+vit D otc Smoker 60055701 F17.200 patient is a 135 pack year [...] from pulm but did not help Hyperlipidemia 38458918 E78.5 takes atorvastat in Chronic ob structive pulmonary disease 24143032 J44.9 was at 3ppd and now down [...] smoking- prevnar 20 09/2022 Adrenal hyperplasia [address] 2020Follow ing with endo, they are not concerned and will work up next visitshe is to bring CD from hospital to next visit History of malignant neoplasm of thyroid 795224897 Z85.850 following [facility]o [facility], notes in chartUS normal 2021 Sleep apnea 39571228 G47 .30 Mild sleep apnea seen on 07/2022 malachi pritchard cpap but not oxygen - sleep study Osteonecrosis of hip [address] ing Dr Stewart pritchard injections and she agrees to surgery in Fall Poor focus 896002293 H52 .7 wants adderrall. I will not prescribe. patient understand s.already on wellbutrin Screening mammography 24 667745 Z12.31 [facility] risk for falls 674104957 Z91.81 unsteady with walkinghas walker at home but does not like to use itwas sent to PT 12/2022, not sure if she completed. no notes on progress [id number] EVELYN LIU [facility] [address] [place] [address] 07/02/2023 14:56:53 07/02/2023 15:39:48 History of malignant neoplasm of thyroid 999718377 Z85.850 following [facility]o [facility], notes in chartUS normal 2021 Screening mammography 24 747345 Z12.31 Increased blood pressure 72628972 R03.0 hcz and amlodipine added by hospitalBP stable todaymay be due to steroids?c lose monitoring at home Hospital i npatient stay within past 30 days [id number] 106 Z76.89 hospitaliz ed x 4 days for pneumoniat ook steroids and doxy, completedl ungs are clear todayshe says she feels great has F/U with pulmonolog ist set up [id number] EVELYN LIU [facility] [address] [place] [address] 09/24/2023 15:27:15 09/24/2023 16:11:33 Chronic obstructive pulmonary disease 00750125 J44.9 - should be on 02 on exertion, none at rest- O2 in office drops to 91 after >50 feet and has sob (she did not bring 02 today, room air) Obesity 480187991 E66.9 BMI 39- disused healthy diet- increasing physical activity- cut out soda- increase veggies Hospital i npatient stay within past 30 days 7868225187 106 Z76.89 hospitaliz ed x 4 days for pneumoniat ook steroids and doxy, completedl ungs are clear todayno F/U with pulmonolog ist set up Prediabetes 168455189 R7 3.03 repeat Anxiety 44155927 F41.9 - advised counseling -Patient was educated [...] emerge). Additional ly, patient has suicide hotline #. - f/u one month - call with questions [phone] EVELYN LIU [facility] [address] [place] [address] 12/16/2023 11:18:46 12/16/2023 12:35:57 Mammography abnormal 210439891 R92.8 R breast mass, scheduled for december 2023 Type 2 hipolito betes mellitus 25398995 E11.9 managing with diet changes at this time.A1C: 5.9 (11/2023) 09/2023 6.7Foot exam: next visitEye Exam: order sentAlb/Cr : orderedSta tin: statin, good compliance pneumonia vaccine: prevanar 09/2022 Microalbuminuria 5674773 06 R80.9 Hyperlipidemia 27126363 E78.5 takes atorvastat in 20 and will increase to 40mg Mean corpu scular volume above reference range 983011549 R71.8 MCV 100check B12she denies alcohol, only occasional Dyspnea 885362063 R06.00 patient with COPD , hx of heavy smoking, fam history of CABG x 4 in father age 50. She denies palpitatio ns, chest pain, sob, dizziness. sending to cardiology to r/o cardiac source of dyspnea Insomnia 401206412 G47.0 0 cut out sodatakes 2 hours to fall asleeptraz aonde didn't help, will stopWill trial cpap first History of malignant neoplasm of thyroid 354698732 Z85.850 following [facility]o [facility], notes in chartUS normal 2021 Tubular ad enomatous polyp of colon 020762133 D12.6 dx 1due for colonoscop y 2023 [id number] Osbaldo Ang MD [facility] [address] [place] [address] 10/18/2024 12:02:09 10/18/2024 12:24:22 Hypothyroidism 02796701 E03.9 Patient with total resection after cancer dx in 2010. she had some residual gland left and had another surgery to remove in 2018. - increased to 112 mcg at last and tsh now controlled - Endo was seen 12/2022, letting me manage thyroid [id number] Osbaldo Ang MD [facility] [address] [place] [address] 12/01/2024 14:03:33 12/01/2024 14:45:56 Mammography abnormal 968579522 R92.8 R breast mass, scheduled for december 2023 Type 2 hipolito betes mellitus 31623299 E11.9 managing with diet changes at this time.A1C: 6.2% (11/2024) 5.9 (11/2023) 09/2023 6.7Foot exam: 11/2024Eye Exam: order sentAlb/Cr : abnormal 2024Statin : statin, good compliance pneumonia vaccine: prevnar 20 09/2022 Microalbuminuria 0452272 06 R80.9 GFR 67, CR .94ALB 79 (2024) Hyperlipidemia 92306498 E78.5 takes atorvastat in 40mg Mean corpu scular volume above reference range 204107333 R71.8 MCV 100check B12she denies alcohol, only occasional Dyspnea 446773750 R06.00 patient with COPD , hx of heavy smoking, fam history of CABG x 4 in father age 50. She denies palpitatio ns, chest pain, sob, dizziness. advised to f/u with her cardiology . one pillow and can lay flat without sob History of malignant neoplasm of thyroid 290521025 Z85.850 following [facility]o [facility], notes in chartUS normal 2021 Tubular ad enomatous polyp of colon 077945546 D12.6 dx 2020tubula r adenoma 11/19/2024 Neck pain 34337271 M54.2 has screws in necktroubl e lifting over 90 degreeswil l start with xray and f/u for more work up as time very limited today due to multiple complaints Obesity 898826284 E66.9 BMI 39.9- disused healthy diet- increasing physical activity- cut out soda- increase veggies Ex-smoker 2612059 Z87.89 1 due for LDCTstoppe d smoking 07/2023smo ked at least 1ppd x45 yearsstart ed smoking age 18stopped smoking 67 [id number] Osbaldo Ang MD [facility] [address] [place] [address] 01/25/2025 11:01:31 01/25/2025 11:34:48 Serum thyroid stimulating hormone level outside reference range 224121063 R89.1 repeat tsh Hypothyroidism 94213558 E03.9 Patient with total resection after cancer dx in 2010. she had some residual gland left and had another surgery to remove in 2019. - increase to 137 mcg- Endo was seen 12/2022, needs f/u Health Concerns Section Related Observation LastModified by Organization Detai ls LastModified Time None Recorded Concern Status LastModified by Organization Details LastModified Time None Recorded Advance Directives Directive N: Payers Encounter Date Sequence Insurance Name Policy Number Policy Alberto Covered Member ID Alberto Member ID Guarantor Name 09/24/2023 2 [place] WHEN MED[place]ARE OR MEDICARE REPLACEMENT PRIMARY) Adelaida Clementeshe [id number] Adelaida Clementeshe 09/24/2023 1 [employer] BETTER HEALTH - PREMIER PLAN - DUAL (MEDICARE - MEDICAID REPLACEMENT HMO) Adelaida Clementeshe [id number] Adelaida Vasquez 12/16/2023 1 [place] Adelaida Vasquez [id number] Adelaida Vasquez 12/16/2023 2 [place] MEDIC[place]PLACEMENT PRIMARY) Adelaida Clementeshe [id number] Adelaida Clementeshe 10/18/2024 1 [place] Adelaida Vasquez [id number] Adelaida Vasquez 10/18/2024 2 [place] OR MEDIC[place] REPLACEMENT PRIMARY) Adelaida Pedro [id number] Adelaida Vasquez 12/01/2024 1 [place] Adelaida Vasquez [id number] Adelaida Vasquez 12/01/2024 2 [place] OR MEDICARE REPLACEMENT PRIMARY) Adelaida Vasquez [id number] Adelaida Vasquez 01/25/2025 1 [place] Adelaida Vasquez [id number] Adelaida Vasquez 01/25/2025 2 [place] OR MEDICARE REPLACEMENT PRIMARY) Adelaida Vasquez [id number] Adelaida Vasquez Notes Date Note Type Note Provider Name and Address Organization Details Recorded Time 3 text/html pt here for f/u on COPD and pneumoniawas seen [facility] 08/17/2023 for sob and cough. she was also hospitalized 06/13/23 for COPD exacerbation. she monitors O2 and states at time of 07/2023 visit O2 was 80's. she was placed on 2L o2 and sent to ER after xray showed infiltrate. she went to [facility] and hospitalized until 08/25/2023. his is [...] cannula.Patient has not followed-up with her primary medical records specialist upon discharge from hospital. needs o f/u dr rosales. She does not use cpap her main concern is anxiety. she is unable to sleep. she has been crying and feels overwhelmed. She would like something to help with this. 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 Patient saw yaakov bautista oncology at [place] 10/31/20 for papillary thyroid cancer f/u, check [...] not wearing EVELYN LIU Attn: Accounting,[address] [facility], [place], [address], [facility] - [place] 12/19/2023 07:18:34 5 text/html Adelaida is here for multiple issues and labs for chronic conditions She has had more dyspnea than before. She denies sob laying down flat and uses one pillow to sleep. she quit smoking in 2022. She has not followed up with cardiology. denies swelling in her legs. thyroid: has not followed up with endocrinology. neck: hx of cervical surgery with screws. She declines PT or ortho referral. I just want to make sure the screws are in place. She denies loss of balance. denies saddle anesthesia/loss of bladder/bowel control. DM: she is complaint with medications. EVELYN LIU Attn: Accounting,[address] [facility], [place], [address], [place] 12/16/2024 09:57:31 5 text/html Adelaida is here for multiple issues and labs for chronic conditions thyroid: has f/u with endocrinology for the fall. here to recehck thyroid. neck: hx of cervical surgery with screws. She declines PT or ortho referral. I just want to make sure the screws are in place. She denies loss of balance. denies saddle anesthesia/loss of bladder/bowel control. DM: she is complaint with medications. EVELYN LIU Attn: Accounting,[address] [facility], [place], [address], [facility] - [facility] 01/27/2025 16:39:51 OBGyn Episode No OBEpisode recorded.
--- NOTE | 2025-03-08 07:34 | EST_ITS ---
Patient Info Name: Adelaida Vasquez Age: 69 years : 1955 Gender: Female Ht: 63 in Wt: 200 lbs BSA: 2.05 m2 HR: 63 bpm BP: 111 / 56 mmHg Exam Date: 03/08/2025 7:34 AM Patient Status: O Admit Date: 03/08/2025 Exam Type: CA stress fiona w NM A regadenoson stress test was performed. Staff Referring Physician: Tyler Gordillo DO Attending Provider: Tyler Gordillo DO Exercise Technologist: Roseann Crews Exercise Physician: Tyler Gordillo DO Summary 1. 1. Negative lexiscan stress test for ischemic ST changes by ECG criteria. 2. 2. Stable hemodynamics throughout the test. 3. 3. Nuclear scan to follow and will be reported separately. Please correlate with it. 4. 4. Patient informed of the above results. Protocol: Lexiscan Stress ECG Details Stage: REST Duration (min): 1 min : 3 sec HR (bpm): 68 SBP (mmHg): 111 DBP (mmHg): 56 Stage: REST Duration (min): 10 min : 56 sec HR (bpm): 68 SBP (mmHg): 111 DBP (mmHg): 56 Stage: STAGE 1 Duration (min): 0 min : 59 sec HR (bpm): 83 SBP (mmHg): 112 DBP (mmHg): 58 Stage: RECOVERY Duration (min): 1 min : 0 sec HR (bpm): 92 SBP (mmHg): 112 DBP (mmHg): 58 Stage: RECOVERY Duration (min): 2 min : 0 sec HR (bpm): 87 SBP (mmHg): 112 DBP (mmHg): 58 Stage: RECOVERY Duration (min): 2 min : 11 sec HR (bpm): 87 SBP (mmHg): 112 DBP (mmHg): 58 Rest HR: 68 bpm Peak HR: 97 bpm Rest Sys BP: 111 mmHg Peak Sys BP: 112 mmHg Max Pred HR: 153 bpm % Max Pred HR: 63 % Target HR: 130 bpm Max RPP: 10,864 bpm*mmHg Termination Reason: Completed protocol Cardiac Symptoms: Shortness of breath Total Time: 1 min : 0 sec Rest Mata BP: 56 mmHg Peak Mata BP: 58 mmHg Total Dose: 0.4 mg Resting ECG Sinus rhythm. Stress ECG No ST changes. Arrhythmias None. Report Signatures
== END 2025-03-08 07:27 | disposition home or self-care (01) ==
PROVIDERS: PCP Physician Assistant; Visit Provider Internal Medicine Cardiovascular Disease
DX: R06.09 Other forms of dyspnea (principal)
CPT/HCPCS: 78452; 93017; A9502; J2785

== ENCOUNTER 2025-04-29 16:07 | Emergency (ER) | payer MEDICARE, MEDICAID, SELFPAY ==
--- NOTE | 2025-04-29 16:08 | ED_ITS ---
HPI - Eye Problem General Chief complaint: Eye Problems Stated complaint: Eyes Irritation Time Seen by Provider: 04/29/25 16:08 Source: patient Mode of arrival: ambulatory Limitations: no limitations History of Present Illness HPI Narrative: Adelaida is a 69-year-old female patient presenting to the clinic today with complaints of bilateral eye pain/blurry vision x1 day. She reports eyes feel as though they are burning/achy and she is having some blurry vision. Denies any injury to her eyes. Denies any drainage. States she woke this morning and her eyes were red. Use some Visine in this resolved but she still having some discomfort. 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 No URI symptoms. Does not were contacts. Wears reading glasses. Rates pain 3/10. States when she closes her eyes and applies pressure the pain improved. No known injury or foreign body. No history of glaucoma or ocular hypertension. No diabetes history Related Data Home Medications ?Medication ?Instructions ?Recorded ?Confirmed ?Last Taken ?Type albuterol sulfate 90 mcg/actuation 2 inh inhalation DIRECTED 06/01/21 02/15/25 11/19/24 History aerosol inhaler atorvastatin 20 mg tablet 20 mg PO DAILY 05/08/22 02/15/25 11/18/24 History dapagliflozin propanediol 10 mg 10 mg PO DAILY 12/30/23 02/15/25 11/18/24 History tablet (Farxiga) escitalopram oxalate 10 mg tablet 10 mg PO .QD 10/30/24 02/15/25 11/18/24 History levothyroxine 112 mcg tablet 112 mcg PO .QD 10/30/24 02/15/25 11/18/24 History hydrochlorothiazide 25 mg tablet 25 mg PO .qday 11/10/24 02/15/25 11/18/24 History lisinopril 10 mg tablet 10 mg PO .qday 11/10/24 02/15/25 11/18/24 History Allergies Allergy/AdvReac Type Severity Reaction Status Date / Time banana Allergy Severe ANAPHALXIS Verified 04/29/25 16:16 Penicillins Allergy Intermediate Anaphylaxis Verified 04/29/25 16:16 Review of Systems Review of Systems: Pertinent positives per HPI. Patient denies any fever, chills, rash, headache, visual changes, dizziness, cough, runny nose, sore throat, shortness of breath, chest pain, palpitations, nausea, vomiting, diarrhea, constipation, abdominal pain, or any urinary issues. [facility] Past Medical History Medical History Colon polyp Hypertension Obstructive sleep apnea Migraine COPD (chronic obstructive pulmonary disease) Hypothyroidism (01/27/17) Hyperlipidemia Thyroid disease Surgical History Surgical History H/O neck surgery H/O thyroidectomy Family History Family History Other Carcinoma of colon Diabetes mellitus Family history of blood dyscrasia Family history of coronary artery disease Family history of malignant neoplasm Heart disease Social History Social History Smoking packs per day: 0.5 Smoking cigarettes per day: 10.0 Years smoked: 45 Smoking pack-years: 22.50 Smoking status: Former smoker Tobacco type: cigarettes Alcohol intake: never Alcohol use details: No alcohol use Substance use: never Living arrangements: alone Occupation/Education: occupation Additional occupation/education comments: 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 There is no relevant family history pertinent to the patient complaint. Exam Narrative: General: Well-developed, obese, in no apparent distress Head: Normocephalic, atraumatic Eyes: Pupils equally round and reactive to light bilaterally, EOM intact, sclera and conjunctive mildly injected, no discharge, lids normal, no obvious foreign body. Ears: TMs intact and clear, ear canals clear, no drainage, grossly hearing normal. Nose: Nares patent, no discharge, no inflammation, no sinus tenderness. Mouth: Oropharynx without lesions or masses, good dentition, MMM. Neck: Supple, trachea midline, no enlargement of anterior or posterior cervical nodes, no thyroid masses or goiter palpable. Cardio: Regular rate and rhythm, s1 and s2 normal, no murmur appreciated. Resp: Clear to auscultation bilaterally anteriorly and posteriorly, no rhonchi, rales, wheezing or rubs Course Course Emergency Course: Portions of this record may have been created with voice recognition software. Level of Care: Express Care Visit Vital Signs Vital signs: Vital Signs Temperature 36.6 C 04/29/25 16:20 Pulse Rate 81 04/29/25 16:20 Respiratory Rate 18 04/29/25 16:20 Blood Pressure 113/64 04/29/25 16:20 Pulse Oximetry 96 04/29/25 16:20 Oxygen Delivery Room Air 04/29/25 16:20 Temperature 36.6 C 04/29/25 16:20 Pulse Rate 81 04/29/25 16:20 Respiratory Rate 18 04/29/25 16:20 Blood Pressure 113/64 04/29/25 16:20 Pulse Oximetry 96 04/29/25 16:20 Oxygen Delivery Room Air 04/29/25 16:20 Vital signs reviewed MDM - Eye Problem MDM Narrative Medical decision making narrative: At the time of visit patient is resting comfortably on the exam table. Patient appears to be nontoxic. Patient is complaining of by burning/discomfort. No drainage. No known contact with conjunctivitis. Denies any foreign body or injury. Woke up this morning with eye pain and some blurry vision. No history of glaucoma, diabetes, or ocular hypertension Plan: I suspect patient has bilateral eye discomfort/blurry vision. Visual acuity was 20/50 in the left eye and 20/25 in the right eye. Offer to send patient to the ER for further evaluation and she declined at this time. We will try some azelastine eyedrops and have the patient use artificial tears as this may be due to allergies. Unable to complete Killian-Pen exam in the clinic today. If her symptoms are not improving recommend going to the emergency room and she voiced understanding. Recommend going to [place] or [facility] if she goes to the ER as they have prisoner classification interviewer on staff. Supportive measures were discussed with the patient and they voiced understanding discharge instruct ions and agrees to treatment plan. Return precautions reviewed Differential Diagnosis Differential diagnosis: Likely corneal abrasion, conjunctivitis, acute iritis, hyphema, periorbital cellulitis, subconjunctival hemorrhage, glaucoma, corneal ulcer and ruptured globe Discharge Plan Discharge Clinical Impression: Acute eye pain, Blurred vision, bilateral Patient Disposition: Home Condition: Stable Instructions: Antibiotic Form, Blurred Vision (ED), Eye Pain (ED) Additional Instructions: Instill azelastine eyedrops as directed. May apply cool compresses to the eyes to help alleviate pain May take Tylenol/Motrin as needed for pain Follow-up with your primary care doctor in 3-5 days May follow-up with [facility] or [facility] as soon as possible. Go to the emergency room if your symptoms worsen-worsening of pain, loss of vision, fevers, or increased blurry vision Patient Language: Nigerien Prescriptions: New azelastine 0.05 % drops 1 drp EACH EYE BID 7 Days Qty: 6 0RF No Action albuterol sulfate 90 mcg/actuation HFA aerosol inhaler 2 inh INHALATION DIRECTED levothyroxine 112 mcg tablet 112 mcg PO .QD escitalopram oxalate 10 mg tablet 10 mg PO .QD dapagliflozin propanediol [Farxiga] 10 mg tablet 10 mg PO DAILY atorvastatin 20 mg tablet 20 mg PO DAILY lisinopril 10 mg tablet 10 mg PO .qday hydrochlorothiazide 25 mg tablet 25 mg PO .qday metoprolol succinate 25 mg tablet extended release 24 hr 25 mg PO DAILY Qty: 30 5RF Follow-up/Referrals: Jason,EVELYN Puckett [Primary Care Provider] - Time of Disposition: 16:36 Quality NIHSS Nursing Documentation ED NIHSS nursing documentation: reviewed/agree
[2025-04-29 16:20] VITALS: BP 113/64; PULSE 81; RESP 18; TEMP 36.6; O2SAT 96
== END 2025-04-29 16:40 | disposition home or self-care (01) ==
LOC: EXPCOLL 16:10
PROVIDERS: Emergency Provider Nurse Practitioner Family; PCP Physician Assistant
DX: H57.13 Ocular pain, bilateral (principal); H53.8 Other visual disturbances; Z87.891 Personal history of nicotine dependence; I10 Essential (primary) hypertension; J44.9 Chronic obstructive pulmonary disease, unspecified; E78.5 Hyperlipidemia, unspecified; E89.0 Postprocedural hypothyroidism
CPT/HCPCS: 99213; G0463

== ENCOUNTER 2025-09-05 10:16 | Inpatient (IN) | payer MEDICARE, MEDICAID, SELFPAY ==
[2025-09-05] VITALS (34 sets, daily range): BP systolic 87–209; BP diastolic 51–165; PULSE 102–162; RESP 12–22; TEMP 36.6–36.7; O2SAT 92–100; BMI 37.7
--- NOTE | ~2025-09-05 | CT_ITS ---
EXAMINATION: CTA chest PE protocol DATE: 09/05/2025 11:28 INDICATION: Rule out PE TECHNIQUE: Computed tomography angiography (CTA) of the chest was performed with 100 mL Omnipaque-350 intravenous contrast timed to evaluate the pulmonary arteries. Coronal maximum intensity projection 3D-reconstructions were created by the technologist. The dose-length product was 723.25 mGy-cm. COMPARISON: May 23, 2023. FINDINGS: No pulmonary emboli or thoracic aortic aneurysm/dissection. The left pulmonary artery is enlarged measuring 2.9 x 2.9 cm. The right pulmonary artery appears normal size as do the interlobar and segmental size arteries. The lungs are clear other than mild scattered atelectatic and/or fibrotic changes. Para graft heart size normal with no significant pericardial effusion or bulky lymphadenopathy. Coronary artery calcifications noted. No acute process seen in the visualized portions of the upper abdomen. The bony thorax appears intact. IMPRESSION: 1. No pulmonary emboli or gross acute intrathoracic abnormality. 2. 2.9 cm focal dilatation of the left pulmonary artery may represent ectatic enlargement; findings could also be associated with pulmonary arterial hypertension. Reviewed, dictated and finalized at location A. SQUAD MANAGER IMPRESSION: 1. No pulmonary emboli or gross acute intrathoracic abnormality. 2. 2.9 cm focal dilatation of the left pulmonary artery may represent ectatic e nlargement; findings could also be associated with pulmonary arterial hypertens ion.
--- NOTE | ~2025-09-05 | XR_ITS ---
Examination: XR chest 1V portable Clinical History: palpitations Comparison: 08/17/2023 Technique: Portable AP Findings: Heart size mildly enlarged. Lungs clear. No acute bony abnormality. IMPRESSION: 1. No acute cardiopulmonary findings given portable technique. Reviewed, dictated and finalized at location R. TING CLEANER
--- NOTE | 2025-09-05 10:20 | ECG_ITS ---
Test Date: 2025-09-05 10:25:38 Measurements [address] [place] Rate: 160 P: 0 UT: 0 QRS: 53 QRSD: 122 T: -81 QT: 297 QTc: 484 Interpretive Statements ATRIAL FLUTTER/TACHYCARDIA WITH RAPID VENTRICULAR RESPONSE INTRAVENTRICULAR CONDUCTION DELAY ST DEVIATION AND T-WAVE ABNORMALITY, CONSIDERISCHEMIA Electronically Signed On 09-05-2025 11:26:15 [employer]ERAMIC [employer] by Al Ken D.O
[2025-09-05] MEDS: ASPIRIN 81 MG CHEWABLE TABLET 324 MG PO (10:42)
[2025-09-05 10:48] LABS: Hematocrit 57.8 % (37.0-47.0); Hemoglobin 18.2 g/dL (12.0-15.0); Immature Granulocyte Percent A 0.4 % (0-0.5); Lymphocytes Absolute Auto 3.09 K/mm3 (0.9-3.2); Mean Corpuscular HGB Conc 31.5 g/dl (32-36); Mean Corpuscular Hemoglobin 29.0 pg (26-34); Mean Corpuscular Volume 92.0 fl (80-100); Nucleated Red Blood Cells Absolute Auto 0.000 K/mm3 (0.0-0.012); Nucleated Red Blood Cells Perc 0.0 % (0.0-0.2); Platelet Count Result 302 k/mm3 (150-375); Red Blood Count 6.28 M/mm3 (4.2-5.4); White Blood Count 11.2 K/mm3 (4.5-10.0)
[2025-09-05] MEDS: METOPROLOL TARTRATE INJ 5 MG/5 ML VIAL IV PUSH (10:50)
--- NOTE | 2025-09-05 10:54 | PC.NURSE ---
Addendum entered by Patti Dee RN 09/05/25 10:58: Pt states that she has been monitored for blood pressure and heart rate, this is the number to contact. Original Note: [facility] [phone]
[2025-09-05 10:57] LABS: Alanine Aminotransferase 28 U/L (6-35); Albumin Level 4.6 g/dL (3.5-5.1); Alkaline Phosphatase 188 U/L (38-126); Anion Gap 12 mmol/L (4-12); Aspartate Amino Transferase 29 U/L (14-36); Bilirubin,Total 1.0 mg/dL (0.2-1.3); Blood Urea Nitrogen 25 mg/dL (7-17); Calcium 9.2 mg/dL (8.4-10.2); Carbon Dioxide 31 mmol/L (22-30); Chloride 98 mmol/L (98-107); Estimated CRCL calculation 36 ml/min; Estimated Glomerular Filt Rate 35; Glucose 145 mg/dL (65-110); Lipase 116 U/L (23-300); Magnesium 2.4 mg/dL (1.6-2.3); Potassium 3.2 mmol/L (3.4-5.0); Sodium 141 mmol/L (137-145); Total Protein 7.9 g/dL (6.3-8.2)
[2025-09-05 11:07] LABS: Troponin I < 0.012 ng/mL (0.000-0.034)
--- NOTE | 2025-09-05 11:14 | ED.ARRPALP ---
HPI - Arrhythmia/Palpitations General Chief Complaint: Arrhythmia/Palpitations <Jen Barba PA-C - Last Filed: 09/05/25 19:19> Stated Complaint: elevated HR <Jen Barba PA-C - Last Filed: 09/05/25 19:19> Time Seen by Provider: 09/05/25 10:40 <CHARY Richardson Last Filed: 09/05/25 19:19> Source: patient <Jen Barba PA-C - Last Filed: 09/05/25 19:19> Mode of arrival: ambulatory <CHARY Richardson Last Filed: 09/05/25 19:19> Limitations: no limitations <Jen Barba PA-C - Last Filed: 09/05/25 19:19> History of Present Illness HPI narrative: Patient is a 70-year-old female, with PMH of frequent PACs, DM, HTN, HLD, RED, COPD, who presents the ED with report of dizziness. Patient reports she has been in a study for the past 1 year for evaluation of her heart rate and blood pressure. She states she takes her heart rate and blood pressure every morning and it is sent to her doctors. She states over the past 1 week, her heart rate has been elevated to 150s to 160s. She states her doctor told her to come in for an EKG today after seeing her heart rate. She was then sent here for possible SVT. Patient does admit that she has been feeling dizzy/lightheaded over the past 1 week, worse with exertion. Reports chronic shortness of breath, denies worsening of this recently. Denies chest pain. Denies feeling palpitations. Denies pain or swelling in her legs. Denies previous hx of AFIB. Sees Dr. Gordillo, last saw him two weeks ago and was cleared for another 6 months. <Jen Barba PA-C - Last Filed: 09/05/25 19:19> Related Data Home Medications: Home Medications ?Medication ?Instructions ?Recorded ?Confirmed ?Last Taken ?Type albuterol sulfate 90 mcg/actuation 2 inh inhalation DIRECTED 06/01/21 09/05/25 09/04/25 20:00 History aerosol inhaler dapagliflozin propanediol 10 mg 10 mg PO DAILY 12/30/23 09/05/25 09/04/25 20:00 History tablet (Farxiga) escitalopram oxalate 10 mg tablet 10 mg PO .QD 10/30/24 09/05/25 09/04/25 20:00 History levothyroxine 112 mcg tablet 112 mcg PO .QD 10/30/24 09/05/25 09/04/25 17:07 History hydrochlorothiazide 25 mg tablet 25 mg PO .qday 11/10/24 09/05/25 09/04/25 20:00 History atorvastatin 40 mg tablet 40 mg PO DAILY 08/25/25 09/05/25 09/04/25 20:00 History fluticasone fur. 100 mcg-umeclid 1 inh inhalation Q24H 08/25/25 09/05/25 09/04/25 20:00 History 62.5 mcg-vilant 25 mcg inhalat.powder (Trelegy Ellipta) semaglutide 2 mg/dose (8 mg/3 mL) 2 mg subcut WEEKLY 08/25/25 09/05/25 08/27/25 20:00 History subcutaneous pen injector (Ozempic) <Jen Barba PA-C - Last Filed: 09/05/25 19:19> Allergies/Adverse Reactions: Allergies Allergy/AdvReac Type Severity Reaction Status Date / Time banana Allergy Severe ANAPHALXIS Verified 09/05/25 16:43 Penicillins Allergy Intermediate Anaphylaxis Verified 09/05/25 16:43 <Jen Barba PA-C - Last Filed: 09/05/25 19:19> Review of Systems Review of Systems: All systems reviewed & are unremarkable except as noted in HPI. <Jen Barba PA-C - Last Filed: 09/05/25 19:19> All systems reviewed & are unremarkable except as noted in HPI and below <Jen Barba PA-C - Last Filed: 09/05/25 19:19> PMFSH Past Medical History Medical History: Medical History Colon polyp Hypertension Obstructive sleep apnea Migraine COPD (chronic obstructive pulmonary disease) Hypothyroidism (01/27/17) Hyperlipidemia Thyroid disease <Jen Barba PA-C - Last Filed: 09/05/25 19:19> Surgical History Surgical History: Surgical History H/O neck surgery H/O thyroidectomy <Jen Barba PA-C - Last Filed: 09/05/25 19:19> Family History Family History: Family History Other Carcinoma of colon Diabetes mellitus Family history of blood dyscrasia Family history of coronary artery disease Family history of malignant neoplasm Heart disease <Jen Barba PA-C - Last Filed: 09/05/25 19:19> Social History Social History: Social History Smoking packs per day: 2 Smoking cigarettes per day: 40.0 Years smoked: 45 Smoking pack-years: 90.00 Smoking status: Former smoker Tobacco type: cigarettes Smoking end date: 07/20/22 Alcohol intake: former Alcohol use details: No alcohol use Substance use: never Lack of Transportation: No Lack of Food: Never True Current Housing: I Have Housing Concerned About Future Housing: No Difficulty Paying Gas/Electric Bills: No Difficulty Paying for Meds: No Currently Unemployed: No Education: Trade/Vocational Certificate Difficulty w/ Childcare or Family Care: No Living arrangements: alone Occupation/Education: occupation Additional occupation/education comments: 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 HEAD: Normocephalic, atraumatic. RESPIRATORY: Airway patent, respirations nonlabored. Decreased lung sounds throughout bases bilaterally, occasional expiratory wheezing. No distress. CARDIOVASCULAR: Tachycardic with irregular rhythm without murmurs, rubs, or gallops. ABDOMINAL: Soft, nontender, nondistended. Normoactive BS. MUSCULOSKELETAL: Moves all extremities. No gross deformities. No peripheral edema. No calf tenderness. SKIN: Warm, dry, normal color. NEURO: A&O X3. Speech clear. Cranial nerves II-XII grossly intact. Steady gait. No ataxic movements. No focal deficits PSYCHIATRIC: Appropriate mood and affect. Normal interaction. <Jen Barba PA-C - Last Filed: 09/05/25 19:19> Course SENIOR POWER SCHEDULER/PA Physician Supervision This visit was performed by both a physician and an APC. I performed all aspects of the MDM as documented. <Rene Gordillo MD - Last Filed: 09/05/25 18:47> Vital Signs Vital signs: Vital Signs Pulse Rate 162 H 09/05/25 10:23 Respiratory Rate 20 09/05/25 10:23 Blood Pressure 134/94 H 09/05/25 10:23 Pulse Oximetry 100 09/05/25 10:23 Oxygen Delivery Room Air 09/05/25 10:23 Temperature 98.1 F 09/05/25 16:25 Pulse Rate 130 H 09/05/25 17:03 Respiratory Rate 16 09/05/25 16:25 Blood Pressure 106/51 L 09/05/25 16:25 Pulse Oximetry 94 09/05/25 16:25 Oxygen Delivery Room Air 09/05/25 10:23 <Jen Barba PA-C - Last Filed: 09/05/25 19:19> Vital Signs Pulse Rate 162 H 09/05/25 10:23 Respiratory Rate 20 09/05/25 10:23 Blood Pressure 134/94 H 09/05/25 10:23 Pulse Oximetry 100 09/05/25 10:23 Oxygen Delivery Room Air 09/05/25 10:23 Temperature 98.1 F 09/05/25 16:25 Pulse Rate 130 H 09/05/25 17:03 Respiratory Rate 16 09/05/25 16:25 Blood Pressure 106/51 L 09/05/25 16:25 Pulse Oximetry 94 09/05/25 16:25 Oxygen Delivery Room Air 09/05/25 10:23 <Rene Gordillo MD - Last Filed: 09/05/25 18:47> MDM - Arrhythmia/Palpitations MDM Narrative Medical decision making narrative: Patient presented to ED with concern for tachycardia, possible SVT, reporting dizziness for the past 1 week. Patient tachycardic into the 150s-160s upon arrival. EKG w/ Afib/flutter w/ RVR, nonspecific ST changes. Patient denies any previous history of AFib. Patient denying chest pain. Baseline trop negative Basic laboratory studies with evidence of hemoconcentration, elevated hemoglobin. Given fluids. Minimal leukocytosis of 11.2. CMP with potassium of 3.2. Replaced orally. Slight MARIAELENA with creatinine today of 1.49. No recent records to compare to, but baseline appears closer to 1. Fluids ongoing. Mag within normal range. TSH WNL. BNP is elevated to around 2000. Patient does not appear fluid overloaded. CXR clear. CTA chest w/o PE or other acute findings, possible pulmonary hypertension. Patient takes metoprolol succinate 25 mg extended release at home. Given 5 mg dose of IV Lopressor. Did improve heart rates into the 120/130s. Still irregular. Appears consistent with A flutter. Repeat EKG obtained. Blood pressure did drop slightly after Lopressor. Had several readings in the 90 systolic. Fluids are ongoing. Will continue to monitor closely. Discussed case with Dr. Gordillo, cardiology, advised will likely need to be started on anti arrhythmic medication, possibly sotalol. Will place order for this. Will consult and see patient later. Agrees with plan for admission for continued rate control, new onset AFib/flutter Chads Vasc score of 4 based on age, female, hypertension, diabetes. Will start on Eliquis. Discussed case with Nenita JOHNSON hospitalist, accepted patient for admission. Patient is in agreement with plan and admission. <Jen Barba PA-C - Last Filed: 09/05/25 19:19> Medical Records Attestation: I reviewed the patient's medical records. <Jen Barba PA-C - Last Filed: 09/05/25 19:19> Lab Data Attestation: I reviewed the patient's lab results. <CHARY Richardson Last Filed: 09/05/25 19:19> Result diagrams: 09/05/25 10:38 09/05/25 10:38 <Jen Barba PA-C - Last Filed: 09/05/25 19:19> Labs: Lab Results 09/05/25 09/05/25 Range/Units 10:38 11:35 WBC 11.2 H (4.5-10.0) K/mm3 RBC 6.28 H (4.2-5.4) M/mm3 Hgb 18.2 H D (12.0-15.0) g/dL Hct 57.8 H (37.0-47.0) % MCV 92.0 (80-100) fl MCH 29.0 (26-34) pg MCHC 31.5 L (32-36) g/dl RDW 17.2 H (11.5-14.5) % Plt Count 302 (150-375) k/mm3 MPV 10.0 (7.4-10.4) fl Immature Gran % (Auto) 0.4 (0-0.5) % Neut % (Auto) 62.9 (45.5-73.1) % Lymph % (Auto) 27.6 (18.3-44.2) % [place] % (Auto) 6.3 (2.6-8.5) % Eos % (Auto) 2.1 (0-4.4) % Baso % (Auto) 0.7 (0.2-1.2) % Lymph # (Auto) 3.09 (0.9-3.2) K/mm3 [place] # (Auto) 0.7 H (0.1-0.6) K/mm3 Eos # (Auto) 0.2 (0-0.3) K/mm3 Baso # (Auto) 0.1 (0.0-0.1) K/mm3 Abs Immat Gran (auto) 0.04 H (0.00-0.031) K/mm3 Absolute Neuts (auto) 7.0 H (1.3-6.7) K/mm3 Absolute Nucleated RBC 0.000 (0.0-0.012) K/mm3 Nucleated RBC % 0.0 (0.0-0.2) % PT 14.2 (11.1-14.7) Seconds INR 1.1 APTT 26.5 (22.3-36.8) Seconds Sodium 141 (137-145) mmol/L Potassium 3.2 L (3.4-5.0) mmol/L Chloride 98 (98-107) mmol/L Carbon Dioxide 31 H (22-30) mmol/L Anion Gap 12 (4-12) mmol/L BUN 25 H (7-17) mg/dL Creatinine 1.49 H (0.7-1.0) mg/dL Estim Creat Clear Calc 36 ml/min Estimated GFR 35 L (59 - ) Glucose 145 H (65-110) mg/dL Calcium 9.2 (8.4-10.2) mg/dL Magnesium 2.4 H (1.6-2.3) mg/dL Total Bilirubin 1.0 (0.2-1.3) mg/dL AST 29 (14-36) U/L ALT 28 (6-35) U/L Alkaline Phosphatase 188 H (38-126) U/L Troponin I < 0.012 (0.000-0.034) ng/mL NT-Pro-B Natriuret Pep 2050 H (19.9-100) pg/mL Total Protein 7.9 (6.3-8.2) g/dL Albumin 4.6 (3.5-5.1) g/dL Lipase 116 (23-300) U/L TSH (Reflex) 1.090 (0.465-4.68) uIU/mL <Jen Barba PA-C - Last Filed: 09/05/25 19:19> Lab Results 09/05/25 09/05/25 Range/Units 10:38 11:35 WBC 11.2 H (4.5-10.0) K/mm3 RBC 6.28 H (4.2-5.4) M/mm3 Hgb 18.2 H D (12.0-15.0) g/dL Hct 57.8 H (37.0-47.0) % MCV 92.0 (80-100) fl MCH 29.0 (26-34) pg MCHC 31.5 L (32-36) g/dl RDW 17.2 H (11.5-14.5) % Plt Count 302 (150-375) k/mm3 MPV 10.0 (7.4-10.4) fl Immature Gran % (Auto) 0.4 (0-0.5) % Neut % (Auto) 62.9 (45.5-73.1) % Lymph % (Auto) 27.6 (18.3-44.2) % [place] % (Auto) 6.3 (2.6-8.5) % Eos % (Auto) 2.1 (0-4.4) % Baso % (Auto) 0.7 (0.2-1.2) % Lymph # (Auto) 3.09 (0.9-3.2) K/mm3 [place] # (Auto) 0.7 H (0.1-0.6) K/mm3 Eos # (Auto) 0.2 (0-0.3) K/mm3 Baso # (Auto) 0.1 (0.0-0.1) K/mm3 Abs Immat Gran (auto) 0.04 H (0.00-0.031) K/mm3 Absolute Neuts (auto) 7.0 H (1.3-6.7) K/mm3 Absolute Nucleated RBC 0.000 (0.0-0.012) K/mm3 Nucleated RBC % 0.0 (0.0-0.2) % PT 14.2 (11.1-14.7) Seconds INR 1.1 APTT 26.5 (22.3-36.8) Seconds Sodium 141 (137-145) mmol/L Potassium 3.2 L (3.4-5.0) mmol/L Chloride 98 (98-107) mmol/L Carbon Dioxide 31 H (22-30) mmol/L Anion Gap 12 (4-12) mmol/L BUN 25 H (7-17) mg/dL Creatinine 1.49 H (0.7-1.0) mg/dL Estim Creat Clear Calc 36 ml/min Estimated GFR 35 L (59 - ) Glucose 145 H (65-110) mg/dL Calcium 9.2 (8.4-10.2) mg/dL Magnesium 2.4 H (1.6-2.3) mg/dL Total Bilirubin 1.0 (0.2-1.3) mg/dL AST 29 (14-36) U/L ALT 28 (6-35) U/L Alkaline Phosphatase 188 H (38-126) U/L Troponin I < 0.012 (0.000-0.034) ng/mL NT-Pro-B Natriuret Pep 2050 H (19.9-100) pg/mL Total Protein 7.9 (6.3-8.2) g/dL Albumin 4.6 (3.5-5.1) g/dL Lipase 116 (23-300) U/L TSH (Reflex) 1.090 (0.465-4.68) uIU/mL <Rene Gordillo MD - Last Filed: 09/05/25 18:47> Imaging Data Attestation: I personally reviewed and interpreted this imaging study as follows: <Jen Barba PA-C - Last Filed: 09/05/25 19:19> Radiologist's impression: ITS Impressions Chest X-Ray 09/05/25 11:09 IMPRESSION: 1. No acute cardiopulmonary findings given portable technique. Chest CTA 09/05/25 11:31 IMPRESSION: 1. No pulmonary emboli or gross acute intrathoracic abnormality. 2. 2.9 cm focal dilatation of the left pulmonary artery may represent ectatic enlargement; findings could also be associated with pulmonary arterial hypertension. <Jen Barba PA-C - Last Filed: 09/05/25 19:19> ECG Data EKG #1: Attestation: I personally reviewed and interpreted this ECG as follows: <Jen Barba PA-C - Last Filed: 09/05/25 19:19> ECG completion date: 09/05/25 <Jen Barba PA-C - Last Filed: 09/05/25 19:19> ECG completion time: 10:25 <Jen Barba PA-C - Last Filed: 09/05/25 19:19> EKG Interpretation: tachycardia (160), atrial fibrillation and non-specific ST changes <Jen Barba PA-C - Last Filed: 09/05/25 19:19> Discharge Plan Discharge Clinical Impression: Atrial flutter with rapid ventricular response, Dizziness, Elevated brain natriuretic peptide (BNP) level <Jen Barba PA-C - Last Filed: 09/05/25 19:19> Patient Disposition: Still a Patient <Jen Barba PA-C - Last Filed: 09/05/25 19:19> Condition: Stable <Jen Barba PA-C - Last Filed: 09/05/25 19:19>
[2025-09-05 11:32] LABS: Thyroid Stimulating Hormone Reflex 1.090 uIU/mL (0.465-4.68)
[2025-09-05] MEDS: POTASSIUM CHLORIDE 20 MEQ ER TABLET 40 MEQ PO (11:36)
[2025-09-05] MEDS: SODIUM CHLORIDE 0.9% IV 1,000 ML 999 ML IV CONT (11:37)
[2025-09-05 11:43] LABS: NT Pro B Type Natriuretic Pept 2050 pg/mL (19.9-100)
[2025-09-05 11:53] LABS: INR 1.1
[2025-09-05 11:54] LABS: Partial Thromboplastin Time 26.5 Seconds (22.3-36.8)
[2025-09-05 12:23] LABS: Prothrombin Time 14.2 Seconds (11.1-14.7)
--- NOTE | 2025-09-05 12:40 | ECG_ITS ---
Test Date: 2025-09-05 12:50:36 Measurements Intervals [place] Rate: 116 P: 0 NH: 0 QRS: 67 QRSD: 95 T: -17 QT: 362 QTc: 504 Interpretive Statements ATRIAL FLUTTER/TACHYCARDIA WITH RAPID VENTRICULAR RESPONSE ST DEVIATION AND MODERATE T-WAVE ABNORMALITY, CONSIDER INFERIOR ISCHEMIA [-0.1+ mV T-WAVE IN II/aVF] Compared to ECG 09/05/2025 10:25:38 Possible ischemia now present Intraventricular conduction delay no longer present T-wave abnormality still present Electronically Signed On 09-05-2025 13:58:12 DIGITAL ASSET COORDINATOR by Bart De Paz M.D.
[2025-09-05] MEDS: APIXABAN 5 MG TABLET PO ×2 (12:55→20:57)
[2025-09-05 13:37] LABS: Troponin I < 0.012 ng/mL (0.000-0.034)
[2025-09-05] MEDS: ACETAMINOPHEN 325 MG TABLET 650 MG PO (14:19)
--- NOTE | 2025-09-05 15:57 | WPCEDHO ---
ED Hand Off Checklist All vitals saved:yes IV Site documented:yes All med administrations documented:yes Triage Note Triage Note SOB for past couple of weeks. 09/05/25 10:23 Seen by PMD today with EKG done. PMD saw SVT and sent pt here for adenosine. Pt denies CP. HX of COPD Allergies banana Allergy (Severe, Verified 04/29/25 16:16) ANAPHALXIS Penicillins Allergy (Intermediate, Verified 04/29/25 16:16) Anaphylaxis Family History (Last Reviewed 09/05/25 @ 11:20 by Jen Barba PA-C) Other Carcinoma of colon Diabetes mellitus Family history of blood dyscrasia Family history of coronary artery disease Family history of malignant neoplasm Heart disease Active Medications including assessments/comments Acetaminophen (Acetaminophen 325 Mg Tablet) 650 mg PO Q4H PRN PRN Reason: Mild Pain (1-3) or Fever Last Admin: 09/05/25 14:19 Dose: 650 mg Documented By: LAMBERT MAR Pain Assessment Document 09/05/25 14:19 ANT (Rec: 09/05/25 14:19 ANT [id number]) Pain Evaluation Pain Evaluation Assessment Pain Scale Pain Scale Used Numeric (1 - 10) Self Report Pain Assessment Reported Pain Level 7 Pain Score Pain Score 7: Self Report Administered/Completed Medications Discontinued Medications Apixaban (Apixaban 5 Mg Tablet) 5 mg PO ONCE STA Stop: 09/05/25 12:38 Last Admin: 09/05/25 12:55 Dose: 5 mg Documented By: ANT Aspirin (Aspirin 81 Mg Chewable Tablet) 324 mg PO ONCE STA Stop: 09/05/25 10:21 Last Admin: 09/05/25 10:42 Dose: 324 mg Documented By: ANT Sodium Chloride (Normal Saline Iv) 1,000 mls @ 999 mls/hr IV CONT .Q1H1M STA Stop: 09/05/25 12:09 Last Infusion: 09/05/25 12:44 Dose: Infused Documented By: Admin: 09/05/25 11:37 Dose: 999 mls/hr Documented By: ANT Metoprolol Tartrate (Metoprolol Tartrate Inj 5 Mg/5 Ml Vial) 5 mg IV PUSH ONCE STA Stop: 09/05/25 10:42 Last Admin: 09/05/25 10:50 Dose: 5 mg Documented By: ANT Metoprolol Tartrate (Metoprolol Tartrate Inj 5 Mg/5 Ml Vial) Confirm Administered Dose 5 mg .ROUTE .STK-MED ONE Stop: 09/05/25 10:50 Last Admin: 09/05/25 10:59 Dose: Not Given Documented By: RICHARD Non-Admin Reason: Duplicate Dose Potassium Chloride (Potassium Chloride 20 Meq Er Tablet) 40 meq PO ONCE STA Stop: 09/05/25 11:09 Last Admin: 09/05/25 11:36 Dose: 40 meq Documented By: LAMBERT Notes 09/05/25 10:54 Nurse Note by Patti Dee Addendum entered by Patti Dee RN 09/05/25 10:58: Pt states that she has been monitored for blood pressure and heart rate, this is the number to contact. Original Note: [facility] [phone] Initialized on 09/05/25 10:54 - END OF NOTE Interventions/Assessments IV / Saline Lock, Insert Start: 09/05/25 10:20 Freq: STAT Status: Active Protocol: Document 09/05/25 10:39 ANT (Rec: 09/05/25 10:39 ANT [id number]) IV Assessment Peripheral Access Right Antecubital IV Catheter Access Initiated IV Insertion Date 09/05/25 IV Insertion Time 10:39 Catheter Gauge 20 Ultrasound Used for No Placement IV Site Assessment WNL IV Care and WNL Maintenance PA: Cardiovascular Assessment Start: 09/05/25 10:16 Freq: Status: Active Protocol: Document 09/05/25 10:39 ANT (Rec: 09/05/25 10:41 ANT [id number]) Cardiovascular Assessment Cardiovascular None Symptoms Skin Description Pallor Jugular Vein None Distention Last Vital Signs Temperature 97.9 F 09/05/25 15:51 Pulse Rate 149 H 09/05/25 15:51 Respiratory Rate 19 09/05/25 15:51 Pulse Oximetry 94 09/05/25 15:51 Blood Pressure 127/98 H 09/05/25 15:51 Blood Pressure Mean 107 09/05/25 15:51 Blood Pressure Position Sitting 09/05/25 10:23 Oxygen Delivery Room Air 09/05/25 10:23 Weight 94.5 kg 09/05/25 10:23 Last Result - Abnormals Only WBC 11.2 K/mm3 (4.5-10.0) H 09/05/25 10:38 RBC 6.28 M/mm3 (4.2-5.4) H 09/05/25 10:38 Hgb 18.2 g/dL (12.0-15.0) H D 09/05/25 10:38 Hct 57.8 % (37.0-47.0) H 09/05/25 10:38 MCHC 31.5 g/dl (32-36) L 09/05/25 10:38 RDW 17.2 % (11.5-14.5) H 09/05/25 10:38 [place] # (Auto) 0.7 K/mm3 (0.1-0.6) H 09/05/25 10:38 Abs Immat Gran (auto) 0.04 K/mm3 (0.00-0.031) H 09/05/25 10:38 Absolute Neuts (auto) 7.0 K/mm3 (1.3-6.7) H 09/05/25 10:38 Potassium 3.2 mmol/L (3.4-5.0) L 09/05/25 10:38 Carbon Dioxide 31 mmol/L (22-30) H 09/05/25 10:38 BUN 25 mg/dL (7-17) H 09/05/25 10:38 Creatinine 1.49 mg/dL (0.7-1.0) H 09/05/25 10:38 Estimated GFR 35 (59-) L 09/05/25 10:38 Glucose 145 mg/dL (65-110) H 09/05/25 10:38 Magnesium 2.4 mg/dL (1.6-2.3) H 09/05/25 10:38 Alkaline Phosphatase 188 U/L (38-126) H 09/05/25 10:38 NT-Pro-B Natriuret Pep 2050 pg/mL (19.9-100) H 09/05/25 10:38 Most Recent Suicide Severity Rating Suicide Severity Rating NO RISK INDICATED 09/05/25 10:23
--- NOTE | 2025-09-05 16:10 | PM.CNCAR ---
Assessment and Plan Assessment and plan (1) Atrial flutter with rapid ventricular response: Code(s): I48.92 - Unspecified atrial flutter Status: Acute Assessment and Plan: [id number] 3. Start Sotalol 80 mg BID as per protocol, and start Eliquis 5 mg BID. Rate control but need to monitor BP as it tends to drop. If still in atrial flutter on 3rd day then plan for CANDACE/DC cardioversion. (2) Hyperlipidemia: Code(s): E78.5 - Hyperlipidemia, unspecified Status: Acute Assessment and Plan: On Atorvastatin. (3) Hypertension: Code(s): I10 - Essential (primary) hypertension Status: Acute Assessment and Plan: Low normal to normal. Gentle IVF to keep hydrated. History of Present Illness History of Present Illness Consult date/time: 09/05/25 16:10 Reason For Visit: new onset a flutter w rvr Narrative: 70 yr old woman who is my regular cardiology patient and a patientn of Patricia Gomez presents to ER with rapid HR. She has a history of frequent PAC's, DM, hypertension, dyslipidemia, RED (Sees PCP), COPD, former smoking. States her BP and HR have been monitored by other doctors and for past week HR have been in 150-160s bpm. Her doctor told her to come in for an EKG which showed atrial flutter with RVR. States she has some nausea. She drinks only about 20 ounces of fluid a day. Reports she has [place] walking short distances. Denies chest pain, orthopnea, PND, edema. Cardiovascular Procedures Echo/MUGA:: 12/10/24 Echo: EF 65-70%, mild LVH, grade I diastolic dysfunction (E/e' 8), trace pericardial effusion. 05/08/22 Echo: TDS. EF >70%, mild LVH, trace TR. Electrophysiology:: 12/29/24 3 days event monitor: Sinus rhythm, HR range 53-131 bpm; average 76; frequent PAC's at 11%, no PVC. 12/30/23 EKG: Sinus rhythm. Stress Tests:: 03/08/25 Lexiscan myoview: Negative. 06/13/22 Sleep study: Mild RED, desat 88%. Review of Systems Review of Systems: All systems reviewed & are unremarkable except as noted in HPI and below Constitutional: Constitutional: Reports as per HPI, Denies chills and Denies fever(s) Cardiovascular: Cardiovascular: Reports as per HPI, Denies chest pain and Denies irregular heart rhythm Respiratory: Respiratory: Reports as per HPI and Reports dyspnea on exertion Gastrointestinal: Gastrointestinal: Reports as per HPI, Denies abdominal pain and Reports nausea Genitourinary: Genitourinary: Reports as per HPI and Denies dysuria Musculoskeletal: Musculoskeletal: Reports as per HPI Neurologic: Reports as per HPI, Reports dizziness and Denies syncope [facility] Past Medical History Medical History Colon polyp Hypertension Obstructive sleep apnea Migraine COPD (chronic obstructive pulmonary disease) Hypothyroidism (01/27/17) Hyperlipidemia Thyroid disease Surgical History Surgical History H/O neck surgery H/O thyroidectomy Family History Family History Other Carcinoma of colon Diabetes mellitus Family history of blood dyscrasia Family history of coronary artery disease Family history of malignant neoplasm Heart disease Social History Social History Smoking packs per day: 0.5 Smoking cigarettes per day: 10.0 Years smoked: 45 Smoking pack-years: 22.50 Smoking status: Former smoker Tobacco type: cigarettes Alcohol intake: never Alcohol use details: No alcohol use Substance use: never Living arrangements: alone Occupation/Education: occupation Additional 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/education 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: 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Route 08/22/25 08/25/25 Rx tablet,extended release 24 hr .COMPLEX #30 tabs atorvastatin 40 mg tablet 40 mg PO DAILY 08/25/25 08/25/25 History fluticasone fur. 100 mcg-umeclid inhalation 08/25/25 08/25/25 History 62.5 mcg-vilant 25 mcg inhalat.powder (Trelegy Ellipta) semaglutide 2 mg/dose (8 mg/3 mL) mg subcut 08/25/25 08/25/25 History subcutaneous pen injector (Ozempic) Allergies Allergy/AdvReac Type Severity Reaction Status Date / Time banana Allergy Severe ANAPHALXIS Verified 04/29/25 16:16 Penicillins Allergy Intermediate Anaphylaxis Verified 04/29/25 16:16 Vital Signs Vital Signs - 24 hr 09/05/25 10:23 09/05/25 10:30 09/05/25 10:31 Temperature Pulse Rate 162 H 161 H 159 H Respiratory Rate 20 18 18 Blood Pressure 134/94 H 125/91 H Pulse Oximetry 100 96 96 Oxygen Delivery Room Air 09/05/25 10:45 09/05/25 10:46 09/05/25 10:50 Temperature Pulse Rate 160 H 162 H 160 H Respiratory Rate 20 13 Blood Pressure 131/96 H Pulse Oximetry 98 98 Oxygen Delivery 09/05/25 11:00 09/05/25 11:14 09/05/25 11:15 Temperature Pulse Rate 119 H 121 H 132 H Respiratory Rate 14 22 H 22 H Blood Pressure 90/71 L 103/82 Pulse Oximetry 96 95 Oxygen Delivery 09/05/25 11:16 09/05/25 11:17 09/05/25 11:31 Temperature Pulse Rate 116 H 109 H 116 H Respiratory Rate 19 17 18 Blood Pressure 98/66 L Pulse Oximetry 95 97 92 Oxygen Delivery 09/05/25 11:41 09/05/25 11:46 09/05/25 11:47 Temperature Pulse Rate 130 H 108 H 116 H Respiratory Rate 16 13 12 Blood Pressure 128/78 87/54 L Pulse Oximetry 95 92 93 Oxygen Delivery 09/05/25 12:05 09/05/25 12:20 09/05/25 12:30 Temperature Pulse Rate 102 H 114 H 129 H Respiratory Rate 19 13 15 Blood Pressure Pulse Oximetry 94 95 95 Oxygen Delivery 09/05/25 12:32 09/05/25 12:45 09/05/25 12:47 Temperature Pulse Rate 137 H 124 H 123 H Respiratory Rate 17 15 14 Blood Pressure 115/69 113/92 H Pulse Oximetry 93 95 Oxygen Delivery 09/05/25 13:01 09/05/25 13:02 09/05/25 13:18 Temperature Pulse Rate 116 H 145 H 129 H Respiratory Rate 15 15 15 Blood Pressure 146/109 H 209/165 H Pulse Oximetry 92 92 95 Oxygen Delivery 09/05/25 13:19 09/05/25 13:31 09/05/25 14:01 Temperature Pulse Rate 118 H 113 H 121 H Respiratory Rate 15 14 19 Blood Pressure 110/86 Pulse Oximetry 97 94 100 Oxygen Delivery 09/05/25 15:51 Temperature 97.9 F Pulse Rate 149 H Respiratory Rate 19 Blood Pressure 127/98 H Pulse Oximetry 94 Oxygen Delivery Exam Const: General: cooperative, healthy appearing and comfortable Resp: Auscultation: clear to auscultation bilaterally, no crackles, no rales, no rhonchi and no wheezes Cardio: Rate: tachycardic Rhythm: abnormal rhythm Heart sounds: no murmurs Peripheral pulses: dorsalis pedis present GI: GI Palp: No abdominal tenderness and Yes Soft to palpation Neuro: General: oriented to person, oriented to place and oriented to time Extrem: Right lower extremity: no edema Left lower extremity: no edema Results Labs and Meds 09/05/25 10:38 09/05/25 10:38 Lab results: Cardiac Enzymes 09/05/25 09/05/25 Range/Units 10:38 13:09 AST 29 (14-36) U/L Troponin I < 0.012 < 0.012 (0.000-0.034) ng/mL Coagulation 09/05/25 Range/Units 11:35 PT 14.2 (11.1-14.7) Seconds APTT 26.5 (22.3-36.8) Seconds CBC 09/05/25 Range/Units 10:38 WBC 11.2 H (4.5-10.0) K/mm3 RBC 6.28 H (4.2-5.4) M/mm3 Hgb 18.2 H D (12.0-15.0) g/dL Hct 57.8 H (37.0-47.0) % Plt Count 302 (150-375) k/mm3 Lymph # (Auto) 3.09 (0.9-3.2) K/mm3 [place] # (Auto) 0.7 H (0.1-0.6) K/mm3 Eos # (Auto) 0.2 (0-0.3) K/mm3 Baso # (Auto) 0.1 (0.0-0.1) K/mm3 Comprehensive Metabolic Panel 09/05/25 Range/Units 10:38 Sodium 141 (137-145) mmol/L Potassium 3.2 L (3.4-5.0) mmol/L Chloride 98 (98-107) mmol/L Carbon Dioxide 31 H (22-30) mmol/L BUN 25 H (7-17) mg/dL Creatinine 1.49 H (0.7-1.0) mg/dL Glucose 145 H (65-110) mg/dL Calcium 9.2 (8.4-10.2) mg/dL AST 29 (14-36) U/L ALT 28 (6-35) U/L Alkaline Phosphatase 188 H (38-126) U/L Total Protein 7.9 (6.3-8.2) g/dL Albumin 4.6 (3.5-5.1) g/dL Intake and Output 09/05/25 09/05/25 09/05/25 07:59 15:59 23:59 Intake Total 1000 Balance 1000 Intake: IV 1000 Sodium Chloride 0.9% IV 1,000 1000 ml @ 999 mls/hr IV CONT .Q1H1M STA Rx#:[id number] Patient Weight 09/05/25 23:59 Weight 94.5 kg
[2025-09-05] MEDS: DIGOXIN TAB 125 MCG TABLET PO (17:03)
[2025-09-05 17:37] LABS: Troponin I < 0.012 ng/mL (0.000-0.034)
--- NOTE | 2025-09-05 18:33 | PM.IMHP ---
H&P: HPI History of Present Illness Date/Time: 09/05/25 18:33 [facility] Past Medical History Medical History Colon polyp Hypertension Obstructive sleep apnea Migraine COPD (chronic obstructive pulmonary disease) Hypothyroidism (01/27/17) Hyperlipidemia Thyroid disease Surgical History Surgical History H/O neck surgery H/O thyroidectomy Family History Family History Other Carcinoma of colon Diabetes mellitus Family history of blood dyscrasia Family history of coronary artery disease Family history of malignant neoplasm Heart disease Social History Social History Smoking packs per day: 2 Smoking cigarettes per day: 40.0 Years smoked: 45 Smoking pack-years: 90.00 Smoking status: Former smoker Tobacco type: cigarettes Smoking end date: 07/20/22 Alcohol intake: former Alcohol use details: No alcohol use Substance use: never Lack of Transportation: No Lack of Food: Never True Current Housing: I Have Housing Concerned About Future Housing: No Difficulty Paying Gas/Electric Bills: No Difficulty Paying for Meds: No Currently Unemployed: No Education: Trade/Vocational Certificate Difficulty w/ Childcare or Family Care: No Living arrangements: alone Occupation/Education: occupation 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 Meds Home Medications and Allergies Home Medications ?Medication ?Instructions ?Recorded ?Confirmed ?Type albuterol sulfate 90 mcg/actuation 2 inh inhalation DIRECTED 06/01/21 09/05/25 History aerosol inhaler dapagliflozin propanediol 10 mg 10 mg PO DAILY 12/30/23 09/05/25 History tablet (Farxiga) escitalopram oxalate 10 mg tablet 10 mg PO .QD 10/30/24 09/05/25 History levothyroxine 112 mcg tablet 112 mcg PO .QD 10/30/24 09/05/25 History hydrochlorothiazide 25 mg tablet 25 mg PO .qday 11/10/24 09/05/25 History metoprolol succinate 25 mg See Rx Instructions .Route 08/22/25 09/05/25 Rx tablet,extended release 24 hr .COMPLEX #30 tabs atorvastatin 40 mg tablet 40 mg PO DAILY 08/25/25 09/05/25 History fluticasone fur. 100 mcg-umeclid 1 inh inhalation Q24H 08/25/25 09/05/25 History 62.5 mcg-vilant 25 mcg inhalat.powder (Trelegy Ellipta) semaglutide 2 mg/dose (8 mg/3 mL) 2 mg subcut WEEKLY 08/25/25 09/05/25 History subcutaneous pen injector (Ozempic) Allergies Allergy/AdvReac Type Severity Reaction Status Date / Time banana Allergy Severe ANAPHALXIS Verified 09/05/25 16:43 Penicillins Allergy Intermediate Anaphylaxis Verified 09/05/25 16:43 Vital Signs Vital Signs - 24 hr 09/05/25 10:23 09/05/25 10:30 09/05/25 10:31 Temperature Pulse Rate 162 H 161 H 159 H Respiratory Rate 20 18 18 Blood Pressure 134/94 H 125/91 H Pulse Oximetry 100 96 96 Oxygen Delivery Room Air 09/05/25 10:45 09/05/25 10:46 09/05/25 10:50 Temperature Pulse Rate 160 H 162 H 160 H Respiratory Rate 20 13 Blood Pressure 131/96 H Pulse Oximetry 98 98 Oxygen Delivery 09/05/25 11:00 09/05/25 11:14 09/05/25 11:15 Temperature Pulse Rate 119 H 121 H 132 H Respiratory Rate 14 22 H 22 H Blood Pressure 90/71 L 103/82 Pulse Oximetry 96 95 Oxygen Delivery 09/05/25 11:16 09/05/25 11:17 09/05/25 11:31 Temperature Pulse Rate 116 H 109 H 116 H Respiratory Rate 19 17 18 Blood Pressure 98/66 L Pulse Oximetry 95 97 92 Oxygen Delivery 09/05/25 11:41 09/05/25 11:46 09/05/25 11:47 Temperature Pulse Rate 130 H 108 H 116 H Respiratory Rate 16 13 12 Blood Pressure 128/78 87/54 L Pulse Oximetry 95 92 93 Oxygen Delivery 09/05/25 12:05 09/05/25 12:20 09/05/25 12:30 Temperature Pulse Rate 102 H 114 H 129 H Respiratory Rate 19 13 15 Blood Pressure Pulse Oximetry 94 95 95 Oxygen Delivery 09/05/25 12:32 09/05/25 12:45 09/05/25 12:47 Temperature Pulse Rate 137 H 124 H 123 H Respiratory Rate 17 15 14 Blood Pressure 115/69 113/92 H Pulse Oximetry 93 95 Oxygen Delivery 09/05/25 13:01 09/05/25 13:02 09/05/25 13:18 Temperature Pulse Rate 116 H 145 H 129 H Respiratory Rate 15 15 15 Blood Pressure 146/109 H 209/165 H Pulse Oximetry 92 92 95 Oxygen Delivery 09/05/25 13:19 09/05/25 13:31 09/05/25 14:01 Temperature Pulse Rate 118 H 113 H 121 H Respiratory Rate 15 14 19 Blood Pressure 110/86 Pulse Oximetry 97 94 100 Oxygen Delivery 09/05/25 15:51 09/05/25 16:25 09/05/25 17:03 Temperature 97.9 F 98.1 F Pulse Rate 149 H 127 H 130 H Respiratory Rate 19 16 Blood Pressure 127/98 H 106/51 L Pulse Oximetry 94 94 Oxygen Delivery H&P: Results Labs Labs: Short CBC 09/05/25 Range/Units 10:38 WBC 11.2 H (4.5-10.0) K/mm3 Hgb 18.2 H D (12.0-15.0) g/dL Hct 57.8 H (37.0-47.0) % Plt Count 302 (150-375) k/mm3 BMP 09/05/25 10:38 Sodium 141 Potassium 3.2 L Chloride 98 Carbon Dioxide 31 H BUN 25 H Creatinine 1.49 H Glucose 145 H Calcium 9.2 Cardiac Enzymes 09/05/25 09/05/25 09/05/25 Range/Units 10:38 13:09 16:51 Troponin I < 0.012 < 0.012 < 0.012 (0.000-0.034) ng/mL Liver Function 09/05/25 Range/Units 10:38 Total Bilirubin 1.0 (0.2-1.3) mg/dL AST 29 (14-36) U/L ALT 28 (6-35) U/L Alkaline Phosphatase 188 H (38-126) U/L Albumin 4.6 (3.5-5.1) g/dL Assessment and Plan Assessment and plan (1) Atrial flutter with rapid ventricular response: Code(s): I48.92 - Unspecified atrial flutter Status: Acute
--- NOTE | 2025-09-05 20:33 | PM.IMHP ---
H&P: HPI History of Present Illness Date/Time: 09/05/25 20:33 Chief Complaint: Palpitation Narrative: This is a 70-year-old female patient who has a history of COPD, diabetes common hypertension. The patient stated that she has been monitoring her blood pressure and heart rate for a study group for the last 1 year. The patient stated that her heart rate has been elevated every morning for the past 1 week. She stated her heart rates been in the 150s to 160s. This information was conveyed to her primary care doctor who then asked her to come in for an EKG. The patient was then sent to the ER for possible SVT. The patient stated that she feels very anxious and dizzy and lightheaded for the past week. She denies any chest pain. The patient denies any new medication or [id number] medication. She stated that she has COPD and uses her albuterol almost every day. She denies having any coronary artery disease. She did see her golf player assistant Dr. Gordillo approximately 2 weeks ago and stated that she was not to return for another 6 months. Her golf player assistant was notified today and recommended sotalol. And she was also started on Eliquis. Her initial EKG was read as atrial flutter/tachycardia with rapid ventricular response as T deviation and T-wave abnormalities consider ischemia heart rate 160. Repeat EKG was read as atrial flutter/tachycardia with rapid ventricular response heart rate 116. The patient was given Lopressor IV, potassium chloride p.o., normal saline and Eliquis in the emergency room. Her white count was noted to be 11.2. Potassium 3.2. BUN 25 and creatinine 1.49. Her estimated GFR is 35. Glucose is 145. Magnesium was high at 2.4. Troponins were negative x3. Her BNP was noted to be 2050. TSH was within normal limits. Chest CTA shows no pulmonary emboli are grossly acute intrathoracic abnormality. 2.9 cm focal dilatation of the left pulmonary artery may represent a tactic enlargement findings could also be associated with pulmonary artery hypertension. The patient is being admitted to observation status on the date of service of 09/05/2025. Review of Systems Constitutional: Constitutional: Reports as per HPI and Reports no additional constitutional complaints Eyes: Eyes: Reports as per HPI and Reports no additional eye complaints ENT: Reports system reviewed and no additional complaints, except as documented and Reports Normal hearing present Cardiovascular: Cardiovascular: Reports no additional cardiovascular complaints Respiratory: Respiratory: Reports as per HPI and Reports no additional respiratory complaints Gastrointestinal: Gastrointestinal: Reports as per HPI and Reports no additional gastrointestinal complaints Genitourinary: Genitourinary: Reports no additional female genitourinary complaints Musculoskeletal: Musculoskeletal: Reports no additional musculoskeletal complaints Integumentary/Breasts: Skin/Breast: Reports system reviewed and no additional complaints, except as docu Neurologic: Reports system reviewed and no additional complaints, except as documented and Reports Normal hearing present Psychiatric: Psychiatric: Reports no additional psychiatric complaints and Reports as per HPI Hematologic/Lymphatic: Hematologic/Lymphatic: Reports no additional hematologic/lymphatic complaints Allergic/Immunologic: Allergic/Immunologic: Reports no additional allergic/immunologic complaints [facility] Past Medical History Medical History (Updated 09/06/25 @ 07:41 by Cher Sagastume PA-C) Pre-diabetes Depression Colon polyp Hypertension Obstructive sleep apnea Not compliant with CPAP Migraine COPD (chronic obstructive pulmonary disease) Hypothyroidism (01/27/17) Hyperlipidemia Thyroid disease Surgical History Surgical History (Updated 09/05/25 @ 23:03 by Piedad Aguilar APRN) H/O excision of ganglion cyst H/O lumpectomy H/O rectal polypectomy History of colonoscopy H/O tubal ligation H/O right knee surgery H/O neck surgery H/O thyroidectomy Family History Family History Other Carcinoma of colon Diabetes mellitus Family history of blood dyscrasia Family history of coronary artery disease Family history of malignant neoplasm Heart disease Social History Social History (Updated 09/05/25 @ 23:04 by Piedad Aguilar APRN) Social History: She is . 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 She has 4 children. Code status: Full code Smoking packs per day: 2 Smoking cigarettes per day: 40.0 Years smoked: 45 Smoking pack-years: 90.00 Smoking status: Former smoker Tobacco type: cigarettes Smoking end date: 07/20/22 Alcohol intake: former Alcohol use details: No alcohol use Substance use: never Lack of Transportation: No Lack of Food: Never True Current Housing: I Have Housing Concerned About Future Housing: No Difficulty Paying Gas/Electric Bills: No Difficulty Paying for Meds: No Currently Unemployed: No Education: Trade/Vocational Certificate Difficulty w/ Childcare or Family Care: No Living arrangements: alone Occupation/Education: occupation Additional occupation/education comments: 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 [employer] Spiritual care concerns: No Meds Home Medications and Allergies Home Medications ?Medication ?Instructions ?Recorded ?Confirmed ?Type albuterol sulfate 90 mcg/actuation 2 inh inhalation DIRECTED 06/01/21 09/05/25 History aerosol inhaler dapagliflozin propanediol 10 mg 10 mg PO DAILY 12/30/23 09/05/25 History tablet (Farxiga) escitalopram oxalate 10 mg tablet 10 mg PO .QD 10/30/24 09/05/25 History levothyroxine 112 mcg tablet 112 mcg PO .QD 10/30/24 09/05/25 History hydrochlorothiazide 25 mg tablet 25 mg PO .qday 11/10/24 09/05/25 History metoprolol succinate 25 mg See Rx Instructions .Route 08/22/25 09/05/25 Rx tablet,extended release 24 hr .COMPLEX #30 tabs atorvastatin 40 mg tablet 40 mg PO DAILY 08/25/25 09/05/25 History fluticasone fur. 100 mcg-umeclid 1 inh inhalation Q24H 08/25/25 09/05/25 History 62.5 mcg-vilant 25 mcg inhalat.powder (Trelegy Ellipta) semaglutide 2 mg/dose (8 mg/3 mL) 2 mg subcut WEEKLY 08/25/25 09/05/25 History subcutaneous pen injector (Ozempic) Allergies Allergy/AdvReac Type Severity Reaction Status Date / Time banana Allergy Severe ANAPHALXIS Verified 09/05/25 16:43 Penicillins Allergy Intermediate Anaphylaxis Verified 09/05/25 16:43 Vital Signs Vital Signs - 24 hr 09/05/25 10:23 09/05/25 10:30 09/05/25 10:31 Temperature Pulse Rate 162 H 161 H 159 H Respiratory Rate 20 18 18 Blood Pressure 134/94 H 125/91 H Pulse Oximetry 100 96 96 Oxygen Delivery Room Air 09/05/25 10:45 09/05/25 10:46 09/05/25 10:50 Temperature Pulse Rate 160 H 162 H 160 H Respiratory Rate 20 13 Blood Pressure 131/96 H Pulse Oximetry 98 98 Oxygen Delivery 09/05/25 11:00 09/05/25 11:14 09/05/25 11:15 Temperature Pulse Rate 119 H 121 H 132 H Respiratory Rate 14 22 H 22 H Blood Pressure 90/71 L 103/82 Pulse Oximetry 96 95 Oxygen Delivery 09/05/25 11:16 09/05/25 11:17 09/05/25 11:31 Temperature Pulse Rate 116 H 109 H 116 H Respiratory Rate 19 17 18 Blood Pressure 98/66 L Pulse Oximetry 95 97 92 Oxygen Delivery 09/05/25 11:41 09/05/25 11:46 09/05/25 11:47 Temperature Pulse Rate 130 H 108 H 116 H Respiratory Rate 16 13 12 Blood Pressure 128/78 87/54 L Pulse Oximetry 95 92 93 Oxygen Delivery 09/05/25 12:05 09/05/25 12:20 09/05/25 12:30 Temperature Pulse Rate 102 H 114 H 129 H Respiratory Rate 19 13 15 Blood Pressure Pulse Oximetry 94 95 95 Oxygen Delivery 09/05/25 12:32 09/05/25 12:45 09/05/25 12:47 Temperature Pulse Rate 137 H 124 H 123 H Respiratory Rate 17 15 14 Blood Pressure 115/69 113/92 H Pulse Oximetry 93 95 Oxygen Delivery 09/05/25 13:01 09/05/25 13:02 09/05/25 13:18 Temperature Pulse Rate 116 H 145 H 129 H Respiratory Rate 15 15 15 Blood Pressure 146/109 H 209/165 H Pulse Oximetry 92 92 95 Oxygen Delivery 09/05/25 13:19 09/05/25 13:31 09/05/25 14:01 Temperature Pulse Rate 118 H 113 H 121 H Respiratory Rate 15 14 19 Blood Pressure 110/86 Pulse Oximetry 97 94 100 Oxygen Delivery 09/05/25 15:51 09/05/25 16:25 09/05/25 17:03 Temperature 97.9 F 98.1 F Pulse Rate 149 H 127 H 130 H Respiratory Rate 19 16 Blood Pressure 127/98 H 106/51 L Pulse Oximetry 94 94 Oxygen Delivery Exam Const: General: cooperative, healthy appearing, comfortable, no acute distress, well developed, awake, Physically active, average body habitus and well nourished Nutritional Appearance: average body habitus and well nourished Orientation/consciousness: oriented to person, oriented to place, oriented to time and patient oriented x3 Limitations: no limitations HENMT: Head: normal to inspection, normocephalic and atraumatic Ears: hearing grossly normal bilaterally and external ears normal Eyes: General: appearance normal, both eyes and all related structures Alignment and Position: alignment normal Periorbital: periorbital findings normal Eyelids: eyelids normal EOM: EOMs intact bilaterally Neck: Neck: normal visual inspection and full ROM Chest: Chest palpation & inspection: normal inspection of the chest Resp: Effort & Inspection: normal respiratory effort Auscultation: clear to auscultation bilaterally Cardio: Palpation: normal PMI Rate: tachycardic (120-130 atrial fib flutter) Rhythm: regular rhythm Heart sounds: S1 normal heart sound present and S2 normal heart sound present Peripheral pulses: Peripheral pulses 2+ throughout GI: Inspection: normal to inspection Percussion: Yes normal to percussion Auscultation: normal bowel sounds Rectal Exam: deferred Skin: General skin exam: normal color Lesions: no lesions Rashes: no rashes Trauma: no lacerations or abrasions Wounds: no wounds Hair: normal Nails: normal Neuro: General: oriented to person, oriented to place, oriented to time and patient oriented x3 Cranial nerves: Yes Normal hearing present Cognition (Neuro): normal cognition Speech: normal speech Gait exam (Neuro): Normal gait present Motor exam (neuro): 5/5 motor strength present throughout Sensory Exam: normal sensation Extrem: General: normal to inspection Right upper extremity: normal to inspection and shoulder/upper arm Left upper extremity: normal to inspection and shoulder/upper arm Right lower extremity: normal to inspection Left lower extremity: normal to inspection Psych: Appearance: grossly normal Mental Status: mental status grossly normal Speech and movement: Normal speech and movement present Affect: normal affect Attitude: cooperative Thought process: Normal thought process present Thought content: Yes Normal thought content present Insight: Good insight present (Psych) Judgement: Good judgement present (Psych) H&P: Results Labs Labs: Short CBC 09/05/25 Range/Units 10:38 WBC 11.2 H (4.5-10.0) K/mm3 Hgb 18.2 H D (12.0-15.0) g/dL Hct 57.8 H (37.0-47.0) % Plt Count 302 (150-375) k/mm3 [facility] 09/05/25 10:38 Sodium 141 Potassium 3.2 L Chloride 98 Carbon Dioxide 31 H BUN 25 H Creatinine 1.49 H Glucose 145 H Calcium 9.2 Cardiac Enzymes 09/05/25 09/05/25 09/05/25 Range/Units 10:38 13:09 16:51 Troponin I < 0.012 < 0.012 < 0.012 (0.000-0.034) ng/mL Liver Function 09/05/25 Range/Units 10:38 Total Bilirubin 1.0 (0.2-1.3) mg/dL AST 29 (14-36) U/L ALT 28 (6-35) U/L Alkaline Phosphatase 188 H (38-126) U/L Albumin 4.6 (3.5-5.1) g/dL ECG Interpretation: Test Date: 2025-09-05 12:50:36 Measurements Intervals [place] Rate: 116 P: 0 FL: 0 QRS: 67 QRSD: 95 T: -17 QT: 362 QTc: 504 Interpretive Statements ATRIAL FLUTTER/TACHYCARDIA WITH RAPID VENTRICULAR RESPONSE ST DEVIATION AND MODERATE T-WAVE ABNORMALITY, CONSIDER INFERIOR ISCHEMIA [-0.1+ mV T-WAVE IN II/aVF] Compared to ECG 09/05/2025 10:25:38 Possible ischemia now present Intraventricular conduction delay no longer present T-wave abnormality still present Electronically Signed On 09-05-2025 13:58:12 ACCOUNT MANAGEMENT SPECIALIST by Bart De Paz M.D. Imaging CT scan - chest: Radiologist's impression: ITS Impressions Chest X-Ray 09/05/25 11:09 IMPRESSION: 1. No acute cardiopulmonary findings given portable technique. Chest CTA 09/05/25 11:31 IMPRESSION: 1. No pulmonary emboli or gross acute intrathoracic abnormality. 2. 2.9 cm focal dilatation of the left pulmonary artery may represent ectatic enlargement; findings could also be associated with pulmonary arterial hypertension. Assessment and Plan Assessment and plan (1) Atrial flutter with rapid ventricular response: Code(s): I48.92 - Unspecified atrial flutter Status: Acute Assessment and Plan: -CTA pulmonary was negative for PE. -the patient was started on sotalol. Her heart rate is currently 120s to 130s. The patient stated she is feeling very anxious and has felt this way for the last week. She has also felt some dizziness. -the patient was started on Eliquis as well. Bertin Vasc score is 3. -her golf player assistant Dr. Gordillo has been consulted. -however her blood pressure is slightly low at 97/56. -patient is also metoprolol at home. -she was also ordered for digoxin. -she denies starting any recent [id number] medication or prescription medication. -the patient's last echo was in November therefore an echo has been ordered for tomorrow. (2) Hypertension: Code(s): I10 - Essential (primary) hypertension Status: Acute Assessment and Plan: -the patient was started on sotalol. Her current blood pressure is 97/56. -she is also on metoprolol at home. If her map is less than 60 hold metoprolol. (3) Acute renal failure: Code(s): N17.9 - Acute kidney failure, unspecified Status: Acute Assessment and Plan: -her creatinine is 1.49 with no recent value for comparison. -hold nephrotoxic medications such as hydrochlorothiazide. -monitor BMP daily. -her BUN is 25 with no recent labs for comparison. -her GFR is 35 again with no recent labs for comparison. (4) Hyperlipidemia: Code(s): E78.5 - Hyperlipidemia, unspecified Status: Acute Assessment and Plan: -continue with atorvastatin (5) Pre-diabetes: Code(s): R73.03 - Prediabetes Status: Acute Assessment and Plan: -the patient stated that she would allow Accu-Cheks AC and HS with sliding scale insulin. -check A1c. (6) Hypothyroidism: Onset Date: 01/27/17 Code(s): E03.9 - Hypothyroidism, unspecified Status: Acute Assessment and Plan: -her thyroid level was within normal limits. She has had a history of thyroidectomy. -continue levothyroxine. (7) Elevated brain natriuretic peptide (BNP) level: Code(s): R79.89 - Other specified abnormal findings of blood chemistry Status: Acute Assessment and Plan: -an echo has been ordered for tomorrow. Her last echo was November this year. -hold hydrochlorothiazide due to acute renal failure. -BNP 2049. -last echo 12/10/2024 Summary 1. Complete two-dimensional, color flow and Doppler transthoracic echocardiogram is performed. 2. Left ventricular chamber dimension is normal. 3. Left ventricular systolic function is normal, estimated at 65-70%. 4. There is mild concentric increased left ventricular wall thickness. 5. The left ventricular diastolic function is grade I diastolic dysfunction. 6. E/e' 8 is minimally elevated. 7. The aortic valve is not well visualized. Cannot determine number of aortic valve leaflets. 8. There is trivial pericardial effusion. (8) Depression: Code(s): F32.A - Depression, unspecified Status: Acute Assessment and Plan: -continue with Lexapro. -patient does have any suicidal ideation at this time. (9) Hypokalemia: Code(s): E87.6 - Hypokalemia Status: Acute Assessment and Plan: -she was given a supplement in the emergency room for potassium of 3.2 with a slightly elevated magnesium level. Quality VTE Prophylaxis VTE prophylaxis: pharmacologic ordered
[2025-09-05] MEDS: METOPROLOL SUCCINATE EXT REL 25 MG TABCR BY MOUTH (20:57)
[2025-09-05] MEDS: SOTALOL HCL 80 MG TABLET PO (20:58)
--- NOTE | 2025-09-05 22:15 | ECG_ITS ---
Test Date: 2025-09-05 23:21:37 Measurements Intervals [place] Rate: 107 P: 87 DE: 185 QRS: 81 QRSD: 78 T: 73 QT: 351 QTc: 469 Interpretive Statements ATRIAL FLUTTER WITH RAPID VENTRICULAR RESPONSE ABNORMAL ECG Electronically Signed On 09-06-2025 09:01:52 FINANCIAL REPORT SERVICE SALES AGENT by Awais Larson M.D.
--- NOTE | 2025-09-05 23:24 | ECG_ITS ---
Test Date: 2025-09-05 23:30:21 Measurements Intervals [place] Rate: 115 P: 0 MD: 0 QRS: 77 QRSD: 90 T: 34 QT: 362 QTc: 502 Interpretive Statements ATRIAL FLUTTER/TACHYCARDIA WITH RAPID VENTRICULAR RESPONSE ABNORMAL ECG Electronically Signed On 09-06-2025 09:02:14 CASE OPERATOR by Awais Larson M.D.
[2025-09-05 23:33] LABS: Hemoglobin A1C 6.1 % (<5.7)
[2025-09-05] MEDS: diazePAM (*CRX) 2.5 MG TABLET PO (23:38)
[2025-09-06] VITALS (19 sets, daily range): BP systolic 93–109; BP diastolic 47–67; PULSE 71–141; RESP 16–20; TEMP 36.4–36.8; O2SAT 92–96
[2025-09-06 00:32] LABS: Troponin I < 0.012 ng/mL (0.000-0.034)
[2025-09-06] MEDS: FLUTICASONE/UMECLIDIN/VILANTER 100-62.5-25 MCG ELLIPTA 1 PUFF INHALATION ×2 (02:14→08:16)
--- NOTE | 2025-09-06 02:14 | PCRCNOTE ---
RCS 2000 daily tx not given as patient had taken her med for the day. [facility] will start patient tx's in the morning.
[2025-09-06 04:23] LABS: Hematocrit 48.3 % (37.0-47.0); Hemoglobin 15.1 g/dL (12.0-15.0); Immature Granulocyte Percent A 0.4 % (0-0.5); Lymphocytes Absolute Auto 2.87 K/mm3 (0.9-3.2); Mean Corpuscular HGB Conc 31.3 g/dl (32-36); Mean Corpuscular Hemoglobin 28.8 pg (26-34); Mean Corpuscular Volume 92.2 fl (80-100); Nucleated Red Blood Cells Absolute Auto 0.000 K/mm3 (0.0-0.012); Nucleated Red Blood Cells Perc 0.0 % (0.0-0.2); Platelet Count Result 265 k/mm3 (150-375); Red Blood Count 5.24 M/mm3 (4.2-5.4); White Blood Count 10.2 K/mm3 (4.5-10.0)
[2025-09-06 04:43] LABS: Anion Gap 7 mmol/L (4-12); Blood Urea Nitrogen 25 mg/dL (7-17); Calcium 8.4 mg/dL (8.4-10.2); Carbon Dioxide 28 mmol/L (22-30); Chloride 104 mmol/L (98-107); Estimated CRCL calculation 44 ml/min; Estimated Glomerular Filt Rate 46; Glucose 95 mg/dL (65-110); Magnesium 2.5 mg/dL (1.6-2.3); Potassium 3.1 mmol/L (3.4-5.0); Sodium 139 mmol/L (137-145)
--- NOTE | 2025-09-06 06:00 | ECHO_ITS ---
Patient Info Name: Adelaida Vasquez Age: 70 years : 1955 Gender: Female Ht: 62 in Wt: 206 lbs BSA: 2.07 m2 HR: 123 bpm BP: 94 / 60 mmHg Technical Quality: Poor Exam Date: 09/06/2025 10:13 AM Patient Status: I Admit Date: 09/06/2025 Exam Type: CA echo dop color flow w con Complete two-dimensional, color flow and Doppler transthoracic echocardiogram is performed with contrast to opacify the left ventricle and to improve the deliniation of the left ventricle endocardial borders. Staff Referring Physician: Jen Barba Superintendent Operating: Nabil Alvarez III Attending Provider: Erasto Young Contrast/Agitated Saline Contrast/Ag. Saline: Definity Amount: 2.00 ml Administered By: Nabil Alvarez III Existing IV Access: Yes IV Access Condition: patent with no signs of infiltration Reason for Poor Study: poor echocardiographic windows Summary 1. Definity contrast administered improved wall motion interpretation. 2. Left ventricular chamber dimension is normal. 3. Left ventricular systolic function is normal, estimated at 55-60. 4. The left ventricular diastolic function is abnormal. 5. E/e' 11 is mildly elevated. 6. There is trace mitral valve regurgitation. 7. No pulmonary hypertension, estimated pulmonary arterial systolic pressure is 22 mmHg. Left Ventricle E/e' 11 is mildly elevated. Left ventricular chamber dimension is normal. Left ventricular systolic function is normal, estimated at 55-60. The left ventricular diastolic function is abnormal. Definity contrast administered improved wall motion interpretation. Right Ventricle Right ventricular chamber dimension is normal. Right ventricular systolic function is normal. Left Atria Left atrial chamber dimension is normal. Right Atria Right atrial chamber dimension is normal. Aortic Valve The aortic valve is not well visualized. Cannot determine number of aortic valve leaflets. There is no aortic valve stenosis. There is no aortic valve regurgitation. Pulmonic Valve There is no pulmonic regurgitation. Mitral Valve There is no mitral valve stenosis. There is trace mitral valve regurgitation. Tricuspid Valve There is no tricuspid valve regurgitation. No pulmonary hypertension, estimated pulmonary arterial systolic pressure is 22 mmHg. Pericardium/Pleural There is no pericardial effusion. Inferior Vena Cava Normal inferior vena cava with >50% collapse upon inspiration consistent with normal right atrial pressure, 5 mmHg. Aorta The aortic root size at the sinus of Valsalva is normal. Left Ventricular Outflow Tract Name Value Normal LVOT 2D LVOT Diameter 2.1 cm LVOT Doppler LVOT Peak Velocity 99 cm/s LVOT Peak Gradient 4 mmHg LVOT Mean Gradient 2 mmHg LVOT VTI 18 cm LVOT VTI/AV VTI Ratio 0.8 LVOT Stroke Volume 60 ml LVOT CO 6.0 l/min LVOT CI 2.9 l/min/m2 Pulmonic Valve Name Value Normal PV Doppler PV Peak Velocity 102 cm/s PV Peak Gradient 4 mmHg PV Mean Gradient 2 mmHg Mitral Valve Name Value Normal MV Doppler MV Peak Gradient 7 mmHg MV Mean Gradient 2 mmHg MV Area (Cont Eq VTI) 2.4 cm2 MV Diastolic Function MV E Peak Velocity 94 cm/s MV Decel Time (PW) 160 ms MV Annular TDI MV E/e' (Septal) 11.8 MV E/e' (Lateral) 11.5 MV E/e' (Average) 11.7 Tricuspid Valve Name Value Normal TV Regurgitation Doppler TR Peak Velocity 208 cm/s TR Peak Gradient 17 mmHg Estimated PAP/RSVP RA Pressure 5 mmHg <=5 PA Systolic Pressure 22 mmHg <36 RV Systolic Pressure 22 mmHg <36 TV Annular TDI TV Lateral Sherrie s' Velocity 8.2 cm/s >=9.5 Aortic Valve Name Value Normal AV Doppler AV Peak Velocity 130 cm/s AV Peak Gradient 6 mmHg AV Mean Gradient 3 mmHg AV VTI 23 cm AV Area (Cont Eq VTI) 2.6 cm2 >=3.0 AV Area (Cont Eq Suhail) 2.5 cm2 AV DI (Suhail) 0.76 AV Regurgitation 2D LVOT Area 3.3 cm2 Ventricles Name Value Normal LV Dimensions 2D/MM LVOT Diameter 2.1 cm LV Fractional Shortening/Ejection Fraction 2D/MM LV Diastolic Volume (4C MOD) 48 ml LV EF (4C MOD) 37 % LV Diastolic Volume (2C MOD) 45 ml LV EF (2C MOD) 45 % LV Diastolic Volume (BP MOD) 47 ml 46-106 LV Diastolic Volume Index (BP MOD) 23 ml/m2 29-61 LV Systolic Volume (BP MOD) 28 ml 14-42 LV Systolic Volume Index (BP MOD) 14 ml/m2 8-24 LV EF (BP MOD) 40 % 54-74 LV Diastolic Length (4C) 6.2 cm LV Systolic Length (4C) 5.3 cm LV Stroke Volume (4C MOD) 18 ml Atria Name Value Normal LA Dimensions LA Volume (4C A-L) 36 ml LA Volume (BP A-L) 40 ml RA Dimensions RA Systolic Major Wright Length (4C) 5.1 cm 2.2-2.8 RA Area (4C) 14.3 cm2 <=18.0 Report Signatures
[2025-09-06] MEDS: LEVOTHYROXINE SODIUM 112 MCG TABLET PO (06:06)
--- NOTE | 2025-09-06 07:21 | PM.IMPN ---
Progress Note: A&P Assessment and Plan (1) Atrial flutter with rapid ventricular response: Code(s): I48.92 - Unspecified atrial flutter Status: Acute Assessment and Plan: Patient was given Lopressor IV, potassium chloride p.o., normal saline and Eliquis in the emergency room. Primary counterintelligence analyst Dr. Gordillo - TSH ordered to rule out metabolic cause for tachyarrhythmia : WNL - EKG on admission showed aflutter with RVR HR 160 with T wave abnormality, consider ischemia. Troponin negative x3 - CTA was negative for PE. - Medication: Sotalol 80 mg BID, digoxin 125 mcg BID, and metoprolol 25 mg HS - Chadsvasc Score: 3 Anticoagulation: Eliquis 5 mg BID - Echo 11/2024: LVEF 65-70% with grade I diastolic dysfunction Repeat echo showed - Telemetry - Cardiology consulted If still in atrial flutter on 3rd day then plan for CANDACE/DC cardioversion. Patient remains on antiarrhythmics, rate controlling medications, and anticoagulation per cardiology. She continues to be in aflutter but rate has been better controlled. She denies any chest pain and palpitations. Continue to monitor. (2) Elevated brain natriuretic peptide (BNP) level: Code(s): R79.89 - Other specified abnormal findings of blood chemistry Status: Acute Assessment and Plan: - BNP 2049 - Chest XR showed no acute cardiopulmonary process - Chest CTA showed no PE but there was a 2.9 cm focal dilatation of the left pulmonary artery may represent ectatic enlargement; findings could also be associated with pulmonary arterial hypertension. - Echo 11/2024: LVEF 65-70% with grade I diastolic dysfunction Repeat echo showed LVEF 55-60% with abnormal diastolic dysfunction (3) Acute kidney injury: Code(s): N17.9 - Acute kidney failure, unspecified Status: Acute Assessment and Plan: BUN/Cr 25/1.49 with GFR 35 on admission, no recent values to compare but was WNL in 2021 Possibly debora on ckd vs hypoperfusion related to hypotension vs dehydration vs other Received 1L Bolus in the ED - BUN/Cr improving, currently 25/1.17 with GFR 46 - avoid nephrotoxic medications - renally dose medications - monitor I/O (4) Hypertension: Code(s): I10 - Essential (primary) hypertension Status: Acute Assessment and Plan: Chronic continue home medications - metoprolol 25 mg HS and HCTZ 25 mg daily - continue sotalol 80 mg BID for cocurrent aflutter with RVR - closely monitor BP (5) Hypokalemia: Code(s): E87.6 - Hypokalemia Status: Acute Assessment and Plan: Hypokalemia on admission, received supplementation and remains hypokalemic on am labs Will give supplementation Continue to monitor (6) Pre-diabetes: Code(s): R73.03 - Prediabetes Status: Acute Assessment and Plan: - hypoglycemia protocol - POC blood glucose ACHS - home medication - none - correct regimen ordered - low dose TIDWM and HS - A1C 6.1 (7) Hypothyroidism: Onset Date: 01/27/17 Code(s): E03.9 - Hypothyroidism, unspecified Status: Acute Assessment and Plan: -her thyroid level was within normal limits. She has had a history of thyroidectomy. -continue levothyroxine. (8) Depression: Code(s): F32.A - Depression, unspecified Status: Acute Assessment and Plan: -continue with Lexapro. -patient does not have any suicidal ideation at this time. Time Spent With Patient Time with patient: 25 - 35 minutes Subjective Date/time seen: 09/06/25 07:21 Interval history: 70-year-old female patient with a past medical history of COPD, diabetes, hypertension who presents to the hospital from her PCP office for concerns of SVT. Patient is pleasant lying comfortably in bed. She has no complaints denying chest pain, shortness breath, palpitations, nausea/vomiting, abdominal pain. She also denies any associated dizziness/lightheadedness. Review of Systems Review of Systems: All systems reviewed & are unremarkable except as noted in HPI and below Exam Narrative: General: female in no acute respiratory distress who is nontoxic appearing, lying semi recumbent in bed. HEENT: Normocephalic. Atraumatic. Extraocular movement intact. Sclera clear and anicteric. No facial asymmetry. Chest: Lungs are clear to auscultation bilaterally. No wheezes or crackles. CV: Heart was irregularly irregular rate and rhythm. Abd: Abdomen was soft. Nontender. Nondistended. Positive bowel sounds. Ext: No clubbing, cyanosis, or edema. DP pulses bilaterally. Neuro: Patient is alert and oriented x3. Speech is clear. Objective Data Vital Signs Vital Signs: Vital Signs - 24 hr 09/05/25 10:23 09/05/25 10:30 09/05/25 10:31 Temperature Pulse Rate 162 H 161 H 159 H Respiratory Rate 20 18 18 Blood Pressure 134/94 H 125/91 H Pulse Oximetry 100 96 96 Oxygen Delivery Room Air 09/05/25 10:45 09/05/25 10:46 09/05/25 10:50 Temperature Pulse Rate 160 H 162 H 160 H Respiratory Rate 20 13 Blood Pressure 131/96 H Pulse Oximetry 98 98 Oxygen Delivery 09/05/25 11:00 09/05/25 11:14 09/05/25 11:15 Temperature Pulse Rate 119 H 121 H 132 H Respiratory Rate 14 22 H 22 H Blood Pressure 90/71 L 103/82 Pulse Oximetry 96 95 Oxygen Delivery 09/05/25 11:16 09/05/25 11:17 09/05/25 11:31 Temperature Pulse Rate 116 H 109 H 116 H Respiratory Rate 19 17 18 Blood Pressure 98/66 L Pulse Oximetry 95 97 92 Oxygen Delivery 09/05/25 11:41 09/05/25 11:46 09/05/25 11:47 Temperature Pulse Rate 130 H 108 H 116 H Respiratory Rate 16 13 12 Blood Pressure 128/78 87/54 L Pulse Oximetry 95 92 93 Oxygen Delivery 09/05/25 12:05 09/05/25 12:20 09/05/25 12:30 Temperature Pulse Rate 102 H 114 H 129 H Respiratory Rate 19 13 15 Blood Pressure Pulse Oximetry 94 95 95 Oxygen Delivery 09/05/25 12:32 09/05/25 12:45 09/05/25 12:47 Temperature Pulse Rate 137 H 124 H 123 H Respiratory Rate 17 15 14 Blood Pressure 115/69 113/92 H Pulse Oximetry 93 95 Oxygen Delivery 09/05/25 13:01 09/05/25 13:02 09/05/25 13:18 Temperature Pulse Rate 116 H 145 H 129 H Respiratory Rate 15 15 15 Blood Pressure 146/109 H 209/165 H Pulse Oximetry 92 92 95 Oxygen Delivery 09/05/25 13:19 09/05/25 13:31 09/05/25 14:01 Temperature Pulse Rate 118 H 113 H 121 H Respiratory Rate 15 14 19 Blood Pressure 110/86 Pulse Oximetry 97 94 100 Oxygen Delivery 09/05/25 15:51 09/05/25 16:25 09/05/25 17:03 Temperature 97.9 F 98.1 F Pulse Rate 149 H 127 H 130 H Respiratory Rate 19 16 Blood Pressure 127/98 H 106/51 L Pulse Oximetry 94 94 Oxygen Delivery 09/05/25 20:00 09/05/25 20:00 09/05/25 20:57 Temperature 98.1 F Pulse Rate 139 H 139 H 139 H Respiratory Rate 16 Blood Pressure 97/56 L Pulse Oximetry 92 Oxygen Delivery 09/05/25 20:58 09/05/25 22:00 09/05/25 23:46 Temperature Pulse Rate 138 H 113 H Respiratory Rate Blood Pressure Pulse Oximetry Oxygen Delivery Room Air 09/06/25 00:00 09/06/25 00:00 09/06/25 02:00 Temperature 97.8 F Pulse Rate 119 H 141 H 135 H Respiratory Rate 18 Blood Pressure 101/64 Pulse Oximetry 92 Oxygen Delivery 09/06/25 03:35 09/06/25 04:00 09/06/25 04:00 Temperature 97.6 F Pulse Rate 106 H 132 H Respiratory Rate 16 Blood Pressure 94/60 L Pulse Oximetry 94 Oxygen Delivery Room Air 09/06/25 06:00 Temperature Pulse Rate 123 H Respiratory Rate Blood Pressure Pulse Oximetry Oxygen Delivery Intake/Output Intake/Output: Intake & Output 09/03/25 09/04/25 09/05/25 09/06/25 23:59 23:59 23:59 23:59 Intake Total 1340 300 Output Total 600 Balance 1340 -300 Meds/Results Medications: Active Medications Generic Name Dose Route Start Last Admin Trade Name Freq PRN Reason Stop Dose Admin Acetaminophen 650 mg 09/05/25 13:05 09/05/25 14:19 Acetaminophen 325 Mg Tablet PO 650 mg Q4H PRN Administration Mild Pain (1-3) or Fever Albuterol/Ipratropium 3 ml 09/05/25 18:38 Ipratropium 0.5 Mg/Albuterol Sulfate 2.5 Mg (Base) Ampul.Neb 3 Ml INHALATION Q6HRT PRN Shortness Of Breath Or Wheezing Apixaban 5 mg 09/05/25 21:00 09/05/25 20:57 Apixaban 5 Mg Tablet PO 5 mg Q12HR ARPITA Administration Atorvastatin Calcium 40 mg 09/06/25 09:00 Atorvastatin 40 Mg Tablet PO DAILY ARPITA Dextrose 12.5 gm 09/05/25 23:05 Dextrose 50% 25 Gm/50 Ml Syringe IV PUSH PRN PRN Hypoglycemia Protocol Diazepam 2.5 mg 09/05/25 22:50 09/05/25 23:38 Diazepam (*Crx) 2.5 Mg Tablet PO 2.5 mg DAILY PRN Administration Anxiety Digoxin 125 mcg 09/05/25 17:00 09/05/25 17:03 Digoxin Tab 125 Mcg Tablet PO 125 mcg BID ARPITA Administration Escitalopram Oxalate 10 mg 09/06/25 09:00 Escitalopram Oxalate 10 Mg Tablet PO DAILY ARPITA Fluticasone/Umeclidinium/Vilanterol 1 puff 09/05/25 20:00 09/06/25 02:14 Fluticasone/Umeclidin/Vilanter 100-62.5-25 Mcg Ellipta INHALATION 1 puff DAILY@2000 ARPITA Administration Glucagon 1 mg 09/05/25 23:05 Glucagon For Inj 1 Mg Vial IM PRN PRN Hypoglycemia Protocol Glucose 15 gm 09/05/25 23:05 Glucose Oral Gel 15 Gm Of Glucse In 37.5 Gm Tube PO PRN PRN Hypoglycemia Protocol Hydrochlorothiazide 25 mg 09/06/25 09:00 Hydrochlorothiazide 25 Mg Tablet PO DAILY ARPITA Dextrose 1,000 mls @ 100 mls/hr 09/05/25 23:05 Dextrose 5% 1,000 Ml IVPB PRN PRN Hypoglycemia Protocol Insulin Aspart 2 - 5 units 09/06/25 08:00 Insulin Aspart (*Bkc) 100 Units/Ml SUB-Q TIDWM ARPITA Protocol Levothyroxine Sodium 112 mcg 09/06/25 06:30 09/06/25 06:06 Levothyroxine Sodium 112 Mcg Tablet PO 112 mcg DAILY@0630 ARPITA Administration Metoprolol Succinate 25 mg 09/05/25 21:00 09/05/25 20:57 Metoprolol Succinate Ext Rel 25 Mg Tabcr BY MOUTH 25 mg HS ARPITA Administration Perflutren Lipid Microsphere 0 ml 09/05/25 13:05 Perflutren Lipid Microspheres 1.5 Ml Vial Diluted To 10 Ml Total Volume IV PUSH 09/08/25 13:06 ONCE PRN adequate visualization Protocol Perflutren Lipid Microsphere 0 ml 09/05/25 23:10 Perflutren Lipid Microspheres 1.5 Ml Vial Diluted To 10 Ml Total Volume IV PUSH 09/08/25 23:10 ONCE PRN adequate visualization Protocol Sotalol HCl 80 mg 09/05/25 21:00 09/05/25 20:58 Sotalol Hcl 80 Mg Tablet PO 80 mg Q12HR ARPITA Administration Radiology Results: ITS Impressions Chest X-Ray 09/05/25 11:09 IMPRESSION: 1. No acute cardiopulmonary findings given portable technique. Chest CTA 09/05/25 11:31 IMPRESSION: 1. No pulmonary emboli or gross acute intrathoracic abnormality. 2. 2.9 cm focal dilatation of the left pulmonary artery may represent ectatic enlargement; findings could also be associated with pulmonary arterial hypertension. Labs Labs: Laboratory Results - last 24 hr 09/05/25 09/05/25 09/05/25 10:38 11:35 13:09 WBC 11.2 H RBC 6.28 H Hgb 18.2 H D Hct 57.8 H MCV 92.0 MCH 29.0 MCHC 31.5 L RDW 17.2 H Plt Count 302 MPV 10.0 Immature Gran % (Auto) 0.4 Neut % (Auto) 62.9 Lymph % (Auto) 27.6 [place] % (Auto) 6.3 Eos % (Auto) 2.1 Baso % (Auto) 0.7 Lymph # (Auto) 3.09 [place] # (Auto) 0.7 H Eos # (Auto) 0.2 Baso # (Auto) 0.1 Abs Immat Gran (auto) 0.04 H Absolute Neuts (auto) 7.0 H Absolute Nucleated RBC 0.000 Nucleated RBC % 0.0 PT 14.2 INR 1.1 APTT 26.5 Sodium 141 Potassium 3.2 L Chloride 98 Carbon Dioxide 31 H Anion Gap 12 BUN 25 H Creatinine 1.49 H Estim Creat Clear Calc 36 Estimated GFR 35 L Glucose 145 H Hemoglobin A1c 6.1 H Calcium 9.2 Magnesium 2.4 H Total Bilirubin 1.0 AST 29 ALT 28 Alkaline Phosphatase 188 H Troponin I < 0.012 < 0.012 NT-Pro-B Natriuret Pep 2050 H Total Protein 7.9 Albumin 4.6 Lipase 116 TSH (Reflex) 1.090 09/05/25 09/05/25 09/06/25 16:51 23:40 03:38 WBC 10.2 H RBC 5.24 Hgb 15.1 H D Hct 48.3 H MCV 92.2 MCH 28.8 MCHC 31.3 L RDW 16.3 H Plt Count 265 MPV 10.3 Immature Gran % (Auto) 0.4 Neut % (Auto) 60.0 Lymph % (Auto) 28.2 [place] % (Auto) 8.2 Eos % (Auto) 2.6 Baso % (Auto) 0.6 Lymph # (Auto) 2.87 [place] # (Auto) 0.8 H Eos # (Auto) 0.3 Baso # (Auto) 0.1 Abs Immat Gran (auto) 0.04 H Absolute Neuts (auto) 6.1 Absolute Nucleated RBC 0.000 Nucleated RBC % 0.0 PT INR APTT Sodium 139 Potassium 3.1 L Chloride 104 Carbon Dioxide 28 Anion Gap 7 BUN 25 H Creatinine 1.17 H Estim Creat Clear Calc 44 Estimated GFR 46 L Glucose 95 Hemoglobin A1c Calcium 8.4 Magnesium 2.5 H Total Bilirubin AST ALT Alkaline Phosphatase Troponin I < 0.012 < 0.012 NT-Pro-B Natriuret Pep Total Protein Albumin Lipase TSH (Reflex) Quality VTE Prophylaxis VTE prophylaxis: pharmacologic ordered
--- NOTE | 2025-09-06 08:02 | PM.PNCARD ---
Progress Note: A&P Assessment and Plan (1) Atrial flutter with rapid ventricular response: Code(s): I48.92 - Unspecified atrial flutter Status: Acute Assessment and Plan: [id number] 3. Start 09/05/25 Sotalol 80 mg BID as per protocol, and start Eliquis 5 mg BID. Rate control but need to monitor BP as it tends to drop. Started Digoxin 125 mcg BID for rapid HR. HR improved. If still in atrial flutter on 3rd day then plan for CANDACE/DC cardioversion. (2) Hyperlipidemia: Code(s): E78.5 - Hyperlipidemia, unspecified Status: Acute Assessment and Plan: On Atorvastatin. (3) Hypertension: Code(s): I10 - Essential (primary) hypertension Status: Acute Assessment and Plan: Stable. Subjective Date/time seen: 09/06/25 08:02 Interval history: No chest pain or sob. Exam Const: General: cooperative, healthy appearing and comfortable Orientation/consciousness: oriented to person, oriented to place and oriented to time Resp: Auscultation: clear to auscultation bilaterally, no crackles, no rales, no rhonchi and no wheezes Cardio: Rate: tachycardic Rhythm: abnormal rhythm Heart sounds: no murmurs Peripheral pulses: dorsalis pedis present Neuro: General: oriented to person, oriented to place and oriented to time Extrem: Right lower extremity: no edema Left lower extremity: no edema Objective Data Vital Signs Vital Signs: Vital Signs - 24 hr 09/05/25 10:23 09/05/25 10:30 09/05/25 10:31 Temperature Pulse Rate 162 H 161 H 159 H Respiratory Rate 20 18 18 Blood Pressure 134/94 H 125/91 H Pulse Oximetry 100 96 96 Oxygen Delivery Room Air 09/05/25 10:45 09/05/25 10:46 09/05/25 10:50 Temperature Pulse Rate 160 H 162 H 160 H Respiratory Rate 20 13 Blood Pressure 131/96 H Pulse Oximetry 98 98 Oxygen Delivery 09/05/25 11:00 09/05/25 11:14 09/05/25 11:15 Temperature Pulse Rate 119 H 121 H 132 H Respiratory Rate 14 22 H 22 H Blood Pressure 90/71 L 103/82 Pulse Oximetry 96 95 Oxygen Delivery 09/05/25 11:16 09/05/25 11:17 09/05/25 11:31 Temperature Pulse Rate 116 H 109 H 116 H Respiratory Rate 19 17 18 Blood Pressure 98/66 L Pulse Oximetry 95 97 92 Oxygen Delivery 09/05/25 11:41 09/05/25 11:46 09/05/25 11:47 Temperature Pulse Rate 130 H 108 H 116 H Respiratory Rate 16 13 12 Blood Pressure 128/78 87/54 L Pulse Oximetry 95 92 93 Oxygen Delivery 09/05/25 12:05 09/05/25 12:20 09/05/25 12:30 Temperature Pulse Rate 102 H 114 H 129 H Respiratory Rate 19 13 15 Blood Pressure Pulse Oximetry 94 95 95 Oxygen Delivery 09/05/25 12:32 09/05/25 12:45 09/05/25 12:47 Temperature Pulse Rate 137 H 124 H 123 H Respiratory Rate 17 15 14 Blood Pressure 115/69 113/92 H Pulse Oximetry 93 95 Oxygen Delivery 09/05/25 13:01 09/05/25 13:02 09/05/25 13:18 Temperature Pulse Rate 116 H 145 H 129 H Respiratory Rate 15 15 15 Blood Pressure 146/109 H 209/165 H Pulse Oximetry 92 92 95 Oxygen Delivery 09/05/25 13:19 09/05/25 13:31 09/05/25 14:01 Temperature Pulse Rate 118 H 113 H 121 H Respiratory Rate 15 14 19 Blood Pressure 110/86 Pulse Oximetry 97 94 100 Oxygen Delivery 09/05/25 15:51 09/05/25 16:25 09/05/25 17:03 Temperature 97.9 F 98.1 F Pulse Rate 149 H 127 H 130 H Respiratory Rate 19 16 Blood Pressure 127/98 H 106/51 L Pulse Oximetry 94 94 Oxygen Delivery 09/05/25 20:00 09/05/25 20:00 09/05/25 20:57 Temperature 98.1 F Pulse Rate 139 H 139 H 139 H Respiratory Rate 16 Blood Pressure 97/56 L Pulse Oximetry 92 Oxygen Delivery 09/05/25 20:58 09/05/25 22:00 09/05/25 23:46 Temperature Pulse Rate 138 H 113 H Respiratory Rate Blood Pressure Pulse Oximetry Oxygen Delivery Room Air 09/06/25 00:00 09/06/25 00:00 09/06/25 02:00 Temperature 97.8 F Pulse Rate 119 H 141 H 135 H Respiratory Rate 18 Blood Pressure 101/64 Pulse Oximetry 92 Oxygen Delivery 09/06/25 03:35 09/06/25 04:00 09/06/25 04:00 Temperature 97.6 F Pulse Rate 106 H 132 H Respiratory Rate 16 Blood Pressure 94/60 L Pulse Oximetry 94 Oxygen Delivery Room Air 09/06/25 06:00 09/06/25 07:37 Temperature 98 F Pulse Rate 123 H 129 H Respiratory Rate 20 Blood Pressure 105/54 L Pulse Oximetry 95 Oxygen Delivery Intake/Output Intake/Output: Intake & Output 09/03/25 09/04/25 09/05/25 09/06/25 23:59 23:59 23:59 23:59 Intake Total 1340 300 Output Total 600 Balance 1340 -300 Meds/Results Medications: Active Medications Generic Name Dose Route Start Last Admin Trade Name Freq PRN Reason Stop Dose Admin Acetaminophen 650 mg 09/05/25 13:05 09/05/25 14:19 Acetaminophen 325 Mg Tablet PO 650 mg Q4H PRN Administration Mild Pain (1-3) or Fever Albuterol/Ipratropium 3 ml 09/05/25 18:38 Ipratropium 0.5 Mg/Albuterol Sulfate 2.5 Mg (Base) Ampul.Neb 3 Ml INHALATION Q6HRT PRN Shortness Of Breath Or Wheezing Apixaban 5 mg 09/05/25 21:00 09/05/25 20:57 Apixaban 5 Mg Tablet PO 5 mg Q12HR ARPITA Administration Atorvastatin Calcium 40 mg 09/06/25 09:00 Atorvastatin 40 Mg Tablet PO DAILY ARPITA Dextrose 12.5 gm 09/05/25 23:05 Dextrose 50% 25 Gm/50 Ml Syringe IV PUSH PRN PRN Hypoglycemia Protocol Diazepam 2.5 mg 09/05/25 22:50 09/05/25 23:38 Diazepam (*Crx) 2.5 Mg Tablet PO 2.5 mg DAILY PRN Administration Anxiety Digoxin 125 mcg 09/05/25 17:00 09/05/25 17:03 Digoxin Tab 125 Mcg Tablet PO 125 mcg BID ARPITA Administration Escitalopram Oxalate 10 mg 09/06/25 09:00 Escitalopram Oxalate 10 Mg Tablet PO DAILY [facility] Fluticasone/Umeclidinium/Vilanterol 1 puff 09/05/25 20:00 09/06/25 02:14 Fluticasone/Umeclidin/Vilanter 100-62.5-25 Mcg Ellipta INHALATION 1 puff DAILY@2000 ARPITA Administration Glucagon 1 mg 09/05/25 23:05 Glucagon For Inj 1 Mg Vial IM PRN PRN Hypoglycemia Protocol Glucose 15 gm 09/05/25 23:05 Glucose Oral Gel 15 Gm Of Glucse In 37.5 Gm Tube PO PRN PRN Hypoglycemia Protocol Hydrochlorothiazide 25 mg 09/06/25 09:00 Hydrochlorothiazide 25 Mg Tablet PO DAILY ARPITA Dextrose 1,000 mls @ 100 mls/hr 09/05/25 23:05 Dextrose 5% 1,000 Ml IVPB PRN PRN Hypoglycemia Protocol Insulin Aspart 2 - 5 units 09/06/25 08:00 Insulin Aspart (*Bkc) 100 Units/Ml SUB-Q TIDWM ARPITA Protocol Levothyroxine Sodium 112 mcg 09/06/25 06:30 09/06/25 06:06 Levothyroxine Sodium 112 Mcg Tablet PO 112 mcg DAILY@0630 ARPITA Administration Metoprolol Succinate 25 mg 09/05/25 21:00 09/05/25 20:57 Metoprolol Succinate Ext Rel 25 Mg Tabcr BY MOUTH 25 mg HS ARPITA Administration Perflutren Lipid Microsphere 0 ml 09/05/25 13:05 Perflutren Lipid Microspheres 1.5 Ml Vial Diluted To 10 Ml Total Volume IV PUSH 09/08/25 13:06 ONCE PRN adequate visualization Protocol Perflutren Lipid Microsphere 0 ml 09/05/25 23:10 Perflutren Lipid Microspheres 1.5 Ml Vial Diluted To 10 Ml Total Volume IV PUSH 09/08/25 23:10 ONCE PRN adequate visualization Protocol Sotalol HCl 80 mg 09/05/25 21:00 09/05/25 20:58 Sotalol Hcl 80 Mg Tablet PO 80 mg Q12HR ARPITA Administration Radiology Results: ITS Impressions Chest X-Ray 09/05/25 11:09 IMPRESSION: 1. No acute cardiopulmonary findings given portable technique. Chest CTA 09/05/25 11:31 IMPRESSION: 1. No pulmonary emboli or gross acute intrathoracic abnormality. 2. 2.9 cm focal dilatation of the left pulmonary artery may represent ectatic enlargement; findings could also be associated with pulmonary arterial hypertension. Labs Labs: Laboratory Results - last 24 hr 09/05/25 09/05/25 09/05/25 10:38 11:35 13:09 WBC 11.2 H RBC 6.28 H Hgb 18.2 H D Hct 57.8 H MCV 92.0 MCH 29.0 MCHC 31.5 L RDW 17.2 H Plt Count 302 MPV 10.0 Immature Gran % (Auto) 0.4 Neut % (Auto) 62.9 Lymph % (Auto) 27.6 [place] % (Auto) 6.3 Eos % (Auto) 2.1 Baso % (Auto) 0.7 Lymph # (Auto) 3.09 [place] # (Auto) 0.7 H Eos # (Auto) 0.2 Baso # (Auto) 0.1 Abs Immat Gran (auto) 0.04 H Absolute Neuts (auto) 7.0 H Absolute Nucleated RBC 0.000 Nucleated RBC % 0.0 PT 14.2 INR 1.1 APTT 26.5 Sodium 141 Potassium 3.2 L Chloride 98 Carbon Dioxide 31 H Anion Gap 12 BUN 25 H Creatinine 1.49 H Estim Creat Clear Calc 36 Estimated GFR 35 L Glucose 145 H POC Capillary Glucose Hemoglobin A1c 6.1 H Calcium 9.2 Magnesium 2.4 H Total Bilirubin 1.0 AST 29 ALT 28 Alkaline Phosphatase 188 H Troponin I < 0.012 < 0.012 NT-Pro-B Natriuret Pep 2050 H Total Protein 7.9 Albumin 4.6 Lipase 116 TSH (Reflex) 1.090 09/05/25 09/05/25 09/06/25 16:51 23:40 03:38 WBC 10.2 H RBC 5.24 Hgb 15.1 H D Hct 48.3 H MCV 92.2 MCH 28.8 MCHC 31.3 L RDW 16.3 H Plt Count 265 MPV 10.3 Immature Gran % (Auto) 0.4 Neut % (Auto) 60.0 Lymph % (Auto) 28.2 [place] % (Auto) 8.2 Eos % (Auto) 2.6 Baso % (Auto) 0.6 Lymph # (Auto) 2.87 [place] # (Auto) 0.8 H Eos # (Auto) 0.3 Baso # (Auto) 0.1 Abs Immat Gran (auto) 0.04 H Absolute Neuts (auto) 6.1 Absolute Nucleated RBC 0.000 Nucleated RBC % 0.0 PT INR APTT Sodium 139 Potassium 3.1 L Chloride 104 Carbon Dioxide 28 Anion Gap 7 BUN 25 H Creatinine 1.17 H Estim Creat Clear Calc 44 Estimated GFR 46 L Glucose 95 POC Capillary Glucose Hemoglobin A1c Calcium 8.4 Magnesium 2.5 H Total Bilirubin AST ALT Alkaline Phosphatase Troponin I < 0.012 < 0.012 NT-Pro-B Natriuret Pep Total Protein Albumin Lipase TSH (Reflex) 09/06/25 07:45 WBC RBC Hgb Hct MCV MCH MCHC RDW Plt Count MPV Immature Gran % (Auto) Neut % (Auto) Lymph % (Auto) [place] % (Auto) Eos % (Auto) Baso % (Auto) Lymph # (Auto) [place] # (Auto) Eos # (Auto) Baso # (Auto) Abs Immat Gran (auto) Absolute Neuts (auto) Absolute Nucleated RBC Nucleated RBC % PT INR APTT Sodium Potassium Chloride Carbon Dioxide Anion Gap BUN Creatinine Estim Creat Clear Calc Estimated GFR Glucose POC Capillary Glucose 125 H Hemoglobin A1c Calcium Magnesium Total Bilirubin AST ALT Alkaline Phosphatase Troponin I NT-Pro-B Natriuret Pep Total Protein Albumin Lipase TSH (Reflex)
[2025-09-06] MEDS: ESCITALOPRAM OXALATE 10 MG TABLET PO (08:15)
[2025-09-06] MEDS: APIXABAN 5 MG TABLET PO ×2 (08:16→20:11)
[2025-09-06] MEDS: DIGOXIN TAB 125 MCG TABLET PO ×2 (08:16→16:42)
[2025-09-06] MEDS: POTASSIUM CHLORIDE 20 MEQ ER TABLET 40 MEQ PO (08:16)
[2025-09-06] MEDS: ATORVASTATIN 40 MG TABLET PO (08:16)
[2025-09-06] MEDS: SOTALOL HCL 80 MG TABLET PO ×2 (08:17→20:11)
--- NOTE | 2025-09-06 10:17 | ECG_ITS ---
Test Date: 2025-09-06 10:47:29 Measurements Intervals [place] Rate: 111 P: 0 TN: 0 QRS: 85 QRSD: 82 T: 15 QT: 344 QTc: 469 Interpretive Statements ATRIAL FLUTTER/TACHYCARDIA WITH RAPID VENTRICULAR RESPONSE ST DEVIATION AND MODERATE T-WAVE ABNORMALITY, CONSIDER INFERIOR ISCHEMIA [-0.1+ mV T WAVE IN II/aVF] ABNORMAL ECG Compared to ECG 09/05/2025 23:30:21 T-wave abnormality now present Possible ischemia now present Electronically Signed On 09-06-2025 15:53:12 RESTAURANT EXPEDITOR by Awais Larson M.D.
[2025-09-06] MEDS: PERFLUTREN LIPID MICROSPHERES 1.5 ML VIAL DILUTED TO 10 ML TOTAL VOLUME IV PUSH (12:06)
--- NOTE | 2025-09-06 12:07 | IVDEFINITY ---
Prior to administration of IV Definity the patient was educated on the risks and benefits of the imaging enhancing agent including potential adverse side effects. The patient verbalized understanding. Allergies were verified. No exclusion criteria were identified and at least one of the following inclusion criteria were met: 1) physician request, 2) patient technically difficult to image (per the [place] [employer]ocardi[employer] guidelines of two or more segments not discernable within the apical view), or 3) questionable left ventricular function. ?
--- NOTE | 2025-09-06 20:02 | ECG_ITS ---
Test Date: 2025-09-06 20:09:34 Measurements Intervals [place] Rate: 71 P: 67 LA: 203 QRS: 82 QRSD: 76 T: 58 QT: 388 QTc: 423 Interpretive Statements SINUS RHYTHM WITH FREQUENT SUPRAVENTRICULAR PREMATURE COMPLEXES NONSPECIFIC ST & T-WAVE ABNORMALITY Electronically Signed On 09-06-2025 22:32:39 CASINO DUTY MANAGER by Al Ken D.O
[2025-09-06] MEDS: METOPROLOL SUCCINATE EXT REL 25 MG TABCR BY MOUTH (20:11)
--- NOTE | 2025-09-06 21:35 | ECG_ITS ---
Test Date: 2025-09-06 22:12:17 Measurements Intervals [place] Rate: 71 P: 18 NE: 192 QRS: 81 QRSD: 89 T: 29 QT: 422 QTc: 461 Interpretive Statements SINUS RHYTHM NONSPECIFIC ST & T-WAVE ABNORMALITY Electronically Signed On 09-06-2025 22:33:30 ENVIRONMENTAL MAINTENANCE WORKER by Al Ken D.O
[2025-09-07] VITALS (16 sets, daily range): BP systolic 94–124; BP diastolic 56–63; PULSE 66–76; RESP 16–20; TEMP 36.3–36.8; O2SAT 93–98
[2025-09-07 04:49] LABS: Anion Gap 7 mmol/L (4-12); Blood Urea Nitrogen 19 mg/dL (7-17); Calcium 8.6 mg/dL (8.4-10.2); Carbon Dioxide 26 mmol/L (22-30); Chloride 105 mmol/L (98-107); Estimated CRCL calculation 49 ml/min; Estimated Glomerular Filt Rate 53; Glucose 89 mg/dL (65-110); Magnesium 2.3 mg/dL (1.6-2.3); Potassium 3.7 mmol/L (3.4-5.0); Sodium 138 mmol/L (137-145)
[2025-09-07] MEDS: LEVOTHYROXINE SODIUM 112 MCG TABLET PO (06:25)
[2025-09-07] MEDS: FLUTICASONE/UMECLIDIN/VILANTER 100-62.5-25 MCG ELLIPTA 1 PUFF INHALATION (07:10)
--- NOTE | 2025-09-07 08:01 | PM.PNCARD ---
Progress Note: A&P Assessment and Plan (1) Atrial flutter with rapid ventricular response: Code(s): I48.92 - Unspecified atrial flutter Status: Acute Assessment and Plan: Back in sinus rhythm. [id number] 3. Started evening 09/05/25 Sotalol 80 mg BID as per protocol, and start Eliquis 5 mg BID. She needs 5 doses of Sotalol, so anticipate tomorrow morning discharge home. (2) Hyperlipidemia: Code(s): E78.5 - Hyperlipidemia, unspecified Status: Acute Assessment and Plan: On Atorvastatin. (3) Hypertension: Code(s): I10 - Essential (primary) hypertension Status: Acute Assessment and Plan: Stable. Subjective Date/time seen: 09/07/25 08:01 Interval history: No chest pain or sob. Exam Const: General: cooperative, healthy appearing and comfortable Orientation/consciousness: oriented to person, oriented to place and oriented to time Resp: Auscultation: clear to auscultation bilaterally, no crackles, no rales, no rhonchi and no wheezes Cardio: Rate: regular rate Rhythm: regular rhythm Heart sounds: no murmurs Peripheral pulses: dorsalis pedis present Neuro: General: oriented to person, oriented to place and oriented to time Extrem: Right lower extremity: no edema Left lower extremity: no edema Objective Data Vital Signs Vital Signs: Vital Signs - 24 hr 09/06/25 08:16 09/06/25 08:16 09/06/25 08:16 Temperature Pulse Rate 102 H 93 93 Respiratory Rate 18 18 Blood Pressure Pulse Oximetry 96 Oxygen Delivery Room Air Fraction of Inspired Oxygen 21 09/06/25 08:17 09/06/25 10:00 09/06/25 11:31 Temperature 98.2 F Pulse Rate 109 H 106 H 117 H Respiratory Rate 20 Blood Pressure 97/54 L Pulse Oximetry 96 Oxygen Delivery Fraction of Inspired Oxygen 09/06/25 12:00 09/06/25 12:00 09/06/25 14:00 Temperature Pulse Rate 139 H 89 Respiratory Rate Blood Pressure Pulse Oximetry Oxygen Delivery Room Air Fraction of Inspired Oxygen 09/06/25 16:00 09/06/25 16:00 09/06/25 16:00 Temperature 98.3 F Pulse Rate 118 H 137 H Respiratory Rate 18 Blood Pressure 109/67 Pulse Oximetry 95 Oxygen Delivery Room Air Fraction of Inspired Oxygen 09/06/25 16:42 09/06/25 18:00 09/06/25 20:00 Temperature 97.6 F Pulse Rate 91 114 H 71 Respiratory Rate 18 Blood Pressure 93/58 L Pulse Oximetry 94 Oxygen Delivery Fraction of Inspired Oxygen 09/06/25 20:00 09/06/25 20:00 09/06/25 20:11 Temperature Pulse Rate 73 81 Respiratory Rate Blood Pressure Pulse Oximetry Oxygen Delivery Room Air Fraction of Inspired Oxygen 09/06/25 20:11 09/06/25 21:58 09/06/25 23:31 Temperature Pulse Rate 82 80 Respiratory Rate Blood Pressure Pulse Oximetry Oxygen Delivery Room Air Fraction of Inspired Oxygen 09/06/25 23:52 09/07/25 00:00 09/07/25 02:00 Temperature 97.6 F Pulse Rate 71 69 75 Respiratory Rate 18 Blood Pressure 101/47 L Pulse Oximetry 96 Oxygen Delivery Fraction of Inspired Oxygen 09/07/25 03:51 09/07/25 04:00 09/07/25 04:00 Temperature 97.8 F Pulse Rate 72 69 Respiratory Rate 18 Blood Pressure 94/58 L Pulse Oximetry 93 Oxygen Delivery Room Air Fraction of Inspired Oxygen 09/07/25 06:00 09/07/25 07:11 Temperature Pulse Rate 73 Respiratory Rate Blood Pressure Pulse Oximetry 94 Oxygen Delivery Room Air Fraction of Inspired Oxygen Intake/Output Intake/Output: Intake & Output 09/04/25 09/05/25 09/06/25 09/07/25 23:59 23:59 23:59 23:59 Intake Total 1340 2120 350 Output Total 600 Balance 1340 1520 350 Meds/Results Medications: Active Medications Generic Name Dose Route Start Last Admin Trade Name Freq PRN Reason Stop Dose Admin Acetaminophen 650 mg 09/05/25 13:05 09/05/25 14:19 Acetaminophen 325 Mg Tablet PO 650 mg Q4H PRN Administration Mild Pain (1-3) or Fever Albuterol/Ipratropium 3 ml 09/05/25 18:38 Ipratropium 0.5 Mg/Albuterol Sulfate 2.5 Mg (Base) Ampul.Neb 3 Ml INHALATION Q6HRT PRN Shortness Of Breath Or Wheezing Apixaban 5 mg 09/05/25 21:00 09/06/25 20:11 Apixaban 5 Mg Tablet PO 5 mg Q12HR ARPITA Administration Atorvastatin Calcium 40 mg 09/06/25 09:00 09/06/25 08:16 Atorvastatin 40 Mg Tablet PO 40 mg DAILY ARPITA Administration Dextrose 12.5 gm 09/05/25 23:05 Dextrose 50% 25 Gm/50 Ml Syringe IV PUSH PRN PRN Hypoglycemia Protocol Diazepam 2.5 mg 09/05/25 22:50 09/05/25 23:38 Diazepam (*Crx) 2.5 Mg Tablet PO 2.5 mg DAILY PRN Administration Anxiety Escitalopram Oxalate 10 mg 09/06/25 09:00 09/06/25 08:15 Escitalopram Oxalate 10 Mg Tablet PO 10 mg DAILY ARPITA Administration Fluticasone/Umeclidinium/Vilanterol 1 puff 09/07/25 08:00 09/07/25 07:10 Fluticasone/Umeclidin/Vilanter 100-62.5-25 Mcg Ellipta INHALATION 1 puff DAILYRT ARPITA Administration Glucagon 1 mg 09/05/25 23:05 Glucagon For Inj 1 Mg Vial IM PRN PRN Hypoglycemia Protocol Glucose 15 gm 09/05/25 23:05 Glucose Oral Gel 15 Gm Of Glucse In 37.5 Gm Tube PO PRN PRN Hypoglycemia Protocol Hydrochlorothiazide 25 mg 09/06/25 09:00 09/06/25 08:17 Hydrochlorothiazide 25 Mg Tablet PO 25 mg DAILY ARPITA Administration Dextrose 1,000 mls @ 100 mls/hr 09/05/25 23:05 Dextrose 5% 1,000 Ml IVPB PRN PRN Hypoglycemia Protocol Insulin Aspart 2 - 5 units 09/06/25 08:00 09/06/25 16:27 Insulin Aspart (*Bkc) 100 Units/Ml SUB-Q Not Given TIDWM ARIPTA Protocol Levothyroxine Sodium 112 mcg 09/06/25 06:30 09/07/25 06:25 Levothyroxine Sodium 112 Mcg Tablet PO 112 mcg DAILY@0630 ARPITA Administration Perflutren Lipid Microsphere 0 ml 09/05/25 13:05 Perflutren Lipid Microspheres 1.5 Ml Vial Diluted To 10 Ml Total Volume IV PUSH 09/08/25 13:06 ONCE PRN adequate visualization Protocol Sotalol HCl 80 mg 09/05/25 21:00 09/06/25 20:11 Sotalol Hcl 80 Mg Tablet PO 80 mg Q12HR ARPITA Administration Radiology Results: ITS Impressions Chest X-Ray 09/05/25 11:09 IMPRESSION: 1. No acute cardiopulmonary findings given portable technique. Chest CTA 09/05/25 11:31 IMPRESSION: 1. No pulmonary emboli or gross acute intrathoracic abnormality. 2. 2.9 cm focal dilatation of the left pulmonary artery may represent ectatic enlargement; findings could also be associated with pulmonary arterial hypertension. Labs Labs: Laboratory Results - last 24 hr 09/06/25 09/06/25 09/06/25 11:43 15:30 20:21 Sodium Potassium Chloride Carbon Dioxide Anion Gap BUN Creatinine Estim Creat Clear Calc Estimated GFR Glucose POC Capillary Glucose 98 108 H 99 Calcium Magnesium 09/07/25 09/07/25 04:19 07:28 Sodium 138 Potassium 3.7 Chloride 105 Carbon Dioxide 26 Anion Gap 7 BUN 19 H Creatinine 1.03 H Estim Creat Clear Calc 49 Estimated GFR 53 L Glucose 89 POC Capillary Glucose 104 Calcium 8.6 Magnesium 2.3
--- NOTE | 2025-09-07 08:40 | PM.IMPN ---
Progress Note: A&P Assessment and Plan (1) Atrial flutter with rapid ventricular response: Code(s): I48.92 - Unspecified atrial flutter Status: Acute Assessment and Plan: -CTA pulmonary was negative for PE. -the patient was started on sotalol. Her heart rate is currently 120s to 130s. The patient stated she is feeling very anxious and has felt this way for the last week. She has also felt some dizziness. -the patient was started on Eliquis as well. Bertin Vasc score is 3. -her territory service representative Dr. Gordillo has been consulted. -however her blood pressure is slightly low at 97/56. -patient is also metoprolol at home. -she was also ordered for digoxin. -she denies starting any recent [id number] medication or prescription medication. -the patient's last echo was in November therefore an echo has been ordered for tomorrow. --------- sinus rhythm. [id number] 3. Started evening 09/05/25 Sotalol 80 mg BID as per protocol, and Eliquis 5 mg BID. She needs 5 doses of Sotalol, so anticipate tomorrow morning discharge home. (2) Hypertension: Code(s): I10 - Essential (primary) hypertension Status: Acute Assessment and Plan: -the patient was started on sotalol. -she is also on metoprolol at home. If her map is less than 60 hold metoprolol. (3) Acute renal failure: Code(s): N17.9 - Acute kidney failure, unspecified Status: Acute Assessment and Plan: -her creatinine is 1.49 with no recent value for comparison. -hold nephrotoxic medications such as hydrochlorothiazide. -monitor BMP daily. -her BUN is 25 with no recent labs for comparison. -her GFR is 35 again with no recent labs for comparison. (4) Hyperlipidemia: Code(s): E78.5 - Hyperlipidemia, unspecified Status: Acute Assessment and Plan: -continue with atorvastatin (5) Pre-diabetes: Code(s): R73.03 - Prediabetes Status: Acute Assessment and Plan: -the patient stated that she would allow Accu-Cheks AC and HS with sliding scale insulin. -check A1c. (6) Hypothyroidism: Onset Date: 01/27/17 Code(s): E03.9 - Hypothyroidism, unspecified Status: Acute Assessment and Plan: -her thyroid level was within normal limits. She has had a history of thyroidectomy. -continue levothyroxine. (7) Elevated brain natriuretic peptide (BNP) level: Code(s): R79.89 - Other specified abnormal findings of blood chemistry Status: Acute Assessment and Plan: -an echo has been ordered for tomorrow. Her last echo was November this year. -hold hydrochlorothiazide due to acute renal failure. -BNP 2049. -last echo 12/10/2024 Summary 1. Complete two-dimensional, color flow and Doppler transthoracic echocardiogram is performed. 2. Left ventricular chamber dimension is normal. 3. Left ventricular systolic function is normal, estimated at 65-70%. 4. There is mild concentric increased left ventricular wall thickness. 5. The left ventricular diastolic function is grade I diastolic dysfunction. 6. E/e' 8 is minimally elevated. 7. The aortic valve is not well visualized. Cannot determine number of aortic valve leaflets. 8. There is trivial pericardial effusion. (8) Depression: Code(s): F32.A - Depression, unspecified Status: Acute Assessment and Plan: -continue with Lexapro. -patient does have any suicidal ideation at this time. (9) Hypokalemia: Code(s): E87.6 - Hypokalemia Status: Acute Assessment and Plan: -she was given a supplement in the emergency room for potassium of 3.2 with a slightly elevated magnesium level. k 3.7 today Time Spent With Patient Time with patient: 25 - 35 minutes Subjective Date/time seen: 09/07/25 08:40 Interval history: 70-year-old female patient with a past medical history of COPD, diabetes, hypertension who presents to the hospital from her PCP office for concerns of SVT. Patient is seen and examined this am. She is pleasant and has no complaints. Denying chest pain, shortness breath, palpitations, nausea/vomiting, abdominal pain. Cardiology following. Anticipate discharge tomorrow am Review of Systems Review of Systems: All systems reviewed & are unremarkable except as noted in HPI and below Constitutional: Constitutional: Reports as per HPI and Reports no additional constitutional complaints Eyes: Eyes: Reports as per HPI and Reports no additional eye complaints ENT: Reports system reviewed and no additional complaints, except as documented and Reports Normal hearing present Cardiovascular: Cardiovascular: Reports no additional cardiovascular complaints Respiratory: Respiratory: Reports as per HPI and Reports no additional respiratory complaints Gastrointestinal: Gastrointestinal: Reports as per HPI and Reports no additional gastrointestinal complaints Genitourinary: Genitourinary: Reports no additional female genitourinary complaints Musculoskeletal: Musculoskeletal: Reports no additional musculoskeletal complaints Integumentary/Breasts: Skin/Breast: Reports system reviewed and no additional complaints, except as docu Neurologic: Reports system reviewed and no additional complaints, except as documented and Reports Normal hearing present Psychiatric: Psychiatric: Reports no additional psychiatric complaints and Reports as per HPI Hematologic/Lymphatic: Hematologic/Lymphatic: Reports no additional hematologic/lymphatic complaints Allergic/Immunologic: Allergic/Immunologic: Reports no additional allergic/immunologic complaints Exam Narrative: General: female in no acute respiratory distress who is nontoxic appearing, lying semi recumbent in bed. HEENT: Normocephalic. Atraumatic. Extraocular movement intact. Sclera clear and anicteric. No facial asymmetry. Chest: Lungs are clear to auscultation bilaterally. No wheezes or crackles. CV: Heart was irregularly irregular rate and rhythm. Abd: Abdomen was soft. Nontender. Nondistended. Positive bowel sounds. Ext: No clubbing, cyanosis, or edema. DP pulses bilaterally. Neuro: Patient is alert and oriented x3. Speech is clear. Const: General: cooperative, healthy appearing, comfortable, no acute distress, well developed, awake, Physically active, average body habitus and well nourished Nutritional Appearance: average body habitus and well nourished Orientation/consciousness: oriented to person, oriented to place, oriented to time and patient oriented x3 Limitations: no limitations HENMT: Head: normal to inspection, normocephalic and atraumatic Ears: hearing grossly normal bilaterally and external ears normal Eyes: General: appearance normal, both eyes and all related structures Alignment and Position: alignment normal Periorbital: periorbital findings normal Eyelids: eyelids normal EOM: EOMs intact bilaterally Neck: Neck: normal visual inspection and full ROM Chest: Chest palpation & inspection: normal inspection of the chest Resp: Effort & Inspection: normal respiratory effort Auscultation: clear to auscultation bilaterally Cardio: Palpation: normal PMI Rate: tachycardic (120-130 atrial fib flutter) Rhythm: regular rhythm Heart sounds: S1 normal heart sound present and S2 normal heart sound present Peripheral pulses: Peripheral pulses 2+ throughout GI: Inspection: normal to inspection Auscultation: normal bowel sounds Rectal Exam: deferred Skin: General skin exam: normal color Lesions: no lesions Rashes: no rashes Trauma: no lacerations or abrasions Wounds: no wounds Hair: normal Nails: normal Neuro: General: oriented to person, oriented to place, oriented to time and patient oriented x3 Cranial nerves: Yes Normal hearing present Cognition (Neuro): normal cognition Speech: normal speech Gait exam (Neuro): Normal gait present Motor exam (neuro): 5/5 motor strength present throughout Sensory Exam: normal sensation Extrem: General: normal to inspection Right upper extremity: normal to inspection and shoulder/upper arm Left upper extremity: normal to inspection and shoulder/upper arm Right lower extremity: normal to inspection Left lower extremity: normal to inspection Psych: Appearance: grossly normal Mental Status: mental status grossly normal Speech and movement: Normal speech and movement present Affect: normal affect Attitude: cooperative Thought process: Normal thought process present Insight: Good insight present (Psych) Judgement: Good judgement present (Psych) Objective Data Vital Signs Vital Signs: Vital Signs - 24 hr 09/06/25 10:00 09/06/25 11:31 09/06/25 12:00 Temperature 98.2 F Pulse Rate 106 H 117 H Respiratory Rate 20 Blood Pressure 97/54 L Pulse Oximetry 96 Oxygen Delivery Room Air 09/06/25 12:00 09/06/25 14:00 09/06/25 16:00 Temperature 98.3 F Pulse Rate 139 H 89 118 H Respiratory Rate 18 Blood Pressure 109/67 Pulse Oximetry 95 Oxygen Delivery 09/06/25 16:00 09/06/25 16:00 09/06/25 16:42 Temperature Pulse Rate 137 H 91 Respiratory Rate Blood Pressure Pulse Oximetry Oxygen Delivery Room Air 09/06/25 18:00 09/06/25 20:00 09/06/25 20:00 Temperature 97.6 F Pulse Rate 114 H 71 Respiratory Rate 18 Blood Pressure 93/58 L Pulse Oximetry 94 Oxygen Delivery Room Air 09/06/25 20:00 09/06/25 20:11 09/06/25 20:11 Temperature Pulse Rate 73 81 82 Respiratory Rate Blood Pressure Pulse Oximetry Oxygen Delivery 09/06/25 21:58 09/06/25 23:31 09/06/25 23:52 Temperature 97.6 F Pulse Rate 80 71 Respiratory Rate 18 Blood Pressure 101/47 L Pulse Oximetry 96 Oxygen Delivery Room Air 09/07/25 00:00 09/07/25 02:00 09/07/25 03:51 Temperature 97.8 F Pulse Rate 69 75 72 Respiratory Rate 18 Blood Pressure 94/58 L Pulse Oximetry 93 Oxygen Delivery 09/07/25 04:00 09/07/25 04:00 09/07/25 06:00 Temperature Pulse Rate 69 73 Respiratory Rate Blood Pressure Pulse Oximetry Oxygen Delivery Room Air 09/07/25 07:11 Temperature Pulse Rate Respiratory Rate Blood Pressure Pulse Oximetry 94 Oxygen Delivery Room Air Intake/Output Intake/Output: Intake & Output 09/04/25 09/05/25 09/06/25 09/07/25 23:59 23:59 23:59 23:59 Intake Total 1340 2120 350 Output Total 600 Balance 1340 1520 350 Meds/Results Medications: Active Medications Generic Name Dose Route Start Last Admin Trade Name Freq PRN Reason Stop Dose Admin Acetaminophen 650 mg 09/05/25 13:05 09/05/25 14:19 Acetaminophen 325 Mg Tablet PO 650 mg Q4H PRN Administration Mild Pain (1-3) or Fever Albuterol/Ipratropium 3 ml 09/05/25 18:38 Ipratropium 0.5 Mg/Albuterol Sulfate 2.5 Mg (Base) Ampul.Neb 3 Ml INHALATION Q6HRT PRN Shortness Of Breath Or Wheezing Apixaban 5 mg 09/05/25 21:00 09/06/25 20:11 Apixaban 5 Mg Tablet PO 5 mg Q12HR ARPITA Administration Atorvastatin Calcium 40 mg 09/06/25 09:00 09/06/25 08:16 Atorvastatin 40 Mg Tablet PO 40 mg DAILY ARPITA Administration Dextrose 12.5 gm 09/05/25 23:05 Dextrose 50% 25 Gm/50 Ml Syringe IV PUSH PRN PRN Hypoglycemia Protocol Diazepam 2.5 mg 09/05/25 22:50 09/05/25 23:38 Diazepam (*Crx) 2.5 Mg Tablet PO 2.5 mg DAILY PRN Administration Anxiety Escitalopram Oxalate 10 mg 09/06/25 09:00 09/06/25 08:15 Escitalopram Oxalate 10 Mg Tablet PO 10 mg DAILY ARPITA Administration Fluticasone/Umeclidinium/Vilanterol 1 puff 09/07/25 08:00 09/07/25 07:10 Fluticasone/Umeclidin/Vilanter 100-62.5-25 Mcg Ellipta INHALATION 1 puff DAILYRT ARPIAT Administration Glucagon 1 mg 09/05/25 23:05 Glucagon For Inj 1 Mg Vial IM PRN PRN Hypoglycemia Protocol Glucose 15 gm 09/05/25 23:05 Glucose Oral Gel 15 Gm Of Glucse In 37.5 Gm Tube PO PRN PRN Hypoglycemia Protocol Hydrochlorothiazide 25 mg 09/06/25 09:00 09/06/25 08:17 Hydrochlorothiazide 25 Mg Tablet PO 25 mg DAILY ARPITA Administration Dextrose 1,000 mls @ 100 mls/hr 09/05/25 23:05 Dextrose 5% 1,000 Ml IVPB PRN PRN Hypoglycemia Protocol Insulin Aspart 2 - 5 units 09/06/25 08:00 09/07/25 08:08 Insulin Aspart (*Bkc) 100 Units/Ml SUB-Q Not Given TIDWM ARPITA Protocol Levothyroxine Sodium 112 mcg 09/06/25 06:30 09/07/25 06:25 Levothyroxine Sodium 112 Mcg Tablet PO 112 mcg DAILY@0630 ARPITA Administration Perflutren Lipid Microsphere 0 ml 09/05/25 13:05 Perflutren Lipid Microspheres 1.5 Ml Vial Diluted To 10 Ml Total Volume IV PUSH 09/08/25 13:06 ONCE PRN adequate visualization Protocol Sotalol HCl 80 mg 09/05/25 21:00 09/06/25 20:11 Sotalol Hcl 80 Mg Tablet PO 80 mg Q12HR ARPITA Administration Radiology Results: ITS Impressions Chest X-Ray 09/05/25 11:09 IMPRESSION: 1. No acute cardiopulmonary findings given portable technique. Chest CTA 09/05/25 11:31 IMPRESSION: 1. No pulmonary emboli or gross acute intrathoracic abnormality. 2. 2.9 cm focal dilatation of the left pulmonary artery may represent ectatic enlargement; findings could also be associated with pulmonary arterial hypertension. Labs Labs: Laboratory Results - last 24 hr 09/06/25 09/06/25 09/06/25 11:43 15:30 20:21 Sodium Potassium Chloride Carbon Dioxide Anion Gap BUN Creatinine Estim Creat Clear Calc Estimated GFR Glucose POC Capillary Glucose 98 108 H 99 Calcium Magnesium 09/07/25 09/07/25 04:19 07:28 Sodium 138 Potassium 3.7 Chloride 105 Carbon Dioxide 26 Anion Gap 7 BUN 19 H Creatinine 1.03 H Estim Creat Clear Calc 49 Estimated GFR 53 L Glucose 89 POC Capillary Glucose 104 Calcium 8.6 Magnesium 2.3 Quality VTE Prophylaxis VTE prophylaxis: pharmacologic ordered
[2025-09-07] MEDS: ATORVASTATIN 40 MG TABLET PO (09:06)
[2025-09-07] MEDS: SOTALOL HCL 80 MG TABLET PO ×2 (09:06→20:23)
[2025-09-07] MEDS: APIXABAN 5 MG TABLET PO ×2 (09:07→20:22)
[2025-09-07] MEDS: ESCITALOPRAM OXALATE 10 MG TABLET PO (09:07)
[2025-09-07] MEDS: ACETAMINOPHEN 325 MG TABLET 650 MG PO ×2 (09:37→16:45)
--- NOTE | 2025-09-07 11:00 | ECG_ITS ---
Test Date: 2025-09-07 11:53:42 Measurements Intervals [place] Rate: 67 P: 4 NC: 198 QRS: 81 QRSD: 82 T: 64 QT: 404 QTc: 427 Interpretive Statements SINUS RHYTHM NONSPECIFIC T-WAVE ABNORMALITY ABNORMAL ECG Compared to ECG 09/06/2025 22:12:17 No significant changes Electronically Signed On 09-07-2025 17:12:10 HEAD CHOPPER by Awais Larson M.D.
--- NOTE | 2025-09-07 21:37 | ECG_ITS ---
Test Date: 2025-09-07 22:07:53 Measurements Intervals [place] Rate: 75 P: -76 NE: 156 QRS: 80 QRSD: 80 T: 56 QT: 399 QTc: 446 Interpretive Statements SINUS RHYTHM WITH OCCASIONAL PREMATURE ATRIAL CONTRACTIONS NONSPECIFIC ST & T-WAVE ABNORMALITY Compared to ECG 09/07/2025 11:53:42 T-wave abnormality still present Electronically Signed On 09-08-2025 08:35:00 DOCUMENTATION ENGINEER by Bart De Paz M.D.
--- NOTE | 2025-09-07 21:38 | PC.NURSE ---
pt's bed alarm went off upon entering room pt had legs over the bed and said i need to get out of here myself and another nurse attempted to reassure pt of where she was and why she was here. Family called to help pt relax daughter fredrick on way
[2025-09-07] MEDS: diazePAM (*CRX) 2.5 MG TABLET PO (22:17)
[2025-09-08] VITALS (7 sets, daily range): BP systolic 103–116; BP diastolic 58–65; PULSE 66–83; RESP 16–18; TEMP 36.4–36.6; O2SAT 94–96
[2025-09-08 04:39] LABS: Anion Gap 6 mmol/L (4-12); Blood Urea Nitrogen 20 mg/dL (7-17); Calcium 8.7 mg/dL (8.4-10.2); Carbon Dioxide 26 mmol/L (22-30); Chloride 105 mmol/L (98-107); Estimated CRCL calculation 52 ml/min; Estimated Glomerular Filt Rate 57; Glucose 89 mg/dL (65-110); Magnesium 2.3 mg/dL (1.6-2.3); Potassium 3.5 mmol/L (3.4-5.0); Sodium 137 mmol/L (137-145)
[2025-09-08] MEDS: LEVOTHYROXINE SODIUM 112 MCG TABLET PO (06:36)
[2025-09-08] MEDS: FLUTICASONE/UMECLIDIN/VILANTER 100-62.5-25 MCG ELLIPTA 1 PUFF INHALATION (07:25)
--- NOTE | 2025-09-08 07:44 | PM.PNCARD ---
Progress Note: A&P Assessment and Plan (1) Atrial flutter with rapid ventricular response: Code(s): I48.92 - Unspecified atrial flutter Status: Acute Assessment and Plan: Back in sinus rhythm. [id number] 3. Started evening 09/05/25 Sotalol 80 mg BID as per protocol, and start Eliquis 5 mg BID. May d/c home from cardiology standpoint and f/u with me in 2 weeks. (2) Hyperlipidemia: Code(s): E78.5 - Hyperlipidemia, unspecified Status: Acute Assessment and Plan: On Atorvastatin. (3) Hypertension: Code(s): I10 - Essential (primary) hypertension Status: Acute Assessment and Plan: Stable. Subjective Date/time seen: 09/08/25 07:44 Interval history: No chest pain or sob. Exam Const: General: cooperative, healthy appearing and comfortable Orientation/consciousness: oriented to person, oriented to place and oriented to time Resp: Auscultation: clear to auscultation bilaterally, no crackles, no rales, no rhonchi and no wheezes Cardio: Rate: regular rate Rhythm: regular rhythm Heart sounds: no murmurs Peripheral pulses: dorsalis pedis present Neuro: General: oriented to person, oriented to place and oriented to time Extrem: Right lower extremity: no edema Left lower extremity: no edema Objective Data Vital Signs Vital Signs: Vital Signs - 24 hr 09/07/25 08:00 09/07/25 08:00 09/07/25 08:00 Temperature 97.4 F L Pulse Rate 76 73 Respiratory Rate 18 Blood Pressure 116/56 L Pulse Oximetry 94 Oxygen Delivery Room Air 09/07/25 09:06 09/07/25 10:00 09/07/25 12:00 Temperature 98.3 F Pulse Rate 74 66 66 Respiratory Rate 20 Blood Pressure 124/63 Pulse Oximetry 96 Oxygen Delivery 09/07/25 12:00 09/07/25 12:00 09/07/25 14:00 Temperature Pulse Rate 68 75 Respiratory Rate Blood Pressure Pulse Oximetry Oxygen Delivery Room Air 09/07/25 16:00 09/07/25 16:00 09/07/25 16:00 Temperature 98.1 F Pulse Rate 67 67 Respiratory Rate 16 Blood Pressure 109/59 L Pulse Oximetry 94 Oxygen Delivery Room Air 09/07/25 18:00 09/07/25 20:00 09/07/25 20:00 Temperature 98 F Pulse Rate 67 69 Respiratory Rate 16 Blood Pressure 104/58 L Pulse Oximetry 98 Oxygen Delivery Room Air 09/07/25 20:00 09/07/25 20:23 09/07/25 22:00 Temperature Pulse Rate 68 76 70 Respiratory Rate Blood Pressure Pulse Oximetry Oxygen Delivery 09/08/25 00:00 09/08/25 00:00 09/08/25 00:00 Temperature 98 F Pulse Rate 72 73 Respiratory Rate 16 Blood Pressure 103/58 L Pulse Oximetry 96 Oxygen Delivery Room Air 09/08/25 02:00 09/08/25 04:00 09/08/25 04:00 Temperature 98 F Pulse Rate 66 68 Respiratory Rate 16 Blood Pressure 116/64 Pulse Oximetry 96 Oxygen Delivery Room Air 09/08/25 04:00 09/08/25 06:00 09/08/25 07:26 Temperature Pulse Rate 83 75 68 Respiratory Rate Blood Pressure Pulse Oximetry 95 Oxygen Delivery Room Air 09/08/25 07:26 Temperature Pulse Rate 68 Respiratory Rate 18 Blood Pressure Pulse Oximetry Oxygen Delivery Intake/Output Intake/Output: Intake & Output 09/05/25 09/06/25 09/07/25 09/08/25 23:59 23:59 23:59 23:59 Intake Total 1340 2120 1310 350 Output Total 600 400 Balance 1340 1520 1310 -50 Meds/Results Medications: Active Medications Generic Name Dose Route Start Last Admin Trade Name Freq PRN Reason Stop Dose Admin Acetaminophen 650 mg 09/05/25 13:05 09/07/25 16:45 Acetaminophen 325 Mg Tablet PO 650 mg Q4H PRN Administration Mild Pain (1-3) or Fever Albuterol/Ipratropium 3 ml 09/05/25 18:38 Ipratropium 0.5 Mg/Albuterol Sulfate 2.5 Mg (Base) Ampul.Neb 3 Ml INHALATION Q6HRT PRN Shortness Of Breath Or Wheezing Apixaban 5 mg 09/05/25 21:00 09/07/25 20:22 Apixaban 5 Mg Tablet PO 5 mg Q12HR ARPITA Administration Atorvastatin Calcium 40 mg 09/06/25 09:00 09/07/25 09:06 Atorvastatin 40 Mg Tablet PO 40 mg DAILY ARPITA Administration Dextrose 12.5 gm 09/05/25 23:05 Dextrose 50% 25 Gm/50 Ml Syringe IV PUSH PRN PRN Hypoglycemia Protocol Diazepam 2.5 mg 09/05/25 22:50 09/07/25 22:17 Diazepam (*Crx) 2.5 Mg Tablet PO 2.5 mg DAILY PRN Administration Anxiety Escitalopram Oxalate 10 mg 09/06/25 09:00 09/07/25 09:07 Escitalopram Oxalate 10 Mg Tablet PO 10 mg DAILY ARPITA Administration Fluticasone/Umeclidinium/Vilanterol 1 puff 09/07/25 08:00 09/08/25 07:25 Fluticasone/Umeclidin/Vilanter 100-62.5-25 Mcg Ellipta INHALATION 1 puff DAILYRT ARPITA Administration Glucagon 1 mg 09/05/25 23:05 Glucagon For Inj 1 Mg Vial IM PRN PRN Hypoglycemia Protocol Glucose 15 gm 09/05/25 23:05 Glucose Oral Gel 15 Gm Of Glucse In 37.5 Gm Tube PO PRN PRN Hypoglycemia Protocol Hydrochlorothiazide 25 mg 09/06/25 09:00 09/07/25 09:07 Hydrochlorothiazide 25 Mg Tablet PO 25 mg DAILY ARPITA Administration Dextrose 1,000 mls @ 100 mls/hr 09/05/25 23:05 Dextrose 5% 1,000 Ml IVPB PRN PRN Hypoglycemia Protocol Insulin Aspart 2 - 5 units 09/06/25 08:00 09/07/25 16:38 Insulin Aspart (*Bkc) 100 Units/Ml SUB-Q Not Given TIDWM ARPITA Protocol Levothyroxine Sodium 112 mcg 09/06/25 06:30 09/08/25 06:36 Levothyroxine Sodium 112 Mcg Tablet PO 112 mcg DAILY@0630 ARPITA Administration Perflutren Lipid Microsphere 0 ml 09/05/25 13:05 Perflutren Lipid Microspheres 1.5 Ml Vial Diluted To 10 Ml Total Volume IV PUSH 09/08/25 13:06 ONCE PRN adequate visualization Protocol Sotalol HCl 80 mg 09/05/25 21:00 09/07/25 20:23 Sotalol Hcl 80 Mg Tablet PO 80 mg Q12HR ARPITA Administration Radiology Results: ITS Impressions Chest X-Ray 09/05/25 11:09 IMPRESSION: 1. No acute cardiopulmonary findings given portable technique. Chest CTA 09/05/25 11:31 IMPRESSION: 1. No pulmonary emboli or gross acute intrathoracic abnormality. 2. 2.9 cm focal dilatation of the left pulmonary artery may represent ectatic enlargement; findings could also be associated with pulmonary arterial hypertension. Labs Labs: Laboratory Results - last 24 hr 09/07/25 09/07/25 09/07/25 11:18 15:52 20:08 Sodium Potassium Chloride Carbon Dioxide Anion Gap BUN Creatinine Estim Creat Clear Calc Estimated GFR Glucose POC Capillary Glucose 95 94 101 Calcium Magnesium 09/08/25 04:04 Sodium 137 Potassium 3.5 Chloride 105 Carbon Dioxide 26 Anion Gap 6 BUN 20 H Creatinine 0.97 Estim Creat Clear Calc 52 Estimated GFR 57 L Glucose 89 POC Capillary Glucose Calcium 8.7 Magnesium 2.3
--- NOTE | 2025-09-08 08:07 | PM.DS ---
DS: Admitting Diagnosis Discharge Date 09/08 Admitting Diagnosis palpitation DS: Discharge Diagnosis Discharge Diagnosis (1) Atrial flutter with rapid ventricular response: Code(s): I48.92 - Unspecified atrial flutter Status: Acute (2) Hypertension: Code(s): I10 - Essential (primary) hypertension Status: Acute (3) Acute renal failure: Code(s): N17.9 - Acute kidney failure, unspecified Status: Acute (4) Hyperlipidemia: Code(s): E78.5 - Hyperlipidemia, unspecified Status: Acute (5) Pre-diabetes: Code(s): R73.03 - Prediabetes Status: Acute (6) Hypothyroidism: Onset Date: 01/27/17 Code(s): E03.9 - Hypothyroidism, unspecified Status: Acute (7) Elevated brain natriuretic peptide (BNP) level: Code(s): R79.89 - Other specified abnormal findings of blood chemistry Status: Acute Assessment and Plan: (8) Depression: Code(s): F32.A - Depression, unspecified Status: Acute (9) Hypokalemia: Code(s): E87.6 - Hypokalemia Status: Acute DS: Summary Hospital Course Hospital Course: This is a 70-year-old female patient who has a history of COPD, diabetes common hypertension. The patient stated that she has been monitoring her blood pressure and heart rate for a study group for the last 1 year. The patient stated that her heart rate has been elevated every morning for the past 1 week. She stated her heart rates been in the 150s to 160s. This information was conveyed to her primary care doctor who then asked her to come in for an EKG. The patient was then sent to the ER for possible SVT. The patient stated that she feels very anxious and dizzy and lightheaded for the past week. She denies any chest pain. The patient denies any new medication or [id number] medication. She stated that she has COPD and uses her albuterol almost every day. She denies having any coronary artery disease. She did see her automotive customer experience advisor Dr. Gordillo approximately 2 weeks ago and stated that she was not to return for another 6 months. Her automotive customer experience advisor was notified today and recommended sotalol. And she was also started on Eliquis. Her initial EKG was read as atrial flutter/tachycardia with rapid ventricular response as T deviation and T-wave abnormalities consider ischemia heart rate 160. Repeat EKG was read as atrial flutter/tachycardia with rapid ventricular response heart rate 116. The patient was given Lopressor IV, potassium chloride p.o., normal saline and Eliquis in the emergency room. Her white count was noted to be 11.2. Potassium 3.2. BUN 25 and creatinine 1.49. Her estimated GFR is 35. Glucose is 145. Magnesium was high at 2.4. Troponins were negative x3. Her BNP was noted to be 2050. TSH was within normal limits. Chest CTA shows no pulmonary emboli are grossly acute intrathoracic abnormality. 2.9 cm focal dilatation of the left pulmonary artery may represent a tactic enlargement findings could also be associated with pulmonary artery hypertension. The patient is being admitted to observation status on the date of service of 09/05/2025. Cardiology was consulted on 09/05, pt was started on Sotalol 80 mg BID 09/05 pm dose as per protocol, and start Eliquis 5 mg BID. Rate control but need to monitor BP as it tends to drop. If still in atrial flutter on 3rd day then plan for CANDACE/DC cardioversion. Back in sinus rhythm. [id number] 3. No further interventions needed. May d/c home from cardiology standpoint and f/u with DR Gordillo in 2 weeks. Discussed side effects for eliquis: pt is fall and bleeding risk. Continue atorvastatin Status at Discharge Functional status at discharge: independent ambulation Overall status at discharge: patient is back to baseline Time Spent with Patient Time attestation: Total time spent providing and/or coordinating discharge services: Time spent: Greater than 30 minutes Exam Narrative: General: female in no acute respiratory distress who is nontoxic appearing, eating breakfast this morning. HEENT: Normocephalic. Atraumatic. Extraocular movement intact. Sclera clear and anicteric. No facial asymmetry. Chest: Lungs are clear to auscultation bilaterally. No wheezes or crackles. CV: Heart was irregularly irregular rate and rhythm. Abd: Abdomen was soft. Nontender. Nondistended. Positive bowel sounds. Ext: No clubbing, cyanosis, or edema. DP pulses bilaterally. Neuro: Patient is alert and oriented x3. Speech is clear. Const: General: cooperative, healthy appearing, comfortable, no acute distress, well developed, awake, Physically active, average body habitus and well nourished Nutritional Appearance: average body habitus and well nourished Orientation/consciousness: oriented to person, oriented to place, oriented to time and patient oriented x3 Limitations: no limitations HENMT: Head: normal to inspection, normocephalic and atraumatic Ears: hearing grossly normal bilaterally and external ears normal Eyes: General: appearance normal, both eyes and all related structures Alignment and Position: alignment normal Periorbital: periorbital findings normal Eyelids: eyelids normal EOM: EOMs intact bilaterally Neck: Neck: normal visual inspection and full ROM Chest: Chest palpation & inspection: normal inspection of the chest Resp: Effort & Inspection: normal respiratory effort Auscultation: clear to auscultation bilaterally Cardio: Palpation: normal PMI Rate: regular rate Rhythm: regular rhythm Heart sounds: S1 normal heart sound present and S2 normal heart sound present Peripheral pulses: Peripheral pulses 2+ throughout GI: Inspection: normal to inspection Auscultation: normal bowel sounds Rectal Exam: deferred Skin: General skin exam: normal color Lesions: no lesions Rashes: no rashes Trauma: no lacerations or abrasions Wounds: no wounds Hair: normal Nails: normal Neuro: General: oriented to person, oriented to place, oriented to time and patient oriented x3 Cranial nerves: Yes Normal hearing present Cognition (Neuro): normal cognition Speech: normal speech Gait exam (Neuro): Normal gait present Motor exam (neuro): 5/5 motor strength present throughout Sensory Exam: normal sensation Extrem: General: normal to inspection Right upper extremity: normal to inspection and shoulder/upper arm Left upper extremity: normal to inspection and shoulder/upper arm Right lower extremity: normal to inspection Left lower extremity: normal to inspection Psych: Appearance: grossly normal Mental Status: mental status grossly normal Speech and movement: Normal speech and movement present Affect: normal affect Attitude: cooperative Thought process: Normal thought process present Insight: Good insight present (Psych) Judgement: Good judgement present (Psych) DS: Data Data Completed and Pending Labs on day of discharge: Labs from last 24 hours 09/08/25 09/07/25 09/07/25 04:04 20:08 15:52 Sodium 137 Potassium 3.5 Chloride 105 Carbon Dioxide 26 Anion Gap 6 BUN 20 H Creatinine 0.97 Estim Creat Clear Calc 52 Estimated GFR 57 L Glucose 89 POC Capillary Glucose 101 94 Calcium 8.7 Magnesium 2.3 09/07/25 11:18 Sodium Potassium Chloride Carbon Dioxide Anion Gap BUN Creatinine Estim Creat Clear Calc Estimated GFR Glucose POC Capillary Glucose 95 Calcium Magnesium Discharge Plan Discharge Attending physician on discharge: Raj Diaz Consulting providers: Tyler Gordillo; Cher Sagastume Discharging Clinician: Celine Ferrer Patient Disposition: Home Activity: february shower Diet: heart healthy Discharge Instructions: You were admitted ofr palpitation and found to be in atrial flutter rhythm. Cardiology was consulted and you were started on 09/05/25 Sotalol 80 mg twice a day as well as Eliquis 5 mg twice a day. You converted to normal sinus rhythm. May discharge home from cardiology standpoint and f/u with Dr Gordillo in 2 weeks. Please watch for bleeding and change position slowly as we discussed while on eliquis. Return to ER if noticed blood in urine/stool, dizzy, chest pain and/or any palpitations. Patient Instructions: Antibiotic Form Patient Language: Czech Stand Alone Forms: General Discharge Information Follow-up/Referrals: Jason,EVELYN Puckett [Primary Care Provider, Family Practice] - 2 Weeks Tyler Gordillo DO [Physician, Cardiology] - 2 Weeks Discharge Medications: New sotalol 80 mg Tablet 80 mg PO Q12HR Qty: 90 0RF Eliquis 5 mg Tablet 5 mg PO Q12HR Qty: 90 0RF Continued albuterol sulfate 90 mcg/actuation HFA aerosol inhaler 2 inh INHALATION DIRECTED levothyroxine 112 mcg tablet 112 mcg PO .QD escitalopram oxalate 10 mg tablet 10 mg PO .QD dapagliflozin propanediol [Farxiga] 10 mg tablet 10 mg PO DAILY atorvastatin 40 mg tablet 40 mg PO DAILY Trelegy Ellipta 100-62.5-25 mcg blister with device 1 inh inhalation Q24H Ozempic 2 mg/dose (8 mg/3 mL) pen injector 2 mg subcut WEEKLY hydrochlorothiazide 25 mg tablet 25 mg PO .qday Discontinued metoprolol succinate 25 mg tablet extended release 24 hr See Rx Instructions .ROUTE .COMPLEX Qty: 30 5RF Dose Instruction: Take 1 tablet by mouth once daily Rx Instructions: Take 1 tablet by mouth once daily Date of admission: 09/06/25 08:18 Primary Care Provider: JasonPatricia Admitting Provider: Erasto Young Attending physician on admission: Erasto Young Condition: Stable Quality VTE Prophylaxis VTE prophylaxis: pharmacologic ordered Hospitalist MIPS Heart Failure (Exclusion) Patient has history of Heart Transplant or Left Ventricular Assistive Device?: No IF YES, STOP HERE Heart Failure (Qualifier) Patient has current or prior documentation of LVEF less than or equal to 40%, or mod/servere depressed LVSF?: No IF NO, STOP HERE
[2025-09-08] MEDS: APIXABAN 5 MG TABLET PO (08:45)
[2025-09-08] MEDS: SOTALOL HCL 80 MG TABLET PO (08:45)
[2025-09-08] MEDS: ATORVASTATIN 40 MG TABLET PO (08:45)
[2025-09-08] MEDS: ESCITALOPRAM OXALATE 10 MG TABLET PO (08:46)
== END 2025-09-08 10:05 | disposition home or self-care (01) | DRG 309 ==
LOC: ANHED 12:46 → ANHIMU 14:29
PROVIDERS: Emergency Medicine; Internal Medicine Cardiovascular Disease; Nurse Practitioner; Nurse Practitioner Adult Health; Admitting Provider Student in an Organized Health Care Education/Training Program; Emergency Provider Physician Assistant; PCP Physician Assistant; Visit Provider Nurse Practitioner
DX: I48.92 Unspecified atrial flutter (principal); N17.9 Acute kidney failure, unspecified; I10 Essential (primary) hypertension; E78.5 Hyperlipidemia, unspecified; R73.03 Prediabetes; E03.9 Hypothyroidism, unspecified; R79.89 Other specified abnormal findings of blood chemistry; F32.A Depression, unspecified; E87.6 Hypokalemia; J44.9 Chronic obstructive pulmonary disease, unspecified; G47.33 Obstructive sleep apnea (adult) (pediatric); E66.9 Obesity, unspecified; Z68.37 Body mass index [BMI] 37.0-37.9, adult; Z87.891 Personal history of nicotine dependence
CPT/HCPCS: 36415; 71045; 71275; 80048; 80053; 82948; 83036; 83690; 83735; 83880; 84443; 84484; 85025; 85610; 85730; 93005; 94640; 99285; A9270; C8929; G0378; J0616; J7030; Q9957; Q9967